=== PATIENT | male | born 1960 | race African-American/Black ===

== ENCOUNTER → 2016-08-24 | Outpatient (CLI) | payer OTHER ==
--- NOTE | 2016-08-24 18:48 | CONS ---
DATE OF CONSULTATION: 56 -year-old male patient who is coming in and is asking for a BiPAP machine as soon as possible, knowing that his previous machine broke approximately nine months ago, and currently he is using a loaner machine that was given to him through [facility]. He is being charged a significant amount of dollars on that loaner machine. More recently he was asked to return the loaner machine and for that reason, he came in immediately for further investigation. The patient claims that his original sleep study was done here in [facility]. Following that, he was given a BiPAP machine as the patient was unable to tolerate the CPAP treatment. Then he moved to [place] and throughout this year he was using his BiPAP regularly without any major difficulties utilizing a full face mask. As the machine broke, the patient has been having difficulties in sleep quality in general. He has been having increased snoring and hypersomnia with sleep fragmentation and chronic tiredness and sleepiness during the day. He goes to bed around midnight, and he wakes up throughout the night while off the treatment and he ultimately gets out of bed at around 10:00 p.m. He wakes up with a dry mouth. No nocturnal palpitations. No nocturnal chest pain or shortness of breath. No depression. No sleep walking. He has symptoms of chronic restless leg syndrome. His current Stowell score is at 21. He prefers to sleep on his side. His weight has been gradually going up over the years and over the past one year he has gained around 20 pounds. No history of any motor vehicle accident because of feeling sleepy or tired. PAST MEDICAL HISTORY: 1. Obstructive sleep apnea, maintained on BiPAP therapy on outpatient basis. 2. Carpal tunnel disease. 3. Degenerative arthritis. 4. Thoracic aortic aneurysm. 5. Hypertension. 6. Coronary disease. 7. Chronic obstructive pulmonary disease. 8. Chronic renal failure. 9. Hyperlipidemia. 10. Generalized anxiety disorder. 11. Obesity. 12. Diabetes mellitus. Past surgical history includes hemorrhoid surgery, arthroscopic knee surgery on the right. ALLERGIES: Drug allergies are not known. HE IS ALLERGIC TO POLLEN. HE HAS HAYFEVER AND HE IS ALLERGIC TO VARIOUS MOLD. HE IS VERY SENSITIVE ALSO TO PERFUME. Outpatient medication list includes: 1. Albuterol nebulized treatments 3 times a day as needed. 2. Xanax 1 mg as needed. 3. Aspirin 81 mg p.o. daily. 4. Coreg 25 mg twice a day. 5. Vitamin D 50,000 units once a week. 6. Cyclobenzaprine 10 mg on a p.r.n. basis. 7. Colace on a p.r.n. basis. 8. Enalapril 20 mg p.o. daily. 9. Flonase 50 mcg nasally. 10. Lasix 80 mg p.o. daily. 11. Klor-Con 20 mEq p.o. daily. 12. Lidocaine 5%. 13. Metformin 5 mg p.o. b.i.d. 14. Nitro-Dur 0.4 mg p.o. daily. 15. Datil 10/325, 1 tablet every 6 hours on a p.r.n. basis. 16. Pepcid 20 mg p.o. daily. 17. Zocor 40 mg p.o. daily. 18. Simvastatin 40 mg p.o. daily. 19. Ventolin a p.r.n. basis. SOCIAL HISTORY: Nonsmoker. No history of alcoholism. No history of IV drugs. FAMILY HISTORY: Negative for any sleep breathing disorder. REVIEW OF SYSTEMS: Twelve-point review of systems was done. Positive findings were all mentioned above in the history of present illness. His current vital signs: His blood pressure is 134/78, pulse 84, respirations 20, temperature 98.3, saturation 94% on room air. Weight is 306. Neck size 18-1/2 inches, BMI is 49.3 Stowell score is 21. GENERAL APPEARANCE: Obese, calm, comfortable. HEENT: Short neck, crowding posterior pharynx with Mallampati class IV. LUNGS: Diminished breath sounds; otherwise clear. Heart sounds are regular rate and rhythm. Normal S1/S2. No murmurs. ABDOMEN: Obese, soft, nontender. Organs cannot be palpated. EXTREMITIES: Trace edema. There is no cyanosis or clubbing at this point. IMPRESSION: 1. Symptomatic obstructive sleep apnea. The patient is in for re-evaluation with the understanding that his previous BiPAP machine had broken and he has a loaner machine that was given to him through [facility]. He was going to lose his loaner machine and he needs to be reevaluated and set up with another BiPAP machine. 2. Obesity with a body mass index of 49.3. 3. Hypersomnia. Stowell score of 21. 4. Coronary artery disease. 5. Chronic obstructive pulmonary disease. 6. Hypertension. 7. Thoracic aortic aneurysm. 8. Diabetes mellitus. 9. Chronic renal failure. 10. Generalized anxiety disorder. 11. Hyperlipidemia. PLAN: 1. Encourage weight loss. 2. Improve sleep hygiene measures. 3. Proceed with a split-night study, during which the presence and severity of sleep apnea will be confirmed and following that, the patient will be offered a CPAP/BiPAP titration and hopefully this will be enough to proceed with treatment. 4. Tight control of cardiovascular risk factors. 5. Will continue to follow and make further recommendations.
== END | disposition home or self-care (01) ==
CPT/HCPCS: 99204; 99211

== ENCOUNTER → 2016-11-02 | Outpatient (CLI) | payer OTHER ==
--- NOTE | 2016-11-02 19:13 | PN ---
56-year-old male patient diagnosed having severe SHARRON with an AHI of 50 and currently he is on a BiPAP pressure of 18/14 centimeters of water. The patient is coming in for compliancy check. He is doing great and he has seen significant amount of benefit from the BiPAP treatment. He is coming in for a compliancy check. His main complaint is leaks around the mask as the patient is using a comfort Gel blue full face mask. In fact, the compliance data shows increased leak around the mask, which is in the order of 120 L/min. However, he is very compliant. He is using his CPAP more than 4 hours 100% of the time. His average CPAP use is 7.4 hours and his AHI is down to 5.9. He is much more alert and awake during the day and he has no other new complaints for now. BP is 154/83, pulse 86, respirations 16, temperature 98.2. Weight is 311, saturation 95% on room air. GENERAL APPEARANCE: Obese, calm, comfortable. HEENT: Short neck. Crowding of posterior pharynx. There is no goiter, neck mass. LUNGS: Clear to auscultation. HEART: Sounds are regular rate and rhythm, normal S1, S2. No S3, no S4, no murmurs. ABDOMEN: Soft, nontender. No organomegaly. EXTREMITIES: No edema. No cyanosis, or clubbing. IMPRESSION: 1. Symptomatic obstructive sleep apnea, severe, with an AHI of 50, currently on a BiPAP 18/14 centimeters of water with good clinical response and compliance. 2. Leaks around the full face mask. 3. Morbid obesity. 4. Hypersomnia, improved with BiPAP therapy. 5. Gastroesophageal reflux disease. 6. Diabetes mellitus. 7. Chronic renal failure. 8. Thoracic aortic aneurysm. 9. Hypertension. 10. Chronic obstructive pulmonary disease. 11. Coronary artery disease. PLAN: 1. Continue BiPAP at the same level of pressure 18/14 centimeters of water. 2. Switch this patient to an AirFit F10 fullface mask to improve his leak and improve his compliance. 3. See me back in the office in 3 months' for re-evaluation.
== END | disposition home or self-care (01) ==
LOC: SLEEP 14:03
PROVIDERS: ATTEND Internal Medicine Critical Care Medicine
DX: G47.33 Obstructive sleep apnea (adult) (pediatric) (principal); E66.01 Morbid (severe) obesity due to excess calories; G47.10 Hypersomnia, unspecified; K21.9 Gastro-esophageal reflux disease without esophagitis; E11.9 Type 2 diabetes mellitus without complications; N18.9 Chronic kidney disease, unspecified; I71.2 Thoracic aortic aneurysm, without rupture; I10 Essential (primary) hypertension; J44.9 Chronic obstructive pulmonary disease, unspecified; I25.10 Atherosclerotic heart disease of native coronary artery without angina pectoris

== ENCOUNTER 2016-11-08 01:19 | Emergency (ER) | payer OTHER ==
[2016-11-08] MEDS ORDERED: SODIUM CHLORIDE 0.9% 500 ML IV SCH (01:45)
[2016-11-08] MEDS ORDERED: ACETAMINOPHEN TAB 500 MG TAB PO STA (01:45)
[2016-11-08 01:47] VITALS: RESP 18
--- NOTE | 2016-11-08 01:49 | ED ---
General Adult HPI - General Chief complaint: Fever Stated complaint: fever Time Seen by Provider: 11/08/16 01:33 Source: patient, family, RN notes reviewed Mode of arrival: wheelchair Limitations: no limitations - History of Present Illness Initial comments: Patient is a pleasant 56-year-old male presenting to the emergency department for fever. Onset was tonight. Patient did take Motrin around an hour ago. Patient was warm and sweaty. Patient does feel somewhat short of breath. No cough. No recent rhinorrhea. Patient has had diarrhea for the past day or so, 5 or 6 times daily. Patient does have some right knee pain and swelling which is fairly chronic for him. No calf pain. - Related Data Home Medications Medication Instructions Recorded Confirmed ALPRAZolam [Xanax] 1 mg PO TID PRN 06/26/16 11/08/16 Albuterol Inhaler [Ventolin Hfa 2 puff INHALATION RT-Q4H PRN 06/26/16 11/08/16 Inhaler] Aspirin 325 mg PO DAILY 06/26/16 11/08/16 Carvedilol 25 mg PO BID 06/26/16 11/08/16 Cyclobenzaprine [Flexeril] 10 mg PO BID PRN 06/26/16 11/08/16 Docusate [Colace] 100 mg PO DAILY PRN 06/26/16 11/08/16 Enalapril [Vasotec] 20 mg PO BID 06/26/16 11/08/16 Ergocalciferol [Vitamin D2 50,000 unit PO Q7D 06/26/16 11/08/16 (DRISDOL)] Finasteride [Proscar] 5 mg PO DAILY 06/26/16 11/08/16 Fluticasone Nasal [place] [Flonase 1 spray EA NOSTRIL BID 06/26/16 11/08/16 Nasal [place]] Furosemide [Lasix] 80 mg PO DAILY 06/26/16 11/08/16 HYDROcodone/APAP 10-325MG [Graham 1 tab PO QID PRN 06/26/16 11/08/16 10-325] Ibuprofen [Motrin] 800 mg PO TID PRN 06/26/16 11/08/16 Lidocaine 2% Gel [Xylocaine Jelly 1 applic TOPICAL DAILY PRN 11/19/16 04/03/17 2%] Potassium Chloride [K-Tab ER] 10 meq PO BID 06/26/16 11/08/16 Simvastatin [Zocor] 40 mg PO DAILY 06/26/16 11/08/16 Tamsulosin HCl [Flomax] 0.4 mg PO DAILY 06/26/16 11/08/16 metFORMIN HCL [Glucophage] 500 mg PO BID 06/26/16 11/08/16 Previous Rx's Medication Instructions Recorded Ciprofloxacin HCl [Cipro] 500 mg PO Q12HR #24 tablet 06/28/16 Fluticasone Nasal [place] [Flonase 2 spray EA NOSTRIL DAILY spr 06/29/16 Nasal [place]] Ipratropium-Albuterol Nebulize 3 ml INHALATION RT-Q2H PRN #0 06/29/16 [Duoneb 0.5 mg-3 mg/3 ml Soln] ampul.neb Ipratropium-Albuterol Nebulize 3 ml INHALATION RT-QID ampul.neb 06/29/16 [Duoneb 0.5 mg-3 mg/3 ml Soln] Allergies Allergy/AdvReac Type Severity Reaction Status Date / Time No Known Allergies Allergy Verified 11/08/16 01:27 Review of Systems ROS Statement: Those systems with pertinent positive or pertinent negative responses have been documented in the HPI. ROS Other: All systems not noted in ROS Statement are negative. Constitutional: Reports: fever, chills Eyes: Denies: eye pain ENT: Denies: ear pain Respiratory: Reports: dyspnea Cardiovascular: Denies: chest pain Endocrine: Reports: fatigue Gastrointestinal: Reports: diarrhea. Denies: abdominal pain Genitourinary: Denies: dysuria Musculoskeletal: Reports: arthralgia. Denies: back pain Skin: Denies: rash Neurological: Denies: weakness Past Medical History Past Medical History: Heart Failure, COPD, Diabetes Mellitus, Hyperlipidemia, Hypertension Additional Past Medical History / Comment(s): AAA, cardiomegaly, palpitations History of Any Multi-Drug Resistant Organisms: None Reported Past Surgical History: Orthopedic Surgery Additional Past Surgical History / Comment(s): scope knee rt. Past Anesthesia/Blood Transfusion Reactions: No Reported Reaction Past Psychological History: Anxiety, Depression Smoking Status: Former smoker Past Alcohol Use History: None Reported Past Drug Use History: None Reported - Past Family History Father Family Medical History: Cancer, Diabetes Mellitus General Exam Limitations: no limitations General appearance: alert, in no apparent distress Head exam: Present: atraumatic Eye exam: Present: normal appearance, PERRL ENT exam: Present: normal oropharynx Neck exam: Present: normal inspection. Absent: meningismus Respiratory exam: Present: normal lung sounds bilaterally. Absent: respiratory distress, wheezes, rales Cardiovascular Exam: Present: regular rate, normal rhythm GI/Abdominal exam: Present: soft. Absent: distended, tenderness Extremities exam: Present: other (Right knee with postoperative scars. No erythema. No warmth. Mild tenderness is present. Possible small effusion. Left knee also has possible small effusion.). Absent: pedal edema, calf tenderness Neurological exam: Present: alert Psychiatric exam: Present: normal affect, normal mood Skin exam: Absent: rash, erythema Course Vital Signs 11/08/16 11/08/16 11/08/16 01:23 02:04 02:33 Temperature 100.2 F H 99.0 F Pulse Rate 87 83 Respiratory 18 18 18 Rate Blood Pressure 117/71 129/73 O2 Sat by Pulse 96 99 Oximetry EKG Findings - EKG Comments: EKG Findings:: Normal sinus rhythm at 85. First-degree AV block GA of 204. QRS 100. QT 364. QTC 433. Left axis. Incomplete right bundle-branch block. LVH. No acute ST change. Medical Decision Making - Medical Decision Making Patient reexamined and resting comfortably in bed. Patient feels much better and is symptom-free at this time. Etiology of fever is unknown at this time. Patient and are made aware of this. Patient states his knee discomfort and symptoms are the same as they always are, no change from baseline. Patient is made aware that etiology of fever is likely viral or related to the diarrhea however other sources cannot be completely excluded at this time. Patient is made aware of although unlikely cannot completely rule out early infection of the knee. Patient is offered arthrocentesis however declines and does request discharge. - Lab Data Result diagrams: 11/08/16 01:30 11/08/16 01:30 Lab Results 11/08/16 11/08/16 11/08/16 Range/Units 01:30 01:30 01:30 WBC 5.8 (3.8-10.6) k/uL RBC 5.09 (4.30-5.90) m/uL Hgb 14.6 (13.0-17.5) gm/dL Hct 45.0 (39.0-53.0) % MCV 88.3 (80.0-100.0) fL MCH 28.6 (25.0-35.0) pg MCHC 32.4 (31.0-37.0) g/dL RDW 14.8 (11.5-15.5) % Plt Count 218 (150-450) k/uL Neutrophils % 69 % Lymphocytes % 14 % Monocytes % 10 % Eosinophils % 4 % Basophils % 0 % Neutrophils # 4.0 (1.3-7.7) k/uL Lymphocytes # 0.8 L (1.0-4.8) k/uL Monocytes # 0.6 (0-1.0) k/uL Eosinophils # 0.2 (0-0.7) k/uL Basophils # 0.0 (0-0.2) k/uL PT (9.0-12.0) sec INR (<1.1) APTT (22.0-30.0) sec Sodium 137 (137-145) mmol/L Potassium 4.2 (3.5-5.1) mmol/L Chloride 101 (98-107) mmol/L Carbon Dioxide 24 (22-30) mmol/L Anion Gap 12 mmol/L BUN 18 (9-20) mg/dL Creatinine 0.90 (0.66-1.25) mg/dL Est GFR (MDRD) Af Amer >60 (>60 ml/min/1.73 sqM) Est GFR (MDRD) Non-Af >60 (>60 ml/min/1.73 sqM) Glucose 112 H (74-99) mg/dL Plasma Lactic Acid Song (0.7-2.0) mmol/L Calcium 9.3 (8.4-10.2) mg/dL Total Bilirubin 0.5 (0.2-1.3) mg/dL AST 40 (17-59) U/L ALT 45 (21-72) U/L Alkaline Phosphatase 58 (38-126) U/L Total Protein 7.5 (6.3-8.2) g/dL Albumin 4.1 (3.5-5.0) g/dL Influenza Type A RNA Not Detected (Not Detectd) Influenza Type B (PCR) Not Detected (Not Detectd) 11/08/16 11/08/16 Range/Units 01:30 01:30 WBC (3.8-10.6) k/uL RBC (4.30-5.90) m/uL Hgb (13.0-17.5) gm/dL Hct (39.0-53.0) % MCV (80.0-100.0) fL MCH (25.0-35.0) pg MCHC (31.0-37.0) g/dL RDW (11.5-15.5) % Plt Count (150-450) k/uL Neutrophils % % Lymphocytes % % Monocytes % % Eosinophils % % Basophils % % Neutrophils # (1.3-7.7) k/uL Lymphocytes # (1.0-4.8) k/uL Monocytes # (0-1.0) k/uL Eosinophils # (0-0.7) k/uL Basophils # (0-0.2) k/uL PT 11.2 (9.0-12.0) sec INR 1.1 (<1.1) APTT 26.6 (22.0-30.0) sec Sodium (137-145) mmol/L Potassium (3.5-5.1) mmol/L Chloride (98-107) mmol/L Carbon Dioxide (22-30) mmol/L Anion Gap mmol/L BUN (9-20) mg/dL Creatinine (0.66-1.25) mg/dL Est GFR (MDRD) Af Amer (>60 ml/min/1.73 sqM) Est GFR (MDRD) Non-Af (>60 ml/min/1.73 sqM) Glucose (74-99) mg/dL Plasma Lactic Acid Song 1.5 (0.7-2.0) mmol/L Calcium (8.4-10.2) mg/dL Total Bilirubin (0.2-1.3) mg/dL AST (17-59) U/L ALT (21-72) U/L Alkaline Phosphatase (38-126) U/L Total Protein (6.3-8.2) g/dL Albumin (3.5-5.0) g/dL Influenza Type A RNA (Not Detectd) Influenza Type B (PCR) (Not Detectd) - Radiology Data Radiology results: image reviewed (X-ray of the right knee shows marked tricompartment degenerative changes. Effusion is present with loose bodies. Chest x-ray shows no acute abnormality.) Disposition Clinical Impression: Fever Disposition: HOME SELF-CARE Condition: Stable Instructions: Fever in Adults (ED) Additional Instructions: Please follow-up with your doctor tomorrow. Return for uncontrolled fever, shortness of breath, knee or joint swelling or redness or warmth or increased pain, worsening symptoms or any other concerns. [id number] Tylenol or Motrin as needed. Referrals: Nonstaff,Physician [Primary Care Provider] - 1-2 days
[2016-11-08 02:03] LABS: Basophils % (A) 0 %; CH 28.1; Eosinophils # (A) 0.2 k/uL (0-0.7); Eosinophils % (A) 4 %; HDW 2.38; HGB 14.6 gm/dL (13.0-17.5); Luc # (Auto) 0.21; Luc % (Auto) 4; Lymphocytes # (A) 0.8 k/uL (1.0-4.8); Lymphocytes % (A) 14 %; MCH 28.6 pg (25.0-35.0); MCHC 32.4 g/dL (31.0-37.0); MCV 88.3 fL (80.0-100.0); Mean Platelet Volume 7.7; Monocytes # (A) 0.6 k/uL (0-1.0); Monocytes % (A) 10 %; Neutrophils % (A) 69 %; RBC 5.09 m/uL (4.30-5.90); RDW 14.8 % (11.5-15.5); WBC 5.8 k/uL (3.8-10.6); WBC (Perox) 6.14
[2016-11-08 02:14] LABS: ALT 45 U/L (21-72); AST 40 U/L (17-59); Alkaline Phosphatase 58 U/L (38-126); Anion Gap 12 mmol/L; Blood Urea Nitrogen 18 mg/dL (9-20); Calcium 9.3 mg/dL (8.4-10.2); Carbon Dioxide 24 mmol/L (22-30); Chloride 101 mmol/L (98-107); Glucose 112 mg/dL (74-99); Non-African American GFR(MDRD) >60 (>60 ml/min/1.73 sqM); Potassium 4.2 mmol/L (3.5-5.1); Sodium 137 mmol/L (137-145); Total Bilirubin 0.5 mg/dL (0.2-1.3); Total Protein 7.5 g/dL (6.3-8.2)
[2016-11-08 02:18] LABS: INR 1.1 (<1.1); Partial Thromboplastin Time 26.6 sec (22.0-30.0); Prothrombin Time 11.2 sec (9.0-12.0)
--- NOTE | 2016-11-08 02:31 | XR ---
EXAM: XR Chest, 2 Views. CLINICAL HISTORY: Reason: Fever TECHNIQUE: Frontal and lateral views of the chest. COMPARISON: Chest x-ray dated 06/26/2016 FINDINGS: Lungs: Prominence of the interstitium likely secondary to low lung volumes. Pleural space: Unremarkable. No pneumothorax. Heart: Unremarkable. No cardiomegaly. Mediastinum: Unremarkable. Bones/joints: Degenerative changes of the spine. Vasculature: Tortuosity of the thoracic aorta, which is unchanged. Prominence of the pulmonary vasculature. IMPRESSION: No acute findings.
--- NOTE | 2016-11-08 02:40 | XR ---
EXAM: XR Right Knee, 3 views. CLINICAL HISTORY: Pain TECHNIQUE: Three views of the right knee. COMPARISON: No relevant prior studies available. FINDINGS: Bones/joints: Marked tricompartment degenerative changes. No evidence of fracture or malalignment. Moderate-sized joint effusion with loose bodies noted. Small quadraceps enthesophyte. Soft tissues: Mild soft tissue swelling about the anterior knee, which is nonspecific. IMPRESSION: 1. Marked tricompartment degenerative changes. No evidence of fracture or malalignment. 2. Moderate-sized joint effusion with loose bodies noted.
--- NOTE | 2016-11-08 03:35 | ED ---
Medical Decision Making - Medical Decision Making Patient now would like synovial fluid testing done and is agreeable to procedure. Procedure done without complications. Sent to lab for analysis. Patient again reevaluated and remains symptom free. Still no shortness of breath. Patient updated on arthrocentesis results. - Lab Data Result diagrams: 11/08/16 01:30 11/08/16 01:30 Lab Results 11/08/16 11/08/16 11/08/16 Range/Units 01:30 01:30 01:30 WBC 5.8 (3.8-10.6) k/uL RBC 5.09 (4.30-5.90) m/uL Hgb 14.6 (13.0-17.5) gm/dL Hct 45.0 (39.0-53.0) % MCV 88.3 (80.0-100.0) fL MCH 28.6 (25.0-35.0) pg MCHC 32.4 (31.0-37.0) g/dL RDW 14.8 (11.5-15.5) % Plt Count 218 (150-450) k/uL Neutrophils % 69 % Lymphocytes % 14 % Monocytes % 10 % Eosinophils % 4 % Basophils % 0 % Neutrophils # 4.0 (1.3-7.7) k/uL Lymphocytes # 0.8 L (1.0-4.8) k/uL Monocytes # 0.6 (0-1.0) k/uL Eosinophils # 0.2 (0-0.7) k/uL Basophils # 0.0 (0-0.2) k/uL PT (9.0-12.0) sec INR (<1.1) APTT (22.0-30.0) sec Sodium 137 (137-145) mmol/L Potassium 4.2 (3.5-5.1) mmol/L Chloride 101 (98-107) mmol/L Carbon Dioxide 24 (22-30) mmol/L Anion Gap 12 mmol/L BUN 18 (9-20) mg/dL Creatinine 0.90 (0.66-1.25) mg/dL Est GFR (MDRD) Af Amer >60 (>60 ml/min/1.73 sqM) Est GFR (MDRD) Non-Af >60 (>60 ml/min/1.73 sqM) Glucose 112 H (74-99) mg/dL Plasma Lactic Acid Song (0.7-2.0) mmol/L Calcium 9.3 (8.4-10.2) mg/dL Total Bilirubin 0.5 (0.2-1.3) mg/dL AST 40 (17-59) U/L ALT 45 (21-72) U/L Alkaline Phosphatase 58 (38-126) U/L Total Protein 7.5 (6.3-8.2) g/dL Albumin 4.1 (3.5-5.0) g/dL Urine Color Urine Appearance (Clear) Urine pH (5.0-8.0) Ur Specific Lockhart (1.001-1.035) Urine Protein (Negative) Urine Glucose (UA) (Negative) Urine Ketones (Negative) Urine Blood (Negative) Urine Nitrite (Negative) Urine Bilirubin (Negative) Urine Urobilinogen (<2.0) mg/dL Ur Leukocyte Esterase (Negative) Urine RBC (0-5) /hpf Urine WBC (0-5) /hpf Urine Mucus (None) /hpf Fluid Source Fluid Color Fluid Appearance Fluid RBC /uL Fluid Nucleated Cells /uL Fluid Polynuclear WBCs % Fluid Mononuclear WBCs % Influenza Type A RNA Not Detected (Not Detectd) Influenza Type B (PCR) Not Detected (Not Detectd) 11/08/16 11/08/16 11/08/16 Range/Units 01:30 01:30 03:35 WBC (3.8-10.6) k/uL RBC (4.30-5.90) m/uL Hgb (13.0-17.5) gm/dL Hct (39.0-53.0) % MCV (80.0-100.0) fL MCH (25.0-35.0) pg MCHC (31.0-37.0) g/dL RDW (11.5-15.5) % Plt Count (150-450) k/uL Neutrophils % % Lymphocytes % % Monocytes % % Eosinophils % % Basophils % % Neutrophils # (1.3-7.7) k/uL Lymphocytes # (1.0-4.8) k/uL Monocytes # (0-1.0) k/uL Eosinophils # (0-0.7) k/uL Basophils # (0-0.2) k/uL PT 11.2 (9.0-12.0) sec INR 1.1 (<1.1) APTT 26.6 (22.0-30.0) sec Sodium (137-145) mmol/L Potassium (3.5-5.1) mmol/L Chloride (98-107) mmol/L Carbon Dioxide (22-30) mmol/L Anion Gap mmol/L BUN (9-20) mg/dL Creatinine (0.66-1.25) mg/dL Est GFR (MDRD) Af Amer (>60 ml/min/1.73 sqM) Est GFR (MDRD) Non-Af (>60 ml/min/1.73 sqM) Glucose (74-99) mg/dL Plasma Lactic Acid Song 1.5 (0.7-2.0) mmol/L Calcium (8.4-10.2) mg/dL Total Bilirubin (0.2-1.3) mg/dL AST (17-59) U/L ALT (21-72) U/L Alkaline Phosphatase (38-126) U/L Total Protein (6.3-8.2) g/dL Albumin (3.5-5.0) g/dL Urine Color Urine Appearance (Clear) Urine pH (5.0-8.0) Ur Specific [place] (1.001-1.035) Urine Protein (Negative) Urine Glucose (UA) (Negative) Urine Ketones (Negative) Urine Blood (Negative) Urine Nitrite (Negative) Urine Bilirubin (Negative) Urine Urobilinogen (<2.0) mg/dL Ur Leukocyte Esterase (Negative) Urine RBC (0-5) /hpf Urine WBC (0-5) /hpf Urine Mucus (None) /hpf Fluid Source Synovial Fluid Color Red Fluid Appearance [place] [address] /uL Fluid Nucleated Cells 300 /uL Fluid Polynuclear WBCs 85 % Fluid Mononuclear WBCs 15 % Influenza Type A RNA (Not Detectd) Influenza Type B (PCR) (Not Detectd) 11/08/16 Range/Units 03:49 WBC (3.8-10.6) k/uL RBC (4.30-5.90) m/uL Hgb (13.0-17.5) gm/dL Hct (39.0-53.0) % MCV (80.0-100.0) fL MCH (25.0-35.0) pg MCHC (31.0-37.0) g/dL RDW (11.5-15.5) % Plt Count (150-450) k/uL Neutrophils % % Lymphocytes % % Monocytes % % Eosinophils % % Basophils % % Neutrophils # (1.3-7.7) k/uL Lymphocytes # (1.0-4.8) k/uL Monocytes # (0-1.0) k/uL Eosinophils # (0-0.7) k/uL Basophils # (0-0.2) k/uL PT (9.0-12.0) sec INR (<1.1) APTT (22.0-30.0) sec Sodium (137-145) mmol/L Potassium (3.5-5.1) mmol/L Chloride (98-107) mmol/L Carbon Dioxide (22-30) mmol/L Anion Gap mmol/L BUN (9-20) mg/dL Creatinine (0.66-1.25) mg/dL Est GFR (MDRD) Af Amer (>60 ml/min/1.73 sqM) Est GFR (MDRD) Non-Af (>60 ml/min/1.73 sqM) Glucose (74-99) mg/dL Plasma Lactic Acid Song (0.7-2.0) mmol/L Calcium (8.4-10.2) mg/dL Total Bilirubin (0.2-1.3) mg/dL AST (17-59) U/L ALT (21-72) U/L Alkaline Phosphatase (38-126) U/L Total Protein (6.3-8.2) g/dL Albumin (3.5-5.0) g/dL Urine Color Yellow Urine Appearance Clear (Clear) Urine pH 5.5 (5.0-8.0) Ur Specific [place] 1.032 (1.001-1.035) Urine Protein 1+ H (Negative) Urine Glucose (UA) Negative (Negative) Urine Ketones Negative (Negative) Urine Blood Negative (Negative) Urine Nitrite Negative (Negative) Urine Bilirubin Negative (Negative) Urine Urobilinogen 2.0 (<2.0) mg/dL Ur Leukocyte Esterase Negative (Negative) Urine RBC 1 (0-5) /hpf Urine WBC 2 (0-5) /hpf Urine Mucus Many H (None) /hpf Fluid Source Fluid Color Fluid Appearance Fluid RBC /uL Fluid Nucleated Cells /uL Fluid Polynuclear WBCs % Fluid Mononuclear WBCs % Influenza Type A RNA (Not Detectd) Influenza Type B (PCR) (Not Detectd) Disposition Clinical Impression: Fever Disposition: HOME SELF-CARE Condition: Stable Instructions: Fever in Adults (ED) Additional Instructions: Please follow-up with your doctor tomorrow. Return for uncontrolled fever, shortness of breath, knee or joint swelling or redness or warmth or increased pain, worsening symptoms or any other concerns. [id number] Tylenol or Motrin as needed. Referrals: Nonstaff,Physician [Primary Care Provider] - 1-2 days Procedures - Joint Aspiration/Injection Consent Obtained: verbal consent Time Out Performed: Yes Indications: R/O septic arthritis Side of Body: right Joint Aspirated: knee Skin Prep: Povidone-Iodine1% Local Anesthesia Used: Lidocaine 1% Needle Size Used: 18G Syringe Size Used: 20cc Fluid Obtained: bloody (Some blood associated) Patient Tolerated Procedure: well Complications: none
[2016-11-08 04:04] LABS: Appearance,Urine Clear (Clear); Bilirubin,Urine Negative (Negative); Glucose,Urine (UA) Negative (Negative); Ketones,Urine Negative (Negative); Leukocyte Esterase,Urine Negative (Negative); Mucus,Urine Many /hpf; Nitrite,Urine Negative (Negative); PH, Urine 5.5 (5.0-8.0); Particle Count 19172; Protein,Urine 1+ (Negative); RBC,Urine 1 /hpf (0-5); Specific Gravity,Urine 1.032 (1.001-1.035); UA Billing (MACRO vs. MICRO) MICRO; WBC,Urine 2 /hpf (0-5)
[2016-11-08] MEDS ORDERED: MORPHINE SULFATE 4 MG/ML SYRINGE IVP STA (04:13)
[2016-11-08 04:32] LABS: RBC, Body Fluid 53375 /uL
[2016-11-08 05:50] VITALS: BP 128/78; PULSE 78; TEMP 97.7
[2016-11-08 07:34] LABS: Synovial Crystal Source Right Knee
== END 2016-11-08 05:51 | disposition home or self-care (01) ==
LOC: EC 01:19
DX: M17.11 Unilateral primary osteoarthritis, right knee (principal); J44.9 Chronic obstructive pulmonary disease, unspecified; E11.9 Type 2 diabetes mellitus without complications; E78.5 Hyperlipidemia, unspecified; I10 Essential (primary) hypertension; I50.9 Heart failure, unspecified; Z87.891 Personal history of nicotine dependence; Z79.82 Long term (current) use of aspirin; Z79.899 Other long term (current) drug therapy; Z79.84 Long term (current) use of oral hypoglycemic drugs; Z86.79 Personal history of other diseases of the circulatory system
CPT/HCPCS: 36415; 93005; 89060; 80053; 89050; 83605; 85025; 85610; 85730; 81001; 87040; 87070; 87086; 87205; 87502; 71020; 73562; 99284; 20610; 96374; 96361 ×4; J2270; 82945; 84157

== ENCOUNTER 2016-12-17 17:46 | Emergency (ER) | payer OTHER ==
[2016-12-17 18:14] VITALS: TEMP 97.8
--- NOTE | 2016-12-17 18:48 | ED ---
Recheck HPI - General Chief Complaint: Recheck/Abnormal Lab/Rx Stated Complaint: HYPERTENSION Time Seen by Provider: 12/17/16 18:20 Source: patient, RN notes reviewed, old records reviewed Mode of arrival: ambulatory Limitations: no limitations - History of Present Illness Initial Comments: This is a 56 year old male with chief complaint of elevated blood pressure for one month, he takes his BP everyday and it has been measuring 150/116, but today it was worse and was 176/116. Patient states that he also has chronic right knee pain, denies any fever or chills. Patient states that he is occasionally short of breath. States that he takes lasix, enalapril and carvedilol for blood pressure and that he has been taking it regularly. States that he has been eating more fast food. Denies any chest pain, abdominal pain, anusea, vomiting, headache. - Related Data Home Medications Medication Instructions Recorded Confirmed ALPRAZolam [Xanax] 1 mg PO TID PRN 06/26/16 12/17/16 Albuterol Inhaler [Ventolin Hfa 2 puff INHALATION RT-Q4H PRN 06/26/16 12/17/16 Inhaler] Aspirin 325 mg PO DAILY 06/26/16 12/17/16 Carvedilol 25 mg PO BID 06/26/16 12/17/16 Cyclobenzaprine [Flexeril] 10 mg PO BID PRN 06/26/16 12/17/16 Docusate [Colace] 100 mg PO DAILY PRN 06/26/16 12/17/16 Enalapril [Vasotec] 20 mg PO BID 06/26/16 12/17/16 Ergocalciferol [Vitamin D2 50,000 unit PO MO 06/26/16 12/17/16 (DRISDOL)] Finasteride [Proscar] 5 mg PO DAILY 06/26/16 12/17/16 Fluticasone Nasal Hunt [Flonase 1 spray EA NOSTRIL BID 06/26/16 12/17/16 Nasal Hunt] Furosemide [Lasix] 80 mg PO DAILY 06/26/16 12/17/16 HYDROcodone/APAP 10-325MG [[place] 1 tab PO QID PRN 06/26/16 12/17/16 10-325] Ibuprofen [Motrin] 800 mg PO TID PRN 06/26/16 12/17/16 Lidocaine 2% Gel [Xylocaine Jelly 1 applic TOPICAL DAILY PRN 06/26/16 12/17/16 2%] Simvastatin [Zocor] 40 mg PO DAILY 06/26/16 12/17/16 Tamsulosin HCl [Flomax] 0.4 mg PO DAILY 06/26/16 12/17/16 metFORMIN HCL [Glucophage] 500 mg PO DAILY 06/26/16 12/17/16 Potassium Chloride [Klor-Con 20] 20 meq PO DAILY 12/17/16 12/17/16 Previous Rx's Medication Instructions Recorded Ipratropium-Albuterol Nebulize 3 ml INHALATION RT-QID ampul.neb 06/29/16 [Duoneb 0.5 mg-3 mg/3 ml Soln] Allergies Allergy/AdvReac Type Severity Reaction Status Date / Time No Known Allergies Allergy Verified 12/17/16 18:59 Review of Systems ROS Statement: Those systems with pertinent positive or pertinent negative responses have been documented in the HPI. ROS Other: All systems not noted in ROS Statement are negative. Past Medical History Past Medical History: Heart Failure, COPD, Diabetes Mellitus, Hyperlipidemia, Hypertension Additional Past Medical History / Comment(s): AAA, cardiomegaly, palpitations History of Any Multi-Drug Resistant Organisms: None Reported Past Surgical History: Orthopedic Surgery Additional Past Surgical History / Comment(s): scope knee rt. Past Anesthesia/Blood Transfusion Reactions: No Reported Reaction Past Psychological History: Anxiety, Depression Smoking Status: Former smoker Past Alcohol Use History: None Reported Past Drug Use History: None Reported - Past Family History Father Family Medical History: Cancer, Diabetes Mellitus General Exam - General Exam Comments Initial Comments: Well appearing 56 year old male, no distress. Limitations: no limitations General appearance: alert, in no apparent distress Head exam: Present: atraumatic, normocephalic, normal inspection Eye exam: Present: normal appearance, PERRL, EOMI. Absent: scleral icterus, conjunctival injection, periorbital swelling ENT exam: Present: normal exam, mucous membranes moist Neck exam: Present: normal inspection. Absent: tenderness, meningismus, lymphadenopathy Respiratory exam: Present: normal lung sounds bilaterally. Absent: respiratory distress, wheezes, rales, rhonchi, stridor Cardiovascular Exam: Present: regular rate, normal rhythm, normal heart sounds. Absent: systolic murmur, diastolic murmur, rubs, gallop, clicks GI/Abdominal exam: Present: soft, normal bowel sounds. Absent: distended, tenderness, guarding, rebound, rigid Extremities exam: Present: normal inspection, full ROM, normal capillary refill. Absent: tenderness, pedal edema, joint swelling, calf tenderness Back exam: Present: normal inspection Neurological exam: Present: alert, oriented X3, CN II-XII intact Psychiatric exam: Present: normal affect, normal mood Skin exam: Present: warm, dry, intact, normal color. Absent: rash Course Vital Signs 12/17/16 12/17/16 18:11 22:01 Temperature 97.8 F Pulse Rate 87 78 Respiratory 20 18 Rate Blood Pressure 177/89 134/65 O2 Sat by Pulse 97 98 Oximetry Medical Decision Making - Medical Decision Making This is a 56 year old male with chief complaint of elevated blood pressure for one month, he takes his BP everyday and it has been measuring 150/116, but today it was worse and was 176/116. Patient states that he also has chronic right knee pain, denies any fever or chills. Patient states that he is occasionally short of breath. States that he takes lasix, enalapril and carvedilol for blood pressure and that he has been taking it regularly. States that he has been eating more fast food. Denies any chest pain, abdominal pain, anusea, vomiting, headache. Labs were reviewed and patient BP was 140/86 on examination. Labs are negative, EKG shows no siginficant changes, and patient denies any symptoms. Discussed that patient blood pressure is in an acetable range, that patient should check his blood pressure before drinking coffee in the morning. PAtient agrees to treatment plan and will comply. Patient will see Dr. Sanford in regards to further treatment. REturn prameters discussed. - Lab Data Result diagrams: 12/17/16 19:29 12/17/16 19:29 Lab Results 12/17/16 12/17/16 12/17/16 Range/Units 19:29 19:29 19:29 WBC 6.9 (3.8-10.6) k/uL RBC 5.38 (4.30-5.90) m/uL Hgb 15.0 (13.0-17.5) gm/dL Hct 47.1 (39.0-53.0) % MCV 87.5 (80.0-100.0) fL MCH 27.9 (25.0-35.0) pg MCHC 31.8 (31.0-37.0) g/dL RDW 14.5 (11.5-15.5) % Plt Count 231 (150-450) k/uL Neutrophils % 56 % Lymphocytes % 30 % Monocytes % 6 % Eosinophils % 3 % Basophils % 1 % Neutrophils # 3.9 (1.3-7.7) k/uL Lymphocytes # 2.1 (1.0-4.8) k/uL Monocytes # 0.4 (0-1.0) k/uL Eosinophils # 0.2 (0-0.7) k/uL Basophils # 0.1 (0-0.2) k/uL Sodium 135 L (137-145) mmol/L Potassium 4.6 (3.5-5.1) mmol/L Chloride 97 L (98-107) mmol/L Carbon Dioxide 27 (22-30) mmol/L Anion Gap 11 mmol/L BUN 17 (9-20) mg/dL Creatinine 0.95 (0.66-1.25) mg/dL Est GFR (MDRD) Af Amer >60 (>60 ml/min/1.73 sqM) Est GFR (MDRD) Non-Af >60 (>60 ml/min/1.73 sqM) Glucose 141 H (74-99) mg/dL Calcium 9.8 (8.4-10.2) mg/dL Total Bilirubin 0.4 (0.2-1.3) mg/dL AST 50 (17-59) U/L ALT 40 (21-72) U/L Alkaline Phosphatase 68 (38-126) U/L Troponin I 0.020 (0.000-0.034) ng/mL Total Protein 7.6 (6.3-8.2) g/dL Albumin 4.3 (3.5-5.0) g/dL 12/17/16 21:25 EKG shows sinus rhythm with first-degree AV block. Evidence of otitis deviation. Ventricular rate 73 per minute. LA interval to 10. Care stretching and 6 seconds. QT QTC 378/4:30. No evidence of ST elevation or T- wave inversion. No evidence of atrial or ventricular arrhythmias. - Radiology Data Radiology results: report reviewed CXR negative for any acute process. Disposition Clinical Impression: Episode of hypertension Disposition: HOME SELF-CARE Condition: Good Instructions: Hypertension (ED) Additional Instructions: Patient advised to check blood pressure in the morning before drinking coffee. Patient advised to follow-up with her primary care physician in regards to medication changes. Return to emergency department if any alarming signs or symptoms occur. Referrals: Dorinda Sanford MD [Primary Care Provider] - 1-2 days Time of Disposition: 21:24
--- NOTE | 2016-12-17 20:01 | XR ---
EXAMINATION TYPE: XR chest 2V DATE OF EXAM: 12/17/2016 7:42 PM COMPARISON: 11/08/2016 HISTORY: Hypertension TECHNIQUE: Frontal and lateral views of the chest are obtained. FINDINGS: There is no heart failure nor confluent pneumonic infiltrate. There are no hilar masses. C ostophrenic angles are clear. Thoracic aorta is atheromatous. IMPRESSION: No active cardiopulmonary disease. No change.
[2016-12-17 20:38] LABS: Basophils # (A) 0.1 k/uL (0-0.2); Basophils % (A) 1 %; CH 28.7; Eosinophils # (A) 0.2 k/uL (0-0.7); Eosinophils % (A) 3 %; HCT 47.1 % (39.0-53.0); HDW 2.45; Luc # (Auto) 0.27; Luc % (Auto) 4; Lymphocytes # (A) 2.1 k/uL (1.0-4.8); Lymphocytes % (A) 30 %; MCH 27.9 pg (25.0-35.0); MCHC 31.8 g/dL (31.0-37.0); MCV 87.5 fL (80.0-100.0); Mean Platelet Volume 7.4; Monocytes # (A) 0.4 k/uL (0-1.0); Monocytes % (A) 6 %; Neutrophils # (A) 3.9 k/uL (1.3-7.7); Neutrophils % (A) 56 %; RBC 5.38 m/uL (4.30-5.90); RDW 14.5 % (11.5-15.5); WBC 6.9 k/uL (3.8-10.6); WBC (Perox) 6.17
[2016-12-17 20:48] LABS: ALT 40 U/L (21-72); AST 50 U/L (17-59); Alkaline Phosphatase 68 U/L (38-126); Anion Gap 11 mmol/L; Blood Urea Nitrogen 17 mg/dL (9-20); Calcium 9.8 mg/dL (8.4-10.2); Carbon Dioxide 27 mmol/L (22-30); Chloride 97 mmol/L (98-107); Glucose 141 mg/dL (74-99); Non-African American GFR(MDRD) >60 (>60 ml/min/1.73 sqM); Potassium 4.6 mmol/L (3.5-5.1); Sodium 135 mmol/L (137-145); Total Bilirubin 0.4 mg/dL (0.2-1.3); Total Protein 7.6 g/dL (6.3-8.2)
[2016-12-17 22:01] VITALS: BP 134/65; PULSE 78; RESP 18
== END 2016-12-17 21:30 | disposition home or self-care (01) ==
LOC: EC 17:46
DX: I10 Essential (primary) hypertension (principal); R06.02 Shortness of breath; M25.561 Pain in right knee; G89.29 Other chronic pain; E11.9 Type 2 diabetes mellitus without complications; E78.5 Hyperlipidemia, unspecified; I11.0 Hypertensive heart disease with heart failure; I50.9 Heart failure, unspecified; J44.9 Chronic obstructive pulmonary disease, unspecified; F32.9 Major depressive disorder, single episode, unspecified; F41.9 Anxiety disorder, unspecified; Z87.891 Personal history of nicotine dependence; Z79.84 Long term (current) use of oral hypoglycemic drugs; Z79.82 Long term (current) use of aspirin; Z79.899 Other long term (current) drug therapy; Z79.51 Long term (current) use of inhaled steroids
CPT/HCPCS: 36415; 71020; 80053; 84484; 85025; 93005; 99284

== ENCOUNTER → 2017-02-01 | Outpatient (CLI) | payer OTHER ==
--- NOTE | 2017-02-04 13:45 | PN ---
A 56-year-old -[place] male patient coming in for CPAP compliancy follow up and check. The patient was diagnosed as having severe SHARRON with AHI of 5. I gave him BiPAP at pressure of 18/14 cm of water. During his last evaluation he was found to have significant amount of air leaks around his mask and he was switched from a Simplus mask to an AirFit F10 full-face mask. His leak has improved; however, he is still having considerable amount of leak, which is estimated to be around 100 L/min. Despite this his treatment is successful. His AHI is down to 5 while on treatment.He is averaging around 6.5 hours of BiPAP use every night and his BiPAP use more than 4 hours is 28 out of 30. He is waking up alert and awake and refreshed. He is having arthritic pain in his right knee. He is ultimately going to need a pulmonary clearance knowing that he is contemplating surgery at a later stage. He will be seen by [facility]. He wanted also a pulmonary evaluation and for that reason I asked the patient to present to the Pulmonary Clinic. His primary care physician is in [place], [place] and he has not established himself with anybody here in town. BP is 119/80, pulse 82, respirations 16, temperature 98, saturation 95% on room air. Height is 5 foot 6, weight 314. Wingate score is 2 and BMI is 49.9. GENERAL APPEARANCE: Obese, calm, comfortable. HEENT: Short neck, Mallampati class IV. There is no goiter or neck masses. LUNGS: Diminished, otherwise clear. HEART: Sounds are regular rate and rhythm. No S1, S2. ABDOMEN: Soft, nontender. No organomegaly. EXTREMITIES: No edema or cyanosis or clubbing. IMPRESSION: 1. Symptomatic obstructive sleep apnea, AHI of 5 currently on BiPAP of 18/14 cm of water. 2. Improving CPAP compliance. 3. Ongoing leaks while being on AirFit F10 full face mask although the leak factor is improved. 4. Morbid obesity with body mass index of 49.9. 5. Thoracic aortic aneurysm. 6. Chronic renal failure. 7. Diabetes mellitus. 8. Gastroesophageal reflux disease. 9. Hypertension. 10. Chronic obstructive pulmonary disease. 11. Coronary artery disease. PLAN: 1. Continue BiPAP at the same level of pressure. 2. Despite the increased leak the patient is happy with the AirFit F10 and no change in his mask interface to be done. 3. Treatment is successful in terms of his AHI being less than 5 while on treatment and the patient will see me back in the Pulmonary Clinic for a preop pulmonary evaluation and clearance should he undergo a knee surgery. Will continue to follow. LESLIE
== END | disposition home or self-care (01) ==
LOC: SLEEP 13:41
PROVIDERS: ATTEND Internal Medicine Critical Care Medicine
DX: G47.33 Obstructive sleep apnea (adult) (pediatric) (principal); E66.01 Morbid (severe) obesity due to excess calories; Z68.42 Body mass index [BMI] 45.0-49.9, adult

== ENCOUNTER → 2017-02-15 | Outpatient (CLI) | payer OTHER ==
[2017-02-15 10:42] LABS: Appearance,Urine Clear (Clear); Bilirubin,Urine Negative (Negative); Glucose,Urine (UA) Negative (Negative); Ketones,Urine Negative (Negative); Leukocyte Esterase,Urine Negative (Negative); Nitrite,Urine Negative (Negative); PH, Urine 6.5 (5.0-8.0); Protein,Urine Trace (Negative); Specific Gravity,Urine 1.026 (1.001-1.035); UA Billing (MACRO vs. MICRO) CHEM
[2017-02-15 10:43] LABS: CH 28.6; CHCM 32.1; HCT 43.7 % (39.0-53.0); HDW 2.39; HGB 14.3 gm/dL (13.0-17.5); MCH 29.3 pg (25.0-35.0); MCHC 32.7 g/dL (31.0-37.0); MCV 89.5 fL (80.0-100.0); Mean Platelet Volume 7.9; RBC 4.88 m/uL (4.30-5.90); RDW 14.7 % (11.5-15.5); WBC 4.7 k/uL (3.8-10.6)
[2017-02-15 10:53] LABS: Prothrombin Time 10.4 sec (9.0-12.0)
[2017-02-15 11:02] LABS: ALT 55 U/L (21-72); AST 42 U/L (17-59); Alkaline Phosphatase 60 U/L (38-126); Anion Gap 9 mmol/L; Blood Urea Nitrogen 15 mg/dL (9-20); Calcium 9.4 mg/dL (8.4-10.2); Carbon Dioxide 31 mmol/L (22-30); Chloride 100 mmol/L (98-107); Glucose 97 mg/dL (74-99); Non-African American GFR(MDRD) >60 (>60 ml/min/1.73 sqM); Potassium 4.8 mmol/L (3.5-5.1); Sodium 140 mmol/L (137-145); Total Bilirubin 0.5 mg/dL (0.2-1.3); Total Protein 7.3 g/dL (6.3-8.2)
== END | disposition home or self-care (01) ==
LOC: LABPAT 10:29
PROVIDERS: ATTEND Orthopaedic Surgery
DX: Z01.810 Encounter for preprocedural cardiovascular examination (principal); Z01.812 Encounter for preprocedural laboratory examination
CPT/HCPCS: 80053; 81003; 85027; 85610; 85730; 87070; 93005

== ENCOUNTER → 2017-02-15 | Outpatient (CLI) | payer OTHER ==
--- NOTE | 2017-02-15 14:13 | CT ---
EXAMINATION TYPE: CT angio chest DATE OF EXAM: 02/15/2017 COMPARISON: 10/08/2013 HISTORY: 56-year-old male follow-up Ascending thoracic aneurysm TECHNIQUE: Contiguous axial scanning of the chest performed without and with IV Contrast, patient inj ected with 100 ml mL of Visipaque 320. The scan was repeated after initial failure of 100 mL Omnipaqu e 300 IV contrast due to uncontrolled patient breathing. Coronal/sagittal MIP performed. 3-D reconstr uctions generated on a dedicated independent workstation. CT DLP: 3437.90 mGycm Automated exposure control for dose reduction was used. FINDINGS: The heart is normal size without pericardial effusion. There is no evidence for acute intramural hematoma or aortic dissection. Ascending aorta measures 4.3 cm versus 4.5 cm on 10/08/2013. Mild atherosclerotic arch calcifications with variant direct takeoff of the left vertebral artery dir ectly from the aortic arch. Upper descending thoracic aorta measures 2.9 cm. Lower descending thoracic aorta measures 2.4 cm. Some calcified right hilar lymph nodes compatible with prior granulomatous disease. No thoracic lymph adenopathy by CT size criteria. Some minimal strandy atelectasis/scarring in the lower lungs. Calcified granuloma at the right apex a nd is stable noncalcified 6 mm pulmonary nodule at the right midlung. Stability from 2013 is compatib le with a benign etiology. Small to moderate-sized hernia. Visualized upper abdomen shows a tiny splenule. Bones: Endplate spondylosis mid to lower thoracic spine. Some bridging changes compatible with DISH. IMPRESSION: 1. STABLE ASCENDING AORTIC ANEURYSM AT 4.3 CM. 2. PRIOR GRANULOMATOUS DISEASE. A 6 MM NONCALCIFIED RIGHT MIDLUNG PULMONARY NODULE IS ALSO STABLE AND BENIGN. 3. SMALL TO MODERATE SIZED HIATAL HERNIA AND DISH.
== END | disposition home or self-care (01) ==
LOC: RADCTMAIN 09:40
PROVIDERS: ATTEND Thoracic Surgery (Cardiothoracic Vascular Surgery)
DX: I71.2 Thoracic aortic aneurysm, without rupture (principal); D71 Functional disorders of polymorphonuclear neutrophils; R91.1 Solitary pulmonary nodule
CPT/HCPCS: 71275; 36415; Q9967

== ENCOUNTER 2017-03-15 14:15 | Inpatient (IN) | payer OTHER ==
[2017-03-08 13:27] VITALS: BMI 48.0
[2017-05-10] MEDS ORDERED: ACETAMINOPHEN TAB 500 MG TAB PO ONE (05:00)
[2017-05-10] MEDS ORDERED: TRANEXAMIC ACID 1,000 MG in SODIUM CHLORIDE 0.9% 100 ML IVPB ONE ×4 (05:00)
[2017-05-10] MEDS ORDERED: MELOXICAM 7.5 MG TAB PO ONE (05:00)
[2017-05-10] MEDS ORDERED: ceFAZolin 3 GM in SODIUM CHLORIDE 0.9% 100 ML IVPB ONE (05:00)
[2017-05-10] MEDS ORDERED: ONDANSETRON 4 MG/2 ML VIAL IVP ONE (05:25)
[2017-05-10] MEDS ORDERED: HYDROmorphone 0.5 MG/0.5 ML SYRINGE IVP PRN ×2 (05:25→11:38)
[2017-05-10] MEDS ORDERED: DEXAMETHASONE SOD PHOSPHATE 10 MG/ML 1 ML VIAL IV ONE (05:25)
[2017-05-10] MEDS ORDERED: MIDAZOLAM 2 MG/2 ML VIAL IV PRN (05:25)
[2017-05-10] MEDS ORDERED: LIDOCAINE 1% 20 ML VIAL (10MG/ML) FOR IV START INTRADERMA ONE (10:45)
[2017-05-10] MEDS: LACTATED RINGERS 1,000 ML IV SCH (10:45)
[2017-05-10 10:53] LABS: Glucose,Whole Blood 106 mg/dL (75-99)
[2017-05-10 11:10] LABS: Potassium 4.8 mmol/L (3.5-5.1)
[2017-05-10] MEDS ORDERED: MAGNESIUM HYDROXIDE 2,400 MG/10 ML CUP PO PRN (11:38)
[2017-05-10] MEDS ORDERED: BISACODYL 10 MG SUPP RECTAL PRN (11:38)
[2017-05-10] MEDS ORDERED: HYDROcodone/APAP 7.5-325MG 1 EACH TAB PO PRN (11:38)
[2017-05-10] MEDS ORDERED: DIAZEPAM 5 MG TAB PO PRN ×2 (11:38)
[2017-05-10] MEDS ORDERED: NALOXONE 0.4 MG/ML 1 ML VIAL IV PRN (11:38)
[2017-05-10] MEDS ORDERED: NA PHOS,M-B/NA PHOS,DI-BA 133 ML ENEMA RECTAL PRN (11:38)
[2017-05-10] MEDS ORDERED: ONDANSETRON 4 MG/2 ML VIAL IVP PRN (11:38)
[2017-05-10] MEDS ORDERED: SODIUM CHLORIDE 0.9% 1,000 ML IV SCH (11:45)
[2017-05-10] MEDS ORDERED: TRANEXAMIC ACID 1,000 MG/10 ML VIAL ONE (11:52)
[2017-05-10] MEDS ORDERED: fentaNYL (PF) 50 MCG/ML 2 ML AMP ONE (11:52)
[2017-05-10] MEDS ORDERED: PHENYLEPHRINE-0.9% NACL SYG 1 MG/10 ML SYRINGE ONE (11:52)
[2017-05-10] MEDS ORDERED: SODIUM CHLORIDE 0.9% 100 ML BAG ONE (11:52)
[2017-05-10] MEDS ORDERED: MIDAZOLAM 2 MG/2 ML VIAL ONE (11:52)
[2017-05-10] MEDS ORDERED: KETAMINE 10 MG/ML 20 ML VIAL ONE (11:52)
[2017-05-10] MEDS: ROPIVACAINE 246.25 MG, EPINEPHrine 0.5 MG, KETOROLAC 30 MG, cloNIDine HCL/PF 80 MCG, WA... MISCELLANE ONE ×10 (12:29→13:16)
[2017-05-10] MEDS ORDERED: ceFAZolin 3,000 MG in SODIUM CHLORIDE 0.9% IRRIGATIO 3,000 ML IRRIGATION ONE (12:30)
--- NOTE | 2017-05-10 13:27 | P.ONQ ---
Anesthesiology Proc Note - PNB - Peripheral Nerve Block Performed Right Adductor Canal Single Time Out Performed: Yes Procedure Start Time: 10:55 Indication: Acute Post-Operative Pain, Requested by physician Sedation Type: Sedate with meaningful contact maintained Preparation: Sterile Dressing Position: Supine Needle Size: 100mm (4") Needle Gauge: 21 Technique: Ultrasound Injectate: 0.5% Ropivacaine (see comment for volume) (ropi .5% 20cc used) Blood Aspirated: No Pain Paresthesia on Injection Noted: No Resistance on Injection: Normal Events: Uneventful and Well Tolerated
--- NOTE | 2017-05-10 14:00 | P.OP ---
Date of Procedure: 05/10/17 Preoperative Diagnosis: Severe osteoarthritis right knee Postoperative Diagnosis: Severe osteoarthritis right knee Procedure(s) Performed: Right total knee arthroplasty Implants: Welch and Nephew Oxinium femoral component size 6, right Welch & Nephew Katelyn II right nonporous tibial baseplate size 4 Welch & Nephew size 9 mm Legion XLPE dished articular insert, size 3-4 Welch & Nephew Katelyn II resurfacing patellar component, 32 mm All components were cemented using Kitty bone cement.. The articulation is ceramic on polyethylene. Anesthesia: spinal Surgeon: Gigi Heller Yarn Texture Machine Operator #1: Ambika Mishra Estimated Blood Loss (ml): 50 Pathology: other (Bone and cartilage) Condition: stable Disposition: PACU Indications for Procedure: After failure of conservative treatment we discussed the surgical and nonsurgical treatment options at length. Patient wishes to proceed with a total knee arthroplasty. Complications specific to this procedure were discussed at length, including but not limited to infection, bleeding, stiffness , and nerve injury. Patient is aware of all these complications and informed consent was obtained Operative Findings: The operative findings are consistent with severe osteoarthritis of the right knee Description of Procedure: Patient was seen in the preoperative area consent was reviewed and operative site was marked with a skin marker. Patient was then brought to the operating room and given preoperative antibiotics intravenously. A spinal anesthetic was administered by the anesthesia department. A tourniquet was placed on the upper thigh and the lower extremity was prepped and draped in usual sterile fashion. A gram of transexamic acid was given. A universal timeout was then performed which confirmed the patient's name, surgical site, ALLERGIES, and consent. The lower extremity was then exsanguinated and tourniquet was inflated to 350 mmHg. A standard and anterior midline approach to the knee was performed. The skin and subcutaneous tissue was dissected down to the patellar tendon. A medial parapatellar arthrotomy was then performed. The knee was then extended, the patellar was everted, and the knee was again flexed. Anterior horns of both menisci were excised, and a release was performed to the posterior medial aspect of the knee. On gross visual inspection, there was complete loss of articular cartilage in the medial and patellofemoral joint spaces. There was also significant cartilage damage in the lateral compartment. There were multiple periarticular osteophytes which were then removed with a Ronguer. The femoral canal was then opened with the appropriate drill, and the intramedullary femoral cutting guide was then placed and set for 4 of valgus. The distal femoral cutting block was then pinned in place, and the distal femur was then cut. The cutting block was then removed and the cut was checked for flatness. Next, the sizing guide was then placed and set for 3 external rotation based off of the epicondylar axis and Whitesides line. After the femur was sized, the appropriate 4-in-1 cutting block was then pinned in place. The anterior condyles were cut without notching. The posterior and chamfer cuts were performed while protecting the collateral ligaments. The cutting block was then removed, and the femoral canal was plugged with autologous bone. Attention was then directed to the tibia. The remaining ACL was removed with a Ronguer, and the tibia was then gently subluxed forward with a large bent knee retractor. Any remaining menisci was excised. The posterior lateral corner was cauterized in order to cauterize the lateral geniculate artery. The extra medullary tibial cutting guide was then placed, set for the appropriate rotation , slope, and depth of resection. The proximal tibia cutting guide was then pinned in place. Proximal tibia was then cut and sized. Next trials were then placed with the appropriate-sized insert. The knee was able to fully extend and flex to 130 and was stable throughout all range of motion. The knee was then extended, patella everted. Patella was then measured, and then using an osteotomy guide, the patella was cut at the appropriate level. The patella was then measured and drilled and the patella trial was then placed. The knee was then taken through range of motion with the patella trial and the patella tracked normally. The knee was then extended patella trial was then removed and the patella was everted. Knee was then flexed and lug holes were drilled through the femoral trial and the femoral trial was then removed. The tibial was then exposed, and the tibial broach guide was then pinned in place after it was set for the appropriate rotation to allow for the most coverage without overhang. The tibia was then reamed and broached. The cut surfaces of bone were then irrigated with pulsatile lavage. The posterior structures were injected with the ropivacaine solution. The knee was also irrigated with Irrisept solution. The components were then opened, the cement was mixed, and the components were then cemented in place. The cement was allowed to harden with the knee in full extension. While the cement was hardening, the remaining soft tissues were then injected with a ropivacaine solution, which consisted of 246.25 mg of ropivacaine, 0.5 mg of epinephrine, 30 mg of Toradol, 80 g of clonidine, and 48.45 mL of sterile water, for a total of 100 mL of fluid injected. After the cemented hardened. The tourniquet was released, and hemostasis was obtained. A second gram of transexamic acid was given. The knee was again irrigated. The knee was again taken through range of motion and found to be stable throughout all range of motion of 0-130 , and the patella tracked normally. The fascia was then closed with #2 strata fix suture. The subcutaneous tissue was closed with 3-0 Vicryl and 3-0 strata fix. Dermabond was used for the skin and placed with the knee in flexion. The patient was placed in a sterile aquacell dressing. Patient was then transferred to recovery room in stable condition. The bar assistant CAROLYN Boggs was required due the complexity surgery and the need for a skilled executive sales assistant. She assisted in positioning, draping, retraction, and closure of the wound.
--- NOTE | 2017-05-10 14:27 | XR ---
Right knee limited HISTORY: Postop right knee 2 views of the right knee correlated to prior exam dated 11/08/2016 Patient is status post right knee arthroplasty. There is anatomic alignment. Lucency in the soft tiss ues is likely postoperative. Possible small joint effusion. IMPRESSION: Orthopedic follow-up.
[2017-05-10 14:29] LABS: Glucose,Whole Blood 123 mg/dL (75-99)
[2017-05-10] MEDS ORDERED: NITROGLYCERIN SL TABS 0.4 MG TAB SUBLINGUAL PRN (15:06)
[2017-05-10] MEDS ORDERED: DOCUSATE 100 MG CAP PO PRN (15:06)
[2017-05-10] MEDS ORDERED: ALPRAZolam 0.5 MG TAB PO PRN (15:06)
[2017-05-10] MEDS ORDERED: MELATONIN 5 MG TABLET PO PRN (15:06)
--- NOTE | 2017-05-10 16:19 | P.CONS ---
History of Present Illness - Reason for Consult management of hypertension, congestive heart failure. - History of Present Illness patient is admitted for right knee arthroplasty patient's x-ray underwent surgery as I'm immediate postoperative period patient was drowsy although patient denied any shortness of breath, chest pain, nausea, vomiting, abdominal pain. And the patient has multiple other medical problems his appropriate medications were reconciled. Patient post surgery did not pass gas yet. Review of Systems REVIEW OF SYSTEMS: CONSTITUTIONAL: No fever, no malaise, no fatigue. HEENT: No recent visual problems or hearing problems. Denied any sore throat. CARDIOVASCULAR: No chest pain, orthopnea, PND, no palpitations, no syncope. PULMONARY: No shortness of breath, no cough, no hemoptysis. GASTROINTESTINAL: No diarrhea, no nausea, no vomiting, no abdominal pain. Normoactive bowel sounds. NEUROLOGICAL: No headaches, no weakness, no numbness. HEMATOLOGICAL: Denies any bleeding or petechiae. GENITOURINARY: Denies any burning micturition, frequency, or urgency. MUSCULOSKELETAL/RHEUMATOLOGICAL: Denies any joint pain, swelling, or any muscle pain. ENDOCRINE: Denies any polyuria or polydipsia. The rest of the 14-point review of systems is negative. Past Medical History Past Medical History: Heart Failure, COPD, Diabetes Mellitus, GERD/Reflux, Hyperlipidemia, Hypertension, Osteoarthritis (OA), Prostate Disorder, Sleep Apnea/CPAP/BIPAP Additional Past Medical History / Comment(s): ASCENDING THORACIC ANEURYSM, Palpitations, "LEAKY VALVE." USES BI PAP MACHINE, CONSTIPATION. EDEMA ANKLES. History of Any Multi-Drug Resistant Organisms: None Reported Past Surgical History: Orthopedic Surgery Additional Past Surgical History / Comment(s): ARTHROSCOPIC RIGHT KNEE - EXC GLASS, HEMORRHOIDECTOMY. COLONOSCOPY. Past Anesthesia/Blood Transfusion Reactions: Previous Problems w/ Anesthesia Additional Past Anesthesia/Blood Transfusion Reaction / Comm: AWAKE DURING SURGERY, IN PAIN. Smoking Status: Former smoker - Past Family History Father Family Medical History: Cancer, Diabetes Mellitus Mother Family Medical History: Cancer Medications and Allergies Home Medications Medication Instructions Recorded Confirmed Type ALPRAZolam [Xanax] 1 mg PO TID PRN 06/26/16 05/09/17 History Albuterol Inhaler [Ventolin Hfa 2 puff INHALATION RT-Q4H PRN 06/26/16 05/09/17 History Inhaler] Carvedilol 25 mg PO BID 06/26/16 05/09/17 History Cyclobenzaprine [Flexeril] 10 mg PO BID PRN 06/26/16 05/09/17 History Docusate [Colace] 100 mg PO DAILY PRN 06/26/16 05/09/17 History Enalapril [Vasotec] 20 mg PO BID 06/26/16 05/09/17 History Ergocalciferol [Vitamin D2 50,000 unit PO MO 06/26/16 05/09/17 History (DRISDOL)] Fluticasone Nasal [place] [Flonase 1 spray EA NOSTRIL BID 06/26/16 05/09/17 History Nasal [place]] Furosemide [Lasix] 80 mg PO DAILY 06/26/16 05/09/17 History HYDROcodone/APAP 10-325MG [[place] 1 tab PO QID PRN 06/26/16 05/09/17 History 10-325] Ibuprofen [Motrin] 800 mg PO TID PRN 06/26/16 05/09/17 History Lidocaine 2% Gel [Xylocaine Jelly 1 applic TOPICAL DAILY PRN 06/26/16 05/09/17 History 2%] Simvastatin [Zocor] 40 mg PO HS 06/26/16 05/09/17 History Tamsulosin HCl [Flomax] 0.4 mg PO DAILY 06/26/16 05/09/17 History metFORMIN HCL [Glucophage] 500 mg PO DAILY 06/26/16 05/09/17 History Ipratropium-Albuterol Nebulize 3 ml INHALATION RT-QID ampul.neb 06/29/16 Rx [Duoneb 0.5 mg-3 mg/3 ml Soln] Potassium Chloride [Klor-Con 20] 20 meq PO DAILY 12/17/16 05/09/17 History Nitroglycerin Sl Tabs [Nitrostat] 0.4 mg SUBLINGUAL Q5M PRN 03/08/17 05/09/17 History Melatonin 5 mg PO HS 05/06/17 05/09/17 History Albuterol Nebulized [Ventolin 2.5 mg INHALATION RT-Q4H PRN 05/09/17 05/10/17 History Nebulized] Cholecalciferol [Vitamin D3] 5,000 unit PO DAILY 05/09/17 05/09/17 History Nitroglycerin [Nitro-Dur 0.4MG/Hr 1 patch TRANSDERM DAILY 05/09/17 05/09/17 History Patch] Aspirin [Adult Low Dose Aspirin EC] 81 mg PO DAILY 05/10/17 05/10/17 History Allergies Allergy/AdvReac Type Severity Reaction Status Date / Time No Known Allergies Allergy Verified 05/10/17 15:42 Physical Exam Vitals: Vital Signs Temp Pulse Pulse Resp BP BP Pulse Ox 05/10/17 15:21 98 F 80 14 126/73 100 05/10/17 14:49 83 16 110/58 99 05/10/17 14:34 81 16 115/58 94 L 05/10/17 14:19 76 16 115/56 96 05/10/17 14:04 97.6 F 75 21 110/57 95 05/10/17 11:10 74 16 133/75 97 05/10/17 10:45 98.7 F 77 16 151/76 98 Intake and Output 05/10/17 05/10/17 05/10/17 06:59 14:59 22:59 Intake Total 901 Output Total 50 Balance 851 Intake: IV 901 Output: Estimated Blood Loss 50 Other: Weight 143.335 kg Patient Weight 05/11/17 06:59 Weight 143.335 kg PHYSICAL EXAMINATION: GENERAL: The patient is alert and oriented x3, not in any acute distress. Well developed, well nourished. HEENT: Pupils are round and equally reacting to light. EOMI. No scleral icterus. No conjunctival pallor. Normocephalic, atraumatic. No pharyngeal erythema. No thyromegaly. CARDIOVASCULAR: S1 and S2 present. No murmurs, rubs, or gallops. PULMONARY: Chest is clear to auscultation, no wheezing or crackles. ABDOMEN: Soft, nontender, nondistended, normoactive bowel sounds. No palpable organomegaly. MUSCULOSKELETAL: deferred to orthopedic surgery EXTREMITIES: No cyanosis, clubbing, or pedal edema. NEUROLOGICAL: Gross neurological examination did not reveal any focal deficits. SKIN: No rashes. Results CBC & Chem 7: 05/10/17 10:40 Labs: Abnormal Lab Results - Last 24 Hours (Table) 05/10/17 05/10/17 Range/Units 10:36 14:19 POC Glucose (mg/dL) 106 H 123 H (75-99) mg/dL Assessment and Plan Plan: #1status post right knee arthroplasty: Pain management and DVT prophylaxis per primary service. #2 congestive heart failure I do not know the ejection fraction but patient is UL of acute this point of time patient may have diastolic dysfunction continue with home dose of Lasix as his kidney function is okay. #3 hypertension: Hold off lisinopril to prevent perioperative hypotension: Regular discontinued. 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 #10 sleep apnea: Patient will continue his CPAP machine
[2017-05-10] MEDS: IPRATROPIUM-ALBUTEROL 3 ML NEB INHALATION SCH ×2 (17:03→21:43)
[2017-05-10] MEDS: ceFAZolin 3 GM in SODIUM CHLORIDE 0.9% 100 ML IVPB SCH (19:48)
[2017-05-10] MEDS: ASPIRIN 325 MG TAB PO SCH (19:49)
[2017-05-10] MEDS: ATORVASTATIN 20 MG TAB PO SCH (19:49)
[2017-05-10] MEDS: SENNOSIDES-DOCUSATE SODIUM 1 EACH TAB PO SCH (19:49)
[2017-05-10] MEDS: CARVEDILOL 12.5 MG TAB PO SCH (19:49)
[2017-05-10] MEDS: HYDROcodone/APAP 7.5-325MG 1 EACH TAB PO PRN (19:49)
[2017-05-11] MEDS: hydrOXYzine PAMOATE 25 MG CAP PO PRN ×4 (00:48→21:45)
[2017-05-11] MEDS: ceFAZolin 3 GM in SODIUM CHLORIDE 0.9% 100 ML IVPB SCH (03:33)
[2017-05-11] MEDS: HYDROcodone/APAP 7.5-325MG 1 EACH TAB PO PRN ×4 (05:07→21:45)
[2017-05-11] MEDS: LACTATED RINGERS 1,000 ML IV SCH (05:42)
[2017-05-11 07:03] LABS: Basophils % (A) 0 %; CH 29.3; CHCM 31.5; Eosinophils % (A) 0 %; HCT 41.8 % (39.0-53.0); HDW 2.35; HGB 12.9 gm/dL (13.0-17.5); Luc # (Auto) 0.19; Luc % (Auto) 2; Lymphocytes # (A) 1.5 k/uL (1.0-4.8); Lymphocytes % (A) 14 %; MCH 28.9 pg (25.0-35.0); MCHC 30.9 g/dL (31.0-37.0); MCV 93.6 fL (80.0-100.0); Mean Platelet Volume 8.7; Monocytes # (A) 0.9 k/uL (0-1.0); Monocytes % (A) 8 %; Neutrophils # (A) 8.5 k/uL (1.3-7.7); Neutrophils % (A) 77 %; RBC 4.47 m/uL (4.30-5.90); RDW 14.8 % (11.5-15.5); WBC 11.1 k/uL (3.8-10.6)
[2017-05-11] MEDS: IPRATROPIUM-ALBUTEROL 3 ML NEB INHALATION SCH ×4 (07:20→20:10)
[2017-05-11] MEDS ORDERED: CYCLOBENZAPRINE 10 MG TAB PO PRN (08:40)
--- NOTE | 2017-05-11 08:43 | P.PN ---
Subjective Progress Note Date: 05/11/17 This 57-year-old male who is status post right total knee arthroplasty. This is postoperative day #1. Patient is seen and evaluated at bedside with Dr. Gigi Heller. Patient states he has not been out of bed yet with physical therapy. Patient states his pain is tolerable with pain medication. Patient denies any numbness, weakness, tingling. Objective - Vital Signs Vital signs: Vital Signs Temp 97.9 F 05/11/17 01:04 Pulse 90 05/11/17 07:32 Resp 17 05/11/17 01:04 BP 149/67 05/11/17 01:04 Pulse Ox 95 05/11/17 01:04 Intake & Output 05/10/17 05/11/17 05/11/17 18:59 06:59 18:59 Intake Total 901 1797.5 Output Total 450 Balance 451 1797.5 Weight 143.335 kg Intake: IV 901 Intake, IV Titration 947.5 Amount Sodium Chloride 0.9% 1, 747.5 000 ml @ 65 mls/hr IV . [id number] [facility] Rx#:[id number] ceFAZolin 3 gm In Sodium 200 Chloride 0.9% 100 ml @ 100 mls/hr IVPB Q8H [facility] Rx#:[id number] Oral 850 Output: Urine 400 Estimated Blood Loss 50 Other: Voiding Method Toilet Toilet Urinal # Voids 2 2 1 - Exam Vital signs are stable. Patient is in no acute distress and is alert and oriented 3. Calf is soft and nontender. Incision with dressing clean, dry, and intact. Neurovascular status intact. Patient has full foot and ankle motion. - Labs CBC & Chem 7: 05/11/17 06:13 05/10/17 10:40 Labs: Abnormal Lab Results - Last 24 Hours (Table) 05/10/17 05/10/17 05/11/17 Range/Units 10:36 14:19 06:13 WBC 11.1 H (3.8-10.6) k/uL Hgb 12.9 L (13.0-17.5) gm/dL MCHC 30.9 L (31.0-37.0) g/dL Neutrophils # 8.5 H (1.3-7.7) k/uL POC Glucose (mg/dL) 106 H 123 H (75-99) mg/dL Assessment and Plan Plan: #1 Continue with routine postoperative care. #2 Anticoagulation with aspirin. #3 Physical therapy and CPM today. #4 Appreciate input from medicine. #5 Anticipate discharge home with home care likely tomorrow.
[2017-05-11] MEDS ORDERED: ASPIRIN 325 MG TAB PO SCH (09:00)
[2017-05-11] MEDS: MELOXICAM 7.5 MG TAB PO SCH (09:18)
[2017-05-11] MEDS: ASPIRIN 325 MG TAB PO SCH ×2 (09:18→21:38)
[2017-05-11] MEDS: TAMSULOSIN 0.4 MG CAP.ER.24H PO SCH (09:18)
[2017-05-11] MEDS: FUROSEMIDE 80 MG TAB PO SCH (09:18)
[2017-05-11] MEDS: CARVEDILOL 12.5 MG TAB PO SCH ×2 (09:18→21:41)
[2017-05-11] MEDS: LISINOPRIL 20 MG TAB PO SCH ×2 (14:19→21:38)
[2017-05-11 14:54] VITALS: RESP 16
--- NOTE | 2017-05-11 15:55 | P.PN ---
Subjective No overnight events patient is clinically doing well Constitutional: Denied any fatigue denied any fever. Cardio vascular: denied any chest pain, palpitations Gastrointestinal denied any nausea vomiting Pulmonary: Denied any shortness of breath cough Neurologic denied any new focal deficits Objective - Vital Signs Vital signs: Vital Signs Temp 98.1 F 05/11/17 14:53 Pulse 94 05/11/17 14:53 Resp 16 05/11/17 14:53 BP 162/85 05/11/17 14:53 Pulse Ox 90 L 05/11/17 14:53 Intake & Output 05/10/17 05/11/17 05/11/17 18:59 06:59 18:59 Intake Total 901 1797.5 180 Output Total 450 Balance 451 1797.5 180 Weight 143.335 kg Intake: IV 901 Intake, IV Titration 947.5 Amount Sodium Chloride 0.9% 1, 747.5 000 ml @ 65 mls/hr IV . [id number] [facility] Rx#:[id number] ceFAZolin 3 gm In Sodium 200 Chloride 0.9% 100 ml @ 100 mls/hr IVPB Q8H [facility] Rx#:[id number] Oral 850 180 Output: Urine 400 Estimated Blood Loss 50 Other: Voiding Method Toilet Toilet Toilet Urinal Urinal # Voids 2 2 3 - Exam GENERAL: The patient is alert and oriented x3, not in any acute distress. Well developed, well nourished. HEENT: Pupils are round and equally reacting to light. EOMI. No scleral icterus. No conjunctival pallor. Normocephalic, atraumatic. No pharyngeal erythema. No thyromegaly. CARDIOVASCULAR: S1 and S2 present. No murmurs, rubs, or gallops. PULMONARY: Chest is clear to auscultation, no wheezing or crackles. ABDOMEN: Soft, nontender, nondistended, normoactive bowel sounds. No palpable organomegaly. MUSCULOSKELETAL: deferred to orthopedic surgery EXTREMITIES: No cyanosis, clubbing, or pedal edema. NEUROLOGICAL: Gross neurological examination did not reveal any focal deficits. SKIN: No rashes. - Labs CBC & Chem 7: 05/11/17 06:13 05/10/17 10:40 Labs: Abnormal Lab Results - Last 24 Hours (Table) 05/11/17 Range/Units 06:13 WBC 11.1 H (3.8-10.6) k/uL Hgb 12.9 L (13.0-17.5) gm/dL MCHC 30.9 L (31.0-37.0) g/dL Neutrophils # 8.5 H (1.3-7.7) k/uL Assessment and Plan Plan: #1status post right knee arthroplasty: Pain management and DVT prophylaxis per primary service. #2 congestive heart failure I do not know the ejection fraction but patient is unknown and not in acute exacerbation at this point of time may have diastolic dysfunction continue with home dose of Lasix as his kidney function is okay. 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 #10 sleep apnea: Patient will continue his CPAP machine
[2017-05-11] MEDS: HYDROmorphone 0.5 MG/0.5 ML SYRINGE IVP PRN (19:58)
[2017-05-11] MEDS: ATORVASTATIN 20 MG TAB PO SCH (21:38)
[2017-05-11] MEDS: SENNOSIDES-DOCUSATE SODIUM 1 EACH TAB PO SCH (21:38)
[2017-05-12] MEDS: hydrOXYzine PAMOATE 25 MG CAP PO PRN (04:05)
[2017-05-12] MEDS: HYDROcodone/APAP 7.5-325MG 1 EACH TAB PO PRN (04:05)
[2017-05-12] MEDS: LACTATED RINGERS 1,000 ML IV SCH (05:22)
[2017-05-12] MEDS: HYDROmorphone 0.5 MG/0.5 ML SYRINGE IVP PRN (06:29)
[2017-05-12 07:26] VITALS: BP 140/78; TEMP 98.9
[2017-05-12] MEDS: IPRATROPIUM-ALBUTEROL 3 ML NEB INHALATION SCH ×2 (07:43→11:41)
[2017-05-12] MEDS: LISINOPRIL 20 MG TAB PO SCH (08:12)
[2017-05-12] MEDS: FUROSEMIDE 80 MG TAB PO SCH (08:12)
[2017-05-12] MEDS: MELOXICAM 7.5 MG TAB PO SCH (08:12)
[2017-05-12] MEDS: ASPIRIN 325 MG TAB PO SCH (08:12)
[2017-05-12] MEDS: CARVEDILOL 12.5 MG TAB PO SCH (08:12)
[2017-05-12] MEDS: TAMSULOSIN 0.4 MG CAP.ER.24H PO SCH (08:13)
[2017-05-12] MEDS ORDERED: HYDROcodone/APAP 10-325MG 1 EACH TAB PO PRN ×2 (08:45)
--- NOTE | 2017-05-12 08:57 | P.DS ---
Providers Date of admission: 05/10/17 09:56 Expected date of discharge: 05/12/17 Attending physician: Gigi Heller Consults: 05/10/17 11:38 Consult Physician Routine Consulting Provider: Heriberto Escudero Consult Reason/Comments: medical management Do you want consulting provider notified?: Yes Primary care physician: Physician Nonstaff - Discharge Diagnosis(es) (1) Primary osteoarthritis of right knee Current Visit: Yes Status: Acute (2) S/P total knee arthroplasty Current Visit: Yes Status: Acute Hospital Course: This is a 57-year-old male with known history of degenerative arthritis of the right knee. The patient presents for evaluation. After discussion and consideration patient elects to proceed with total knee arthroplasty. The patient is seen preoperatively by Dr. Heller and cleared for surgery. Patient is admitted to [facility] on 05/10/2017 for total knee arthroplasty. The procedures performed without complication or sequelae. The patient is doing well postoperatively. Labs and vital signs are stable on day of discharge. On day of discharge patient's knee incision is healing well. There is minimal erythema. There is no drainage noted at this time. There is minimal soft tissue swelling to the knee. Patient has full foot and ankle motion without difficulty or pain. Neurovascular status to the right lower extremity is intact. Patient is discharged home in good condition. Please see med rec for accurate list of home medications. Plan - Discharge Summary New Discharge Prescriptions: New Aspirin 325 mg PO BID #60 tab HYDROcodone/APAP 10-325MG [[place] 10-325] 1 - 2 tab PO Q4-6H PRN #90 tab PRN Reason: Pain Sennosides-Docusate Sodium [Senokot-S] 1 tab PO BID #60 tablet Cyclobenzaprine [Flexeril] 10 mg PO BID #14 tablet No Action metFORMIN HCL [Glucophage] 500 mg PO DAILY Furosemide [Lasix] 80 mg PO DAILY Fluticasone Nasal [place] [Flonase Nasal [place]] 1 spray EA NOSTRIL BID Enalapril [Vasotec] 20 mg PO BID Carvedilol 25 mg PO BID Albuterol Inhaler [Ventolin Hfa Inhaler] 2 puff INHALATION RT-Q4H PRN PRN Reason: Shortness Of Breath ALPRAZolam [Xanax] 1 mg PO TID PRN PRN Reason: Anxiety Ibuprofen [Motrin] 800 mg PO TID PRN PRN Reason: Pain HYDROcodone/APAP 10-325MG [[place] 10-325] 1 tab PO QID PRN PRN Reason: Pain Simvastatin [Zocor] 40 mg PO HS Ergocalciferol [Vitamin D2 (DRISDOL)] 50,000 unit PO MO Cyclobenzaprine [Flexeril] 10 mg PO BID PRN PRN Reason: Muscle Spasm Lidocaine 2% Gel [Xylocaine Jelly 2%] 1 applic TOPICAL DAILY PRN PRN Reason: Pain Docusate [Colace] 100 mg PO DAILY PRN PRN Reason: Constipation Tamsulosin HCl [Flomax] 0.4 mg PO DAILY Ipratropium-Albuterol Nebulize [Duoneb 0.5 mg-3 mg/3 ml Soln] 3 ml INHALATION RT-QID ampul.neb Potassium Chloride [Klor-Con 20] 20 meq PO DAILY Nitroglycerin Sl Tabs [Nitrostat] 0.4 mg SUBLINGUAL Q5M PRN PRN Reason: Chest Pain Melatonin 5 mg PO HS Albuterol Nebulized [Ventolin Nebulized] 2.5 mg INHALATION RT-Q4H PRN PRN Reason: Shortness Of Breath Nitroglycerin [Nitro-Dur 0.4MG/Hr Patch] 1 patch TRANSDERM DAILY Cholecalciferol [Vitamin D3] 5,000 unit PO DAILY Aspirin [Adult Low Dose Aspirin EC] 81 mg PO DAILY Discharge Medication List ALPRAZolam [Xanax] 1 mg PO TID PRN 06/26/16 [History] Albuterol Inhaler [Ventolin Hfa Inhaler] 2 puff INHALATION RT-Q4H PRN 06/26/16 [ History] Carvedilol 25 mg PO BID 06/26/16 [History] Cyclobenzaprine [Flexeril] 10 mg PO BID PRN 06/26/16 [History] Docusate [Colace] 100 mg PO DAILY PRN 06/26/16 [History] Enalapril [Vasotec] 20 mg PO BID 06/26/16 [History] Ergocalciferol [Vitamin D2 (DRISDOL)] 50,000 unit PO MO 06/26/16 [History] Fluticasone Nasal [place] [Flonase Nasal [place]] 1 spray EA NOSTRIL BID 06/26/16 [ History] Furosemide [Lasix] 80 mg PO DAILY 06/26/16 [History] HYDROcodone/APAP 10-325MG [[place] 10-325] 1 tab PO QID PRN 06/26/16 [History] Ibuprofen [Motrin] 800 mg PO TID PRN 06/26/16 [History] Lidocaine 2% Gel [Xylocaine Jelly 2%] 1 applic TOPICAL DAILY PRN 06/26/16 [ History] Simvastatin [Zocor] 40 mg PO HS 06/26/16 [History] Tamsulosin HCl [Flomax] 0.4 mg PO DAILY 06/26/16 [History] metFORMIN HCL [Glucophage] 500 mg PO DAILY 06/26/16 [History] Ipratropium-Albuterol Nebulize [Duoneb 0.5 mg-3 mg/3 ml Soln] 3 ml INHALATION RT -QID ampul.neb 06/29/16 [Rx] Potassium Chloride [Klor-Con 20] 20 meq PO DAILY 12/17/16 [History] Nitroglycerin Sl Tabs [Nitrostat] 0.4 mg SUBLINGUAL Q5M PRN 03/08/17 [History] Melatonin 5 mg PO HS 05/06/17 [History] Albuterol Nebulized [Ventolin Nebulized] 2.5 mg INHALATION RT-Q4H PRN 05/09/17 [ History] Cholecalciferol [Vitamin D3] 5,000 unit PO DAILY 05/09/17 [History] Nitroglycerin [Nitro-Dur 0.4MG/Hr Patch] 1 patch TRANSDERM DAILY 05/09/17 [ History] Aspirin [Adult Low Dose Aspirin EC] 81 mg PO DAILY 05/10/17 [History] Aspirin 325 mg PO BID #60 tab 05/12/17 [Rx] Cyclobenzaprine [Flexeril] 10 mg PO BID #14 tablet 05/12/17 [Rx] HYDROcodone/APAP 10-325MG [[place] 10-325] 1 - 2 tab PO Q4-6H PRN #90 tab [Rx] Sennosides-Docusate Sodium [Senokot-S] 1 tab PO BID #60 tablet 05/12/17 [Rx] Follow up Appointment(s)/Referral(s): [facility], [NON-STAFF] - Gigi Heller DO [Doctor of Osteopathic Medicine] - 2 Weeks Ambulatory/Diagnostic Orders: Continuous Passive Motion (CPM) Machine [DME.AMB1] Time Frame: 2 Weeks, Location : Determined By Patient Activity/Diet/Wound Care/Special Instructions: Weightbearing as tolerated with a walker CPM 5-6h daily Leave dressing intact. May be removed by home care nurse in 7 days. May shower with dressing on. [facility] with questions or concerns [phone] Discharge Disposition: HOME WITH HOME HEALTH SERVICES
[2017-05-12] MEDS ORDERED: metFORMIN 500 MG TAB PO SCH (09:00)
[2017-05-12 11:45] VITALS: PULSE 90
--- NOTE | 2017-05-12 17:11 | P.PN ---
Subjective No overnight events patient is clinically doing well Constitutional: Denied any fatigue denied any fever. Cardio vascular: denied any chest pain, palpitations Gastrointestinal denied any nausea vomiting Pulmonary: Denied any shortness of breath cough Neurologic denied any new focal deficits Objective - Vital Signs Vital signs: Vital Signs Temp 98.9 F 05/12/17 07:00 Pulse 90 05/12/17 12:01 Resp 16 05/12/17 08:20 BP 140/78 05/12/17 07:00 Pulse Ox 96 05/12/17 07:45 Intake & Output 05/11/17 05/12/17 05/12/17 18:59 06:59 18:59 Intake Total 360 500 237 Output Total 1220 Balance 360 -720 237 Weight 143.335 kg Intake: Oral 360 500 237 Output: Urine 1220 Other: Voiding Method Urinal Toilet Toilet Urinal Urinal # Voids 3 1 1 - Exam GENERAL: The patient is alert and oriented x3, not in any acute distress. Well developed, well nourished. HEENT: Pupils are round and equally reacting to light. EOMI. No scleral icterus. No conjunctival pallor. Normocephalic, atraumatic. No pharyngeal erythema. No thyromegaly. CARDIOVASCULAR: S1 and S2 present. No murmurs, rubs, or gallops. PULMONARY: Chest is clear to auscultation, no wheezing or crackles. ABDOMEN: Soft, nontender, nondistended, normoactive bowel sounds. No palpable organomegaly. MUSCULOSKELETAL: deferred to orthopedic surgery EXTREMITIES: No cyanosis, clubbing, or pedal edema. NEUROLOGICAL: Gross neurological examination did not reveal any focal deficits. SKIN: No rashes. - Labs CBC & Chem 7: 05/11/17 06:13 05/10/17 10:40 Assessment and Plan Plan: #1status post right knee arthroplasty: Pain management and DVT prophylaxis per primary service. #2 congestive heart failure I do not know the ejection fraction but patient is unknown and not in acute exacerbation at this point of time may have diastolic dysfunction continue with home dose of Lasix as his kidney function is okay. #3 hypertension: blood pressure is stable today #4 coronary artery disease #5 hyperlipidemia #6 anxiety disorder #7benign prostatic hypertrophy #8 gastroesophageal reflux disease #9 type 2 diabetes mellitus: Patient will be continued on sliding scale insulin metformin can be held at this time. #10 sleep apnea: Patient will continue his CPAP machine patient is clinically doing well can be discharged from medical perspective
== END 2017-05-12 14:00 | disposition home health service (06) | DRG 470 ==
LOC: 2ORMAIN 05-10 09:56 → 3SUR 05-10 14:07
PROVIDERS: ADMIT Orthopaedic Surgery; ATTEND Orthopaedic Surgery
PROC: 0SRC0J9 Replacement of Right Knee Joint with Synthetic Substitute, Cemented, Open Approach (ICD-10-PCS; principal; 2017-05-10 11:30)
DX: M17.11 Unilateral primary osteoarthritis, right knee (principal); I11.0 Hypertensive heart disease with heart failure; I50.32 Chronic diastolic (congestive) heart failure; E11.9 Type 2 diabetes mellitus without complications; E78.5 Hyperlipidemia, unspecified; G47.30 Sleep apnea, unspecified; J44.9 Chronic obstructive pulmonary disease, unspecified; K21.9 Gastro-esophageal reflux disease without esophagitis; Z79.82 Long term (current) use of aspirin; Z79.899 Other long term (current) drug therapy; Z83.3 Family history of diabetes mellitus; Z87.891 Personal history of nicotine dependence; Z79.1 Long term (current) use of non-steroidal anti-inflammatories (NSAID); Z79.84 Long term (current) use of oral hypoglycemic drugs; I25.10 Atherosclerotic heart disease of native coronary artery without angina pectoris; F41.9 Anxiety disorder, unspecified
CPT/HCPCS: 80051; 85025; 88300; 94640; 94760

== ENCOUNTER → 2017-05-07 | Outpatient (CLI) | payer OTHER ==
[2017-05-07 11:36] LABS: CH 28.3; CHCM 30.5; HCT 46.7 % (39.0-53.0); HGB 14.7 gm/dL (13.0-17.5); Hypochromasia Slight; MCH 29.5 pg (25.0-35.0); MCHC 31.6 g/dL (31.0-37.0); MCV 93.4 fL (80.0-100.0); Mean Platelet Volume 7.4; RDW 14.3 % (11.5-15.5); WBC 5.4 k/uL (3.8-10.6)
[2017-05-07 11:38] LABS: Appearance,Urine Clear (Clear); Bilirubin,Urine Negative (Negative); Glucose,Urine (UA) Negative (Negative); Ketones,Urine Negative (Negative); Leukocyte Esterase,Urine Negative (Negative); Nitrite,Urine Negative (Negative); PH, Urine 5.5 (5.0-8.0); Protein,Urine Negative (Negative); Specific Gravity,Urine 1.022 (1.001-1.035); UA Billing (MACRO vs. MICRO) CHEM; Urobilinogen,Urine <2.0 mg/dL (<2.0)
[2017-05-07 11:58] LABS: ALT 40 U/L (21-72); AST 30 U/L (17-59); Alkaline Phosphatase 62 U/L (38-126); Anion Gap 9 mmol/L; Blood Urea Nitrogen 21 mg/dL (9-20); Calcium 9.4 mg/dL (8.4-10.2); Carbon Dioxide 29 mmol/L (22-30); Chloride 99 mmol/L (98-107); Glucose 103 mg/dL (74-99); Non-African American GFR(MDRD) >60 (>60 ml/min/1.73 sqM); Sodium 137 mmol/L (137-145); Total Bilirubin 0.3 mg/dL (0.2-1.3); Total Protein 7.4 g/dL (6.3-8.2)
[2017-05-07 12:08] LABS: Partial Thromboplastin Time 24.6 sec (22.0-30.0); Prothrombin Time 10.5 sec (9.0-12.0)
== END | disposition home or self-care (01) ==
LOC: LABPAT 10:30
PROVIDERS: ATTEND Orthopaedic Surgery
DX: M25.561 Pain in right knee (principal); M17.11 Unilateral primary osteoarthritis, right knee; E11.9 Type 2 diabetes mellitus without complications
CPT/HCPCS: 80053; 81003; 85027; 85610; 85730; 87070

== ENCOUNTER → 2018-02-23 | Outpatient (CLI) | payer OTHER ==
--- NOTE | 2018-02-23 12:33 | CT ---
EXAMINATION TYPE: CT angio chest DATE OF EXAM: 02/23/2018 COMPARISON: 02/15/2017 and 10/08/2006 HISTORY: 57-year-old male follow-up aortic aneurysm TECHNIQUE: Contiguous axial scanning of the chest performed without and with IV Contrast, patient inj ected with 100 mL of Isovue 370. Coronal/sagittal MIP reconstructions performed. CT DLP: 1855.5 mGycm Automated exposure control for dose reduction was used. FINDINGS: Heart normal size without pericardial effusion. The aortic root is mildly aneurysmal at 4.3 cm as measured on coronal series. Previously measured 4.1 cm. Ascending aorta is mildly aneurysmal at 4.1 cm. Previously measured at 4.2 cm. Proximal arch measures 3.7 cm. Variant direct takeoff of the left vertebral artery directly from the aortic arch. Upper descending thoracic aorta measures 2.7 cm. Lower descending thoracic aorta measures 2.3 cm. No evidence for aortic dissection or acute intramural hematoma. Mildly enlarged caliber to the main right and left pulmonary arteries at 2.7 and 2.6 cm, respectively , suggesting pulmonary artery hypertension. Scattered nonenlarged mediastinal lymph nodes. Calcified right hilar lymph nodes. Calcified granuloma at the right apex. Mild dependent atelectasis. 6 mm right mid lung pulmonary nodu le is unchanged from 2007. Also stable is a 6 mm left basilar pulmonary nodule, axial image 40. No co nsolidation or pleural effusion. A small hiatal hernia. Tiny hilar splenule. Bones: Spondylosis mid to lower thoracic spine. IMPRESSION: 1. ESSENTIALLY STABLE ASCENDING AORTIC ANEURYSM WITH THE AORTIC ROOT MEASURING 4.3 CM AND THE MID ASC ENDING AORTA MEASURING 4.1 CM. 2. PULMONARY ARTERIAL HYPERTENSION. 3. STABLE 6 MM PULMONARY NODULE COMPARED TO 2007 COMPATIBLE WITH A BENIGN ETIOLOGY. 4. SMALL HIATAL HERNIA.
== END | disposition home or self-care (01) ==
LOC: RADCTMAIN 09:44
PROVIDERS: ATTEND Thoracic Surgery (Cardiothoracic Vascular Surgery)
DX: I71.2 Thoracic aortic aneurysm, without rupture (principal); I27.20 Pulmonary hypertension, unspecified; R91.1 Solitary pulmonary nodule; K44.9 Diaphragmatic hernia without obstruction or gangrene
CPT/HCPCS: 82565; 84520; 71275; 36415; Q9967

== ENCOUNTER → 2018-08-11 | Outpatient (CLI) | payer OTHER ==
[2018-08-11 12:36] LABS: HGB 15.2 gm/dL (13.0-17.5); MCH 28.9 pg (25.0-35.0); MCHC 31.7 g/dL (31.0-37.0); MCV 91.3 fL (80.0-100.0); Mean Platelet Volume 8.1; Platelet Count 217 k/uL (150-450); RBC 5.26 m/uL (4.30-5.90); RDW 14.6 % (11.5-15.5)
[2018-08-11 18:40] LABS: Albumin 4.4 g/dL (3.80-4.90); Albumin/Globulin Ratio 1.69 (1.20-2.10); Anion Gap 6.8 mmol/L (4.00-12.00); Calcium 9.5 mg/dL (8.7-10.3); Carbon Dioxide 31.2 mmol/L (21.6-31.8); Globulin 2.6 g/dL (1.6-3.3); Potassium 5.2 mmol/L (3.5-5.5); Total Bilirubin 0.2 mg/dL (0.3-1.2)
[2018-08-11 20:18] LABS: Hemoglobin A1C 6.6 % (4.0-6.0)
== END ==
LOC: LABWHC1 10:56
PROVIDERS: ATTEND Internal Medicine
DX: E11.9 Type 2 diabetes mellitus without complications (principal)
CPT/HCPCS: 36415; 80053; 80061; 82043; 82570; 83036; 84153; 84443; 85027

== ENCOUNTER 2018-09-21 11:04 | Inpatient (IN) | payer OTHER ==
[2018-09-21] MEDS ORDERED: NITROGLYCERIN OINT 1 INCH/GM PACKET TOPICAL STA (11:47)
--- NOTE | 2018-09-21 12:32 | ED ---
General Adult HPI - General Chief complaint: Chest Pain Stated complaint: spasms, sob, rt chest pain, left discomfort Time Seen by Provider: 09/21/18 11:30 Source: patient, RN notes reviewed Mode of arrival: ambulatory Limitations: no limitations - History of Present Illness Initial comments: This is a 58-year-old male who presents emergency Department complaining of chest pain. Patient states he's had intermittent chest pain but his been worsening lately. Patient states the pain has not radiated anywhere but he is short of breath with the pain. Patient states exertion seems to make the pain worse per patient denies any diaphoretic episodes. Patient denies any nausea. Patient denies any abdominal pain patient denies any lightheadedness dizziness or near syncopal episode. Patient states she's had the pain on and off a couple of weeks but it seems to be getting progressively worse. Patient states he does have high cholesterol and high blood pressure. Patient also has had some stents. Patient states he has a aortic aneurysm measuring 4.4 cm and he states that people are watching a once here. Patient denies any extremity pain or numbness. - Related Data Home Medications Medication Instructions Recorded Confirmed ALPRAZolam [Xanax] 1 mg PO TID PRN 06/26/16 09/21/18 Albuterol Inhaler [Ventolin Hfa 2 puff INHALATION RT-Q4H PRN 06/26/16 09/21/18 Inhaler] Carvedilol 25 mg PO BID 06/26/16 09/21/18 Docusate [Colace] 100 mg PO DAILY PRN 06/26/16 09/21/18 Enalapril [Vasotec] 20 mg PO BID 06/26/16 09/21/18 Fluticasone Nasal [place] [Flonase 1 spray EA NOSTRIL BID 06/26/16 09/21/18 Nasal [place]] Furosemide [Lasix] 80 mg PO DAILY 06/26/16 09/21/18 Ibuprofen [Motrin] 800 mg PO TID PRN 06/26/16 09/21/18 Simvastatin [Zocor] 40 mg PO HS 06/26/16 09/21/18 Tamsulosin HCl [Flomax] 0.4 mg PO DAILY 06/26/16 09/21/18 metFORMIN HCL [Glucophage] 500 mg PO DAILY 06/26/16 09/21/18 Nitroglycerin Sl Tabs [Nitrostat] 0.4 mg SUBLINGUAL Q5M PRN 03/08/17 09/21/18 Albuterol Nebulized [Ventolin 2.5 mg INHALATION RT-Q6H PRN 05/09/17 09/21/18 Nebulized] Cholecalciferol [Vitamin D3] 5,000 unit PO DAILY 05/09/17 09/21/18 Nitroglycerin [Nitro-Dur 0.4MG/Hr 1 patch TRANSDERM DAILY 05/09/17 09/21/18 Patch] Aspirin [Adult Low Dose Aspirin EC] 81 mg PO DAILY 05/10/17 09/21/18 Famotidine [Pepcid] 20 mg PO DAILY 09/21/18 09/21/18 HYDROcodone/APAP 10-325MG [[place] 1 - 2 tab PO Q6H PRN 09/21/18 09/21/18 10-325] Lidocaine 5% Oint [Xylocaine 5% 1 applic TOPICAL DAILY PRN 09/21/18 09/21/18 Oint] Sulfacetamide Sodium 1 drop BOTH EYES Q6H 09/21/18 09/21/18 [Sulfacetamide Sod 10% Ophth Soln] Previous Rx's Medication Instructions Recorded Cyclobenzaprine [Flexeril] 10 mg PO BID #14 tablet 05/12/17 Allergies Allergy/AdvReac Type Severity Reaction Status Date / Time No Known Allergies Allergy Verified 09/21/18 12:05 Review of Systems ROS Statement: Those systems with pertinent positive or pertinent negative responses have been documented in the HPI. ROS Other: All systems not noted in ROS Statement are negative. Past Medical History Past Medical History: Heart Failure, COPD, Diabetes Mellitus, GERD/Reflux, Hyperlipidemia, Hypertension, Osteoarthritis (OA), Prostate Disorder, Sleep Apnea/CPAP/BIPAP Additional Past Medical History / Comment(s): ASCENDING THORACIC ANEURYSM, Palpitations, "LEAKY VALVE." USES BI PAP MACHINE, CONSTIPATION. EDEMA ANKLES. History of Any Multi-Drug Resistant Organisms: None Reported Past Surgical History: Orthopedic Surgery Additional Past Surgical History / Comment(s): ARTHROSCOPIC RIGHT KNEE - EXC GLASS, HEMORRHOIDECTOMY. COLONOSCOPY. Past Anesthesia/Blood Transfusion Reactions: Previous Problems w/ Anesthesia Additional Past Anesthesia/Blood Transfusion Reaction / Comment(s): AWAKE DURING SURGERY, IN PAIN. Past Psychological History: Anxiety, Depression Smoking Status: Former smoker - Past Family History Father Family Medical History: Cancer, Diabetes Mellitus Mother Family Medical History: Cancer General Exam - General Exam Comments Initial Comments: GENERAL: Patient is well-developed and well-nourished. Patient is nontoxic and well- hydrated and is in mild distress. ENT: Neck is soft and supple. No significant lymphadenopathy is noted. Oropharynx is clear. Moist mucous membranes. Neck has full range of motion without eliciting any pain. EYES: The sclera were anicteric and conjunctiva were pink and moist. Extraocular movements were intact and pupils were equal round and reactive to light. Eyelids were unremarkable. PULMONARY: Unlabored respirations. Good breath sounds bilaterally. No audible rales rhonchi or wheezing was noted. CARDIOVASCULAR: There is a regular rate and rhythm without any murmurs gallops or rubs. She has good radial pulses bilateral. Patient's gait femoral pulses bilateral. ABDOMEN: Soft and nontender with normal bowel sounds. No palpable organomegaly was noted. There is no palpable pulsatile mass. SKIN: Skin is clear with no lesions or rashes and otherwise unremarkable. NEUROLOGIC: Patient is alert and oriented x3. Cranial nerves II through XII are grossly intact. Motor and sensory are also intact. Normal speech, volume and content. Symmetrical smile. MUSCULOSKELETAL: Normal extremities with adequate strength and full range of motion. No lower extremity swelling or edema. No calf tenderness. LYMPHATICS: No significant lymphadenopathy is noted PSYCHIATRIC: Normal psychiatric evaluation. Limitations: no limitations Course Vital Signs 09/21/18 09/21/18 09/21/18 11:32 12:16 12:25 Temperature 98.7 F Pulse Rate 86 81 Pulse Rate [ 85 Bilateral Brachial] Respiratory 18 14 Rate Blood Pressure 144/88 134/80 O2 Sat by Pulse 95 97 Oximetry 09/21/18 14:03 Temperature Pulse Rate 78 Pulse Rate [ Bilateral Brachial] Respiratory 14 Rate Blood Pressure 133/73 O2 Sat by Pulse 98 Oximetry Medical Decision Making - Medical Decision Making EKG shows normal sinus rhythm at 80 bpm IA interval is 208 QRS is 96 Q-T intervals 350 QTC is 412. Patient's EKG shows no ST segment elevation or depression or T wave abnormalities are noted. Chest x-ray shows no acute abnormality. I got a CAT scan of the patient's aorta secondary to the fact that the patient stated he had a thoracic aneurysm at 4.4 cm. Computed tomography scan showed no dissection or leaking however the thoracic aneurysm measured 4.5 cm. Patient continued to have intermittent chest pain while in the emergency department. I started the patient on heparin. I spoke with some physicians agreed to admit the patient admitted the patient I continued heparin and aspirin and Nitropaste on the floor. - Lab Data Result diagrams: 09/21/18 12:07 09/21/18 12:07 Lab Results 09/21/18 09/21/18 09/21/18 Range/Units 12:07 12:07 12:07 WBC 6.6 (3.8-10.6) k/uL RBC 5.14 (4.30-5.90) m/uL Hgb 14.7 (13.0-17.5) gm/dL Hct 46.1 (39.0-53.0) % MCV 89.7 (80.0-100.0) fL MCH 28.6 (25.0-35.0) pg MCHC 31.9 (31.0-37.0) g/dL RDW 14.7 (11.5-15.5) % Plt Count 238 (150-450) k/uL Neutrophils % 57 % Lymphocytes % 27 % Monocytes % 8 % Eosinophils % 4 % Basophils % 1 % Neutrophils # 3.8 (1.3-7.7) k/uL Lymphocytes # 1.8 (1.0-4.8) k/uL Monocytes # 0.5 (0-1.0) k/uL Eosinophils # 0.3 (0-0.7) k/uL Basophils # 0.0 (0-0.2) k/uL PT (9.0-12.0) sec INR (<1.2) APTT (22.0-30.0) sec Sodium 137 (137-145) mmol/L Potassium 5.1 (3.5-5.1) mmol/L Chloride 102 (98-107) mmol/L Carbon Dioxide 27 (22-30) mmol/L Anion Gap 8 mmol/L BUN 21 H (9-20) mg/dL Creatinine 0.92 (0.66-1.25) mg/dL Est GFR (CKD-EPI)AfAm >90 (>60 ml/min/1.73 sqM) Est GFR (CKD-EPI)NonAf >90 (>60 ml/min/1.73 sqM) Glucose 124 H (74-99) mg/dL Calcium 9.3 (8.4-10.2) mg/dL Magnesium 2.1 (1.6-2.3) mg/dL Total Bilirubin 0.4 (0.2-1.3) mg/dL AST 34 (17-59) U/L ALT 48 (21-72) U/L Alkaline Phosphatase 52 (38-126) U/L Total Creatine Kinase 537 H (55-170) U/L CK-MB (CK-2) 4.5 H (0.0-2.4) ng/mL CK-MB (CK-2) Rel Index 0.8 Troponin I 0.017 (0.000-0.034) ng/mL Total Protein 7.5 (6.3-8.2) g/dL Albumin 4.1 (3.5-5.0) g/dL 09/21/18 Range/Units 12:07 WBC (3.8-10.6) k/uL RBC (4.30-5.90) m/uL Hgb (13.0-17.5) gm/dL Hct (39.0-53.0) % MCV (80.0-100.0) fL MCH (25.0-35.0) pg MCHC (31.0-37.0) g/dL RDW (11.5-15.5) % Plt Count (150-450) k/uL Neutrophils % % Lymphocytes % % Monocytes % % Eosinophils % % Basophils % % Neutrophils # (1.3-7.7) k/uL Lymphocytes # (1.0-4.8) k/uL Monocytes # (0-1.0) k/uL Eosinophils # (0-0.7) k/uL Basophils # (0-0.2) k/uL PT 10.4 (9.0-12.0) sec INR 1.0 (<1.2) APTT 24.7 (22.0-30.0) sec Sodium (137-145) mmol/L Potassium (3.5-5.1) mmol/L Chloride (98-107) mmol/L Carbon Dioxide (22-30) mmol/L Anion Gap mmol/L BUN (9-20) mg/dL Creatinine (0.66-1.25) mg/dL Est GFR (CKD-EPI)AfAm (>60 ml/min/1.73 sqM) Est GFR (CKD-EPI)NonAf (>60 ml/min/1.73 sqM) Glucose (74-99) mg/dL Calcium (8.4-10.2) mg/dL Magnesium (1.6-2.3) mg/dL Total Bilirubin (0.2-1.3) mg/dL AST (17-59) U/L ALT (21-72) U/L Alkaline Phosphatase (38-126) U/L Total Creatine Kinase (55-170) U/L CK-MB (CK-2) (0.0-2.4) ng/mL CK-MB (CK-2) Rel Index Troponin I (0.000-0.034) ng/mL Total Protein (6.3-8.2) g/dL Albumin (3.5-5.0) g/dL Critical Care Time Critical Care Time: Yes Total Critical Care Time: 35 Disposition Clinical Impression: Unstable angina pectoris Disposition: ADMITTED IP TO THIS HOSP Referrals: Alex Harrison MD [Primary Care Provider] - 1-2 days Time of Disposition: 15:51
[2018-09-21 12:36] LABS: Basophils % (A) 1 %; Eosinophils # (A) 0.3 k/uL (0-0.7); Eosinophils % (A) 4 %; HCT 46.1 % (39.0-53.0); HGB 14.7 gm/dL (13.0-17.5); Lymphocytes # (A) 1.8 k/uL (1.0-4.8); Lymphocytes % (A) 27 %; MCH 28.6 pg (25.0-35.0); MCHC 31.9 g/dL (31.0-37.0); MCV 89.7 fL (80.0-100.0); Monocytes # (A) 0.5 k/uL (0-1.0); Monocytes % (A) 8 %; Neutrophils # (A) 3.8 k/uL (1.3-7.7); Neutrophils % (A) 57 %; Platelet Count 238 k/uL (150-450); RBC 5.14 m/uL (4.30-5.90); RDW 14.7 % (11.5-15.5); WBC 6.6 k/uL (3.8-10.6)
[2018-09-21 12:47] LABS: ALT 48 U/L (21-72); AST 34 U/L (17-59); Albumin 4.1 g/dL (3.5-5.0); Alkaline Phosphatase 52 U/L (38-126); Anion Gap 8 mmol/L; Blood Urea Nitrogen 21 mg/dL (9-20); Calcium 9.3 mg/dL (8.4-10.2); Carbon Dioxide 27 mmol/L (22-30); Chloride 102 mmol/L (98-107); Glucose 124 mg/dL (74-99); Magnesium 2.1 mg/dL (1.6-2.3); Partial Thromboplastin Time 24.7 sec (22.0-30.0); Potassium 5.1 mmol/L (3.5-5.1); Prothrombin Time 10.4 sec (9.0-12.0); Sodium 137 mmol/L (137-145); Total Bilirubin 0.4 mg/dL (0.2-1.3); Total Protein 7.5 g/dL (6.3-8.2)
[2018-09-21 13:11] LABS: Creatine Kinase MB 4.5 ng/mL (0.0-2.4); Troponin I 0.017 ng/mL (0.000-0.034)
--- NOTE | 2018-09-21 13:43 | XR ---
EXAMINATION TYPE: XR chest 2V DATE OF EXAM: 09/21/2018 COMPARISON: Prior chest x-ray 12/17/2016 HISTORY: Chest pain TECHNIQUE: Frontal and lateral views of the chest are obtained. FINDINGS: There is no focal air space opacity, pleural effusion, or pneumothorax seen. The cardiac silhouette size is within normal limits. The osseous structures are intact. There are cardiac leads . Patient is again rotated. Increased AP diameter of the chest and flattening the hemidiaphragms coul d be indicative of underlying COPD. IMPRESSION: No acute cardiopulmonary process.
--- NOTE | 2018-09-21 15:22 | CT ---
EXAMINATION TYPE: CT angio thor/abd pel aorta DATE OF EXAM: 09/21/2018 COMPARISON: CT abdomen pelvis dated 06/28/2016 HISTORY: Chest pain with shortness of breath CT DLP: 3139.6 mGycm. Automated Exposure Control for Dose Reduction was Utilized. CONTRAST: CT scan of the thorax, abdomen and pelvis is performed without and with IV Contrast, patient injected with 100 mL of Isovue 370. FINDINGS: LUNGS: Benign right upper lobe apical granuloma is present. Right lower lobe 5 mm solid pulmonary nod ules unchanged from the prior of 06/28/2016 seen on image 31. Minimal bibasilar atelectasis is presen t. Subpleural deposition of fat is seen bilaterally. No pleural effusion. No pneumothorax. The trache obronchial tree is patent. MEDIASTINUM: Ascending thoracic aorta is mildly aneurysmal measuring 4.5 cm. Aortic root is within no rmal limits measuring 3.9 cm. Precontrast images demonstrate no evidence of intramural hematoma. Ther e are no greater than 1 cm hilar or mediastinal lymph nodes. No pericardial effusion is seen. On t he enhanced images although there is suboptimal bolus timing there is no gross evidence of dissection of the thoracic aorta or abdominal aorta although evaluation of the common iliac arteries and their branches are suboptimal. There is no evidence of pulmonary embolus or enlargement the main pulmonary artery. Few coronary artery calcifications are seen. LIVER/GB: No cholelithiasis. PANCREAS: No significant abnormality is seen. SPLEEN: No significant abnormality is seen. ADRENALS: No significant abnormality is seen. KIDNEYS: No nephrolithiasis. BOWEL: No dilated large or small bowel. Very small hiatal hernia is redemonstrated. GENITAL ORGANS: Prostate gland is heterogenous and enlarged measuring 5.7 cm in transverse dimension. LYMPH NODES: No greater than 1cm abdominal or pelvic lymph nodes are appreciated. OSSEOUS STRUCTURES: Moderate multilevel degenerative changes of the spine and femoral acetabular join ts are noted. IMPRESSION: 1. Although bolus timing was suboptimal there is no evidence of dissection within the thoracic aorta or abdominal aorta. Evaluation of the common iliac arteries and their branches are suboptimal. 2. No evidence of pulmonary embolus. 3. Ascending thoracic aorta is mildly aneurysmal measuring 4.5 cm.
[2018-09-21] MEDS ORDERED: HEPARIN SODIUM,PORCINE 5,000 UNIT/ML 1 ML VIAL IV ONE (15:49)
[2018-09-21] MEDS ORDERED: NITROGLYCERIN SL TABS 0.4 MG TAB SUBLINGUAL PRN (15:51)
[2018-09-21] MEDS ORDERED: HEPARIN SOD,PORK IN 0.45% NACL 25,000 UNIT in 0.45% NACL 1 250ML.BAG IV SCH (16:00)
[2018-09-21] MEDS ORDERED: ALPRAZolam 1 MG TAB PO PRN (17:10)
[2018-09-21] MEDS ORDERED: DOCUSATE 100 MG CAP PO PRN (17:10)
--- NOTE | 2018-09-21 18:03 | P.HPIM ---
History of Present Illness H&P Date: 09/21/18 Chief Complaint: Chest pain 58-year-old male with PMH of CHF, COPD, diabetes mellitus, GERD, hypertension, sleep apnea, descending thoracic aneurysm presents the ED for chest pain. Patient describes intermittent chest pain over the last 2-3 weeks. This morning he woke up, stood up off the side of the bed and experienced a sudden onset of left-sided chest pain that radiated to the left arm. Pain is 6 out of 10 in severity. Pain lasted for a few minutes. Patient describes the pain as pressure-like in nature. There are no alleviating or aggravating factors. This prompted the patient to come to the ED. Patient reports that the pain is never been intensely previously. He endorses 3 pillow orthopnea. Patient reports seeing Dr. Shea in the past but has been noncompliant with follow-up. Patient also has multiple other complaints. He complains of muscle spasms and soreness all over his body over the past month. Patient reports seeing his PCP and was warned that it could be a side effect of simvastatin. He has since stopped taking that medication. Patient complains of bilateral foot pain. He associates the pain with flat feet and diabetic neuropathy. He also complains of bilateral lower extremity swelling at times that resolves with lower extremity elevation. Patient denies headache, nausea, vomiting, fever, cough, palpitations, changes in urination or bowel habits. No changes in appetite or weight. In the ED, vital signs were within normal limits except for an oxygen saturation of 93% on room air. CBC and Coreg as panel was unremarkable. CMP showed a BUNs of 21 and glucose of 124. CPK was elevated at 537. Initial troponin was 0.017, EKG showing normal sinus rhythm with incomplete RBBB. Thoracic aortic CT showed a stable aneurysm at 4.5 cm and no PE. Patient is admitted for chest pain, rule out acute coronary syndrome, cardiology is on consult. Review of Systems All systems: negative Past Medical History Past Medical History: Heart Failure, COPD, Diabetes Mellitus, GERD/Reflux, Hyperlipidemia, Hypertension, Osteoarthritis (OA), Prostate Disorder, Sleep Apnea/CPAP/BIPAP Additional Past Medical History / Comment(s): ASCENDING THORACIC ANEURYSM, Palpitations, "LEAKY VALVE." USES BI PAP MACHINE, CONSTIPATION. EDEMA ANKLES. History of Any Multi-Drug Resistant Organisms: None Reported Past Surgical History: Orthopedic Surgery Additional Past Surgical History / Comment(s): ARTHROSCOPIC RIGHT KNEE - EXC GLASS, HEMORRHOIDECTOMY. COLONOSCOPY. Past Anesthesia/Blood Transfusion Reactions: Previous Problems w/ Anesthesia Additional Past Anesthesia/Blood Transfusion Reaction / Comment(s): AWAKE DURING SURGERY, IN PAIN. Past Psychological History: Anxiety, Depression Smoking Status: Former smoker - Past Family History Father Family Medical History: Cancer, Diabetes Mellitus Mother Family Medical History: Cancer Medications and Allergies Home Medications Medication Instructions Recorded Confirmed Type ALPRAZolam [Xanax] 1 mg PO TID PRN 06/26/16 09/21/18 History Albuterol Inhaler [Ventolin Hfa 2 puff INHALATION RT-Q4H PRN 06/26/16 09/21/18 History Inhaler] Carvedilol 25 mg PO BID 06/26/16 09/21/18 History Docusate [Colace] 100 mg PO DAILY PRN 06/26/16 09/21/18 History Enalapril [Vasotec] 20 mg PO BID 06/26/16 09/21/18 History Fluticasone Nasal [place] [Flonase 1 spray EA NOSTRIL BID 06/26/16 09/21/18 History Nasal [place]] Furosemide [Lasix] 80 mg PO DAILY 06/26/16 09/21/18 History Ibuprofen [Motrin] 800 mg PO TID PRN 06/26/16 09/21/18 History Simvastatin [Zocor] 40 mg PO HS 06/26/16 09/21/18 History Tamsulosin HCl [Flomax] 0.4 mg PO DAILY 06/26/16 09/21/18 History metFORMIN HCL [Glucophage] 500 mg PO DAILY 06/26/16 09/21/18 History Nitroglycerin Sl Tabs [Nitrostat] 0.4 mg SUBLINGUAL Q5M PRN 03/08/17 09/21/18 History Albuterol Nebulized [Ventolin 2.5 mg INHALATION RT-Q6H PRN 05/09/17 09/21/18 History Nebulized] Cholecalciferol [Vitamin D3] 5,000 unit PO DAILY 05/09/17 09/21/18 History Nitroglycerin [Nitro-Dur 0.4MG/Hr 1 patch TRANSDERM DAILY 05/09/17 09/21/18 History Patch] Aspirin [Adult Low Dose Aspirin EC] 81 mg PO DAILY 05/10/17 09/21/18 History Cyclobenzaprine [Flexeril] 10 mg PO BID #14 tablet 05/12/17 09/21/18 Rx Famotidine [Pepcid] 20 mg PO DAILY 09/21/18 09/21/18 History HYDROcodone/APAP 10-325MG [[place] 1 - 2 tab PO Q6H PRN 09/21/18 09/21/18 History 10-325] Lidocaine 5% Oint [Xylocaine 5% 1 applic TOPICAL DAILY PRN 09/21/18 09/21/18 History Oint] Sulfacetamide Sodium 1 drop BOTH EYES Q6H 09/21/18 09/21/18 History [Sulfacetamide Sod 10% Ophth Soln] Allergies Allergy/AdvReac Type Severity Reaction Status Date / Time No Known Allergies Allergy Verified 09/21/18 12:05 Physical Exam Vitals: Vital Signs Temp Pulse Pulse Resp BP Pulse Ox 09/21/18 17:03 98.1 F 86 18 121/82 96 09/21/18 16:13 98.2 F 81 18 136/87 98 09/21/18 14:03 78 14 133/73 98 09/21/18 12:25 81 14 134/80 97 09/21/18 12:16 85 09/21/18 11:32 98.7 F 86 18 144/88 95 Intake and Output 09/21/18 09/21/18 09/21/18 06:59 14:59 22:59 Other: Weight 165.561 kg General: [non toxic], [no distress], [appears at stated age] Derm: [warm], [dry] Head: [atraumatic], [normocephalic], [symmetric] Eyes: [EOMI], [no lid lag], [anicteric sclera] Mouth: [no lip lesion], [mucus membranes moist] Cardiovascular: [S1S2 reg], [no murmur], [positive DP pulse bilateral] Lungs: [Decreased breath sounds bilateral], [no rhonchi, no rales] , [no accessory muscle use] Abdominal: [soft], [ nontender to palpation], [no guarding], [no appreciable organomegaly], [obese] Ext: [no gross muscle atrophy], [1+ bilateral nonpitting edema], [no contractures] Neuro: [ CN II-XI grossly intact], [no focal neuro deficits] Psych: [Alert], [oriented], [appropriate affect] Results CBC & Chem 7: 09/21/18 12:07 09/21/18 12:07 Labs: Abnormal Lab Results - Last 24 Hours (Table) 09/21/18 09/21/18 Range/Units 12:07 12:07 BUN 21 H (9-20) mg/dL Glucose 124 H (74-99) mg/dL Total Creatine Kinase 537 H (55-170) U/L CK-MB (CK-2) 4.5 H (0.0-2.4) ng/mL Thrombosis Risk Factor Assmnt - Choose All That Apply Any of the Below Risk Factors Present?: Yes Each Factor Represents 1 point: Age 41-60 years, Obesity (BMI >25) Thrombosis Risk Factor Assessment Total Risk Factor Score: 2 Thrombosis Risk Factor Assessment Level: Low Risk Assessment and Plan Assessment: Assessment and Plan 1. Chest pain 2. Ascending thoracic aneurysm 3. Rhabdomyolysis 4. COPD 5. Diabetes mellitus 6. Hypertension 7. SHARRON 8. DVT and GI prophylaxis 1. Chest x-ray is negative for acute process. Thoracic aorta CT shows aneurysm measuring 4.5 cm, stable. Troponin is 0.017, EKG showing normal sinus rhythm and incomplete RBBB. Patient started on a heparin drip from the ED. Trend 2 troponins and EKG to rule out ACS. Will follow echocardiogram results. Will follow cardiology consultation. Telemetry monitoring. 2. Seen on thoracic aorta CT. Measures at 4.5 cm, stable. Will follow vascular surgery consultation 3. CPK in the 500s. Likely simvastatin induced. Will hold medication. Encourage by mouth hydration. Will follow CPK in the morning. 4. Stable. Albuterol neb every 6 hours as needed for shortness of breath or wheezing. 5. [id number] glucose 124. Will start insulin sliding scale. Hyperglycemia precautions. Regular Accu-Cheks. 6. BP 148/86. Continue carvedilol 25 mg by mouth twice a day. Monitor vitals , adjust medications as necessary. 7. BiPAP at night. 8. Heparin drip. Patient admitted for chest pain, rule out acute coronary syndrome. Cardiology is on consult.
[2018-09-21] MEDS: NITROGLYCERIN OINT 1 INCH/GM PACKET TOPICAL SCH (18:20)
[2018-09-21] MEDS: CARVEDILOL 12.5 MG TAB PO SCH (18:20)
[2018-09-21] MEDS: ALBUTEROL NEBULIZED 2.5 MG/3 ML INHALATION PRN (19:02)
[2018-09-21 19:33] LABS: Creatine Kinase MB 4.5 ng/mL (0.0-2.4); Troponin I 0.016 ng/mL (0.000-0.034)
[2018-09-21 20:45] LABS: Glucose,Whole Blood 111 mg/dL (75-99)
[2018-09-21] MEDS: LISINOPRIL 20 MG TAB PO SCH (20:57)
[2018-09-21] MEDS ORDERED: ATORVASTATIN 20 MG TAB PO SCH (21:00)
[2018-09-22 00:13] LABS: Creatine Kinase MB 5.1 ng/mL (0.0-2.4); Troponin I 0.026 ng/mL (0.000-0.034)
[2018-09-22] MEDS: NITROGLYCERIN OINT 1 INCH/GM PACKET TOPICAL SCH ×5 (00:57→23:10)
[2018-09-22] MEDS: HEPARIN SODIUM,PORCINE 5,000 UNIT/ML 1 ML VIAL IV PRN ×2 (00:58→07:11)
[2018-09-22 06:34] LABS: Cholesterol 209 mg/dL (<200); HDL Cholesterol 40 mg/dL (40-60); LDL Cholesterol,Calculated 135 mg/dL (0-99); Triglycerides 170 mg/dL (<150)
[2018-09-22 06:50] LABS: Creatine Kinase 1132 U/L (55-170)
[2018-09-22] MEDS: ALBUTEROL NEBULIZED 2.5 MG/3 ML INHALATION PRN (07:36)
[2018-09-22 07:58] LABS: Glucose,Whole Blood 105 mg/dL (75-99)
[2018-09-22] MEDS ORDERED: ASPIRIN 325 MG TAB PO SCH (09:00)
[2018-09-22] MEDS ORDERED: CAFFEINE CITRATE 60 MG/3 ML VIAL IV PRN (09:40)
[2018-09-22] MEDS ORDERED: REGADENOSON 0.4 MG/5 ML SYRINGE IV ONE (09:40)
[2018-09-22] MEDS ORDERED: ATORVASTATIN 80 MG TAB PO STA (09:51)
[2018-09-22] MEDS ORDERED: ASPIRIN 325 MG TAB PO STA (09:51)
[2018-09-22] MEDS ORDERED: NITROGLYCERIN SL TABS 0.4 MG TAB SUBLINGUAL PRN (09:51)
[2018-09-22] MEDS ORDERED: ALPRAZolam 0.5 MG TAB PO PRN (09:51)
[2018-09-22] MEDS ORDERED: ALPRAZolam 0.25 MG TAB PO PRN (09:51)
[2018-09-22] MEDS ORDERED: SODIUM CHLORIDE 0.9% 1,000 ML in EMPTY BAG 1 BAG IV ONE (09:51)
[2018-09-22] MEDS: ASPIRIN 81 MG PO SCH (10:28)
--- NOTE | 2018-09-22 10:42 | CONS ---
CONSULTATION Mr. Welch is a 58-year-old gentleman who is seen for the evaluation of chest pain. Patient's medical records were reviewed. Patient gives a history that he has been having some muscle pain, some muscle spasm on and off for last 1 month, but yesterday morning patient had a pain in the left anterior part of the chest and in the back. The pain was dull aching, a persistent discomfort. He did not had any dizziness, lightheadedness or syncope. Patient came to the emergency room. Patient has a history of high cholesterol and high blood pressure and also has a history of aortic aneurysm. In the emergency room, CT scan of the chest was performed. There was no evidence of any aortic dissection. Patient gives a history that he has a prior catheterization, but he is not sure whether he had any stent done. Patient does not remember when was the last time he had any stress test done. HOME MEDICATIONS: Include Ventolin inhaler, Coreg 25 mg b.i.d., Vasotec 20 mg b.i.d., Motrin, Zocor 40 mg daily, metformin 500 mg daily. ALLERGIES: None known. PAST MEDICAL HISTORY: Includes a history of diabetes, hyperlipidemia, hypertension, prior history of cardiac catheterization and a known history of ascending thoracic aneurysm, arthroscopic of the right knee. PHYSICAL EXAMINATION: At present reveals a 58-year-old, obesely-built gentleman who does not appear to be in any acute distress. Patient's blood pressure is 134/80 mmHg. HEENT examination is negative. Neck is supple. There is no increase in jugular venous pressure. Both the carotid pulses are felt. There is no bruit. Chest is symmetrical. Heart, the PMI is not felt. First and second heart sounds are heard. Lungs are clinically clear to auscultation and percussion. Abdomen is soft. Extremities, peripheral pulses are 1+. EKG shows normal sinus rhythm without any acute ischemic changes. Patient's initial troponin was 0.017. Subsequent troponin was 0.026 and the third troponin is 0.017. Patient also has elevated CPK. FINAL IMPRESSION: 1. Chest pain. Clinically, pain is suggestive of atypical angina. However, in view of the borderline elevated troponin, non ST-segment elevation myocardial infarction cannot be entirely excluded. Patient has multiple risk factors. 2. Patient has elevated CPK, exact etiology undetermined, whether it is due to the Zocor is a possibility. We will discontinue the statin and follow his CPK as an outpatient. In view of the history suggestive of non ST-segment elevation myocardial infarction, patient is advised further evaluation with a cardiac catheterization for definitive diagnosis. Procedure and the risks were fully discussed with the patient. He also discussed with his . He wants to proceed and if necessary, we will consider the stent placement. MMODL / IJN: [id number] /
[2018-09-22] MEDS: FUROSEMIDE 80 MG TAB PO SCH (10:55)
[2018-09-22] MEDS: CARVEDILOL 12.5 MG TAB PO SCH ×2 (10:56→15:25)
[2018-09-22] MEDS: TAMSULOSIN 0.4 MG CAP.ER.24H PO SCH (10:56)
[2018-09-22] MEDS: LISINOPRIL 20 MG TAB PO SCH ×2 (10:56→20:15)
[2018-09-22] MEDS: FAMOTIDINE 20 MG TAB PO SCH (10:56)
--- NOTE | 2018-09-22 11:24 | CONS ---
CONSULTATION This is a 58-year-old gentleman who has been admitted with history of chest pain. This patient has symptoms of intermittent pain to the chest for the last 2 weeks. The patient has been admitted for cardiac workup and a CT scan of the chest showed patient has a 4.5 cm ascending thoracic aneurysm. No history of PE. The patient is under care of Cardiology in [place] and they have been watching his aortic aneurysm. MEDICAL HISTORY: History of CHF, COPD, diabetes, hypertension, sleep apnea. PHYSICAL EXAMINATION: On examination, neck is supple. No bruit appreciated. CHEST: Clear on auscultation. First and second sounds normal. ABDOMEN: Soft, nontender. VASCULAR EXAMINATION: Brachial, radial, femoral pulses are present. IMPRESSION: Stable thoracic ascending aneurysm 4.5 cm. At this point, patient does not need any vascular surgical intervention and patient has been following [facility] for thoracic aneurysm. MMODL / IJN: [id number] /
[2018-09-22 11:45] LABS: Glucose,Whole Blood 103 mg/dL (75-99)
--- NOTE | 2018-09-22 12:25 | ECHOF ---
Referral Reason:Chest pain MEASUREMENTS -------- HEIGHT: 172.7 cm WEIGHT: 164.7 kg BP: RVIDd: 3.2 cm (< 3.3) IVSd: 1.0 cm (0.6 - 1.1) LVIDd: 3.7 cm (3.9 - 5.3) LVPWd: 1.2 cm (0.6 - 1.1) IVSs: 1.7 cm LVIDs: 1.5 cm LVPWs: 1.5 cm Ao Diam: 3.6 cm (2.0 - 3.7) AV Cusp: 2.1 cm (1.5 - 2.6) LA Diam: 2.5 cm (2.7 - 3.8) MV EXCURSION: 18.742 mm (> 18.000) MV EF SLOPE: 131 mm/s (70 - 150) EPSS: 0.5 cm MV E Hamlet: 0.68 m/s MV DecT: 216 ms MV A Hamlet: 0.67 m/s MV E/A Ratio: 1.01 RAP: 5.00 mmHg RVSP: 9.42 mmHg FINDINGS -------- Sinus rhythm. This was a technically difficult study with suboptimal views. The left ventricular size is normal. Left ventricular wall thickness is normal. Overall left vent ricular systolic function is normal with, an EF between 55 - 60 %. The right ventricle is normal in size. The left atrial size is normal. The right atrium is normal in size. Lumason used The aortic valve is trileaflet, and appears structurally normal. No aortic stenosis or regurgitation. There is trace mitral regurgitation. Trace tricuspid regurgitation present. The right ventricular systolic pressure, as measured by Dopp ler, is 9.42mmHg. Pulmonic valve appears structurally normal. The aortic root size is normal. IVC Not well visulized. The pericardium is normal. CONCLUSIONS -------- 1. Sinus rhythm. 2. This was a technically difficult study with suboptimal views. 3. The left ventricular size is normal. 4. Left ventricular wall thickness is normal. 5. Overall left ventricular systolic function is normal with, an EF between 55 - 60 %. 6. The right ventricle is normal in size. 7. The left atrial size is normal. 8. The right atrium is normal in size. 9. Lumason used 10. The aortic valve is trileaflet, and appears structurally normal. No aortic stenosis or regurgitat ion. 11. There is trace mitral regurgitation. 12. Trace tricuspid regurgitation present. 13. The right ventricular systolic pressure, as measured by Doppler, is 9.42mmHg. 14. Pulmonic valve appears structurally normal. 15. The aortic root size is normal. 16. IVC Not well visulized. 17. The pericardium is normal. MICROFILM CLERK: Sherri Uribe RDCS
--- NOTE | 2018-09-22 13:41 | P.PN ---
Subjective Progress Note Date: 09/22/18 Principal diagnosis: Chest pressure, spasms Patient was seen and examined. No acute events overnight. Patient reports mild improvement in his chest pressure, but continues to be persistent. Also complains of spasms all over his body. Patient reports considerable stress with home related things and his vehicle. Objective - Vital Signs Vital signs: Vital Signs Temp 97.9 F 09/22/18 12:00 Pulse 71 09/22/18 12:00 Resp 18 09/22/18 12:00 BP 139/78 09/22/18 12:00 Pulse Ox 94 L 09/22/18 12:00 Intake & Output 09/21/18 09/22/18 09/22/18 18:59 06:59 18:59 Intake Total 318 82.916 98.588 Balance 318 82.916 98.588 Weight 165.561 kg 165 kg Intake: Intake, IV Titration 82.916 98.588 Amount Heparin Sod,Pork in 0.45% 82.916 98.588 NaCl 25,000 unit In 0.45 % NaCl 1 250ml.bag @ 6 UNITS/KG/HR 9.93 mls/hr IV .Q24H [facility] Rx#: [id number] Oral 318 Other: # Voids 2 1 - Exam General: [non toxic], [no distress], [appears at stated age] Derm: [warm], [dry] Head: [atraumatic], [normocephalic], [symmetric] Eyes: [EOMI], [no lid lag], [anicteric sclera] Mouth: [no lip lesion], [mucus membranes moist] Cardiovascular: [S1S2 reg], [no murmur], [positive DP pulse bilateral] Lungs: [Decreased breath sounds bilateral], [no rhonchi, no rales] , [no accessory muscle use] Abdominal: [soft], [ nontender to palpation], [no guarding], [no appreciable organomegaly], [obese] Ext: [no gross muscle atrophy], [1+ bilateral nonpitting edema], [no contractures] Neuro: [ CN II-XI grossly intact], [no focal neuro deficits] Psych: [Alert], [oriented], [appropriate affect] - Labs CBC & Chem 7: 09/21/18 12:07 09/21/18 12:07 Labs: Abnormal Lab Results - Last 24 Hours (Table) 09/21/18 09/21/18 09/21/18 Range/Units 18:29 20:33 23:32 APTT (22.0-30.0) sec POC Glucose (mg/dL) 111 H (75-99) mg/dL Creatine Kinase (55-170) U/L Total Creatine Kinase 535 H 743 H (55-170) U/L CK-MB (CK-2) 4.5 H 5.1 H (0.0-2.4) ng/mL Triglycerides (<150) mg/dL Cholesterol (<200) mg/dL LDL Cholesterol, Calc (0-99) mg/dL 09/22/18 09/22/18 09/22/18 Range/Units 06:05 06:05 07:56 APTT 40.7 H (22.0-30.0) sec POC Glucose (mg/dL) 105 H (75-99) mg/dL Creatine Kinase 1132 H* (55-170) U/L Total Creatine Kinase (55-170) U/L CK-MB (CK-2) (0.0-2.4) ng/mL Triglycerides 170 H (<150) mg/dL Cholesterol 209 H (<200) mg/dL LDL Cholesterol, Calc 135 H (0-99) mg/dL 09/22/18 Range/Units 11:43 APTT (22.0-30.0) sec POC Glucose (mg/dL) 103 H (75-99) mg/dL Creatine Kinase (55-170) U/L Total Creatine Kinase (55-170) U/L CK-MB (CK-2) (0.0-2.4) ng/mL Triglycerides (<150) mg/dL Cholesterol (<200) mg/dL LDL Cholesterol, Calc (0-99) mg/dL Assessment and Plan Assessment: Assessment and Plan 1. Chest pain 2. Ascending thoracic aneurysm 3. Rhabdomyolysis 4. COPD 5. Diabetes mellitus 6. Hypertension 7. SHARRON 8. DVT and GI prophylaxis 1. Chest x-ray is negative for acute process. Thoracic aorta CT shows aneurysm measuring 4.5 cm, stable. Troponin is 0.017, 0.016, 0.026, 0.017 EKG showing normal sinus rhythm and incomplete RBBB. Patient started on a heparin drip from the ED. echocardiogram shows EF 55-60%. Cardiology consulted, recommends cardiac catheterization. Telemetry monitoring. 2. Seen on thoracic aorta CT. Measures at 4.5 cm, stable. Will follow vascular surgery consultation 3. CPK 743-1132. Likely simvastatin induced. Will hold medication. Encourage by mouth hydration. Start normal saline at 165 mL/h. Will follow CPK in the morning. 4. Stable. Albuterol neb every 6 hours as needed for shortness of breath or wheezing. 5. Mftai-md-vsya glucose 103. Will start insulin sliding scale. Hyperglycemia precautions. Regular Accu-Cheks. 6. BP 139/78. Continue carvedilol 25 mg by mouth twice a day. Monitor vitals , adjust medications as necessary. 7. BiPAP at night. 8. Heparin drip. Patient admitted for chest pain, cardiology on consult. Patient for coronary catheterization today. Will follow cardiology recommendations.
[2018-09-22] MEDS ORDERED: IV FLUID CONTINUATION 1,000 ML IV ONE (13:53)
[2018-09-22] MEDS ORDERED: MIDAZOLAM 2 MG/2 ML VIAL IVP ONE (14:01)
[2018-09-22] MEDS ORDERED: LIDOCAINE 1% INJ 10MG/ML (20 ML MDV) SQ ONE ×2 (14:01)
[2018-09-22] MEDS ORDERED: fentaNYL (PF) 50 MCG/ML 2 ML AMP IVP ONE (14:01)
[2018-09-22] MEDS ORDERED: IOPAMIDOL-370 100ML BTL INJ ONE (14:24)
--- NOTE | 2018-09-22 15:06 | CC ---
CARDIAC CATHETERIZATION REPORT This patient was admitted with chest pain. Patient had a borderline elevated troponin suggestive of non ST-segment elevation myocardial infarction. In view of that, and in view of the patient's multiple risk factors, patient was advised cardiac catheterization for definitive diagnosis. PROCEDURE: The right groin was prepped and draped in the usual manner and the skin was infiltrated with 2% Xylocaine. The right femoral artery was entered using Seldinger technique and a #6-Swedish sheath was placed in using a micropuncture needle. Selective coronary angiography was then performed in multiple projections. Left ventricular pressures were obtained. Sheath was removed and good hemostasis was achieved with the use of Angio-Seal. HEMODYNAMICS: The left ventricular end-diastolic pressure is 30-32 mmHg prior to angiography. No gradient is noted across the aortic valve. Moderate sedation was used. Total sedation time was 22 minutes. SELECTIVE CORONARY ANGIOGRAPHY: LEFT MAIN CORONARY ARTERY: Normal and patent. LEFT ANTERIOR DESCENDING CORONARY ARTERY: LAD is a good caliber blood vessel and gives rise to a diagonal branch. LAD and its branches are normal. CIRCUMFLEX CORONARY ARTERY: Circumflex coronary artery is a normal caliber blood vessel and gives rise to good size PLV and OM branch. There is a mild irregularity noted in the PLV branch. RIGHT CORONARY ARTERY: Right coronary artery is normal caliber blood vessel and gives rise to small size PDA branch. There is a mild irregularity in the right coronary artery noted. FINAL IMPRESSION: This study shows mild irregularity in the LAD, circumflex and right coronary artery. No obstructive coronary artery disease was detected. Left ventricular end-diastolic pressure is significantly elevated secondary to hypertension. MMODL / IJN: [id number] /
[2018-09-22] MEDS: HYDROcodone/APAP 5-325MG 1 EACH TAB PO PRN ×2 (16:09→21:48)
[2018-09-22 16:38] LABS: Glucose,Whole Blood 114 mg/dL (75-99)
[2018-09-22] MEDS ORDERED: MORPHINE SULFATE 4 MG/ML SYRINGE IVP STA (16:57)
[2018-09-22 20:00] LABS: Glucose,Whole Blood 130 mg/dL (75-99)
[2018-09-22 22:55] LABS: Hemoglobin A1C 7.1 % (4.0-6.0)
[2018-09-23] MEDS: NITROGLYCERIN OINT 1 INCH/GM PACKET TOPICAL SCH ×2 (01:03→09:16)
[2018-09-23 06:58] LABS: Glucose,Whole Blood 114 mg/dL (75-99)
[2018-09-23] MEDS: ALBUTEROL NEBULIZED 2.5 MG/3 ML INHALATION PRN (07:32)
[2018-09-23 07:43] LABS: HCT 44.1 % (39.0-53.0); HGB 13.9 gm/dL (13.0-17.5); MCH 28.8 pg (25.0-35.0); MCHC 31.5 g/dL (31.0-37.0); MCV 91.4 fL (80.0-100.0); Platelet Count 214 k/uL (150-450); RBC 4.83 m/uL (4.30-5.90); RDW 14.7 % (11.5-15.5); WBC 5.1 k/uL (3.8-10.6)
[2018-09-23 08:04] LABS: ALT 47 U/L (21-72); AST 41 U/L (17-59); Albumin 3.8 g/dL (3.5-5.0); Alkaline Phosphatase 56 U/L (38-126); Anion Gap 5 mmol/L; Blood Urea Nitrogen 17 mg/dL (9-20); Calcium 9.2 mg/dL (8.4-10.2); Carbon Dioxide 28 mmol/L (22-30); Chloride 103 mmol/L (98-107); Glucose 116 mg/dL (74-99); Potassium 5.2 mmol/L (3.5-5.1); Sodium 136 mmol/L (137-145); Total Bilirubin 0.5 mg/dL (0.2-1.3)
[2018-09-23 08:17] VITALS: PULSE 83
[2018-09-23] MEDS: TAMSULOSIN 0.4 MG CAP.ER.24H PO SCH (09:14)
[2018-09-23] MEDS: ASPIRIN 81 MG PO SCH (09:14)
[2018-09-23] MEDS: FAMOTIDINE 20 MG TAB PO SCH (09:14)
[2018-09-23] MEDS: CARVEDILOL 12.5 MG TAB PO SCH (09:14)
[2018-09-23] MEDS: LISINOPRIL 20 MG TAB PO SCH (09:14)
[2018-09-23] MEDS: FUROSEMIDE 80 MG TAB PO SCH (09:14)
[2018-09-23] MEDS ORDERED: SODIUM CHLORIDE 0.9% 1,000 ML IV ONE (09:35)
[2018-09-23] MEDS ORDERED: CYCLOBENZAPRINE 10 MG TAB PO SCH (10:00)
--- NOTE | 2018-09-23 10:05 | P.DS ---
Providers Date of admission: 09/22/18 14:05 Expected date of discharge: 09/23/18 Attending physician: Toshia Blair MD Consults: 09/21/18 15:51 Consult Physician Urgent Consulting Provider: [facility] Consult Reason/Comments: Unstable angina Do you want consulting provider notified?: Yes 09/21/18 17:57 Consult Physician Stat Consulting Provider: Gatito Arreola Consult Reason/Comments: Thoracic Aorta aneurysm, stable 4.5 cm Do you want consulting provider notified?: Yes Primary care physician: Alex Harrison MD Hospital Course: 58-year-old male with PMH of CHF, COPD, diabetes mellitus, GERD, hypertension, sleep apnea, descending thoracic aneurysm presents the ED for chest pain. Patient describes intermittent chest pain over the last 2-3 weeks. This morning he woke up, stood up off the side of the bed and experienced a sudden onset of left-sided chest pain that radiated to the left arm. Pain is 6 out of 10 in severity. Pain lasted for a few minutes. Patient describes the pain as pressure-like in nature. There are no alleviating or aggravating factors. This prompted the patient to come to the ED. Patient reports that the pain is never been intensely previously. He endorses 3 pillow orthopnea. Patient reports seeing Dr. Shea in the past but has been noncompliant with follow-up. Patient also has multiple other complaints. He complains of muscle spasms and soreness all over his body over the past month. Patient reports seeing his PCP and was warned that it could be a side effect of simvastatin. He has since stopped taking that medication. Patient complains of bilateral foot pain. He associates the pain with flat feet and diabetic neuropathy. He also complains of bilateral lower extremity swelling at times that resolves with lower extremity elevation. Patient denies headache, nausea, vomiting, fever, cough, palpitations, changes in urination or bowel habits. No changes in appetite or weight. In the ED, vital signs were within normal limits except for an oxygen saturation of 93% on room air. CBC and Coreg as panel was unremarkable. CMP showed a BUNs of 21 and glucose of 124. CPK was elevated at 537. Initial troponin was 0.017, EKG showing normal sinus rhythm with incomplete RBBB. Thoracic aortic CT showed a stable aneurysm at 4.5 cm and no PE. Patient is admitted for chest pain, rule out acute coronary syndrome, cardiology is on consult. With regard to his chest pain, chest x-ray was negative for acute process. Thoracic aortic CT showed aneurysm measuring 4.5 cm which was stable. Troponin was 0.017, 0.016, 0.06 with EKG showing normal sinus rhythm and incompleteright bundle branch block. Patient was started on a heparin drip from the emergency room and cardiology was consulted. Echocardiogram showed ejection fraction of 55-60%. Cardiology recommended cardiac catheterization.cardiac cath showed mild irregularities in the LAD, circumflex and right coronary artery. No obstructive coronary artery disease was detected.patient was cleared for discharge from cardiology perspective. Vascular surgery was consulted regarding his ascending thoracic aneurysm. Dr. Arreola recommended outpatient follow-up. Patient was noted to have an elevated CPK on admission of 743. This trended up to 1132. this is thought to be secondary to simvastatin use. Simvastatin was discontinued and patient was started on normal saline at 165 mL per hour. Patient had a normal creatinine throughout his admission. Otherwise, his home medications were resumed for COPD, diabetes mellitus, hypertension and SHARRON. Patient seen and examined prior to discharge. No acute events overnight. Patient reports right-sided abdominal pain, spastic, chronic in nature. He denies any chest pressure symptoms. He denies any chest pain, palpitations. No nausea vomiting. No fever or chills. General: [non toxic], [no distress], [appears at stated age] Derm: [warm], [dry] Head: [atraumatic], [normocephalic], [symmetric] Eyes: [EOMI], [no lid lag], [anicteric sclera] Mouth: [no lip lesion], [mucus membranes moist] Cardiovascular: [S1S2 reg], [no murmur], [positive DP pulse bilateral] Lungs: [Decreased breath sounds bilateral], [no rhonchi, no rales] , [no accessory muscle use] Abdominal: [soft], [ nontender to palpation], [no guarding], [no appreciable organomegaly], [obese] Ext: [no gross muscle atrophy], [1+ bilateral nonpitting edema], [no contractures] Neuro: [ CN II-XI grossly intact], [no focal neuro deficits] Psych: [Alert], [oriented], [appropriate affect] Assessment and Plan 1. Chest pain 2. Ascending thoracic aneurysm 3. Rhabdomyolysis 4. Hyperkalemia 5. COPD 6. Diabetes mellitus 7. Hypertension 8. SHARRON 9. DVT and GI prophylaxis 1. Chest x-ray is negative for acute process. Thoracic aorta CT shows aneurysm measuring 4.5 cm, stable. Troponin is 0.017, 0.016, 0.026, 0.017 EKG showing normal sinus rhythm and incomplete RBBB. Heparin drip discontinued. Echocardiogram shows EF 55-60%. Cardiac catheterization showsmild irregularities. Cardiology consulted, recommends medical management. Telemetry monitoring. 2. Seen on thoracic aorta CT. Measures at 4.5 cm, stable. Dr. Arreola recommends outpatient follow-up. 3. CPK [id number]. Likely simvastatin induced. Will hold medication. Encourage by mouth hydration. bolus 1 L continue normal saline at 100 mL/h. Will follow CPK in the afternoon. Add Flexeril for muscle spasms. 4. Potassium of 5.2 with no EKG changes. Likely secondary to rhabdo. We'll follow BMP in the afternoon. 5. Stable. Albuterol neb every 6 hours as needed for shortness of breath or wheezing. 6. Vtuud-bp-lgod glucose 103. Will start insulin sliding scale. Hyperglycemia precautions. Regular Accu-Cheks. 7. BP 139/78. Continue carvedilol 25 mg by mouth twice a day. Monitor vitals , adjust medications as necessary. 8. BiPAP at night. 9. Heparin subcutaneously. Patient is cleared from cardiology perspective. Continues to have rhabdomyolysis. Given additional IVF. Will follow CPK and renal function along with potassium in the afternoon. Likely discharge if improved. Pertinent Studies: thoracic aorta CT Chest x-ray Echocardiogram Procedures: cardiac cath Patient Condition at Discharge: Stable Plan - Discharge Summary New Discharge Prescriptions: New Ezetimibe [Zetia] 10 mg PO DAILY #30 tab Spironolactone-Hctz 25-25Mg [Aldactazide 25-25 MG] 1 each PO DAILY #30 tab Continue metFORMIN HCL [Glucophage] 500 mg PO DAILY Furosemide [Lasix] 80 mg PO DAILY Fluticasone Nasal Gramercy [Flonase Nasal Gramercy] 1 spray EA NOSTRIL BID Enalapril [Vasotec] 20 mg PO BID Carvedilol 25 mg PO BID Albuterol Inhaler [Ventolin Hfa Inhaler] 2 puff INHALATION RT-Q4H PRN PRN Reason: Shortness Of Breath ALPRAZolam [Xanax] 1 mg PO TID PRN PRN Reason: Anxiety Docusate [Colace] 100 mg PO DAILY PRN PRN Reason: Constipation Tamsulosin HCl [Flomax] 0.4 mg PO DAILY Nitroglycerin Sl Tabs [Nitrostat] 0.4 mg SUBLINGUAL Q5M PRN PRN Reason: Chest Pain Albuterol Nebulized [Ventolin Nebulized] 2.5 mg INHALATION RT-Q6H PRN PRN Reason: Shortness Of Breath Nitroglycerin [Nitro-Dur 0.4MG/Hr Patch] 1 patch TRANSDERM DAILY Cholecalciferol [Vitamin D3] 5,000 unit PO DAILY Aspirin [Adult Low Dose Aspirin EC] 81 mg PO DAILY Cyclobenzaprine [Flexeril] 10 mg PO BID #14 tablet Sulfacetamide Sodium [Sulfacetamide Sod 10% Ophth Soln] 1 drop BOTH EYES Q6H HYDROcodone/APAP 10-325MG [[place] 10-325] 1 - 2 tab PO Q6H PRN PRN Reason: Pain Famotidine [Pepcid] 20 mg PO DAILY Lidocaine 5% Oint [Xylocaine 5% Oint] 1 applic TOPICAL DAILY PRN PRN Reason: Pain Discontinued Ibuprofen [Motrin] 800 mg PO TID PRN PRN Reason: Pain Simvastatin [Zocor] 40 mg PO HS Discharge Medication List ALPRAZolam [Xanax] 1 mg PO TID PRN 06/26/16 [History] Albuterol Inhaler [Ventolin Hfa Inhaler] 2 puff INHALATION RT-Q4H PRN 06/26/16 [ History] Carvedilol 25 mg PO BID 06/26/16 [History] Docusate [Colace] 100 mg PO DAILY PRN 06/26/16 [History] Enalapril [Vasotec] 20 mg PO BID 06/26/16 [History] Fluticasone Nasal Gramercy [Flonase Nasal Gramercy] 1 spray EA NOSTRIL BID 06/26/16 [ History] Furosemide [Lasix] 80 mg PO DAILY 06/26/16 [History] Tamsulosin HCl [Flomax] 0.4 mg PO DAILY 06/26/16 [History] metFORMIN HCL [Glucophage] 500 mg PO DAILY 06/26/16 [History] Nitroglycerin Sl Tabs [Nitrostat] 0.4 mg SUBLINGUAL Q5M PRN 03/08/17 [History] Albuterol Nebulized [Ventolin Nebulized] 2.5 mg INHALATION RT-Q6H PRN 05/09/17 [ History] Cholecalciferol [Vitamin D3] 5,000 unit PO DAILY 05/09/17 [History] Nitroglycerin [Nitro-Dur 0.4MG/Hr Patch] 1 patch TRANSDERM DAILY 05/09/17 [ History] Aspirin [Adult Low Dose Aspirin EC] 81 mg PO DAILY 05/10/17 [History] Cyclobenzaprine [Flexeril] 10 mg PO BID #14 tablet 05/12/17 [Rx] Famotidine [Pepcid] 20 mg PO DAILY 09/21/18 [History] HYDROcodone/APAP 10-325MG [[place] 10-325] 1 - 2 tab PO Q6H PRN 09/21/18 [History] Lidocaine 5% Oint [Xylocaine 5% Oint] 1 applic TOPICAL DAILY PRN 09/21/18 [ History] Sulfacetamide Sodium [Sulfacetamide Sod 10% Ophth Soln] 1 drop BOTH EYES Q6H [History] Ezetimibe [Zetia] 10 mg PO DAILY #30 tab 09/23/18 [Rx] Spironolactone-Hctz 25-25Mg [Aldactazide 25-25 MG] 1 each PO DAILY #30 tab 09/23 [Rx] Follow up Appointment(s)/Referral(s): Alex Harrison MD [Primary Care Provider] - 1-2 days Humberto Whitaker MD [STAFF PHYSICIAN] - 1 Week Ambulatory/Diagnostic Orders: Basic Metabolic Panel [LAB.AMB] Time Frame: 3 Days, Location: None Selected Ambulatory Miscellaneous Order [MISC.AMB] Time Frame: 3 Days, Location: None Selected Activity/Diet/Wound Care/Special Instructions: diet: Heart healthy, low carb Please follow-up with your primary care provider within 1-2 days of discharge. Please follow-up with cardiology within 1 week of discharge. Please take all medications as advised. Needs BMP and Creatinine kinase within 3 days of discharge. He will need to follow-up results with PCP. Discharge Disposition: HOME SELF-CARE
--- NOTE | 2018-09-23 11:22 | PN ---
PROGRESS NOTE This patient was admitted with chest pain. Patient had a borderline elevated troponin suggestive of non-Q-wave myocardial infarction. The patient also has been having muscle spasm and his CPK was elevated whether that is due to simvastatin is a possibility. Cardiac catheterization revealed mild coronary artery disease without any obstructive disease and has been advised medical treatment. The patient's left ventricular end-diastolic pressure was elevated. We will add Aldactazide. Continue the rest of the medications. Discontinue the Zocor and we will follow his CPK outpatient. CAL / CHELAN: [id number] /
[2018-09-23 11:42] LABS: Glucose,Whole Blood 103 mg/dL (75-99)
[2018-09-23 12:16] VITALS: BP 101/62; RESP 18; TEMP 98.4
[2018-09-23] MEDS ORDERED: HEPARIN SODIUM,PORCINE 5,000 UNIT/ML 1 ML VIAL SQ SCH (21:00)
[2018-09-24] MEDS ORDERED: SPIRONOLACTONE-HCTZ 25-25MG 1 EACH TAB PO SCH (09:00)
== END 2018-09-23 16:14 | disposition home or self-care (01) | DRG 287 ==
LOC: EC 11:04 → 1SOBS 15:52 → OBSVTOIN 09-22 14:05
PROVIDERS: ADMIT Family Medicine; ATTEND Family Medicine
PROC: B2111ZZ Fluoroscopy of Multiple Coronary Arteries using Low Osmolar Contrast (ICD-10-PCS; 2018-09-22)
PROC: 5A09357 Assistance with Respiratory Ventilation, Less than 24 Consecutive Hours, Continuous Positive Airway Pressure (ICD-10-PCS; 2018-09-22)
PROC: 4A023N7 Measurement of Cardiac Sampling and Pressure, Left Heart, Percutaneous Approach (ICD-10-PCS; principal; 2018-09-22 11:50)
DX: R07.9 Chest pain, unspecified (principal); I25.110 Atherosclerotic heart disease of native coronary artery with unstable angina pectoris; M62.82 Rhabdomyolysis; E11.40 Type 2 diabetes mellitus with diabetic neuropathy, unspecified; I11.0 Hypertensive heart disease with heart failure; I71.2 Thoracic aortic aneurysm, without rupture; I50.9 Heart failure, unspecified; E87.5 Hyperkalemia; E78.00 Pure hypercholesterolemia, unspecified; E78.5 Hyperlipidemia, unspecified; M79.672 Pain in left foot; M79.671 Pain in right foot; F32.9 Major depressive disorder, single episode, unspecified; F41.9 Anxiety disorder, unspecified; G47.33 Obstructive sleep apnea (adult) (pediatric); I45.10 Unspecified right bundle-branch block; J44.9 Chronic obstructive pulmonary disease, unspecified; K21.9 Gastro-esophageal reflux disease without esophagitis; M19.90 Unspecified osteoarthritis, unspecified site; N42.9 Disorder of prostate, unspecified; M62.838 Other muscle spasm; R74.8 Abnormal levels of other serum enzymes; R10.9 Unspecified abdominal pain; T46.6X5A Adverse effect of antihyperlipidemic and antiarteriosclerotic drugs, initial encounter; Z79.82 Long term (current) use of aspirin; Z79.84 Long term (current) use of oral hypoglycemic drugs; Z79.899 Other long term (current) drug therapy; Z91.19 Patient's noncompliance with other medical treatment and regimen; Z87.891 Personal history of nicotine dependence; Z83.3 Family history of diabetes mellitus; Z80.9 Family history of malignant neoplasm, unspecified
CPT/HCPCS: 36415; 71046; 71275; 74174; 80053; 80061; 82550; 82553; 83036; 83735; 84484; 85025; 85027; 85610; 85730; 93005; 93306; 93458; 94640; 94760; 96365; 96376; 99291

== ENCOUNTER → 2018-09-28 | Outpatient (CLI) | payer OTHER ==
[2018-09-28 19:20] LABS: LDL Cholesterol,Calculated 154.8 mg/dL (0.0-131.0); VLDL Calculation 21.2 mg/dL (5.00-40.00)
== END ==
LOC: LABWHC1 12:54
PROVIDERS: ATTEND Internal Medicine Cardiovascular Disease
DX: E78.2 Mixed hyperlipidemia (principal)
CPT/HCPCS: 36415; 80061; 84450; 84460

== ENCOUNTER → 2018-12-28 | Outpatient (CLI) | payer OTHER | END | disposition home or self-care (01) | LOC: RADMRIMAIN 12:12 | PROVIDERS: ATTEND Psychiatry & Neurology Neurology | DX: Z53.9 Procedure and treatment not carried out, unspecified reason (principal) ==

== ENCOUNTER 2019-01-06 14:53 | Emergency (ER) | payer OTHER ==
[2019-01-06 14:59] VITALS: RESP 18; TEMP 98
--- NOTE | 2019-01-06 15:42 | ED ---
Extremity Problem HPI - General Chief complaint: Extremity Problem,Nontraumatic Stated complaint: hand pain Time Seen by Provider: 01/06/19 15:00 Source: patient Mode of arrival: ambulatory Limitations: no limitations - History of Present Illness Initial comments: Patient is a 58-year-old male complaining of right arm pain x this morning. States he went to reach for something in the upper cabinet and had pain in his right lower arm. As the day has progressed, his pain progressed up his arm and into his neck. He describes the pain as sharp to the touch and up and down the whole right upper extremity. He admits to "spine issues" and is set to have an MRI in the next 2 weeks. He is right-hand dominant. Denies any other trauma. Denies numbness and tingling into the right upper extremity. Patient denies taking anything for pain today, but does have [place] at home. - Related Data Home Medications Medication Instructions Recorded Confirmed ALPRAZolam [Xanax] 1 mg PO TID PRN 06/26/16 01/06/19 Carvedilol 25 mg PO BID 06/26/16 01/06/19 Fluticasone Nasal [place] [Flonase 1 spray EA NOSTRIL BID 06/26/16 01/06/19 Nasal [place]] Nitroglycerin Sl Tabs [Nitrostat] 0.4 mg SUBLINGUAL Q5M PRN 03/08/17 01/06/19 Cholecalciferol [Vitamin D3 (25 5,000 unit PO DAILY 05/09/17 01/06/19 Mcg = 1000 Iu)] Nitroglycerin [Nitro-Dur 0.4MG/Hr 1 patch TRANSDERM DAILY 05/09/17 01/06/19 Patch] HYDROcodone/APAP 10-325MG [[place] 1 - 2 tab PO Q6H PRN 09/21/18 01/06/19 10-325] Lidocaine 5% Oint [Xylocaine 5% 1 applic TOPICAL DAILY PRN 09/21/18 01/06/19 Oint] Sulfacetamide Sodium 1 drop BOTH EYES Q6H 09/21/18 01/06/19 [Sulfacetamide Sod 10% Ophth Soln] Spironolactone-Hctz 25-25Mg 1 tab PO DAILY 01/06/19 01/06/19 [Aldactazide 25-25 MG] Previous Rx's Medication Instructions Recorded Albuterol Inhaler [Ventolin Hfa 2 puff INHALATION RT-Q4H PRN #1 09/23/18 Inhaler] inhaler Albuterol Nebulized [Ventolin 2.5 mg INHALATION RT-Q6H PRN #90 09/23/18 Nebulized] ampul Aspirin [Adult Low Dose Aspirin EC] 81 mg PO DAILY #30 tablet.dr 09/23/18 Cyclobenzaprine [Flexeril] 10 mg PO BID #60 tablet 09/23/18 Docusate [Colace] 100 mg PO DAILY PRN #30 cap 09/23/18 Enalapril [Vasotec] 20 mg PO BID #60 tab 09/23/18 Ezetimibe [Zetia] 10 mg PO DAILY #30 tab 09/23/18 Famotidine [Pepcid] 20 mg PO DAILY #60 tab 09/23/18 Furosemide [Lasix] 80 mg PO DAILY #30 tab 09/23/18 Tamsulosin [Flomax] 0.4 mg PO DAILY #30 cap.er.24h 09/23/18 metFORMIN HCL [Glucophage] 500 mg PO DAILY #30 tab 09/23/18 predniSONE 10 mg PO BID 5 Days #10 tab 01/06/19 Allergies Allergy/AdvReac Type Severity Reaction Status Date / Time No Known Allergies Allergy Verified 01/06/19 15:10 Review of Systems ROS Statement: Those systems with pertinent positive or pertinent negative responses have been documented in the HPI. ROS Other: All systems not noted in ROS Statement are negative. Past Medical History Past Medical History: Heart Failure, COPD, Diabetes Mellitus, GERD/Reflux, Hyperlipidemia, Hypertension, Osteoarthritis (OA), Prostate Disorder, Sleep Apnea/CPAP/BIPAP Additional Past Medical History / Comment(s): ASCENDING THORACIC ANEURYSM, Palpitations, "LEAKY VALVE." USES BI PAP MACHINE, CONSTIPATION. EDEMA ANKLES. Neuropathy History of Any Multi-Drug Resistant Organisms: None Reported Past Surgical History: Orthopedic Surgery Additional Past Surgical History / Comment(s): ARTHROSCOPIC RIGHT KNEE - EXC GLASS, HEMORRHOIDECTOMY. COLONOSCOPY. Past Anesthesia/Blood Transfusion Reactions: Previous Problems w/ Anesthesia Additional Past Anesthesia/Blood Transfusion Reaction / Comment(s): AWAKE DURING SURGERY, IN PAIN. Past Psychological History: Anxiety, Depression Smoking Status: Former smoker Past Alcohol Use History: None Reported Past Drug Use History: None Reported - Past Family History Father Family Medical History: Cancer, Diabetes Mellitus Mother Family Medical History: Cancer General Exam - General Exam Comments Initial Comments: GENERAL: Well-appearing, well-nourished and in no acute distress. HEAD: Atraumatic, normocephalic. EYES: Pupils equal round and reactive to light, extraocular movements intact, sclera anicteric, conjunctiva are normal. ENT: TMs normal, nares patent, oropharynx clear without exudates. Moist mucous membranes. NECK: Normal range of motion, supple without lymphadenopathy or JVD. LUNGS: Breath sounds clear to auscultation bilaterally and equal. No wheezes rales or rhonchi. HEART: Regular rate and rhythm without murmurs, rubs or gallops. ABDOMEN: Soft, nontender, normoactive bowel sounds. No guarding, no rebound. No masses appreciated. : Deferred EXTREMITIES: Decreased range of motion of the right shoulder, elbow, and wrist. TTP over the entire right arm and into the right cervical area. Right upper trap is his muscle spasm. No erythema, ecchymosis, lesions of any kind of the right upper extremity. NEUROLOGICAL: Cranial nerves II through XII grossly intact. Normal speech, normal gait. PSYCH: Normal mood, normal affect. SKIN: Warm, Dry, normal turgor, no rashes or lesions noted. Limitations: no limitations Course Vital Signs 01/06/19 14:56 Temperature 98.0 F Pulse Rate 100 Respiratory 18 Rate Blood Pressure 147/83 O2 Sat by Pulse 98 Oximetry Medical Decision Making - Medical Decision Making Patient is a 58-year-old male complaining of right arm pain x this morning. He went to reach for something overhead with his right arm and immediately started having entire right upper extremity pain. Admits to history of back and spinal issues. Cervical x-ray shows no acute dislocations or fractures. Patient will be discharged home on short course of steroids and will follow up with her throat if no improvement. Disposition Clinical Impression: Radicular pain in right arm Disposition: HOME SELF-CARE Condition: Stable Instructions (If sedation given, give patient instructions): Cervical Radiculopathy (ED), Arm Pain (ED) Additional Instructions: Please return to the Emergency Department if symptoms worsen or any other concerns. Follow up with orthopedics if symptoms continue. Prescriptions: predniSONE 10 mg PO BID 5 Days #10 tab Is patient prescribed a controlled substance at d/c from ED?: No Referrals: Alex Harrison MD [Primary Care Provider] - 1-2 days
--- NOTE | 2019-01-06 15:52 | XR ---
EXAMINATION TYPE: XR cervical spine comp DATE OF EXAM: 01/06/2019 TECHNIQUE: Frontal, lateral, oblique, swimmers, and open mouth view of the cervical spine are obtaine d. HISTORY: Pain history of morbid obesity. COMPARISON: None FINDINGS: The cervical spine is visualized in its entirety from C1 thru the inferior C6 level, there is reversal of normal cervical curvature without evidence of acute fracture or dislocation. There is suboptimal evaluation of C7 vertebra and lower cervical disc spaces despite attempted swimmer's view due to patient's body habitus and overlying osseous structures. The pre-vertebral soft tissue appea rs within normal limits. The C1-C2 articulation is within normal limits on the open mouth view. Marlena tebral body heights are maintained. There is mild anterior spurring C4-C5 level. There is mild disc s pace narrowing with moderate anterior spurring C5-C6 level. The oblique images are within normal limi ts. Mild vascular calcification carotid bulb level is present in the overlying soft tissue. IMPRESSION: As above.
[2019-01-06] MEDS ORDERED: HYDROcodone/APAP 10-325MG 1 EACH TAB PO ONE (16:05)
[2019-01-06 16:33] VITALS: BP 121/77; PULSE 95
== END 2019-01-06 16:40 | disposition home or self-care (01) ==
LOC: EC 14:53
DX: M62.838 Other muscle spasm (principal); M54.2 Cervicalgia; J44.9 Chronic obstructive pulmonary disease, unspecified; I11.0 Hypertensive heart disease with heart failure; I50.9 Heart failure, unspecified; G47.30 Sleep apnea, unspecified; Z87.891 Personal history of nicotine dependence; Z79.51 Long term (current) use of inhaled steroids; Z79.899 Other long term (current) drug therapy; Z99.89 Dependence on other enabling machines and devices
CPT/HCPCS: 72050; 99283

== ENCOUNTER 2019-01-15 09:49 | Observation (INO) | payer OTHER ==
[2019-01-15] MEDS ORDERED: IPRATROPIUM-ALBUTEROL 3 ML NEB INHALATION STA (10:16)
--- NOTE | 2019-01-15 10:18 | ED ---
General Adult HPI - General Chief complaint: Shortness of Breath Stated complaint: cough Time Seen by Provider: 01/15/19 10:00 Source: patient, RN notes reviewed Mode of arrival: wheelchair Limitations: no limitations - History of Present Illness Initial comments: Patient is a pleasant 58-year-old male presenting to the emergency Department with cough and difficulty breathing. Symptoms have been present over the past week or 2. Patient states he was in the emergency department one time and received medications however symptoms have not significantly improved. Patient states he has not taking his water pill for the past week or 2 and does admit to having some swelling. No chest pain. Cough has been mostly dry nonproductive. No fevers. Patient does have history of similar symptoms previously associated with asthma/COPD. - Related Data Home Medications Medication Instructions Recorded Confirmed ALPRAZolam [Xanax] 1 mg PO TID PRN 06/26/16 01/15/19 Carvedilol 25 mg PO BID 06/26/16 01/15/19 Fluticasone Nasal [place] [Flonase 1 spray EA NOSTRIL BID 06/26/16 01/15/19 Nasal [place]] Nitroglycerin Sl Tabs [Nitrostat] 0.4 mg SUBLINGUAL Q5M PRN 03/08/17 01/15/19 Cholecalciferol [Vitamin D3 (25 5,000 unit PO DAILY 05/09/17 01/15/19 Mcg = 1000 Iu)] Nitroglycerin [Nitro-Dur 0.4MG/Hr 1 patch TRANSDERM DAILY 05/09/17 01/15/19 Patch] HYDROcodone/APAP 10-325MG [[place] 1 - 2 tab PO Q6H PRN 09/21/18 01/15/19 10-325] Lidocaine 5% Oint [Xylocaine 5% 1 applic TOPICAL DAILY PRN 09/21/18 01/15/19 Oint] Sulfacetamide Sodium 1 drop BOTH EYES Q6H 09/21/18 01/15/19 [Sulfacetamide Sod 10% Oph Soln] Spironolactone-Hctz 25-25Mg 1 tab PO DAILY 01/06/19 01/15/19 [Aldactazide 25-25 MG] Albuterol Nebulized [Ventolin 2.5 mg INHALATION RT-QID PRN 01/15/19 01/15/19 Nebulized] Previous Rx's Medication Instructions Recorded Albuterol Inhaler [Ventolin Hfa 2 puff INHALATION RT-Q4H PRN #1 09/23/18 Inhaler] inhaler Aspirin [Adult Low Dose Aspirin EC] 81 mg PO DAILY #30 tablet.dr 09/23/18 Cyclobenzaprine [Flexeril] 10 mg PO BID #60 tablet 09/23/18 Docusate [Colace] 100 mg PO DAILY PRN #30 cap 09/23/18 Enalapril [Vasotec] 20 mg PO BID #60 tab 09/23/18 Ezetimibe [Zetia] 10 mg PO DAILY #30 tab 09/23/18 Famotidine [Pepcid] 20 mg PO DAILY #60 tab 09/23/18 Furosemide [Lasix] 80 mg PO DAILY #30 tab 09/23/18 Tamsulosin [Flomax] 0.4 mg PO DAILY #30 cap.er.24h 09/23/18 metFORMIN HCL [Glucophage] 500 mg PO DAILY #30 tab 09/23/18 predniSONE 10 mg PO BID 5 Days #10 tab 01/06/19 Allergies Allergy/AdvReac Type Severity Reaction Status Date / Time No Known Allergies Allergy Verified 01/15/19 10:10 Review of Systems ROS Statement: Those systems with pertinent positive or pertinent negative responses have been documented in the HPI. ROS Other: All systems not noted in ROS Statement are negative. Constitutional: Denies: fever Eyes: Denies: eye pain ENT: Denies: ear pain Respiratory: Reports: cough, dyspnea Cardiovascular: Reports: edema. Denies: chest pain Endocrine: Reports: fatigue Gastrointestinal: Denies: abdominal pain Genitourinary: Denies: dysuria Musculoskeletal: Denies: back pain Skin: Denies: rash Neurological: Denies: weakness Past Medical History Past Medical History: Heart Failure, COPD, Diabetes Mellitus, GERD/Reflux, Hyperlipidemia, Hypertension, Osteoarthritis (OA), Prostate Disorder, Sleep Apnea/CPAP/BIPAP Additional Past Medical History / Comment(s): ASCENDING THORACIC ANEURYSM, Palpitations, "LEAKY VALVE." USES BI PAP MACHINE, CONSTIPATION. EDEMA ANKLES. Neuropathy History of Any Multi-Drug Resistant Organisms: None Reported Past Surgical History: Orthopedic Surgery Additional Past Surgical History / Comment(s): ARTHROSCOPIC RIGHT KNEE - EXC GLASS, HEMORRHOIDECTOMY. COLONOSCOPY. Past Anesthesia/Blood Transfusion Reactions: Previous Problems w/ Anesthesia Additional Past Anesthesia/Blood Transfusion Reaction / Comment(s): AWAKE DURING SURGERY, IN PAIN. Past Psychological History: Anxiety, Depression Smoking Status: Former smoker Past Alcohol Use History: None Reported Past Drug Use History: None Reported - Past Family History Father Family Medical History: Cancer, Diabetes Mellitus Mother Family Medical History: Cancer General Exam Limitations: no limitations General appearance: alert, in no apparent distress Head exam: Present: atraumatic Eye exam: Present: normal appearance, PERRL ENT exam: Present: normal oropharynx Neck exam: Present: normal inspection Respiratory exam: Present: wheezes, rhonchi, decreased breath sounds Cardiovascular Exam: Present: regular rate, normal rhythm GI/Abdominal exam: Present: soft. Absent: tenderness Extremities exam: Present: pedal edema. Absent: calf tenderness Back exam: Present: normal inspection Neurological exam: Present: alert Psychiatric exam: Present: normal affect, normal mood Skin exam: Present: normal color Course Vital Signs 01/15/19 01/15/19 01/15/19 09:52 10:32 10:43 Temperature 99.1 F Pulse Rate 93 96 90 Respiratory 20 Rate Blood Pressure 155/93 O2 Sat by Pulse 95 Oximetry EKG Findings - EKG Comments: EKG Findings:: Normal sinus rhythm 88. CA 178. QRS 98. QT 356. QTc 4:30. Left axis. LVH criteria. No acute ST change. Medical Decision Making - Medical Decision Making Patient reevaluated with mild improvement. Patient updated on results and plan. Case was discussed in detail with Marcin Hatfield who will admit For hospital call. - Lab Data Result diagrams: 01/15/19 10:30 01/15/19 10:30 Lab Results 01/15/19 01/15/19 01/15/19 Range/Units 10:30 10:30 10:30 WBC 5.3 (3.8-10.6) k/uL RBC 4.77 (4.30-5.90) m/uL Hgb 13.4 (13.0-17.5) gm/dL Hct 42.3 (39.0-53.0) % MCV 88.6 (80.0-100.0) fL MCH 28.1 (25.0-35.0) pg MCHC 31.7 (31.0-37.0) g/dL RDW 14.9 (11.5-15.5) % Plt Count 228 (150-450) k/uL PT 10.2 (9.0-12.0) sec INR 0.9 (<1.2) APTT 25.1 (22.0-30.0) sec Sodium 137 (137-145) mmol/L Potassium 4.3 (3.5-5.1) mmol/L Chloride 102 (98-107) mmol/L Carbon Dioxide 28 (22-30) mmol/L Anion Gap 7 mmol/L BUN 13 (9-20) mg/dL Creatinine 0.92 (0.66-1.25) mg/dL Est GFR (CKD-EPI)AfAm >90 (>60 ml/min/1.73 sqM) Est GFR (CKD-EPI)NonAf >90 (>60 ml/min/1.73 sqM) Glucose 112 H (74-99) mg/dL Calcium 9.0 (8.4-10.2) mg/dL Total Bilirubin 0.3 (0.2-1.3) mg/dL AST 50 (17-59) U/L ALT 43 (21-72) U/L Alkaline Phosphatase 61 (38-126) U/L Total Protein 6.9 (6.3-8.2) g/dL Albumin 3.9 (3.5-5.0) g/dL - Radiology Data Radiology results: image reviewed (Chest x-ray does show some left lower lobe infiltrate) Disposition Clinical Impression: COPD exacerbation, Pneumonia Disposition: ADMITTED IP TO THIS HOSP Is patient prescribed a controlled substance at d/c from ED?: No Referrals: Alex Harrison MD [Primary Care Provider] - 1-2 days Decision Time: 11:12
[2019-01-15 10:48] LABS: HCT 42.3 % (39.0-53.0); HGB 13.4 gm/dL (13.0-17.5); MCH 28.1 pg (25.0-35.0); MCHC 31.7 g/dL (31.0-37.0); MCV 88.6 fL (80.0-100.0); Mean Platelet Volume 7.4; Platelet Count 228 k/uL (150-450); RBC 4.77 m/uL (4.30-5.90); RDW 14.9 % (11.5-15.5); WBC 5.3 k/uL (3.8-10.6)
[2019-01-15 10:55] LABS: ALT 43 U/L (21-72); AST 50 U/L (17-59); African American GFR (CKD) >90 (>60 ml/min/1.73 sqM); Albumin 3.9 g/dL (3.5-5.0); Alkaline Phosphatase 61 U/L (38-126); Anion Gap 7 mmol/L; Blood Urea Nitrogen 13 mg/dL (9-20); Carbon Dioxide 28 mmol/L (22-30); Chloride 102 mmol/L (98-107); Glucose 112 mg/dL (74-99); Potassium 4.3 mmol/L (3.5-5.1); Sodium 137 mmol/L (137-145); Total Bilirubin 0.3 mg/dL (0.2-1.3); Total Protein 6.9 g/dL (6.3-8.2)
--- NOTE | 2019-01-15 10:56 | XR ---
EXAMINATION TYPE: XR chest 2V DATE OF EXAM: 01/15/2019 COMPARISON: 09/21/2018 HISTORY: 4-year-old male difficulty breathing TECHNIQUE: PA and lateral views FINDINGS: Heart upper limits of normal in size. Diffuse interstitial densities are unchanged. Some patchy left basilar opacity is increased. No pleural effusion. IMPRESSION: Chronic changes but with new mild patchy left basilar atelectasis versus early developing infiltrate. Clinically correlate.
[2019-01-15 10:58] LABS: INR 0.9 (<1.2); Partial Thromboplastin Time 25.1 sec (22.0-30.0); Prothrombin Time 10.2 sec (9.0-12.0)
[2019-01-15] MEDS ORDERED: AZITHROMYCIN 500 MG in SODIUM CHLORIDE 0.9% 250 ML IVPB STA (11:13)
[2019-01-15] MEDS ORDERED: IPRATROPIUM-ALBUTEROL 3 ML NEB INHALATION PRN (11:13)
[2019-01-15] MEDS ORDERED: PNEUMONIA PROTOCOL UTILIZED 1 EACH MISC PO PRN (11:13)
[2019-01-15 11:18] LABS: Eosinophils # (M) 0.16 k/uL (0-0.7); Lymphocytes # (M) 1.11 k/uL (1.0-4.8); Metamyelocytes # (M) 0.05 k/uL (0); Metamyelocytes % 1 %; Monocytes # (M) 0.85 k/uL (0-1.0); Neutrophils # (M) 3.23 k/uL (1.3-7.7); Neutrophils % (M) 61 %; Nucleated Red Blood Cells 0 /100 WBC (0-0); Total Cells Counted 200
[2019-01-15 11:19] LABS: Anisocytosis (M) Present; Poikilocytosis (M) Present
[2019-01-15] MEDS: SODIUM CHLORIDE 0.9% 1,000 ML IV SCH (11:51)
[2019-01-15] MEDS ORDERED: methylPREDNISolone SOD SUCCI 125 MG/2 ML VIAL IV SCH (12:00)
--- NOTE | 2019-01-15 13:07 | XR ---
EXAMINATION TYPE: XR hand complete LT DATE OF EXAM: 01/15/2019 COMPARISON: NONE HISTORY: Pain TECHNIQUE: Three views are submitted. FINDINGS: The osseous structures are intact. Arthropathy of the first carpal metacarpal joint and DIP joints of all digits. And there is no acute fracture or dislocation. IMPRESSION: 1. No definite acute fracture or dislocation if symptoms persist, follow-up study in 7 to 10 days wo uld be suggested. 2. Severe arthropathy first carpal metacarpal joint compatible osteoarthritis. 3. radiodense structure in the soft tissues adjacent to the first MTP may be superficial to the patie nt rather than representing calcification or foreign body correlate clinically
[2019-01-15] MEDS ORDERED: DOCUSATE 100 MG CAP PO PRN (13:15)
[2019-01-15] MEDS ORDERED: SULFACETAMIDE SOD 10% OPHTH DROPS 15 ML BTL BOTH EYES SCH (13:15)
[2019-01-15] MEDS ORDERED: CYCLOBENZAPRINE 10 MG TAB PO PRN (13:15)
[2019-01-15] MEDS ORDERED: ALBUTEROL NEBULIZED 2.5 MG/3 ML INHALATION PRN (13:15)
[2019-01-15] MEDS ORDERED: ALPRAZolam 1 MG TAB PO PRN (13:15)
[2019-01-15 13:18] LABS: Glucose,Whole Blood 141 mg/dL (75-99)
[2019-01-15] MEDS: HYDROcodone/APAP 10-325MG 1 EACH TAB PO PRN (13:29)
[2019-01-15] MEDS: IPRATROPIUM-ALBUTEROL 3 ML NEB INHALATION SCH ×2 (16:03→19:42)
--- NOTE | 2019-01-15 16:03 | P.HPIM ---
History of Present Illness 58-year-old male came in with comments of cough and difficulty of breathing, patient had a chest x-ray showed bibasilar infiltrates and red was admitted for mostly pneumonia. My impression clinically is low possibly of pneumonia does have a tracheobronchitis and with restrictive lung disease patient is having shortness of breath patient does have sleep apnea but is without any and as an outpatient. Patient does have history of congestive heart failure appears to be diastolic dysfunction had a normal ejection fraction the past not in heart failure exacerbation. Patient was started on high-dose systemic steroids which may not benefit him because of which I'm cutting down the steroids and the patient will continue on inhalational treatments. Patient will be continued on BiPAP possibility of discharge tomorrow patient also has minimally elevated troponin which we'll repeat it again patient denied any chest pain at this time. EKG did not show any acute ST-T wave changes. Review of Systems REVIEW OF SYSTEMS: CONSTITUTIONAL: No fever, no malaise, no fatigue. HEENT: No recent visual problems or hearing problems. Denied any sore throat. CARDIOVASCULAR: No chest pain, orthopnea, PND, no palpitations, no syncope. PULMONARY: As mentioned in HPI GASTROINTESTINAL: No diarrhea, no nausea, no vomiting, no abdominal pain. NEUROLOGICAL: No headaches, no weakness, no numbness. HEMATOLOGICAL: Denies any bleeding or petechiae. GENITOURINARY: Denies any burning micturition, frequency, or urgency. MUSCULOSKELETAL/RHEUMATOLOGICAL: Denies any joint pain, swelling, or any muscle pain. ENDOCRINE: Denies any polyuria or polydipsia. The rest of the 14-point review of systems is negative. Past Medical History Past Medical History: Heart Failure, COPD, Diabetes Mellitus, GERD/Reflux, Hyperlipidemia, Hypertension, Osteoarthritis (OA), Prostate Disorder, Sleep Apnea/CPAP/BIPAP Additional Past Medical History / Comment(s): ASCENDING THORACIC ANEURYSM, Palpitations, "LEAKY VALVE." USES BI PAP MACHINE, CONSTIPATION. EDEMA ANKLES. Neuropathy History of Any Multi-Drug Resistant Organisms: None Reported Past Surgical History: Orthopedic Surgery Additional Past Surgical History / Comment(s): ARTHROSCOPIC RIGHT KNEE - EXC GLASS, HEMORRHOIDECTOMY. COLONOSCOPY. Past Anesthesia/Blood Transfusion Reactions: Previous Problems w/ Anesthesia Additional Past Anesthesia/Blood Transfusion Reaction / Comment(s): AWAKE DURING SURGERY, IN PAIN. Past Psychological History: Anxiety, Depression Smoking Status: Former smoker Past Alcohol Use History: None Reported Additional Past Alcohol Use History / Comment(s): STARTED SMOKING AT AGE 6, QUIT CIG AT 14, SMOKED 1 PACK PER WEEK Past Drug Use History: None Reported Additional Drug Use History / Comment(s): NO MARIJUANA QUIT 1988 - Past Family History Father Family Medical History: Cancer, Diabetes Mellitus Mother Family Medical History: Cancer Medications and Allergies Home Medications Medication Instructions Recorded Confirmed Type ALPRAZolam [Xanax] 1 mg PO TID PRN 06/26/16 01/15/19 History Carvedilol 25 mg PO BID 06/26/16 01/15/19 History Fluticasone Nasal [place] [Flonase 1 spray EA NOSTRIL BID 06/26/16 01/15/19 History Nasal [place]] Nitroglycerin Sl Tabs [Nitrostat] 0.4 mg SUBLINGUAL Q5M PRN 03/08/17 01/15/19 History Cholecalciferol [Vitamin D3 (25 5,000 unit PO DAILY 05/09/17 01/15/19 History Mcg = 1000 Iu)] Nitroglycerin [Nitro-Dur 0.4MG/Hr 1 patch TRANSDERM DAILY 05/09/17 01/15/19 History Patch] HYDROcodone/APAP 10-325MG [[place] 1 - 2 tab PO Q6H PRN 09/21/18 01/15/19 History 10-325] Lidocaine 5% Oint [Xylocaine 5% 1 applic TOPICAL DAILY PRN 09/21/18 01/15/19 History Oint] Albuterol Inhaler [Ventolin Hfa 2 puff INHALATION RT-Q4H PRN #1 09/23/18 01/15/19 Rx Inhaler] inhaler Aspirin [Adult Low Dose Aspirin EC] 81 mg PO DAILY #30 tablet. 09/23/18 01/15/19 Rx Cyclobenzaprine [Flexeril] 10 mg PO BID #60 tablet 09/23/18 01/15/19 Rx Docusate [Colace] 100 mg PO DAILY PRN #30 cap 09/23/18 01/15/19 Rx Enalapril [Vasotec] 20 mg PO BID #60 tab 09/23/18 01/15/19 Rx Ezetimibe [Zetia] 10 mg PO DAILY #30 tab 09/23/18 01/15/19 Rx Famotidine [Pepcid] 20 mg PO DAILY #60 tab 09/23/18 01/15/19 Rx Furosemide [Lasix] 80 mg PO DAILY #30 tab 09/23/18 01/15/19 Rx Tamsulosin [Flomax] 0.4 mg PO DAILY #30 cap.er.24h 09/23/18 01/15/19 Rx metFORMIN HCL [Glucophage] 500 mg PO DAILY #30 tab 09/23/18 01/15/19 Rx Spironolactone-Hctz 25-25Mg 1 tab PO DAILY 01/06/19 01/15/19 History [Aldactazide 25-25 MG] Albuterol Nebulized [Ventolin 2.5 mg INHALATION RT-QID PRN 01/15/19 01/15/19 History Nebulized] Allergies Allergy/AdvReac Type Severity Reaction Status Date / Time No Known Allergies Allergy Verified 01/15/19 10:10 Physical Exam Vitals: Vital Signs Temp Pulse Pulse Resp BP BP Pulse Ox 01/15/19 13:59 94 L 01/15/19 12:42 98.6 F 101 H 18 151/84 93 L 01/15/19 11:47 95 20 157/96 94 L 01/15/19 10:43 90 01/15/19 10:32 96 01/15/19 09:52 99.1 F 93 20 155/93 95 Intake and Output 01/15/19 01/15/19 01/15/19 06:59 14:59 22:59 Other: Voiding Method Toilet # Voids 1 Weight 167.829 kg PHYSICAL EXAMINATION: GENERAL: The patient is alert and oriented x3, not in any acute distress. Orbital obese HEENT: Pupils are round and equally reacting to light. EOMI. No scleral icterus. No conjunctival pallor. Normocephalic, atraumatic. No pharyngeal erythema. No thyromegaly. CARDIOVASCULAR: S1 and S2 present. No murmurs, rubs, or gallops. PULMONARY: Decreased breath sounds bilaterally no syncope and there may be minimal expiratory wheezing ABDOMEN: Soft, nontender, nondistended, normoactive bowel sounds. No palpable organomegaly. MUSCULOSKELETAL: No joint swelling or deformity. EXTREMITIES: No cyanosis, clubbing, or pedal edema. NEUROLOGICAL: Gross neurological examination did not reveal any focal deficits. SKIN: No rashes. Results CBC & Chem 7: 01/15/19 10:30 01/15/19 10:30 Labs: Abnormal Lab Results - Last 24 Hours (Table) 01/15/19 01/15/19 01/15/19 Range/Units 10:30 10:30 10:30 Metamyelocytes # (Man) 0.05 H (0) k/uL Glucose 112 H (74-99) mg/dL POC Glucose (mg/dL) (75-99) mg/dL Troponin I 0.054 H* (0.000-0.034) ng/mL 01/15/19 Range/Units 12:56 Metamyelocytes # (Man) (0) k/uL Glucose (74-99) mg/dL POC Glucose (mg/dL) 141 H (75-99) mg/dL Troponin I (0.000-0.034) ng/mL Thrombosis Risk Factor Assmnt - Choose All That Apply Each Factor Represents 1 point: Age 41-60 years Thrombosis Risk Factor Assessment Total Risk Factor Score: 1 Thrombosis Risk Factor Assessment Level: Low Risk Assessment and Plan Plan: Shortness of breath mostly secondary to tracheobronchitis for which she patient will be continued on antibodies for bronchitis, there is infiltrate in the left lower lobes cannot completely rule out pneumonia continue with Rocephin and azithromycin shortness of breath is predominantly because of cystic lung disease to acute bronchitis and possibility of pneumonia. Low possibility of of COPD salivation: We'll cut down the steroids -CHF Chronic diastolic dysfunction without any acute exacerbation continue with home dose of Lasix -Started to sleep apnea counseling was provided regarding diet and losing weight, continue with CPAP machine -Hypertension -Hyperlipidemia -Type 2 diabetes mellitus -Gastroesophageal reflux disease -BPH 5. Depression For above-mentioned chronic PROBLEMS patient will be resumed and continued on appropriate home medications patient will need pharmacologic GI and DVT prophylaxis
[2019-01-15 16:56] LABS: Glucose,Whole Blood 113 mg/dL (75-99)
[2019-01-15] MEDS: INSULIN ASPART (NovoLOG) 100 UNIT/ML VIAL SQ SCH ×2 (17:04→20:33)
[2019-01-15] MEDS: CARVEDILOL 12.5 MG TAB PO SCH (17:20)
[2019-01-15] MEDS: LISINOPRIL 20 MG TAB PO SCH (20:28)
[2019-01-15 20:29] LABS: Glucose,Whole Blood 138 mg/dL (75-99)
[2019-01-15] MEDS: FLUTICASONE 50MCG/SPRAY NASAL 16GM EA NOSTRIL SCH (20:34)
--- NOTE | 2019-01-15 20:56 | P.CNPUL ---
History of Present Illness Consult date: 01/15/19 Reason for consult: dyspnea History of present illness: 58-year-old -[place]cu[place] male patient with known history of COPD and severe obstructive sleep apnea with an AHI of 15 is a maintained on BiPAP at a pressure between 14 cm of water on outpatient basis. The patient is morbidly obese with a BMI of 56.3. The patient also has history of diabetes mellitus, chronic renal failure, thoracic aortic aneurysm which is measuring 4.5 cm has been stable,, hypertension and coronary artery disease and a cardiac catheterization that was done on 09/22/2018 showed mild irregularity in the LAD, circumflex and RCA without any obstructive coronary artery disease in the left ventricular end- diastolic pressure was significantly elevated secondary to hypertensive heart disease.. The patient came into the hospital because of increased cough and dif ficulty breathing and the chest x-ray showed bibasilar pulmonary infiltrate and he was a diagnosis of pneumonia. the patient has been started on a combination of antibiotics and currently the combination of rocephin and zithromax. he is on iv solu-medrol. he is also on bronchodilators [id number] utilizing duoneb. his troponins have been minimally elevated with levels of 0.05 and 0.04 respectively 2. rest of the electrodes are all within normal limits. bnp level was nonelevated. the white cell count is at 5.3. Review of Systems Constitutional: Reports daytime sleepiness, Reports fatigue, Reports weakness, Reports weight gain Eyes: denies as per HPI, denies blurred vision, denies bulging eye Ears: deny: decreased hearing, ear discharge, earache, tinnitus Ears, nose, mouth and throat: Denies headache, Denies sore throat Cardiovascular: Reports decreased exercise tolerance, Reports dyspnea on exertion, Reports shortness of breath Respiratory: Reports cough with sputum, Reports dyspnea, Reports sleep apnea, Reports snoring, Reports wheezing Gastrointestinal: Denies abdominal pain, Denies diarrhea, Denies nausea, Denies vomiting Genitourinary: Reports as per HPI Musculoskeletal: Reports as per HPI Musculoskeletal: absent: ankle pain, ankle stiffness, ankle swelling Integumentary: Reports as per HPI Neurological: Reports weakness Psychiatric: Reports change in sleep habits, Reports sleep disturbances Endocrine: Reports as per HPI, Reports fatigue Hematologic/Lymphatic: Reports as per HPI Allergic/Immunologic: Reports as per HPI Past Medical History Past Medical History: Heart Failure, COPD, Diabetes Mellitus, GERD/Reflux, Hyperlipidemia, Hypertension, Osteoarthritis (OA), Prostate Disorder, Sleep Apnea/CPAP/BIPAP Additional Past Medical History / Comment(s): COPD, coronary artery disease with nonocclusive CAD based on a cardiac catheterization that was done on 09/22/2018, stable thoracic ascending aneurysm measuring 4.5 cm, obstructive sleep apnea maintained on a BiPAP at a pressure of 18/14 cm of water, peripheral neuropathy, hypertension, hyperlipidemia, diabetes mellitus, morbid obesity, osteoarthritis, BPH, chronic constipation, chronic lower extremity edema, hypertensive heart disease with elevated left ventricular end-diastolic pressure and a preserved LV function without significant pulmonary hypertension History of Any Multi-Drug Resistant Organisms: None Reported Past Surgical History: Orthopedic Surgery Additional Past Surgical History / Comment(s): ARTHROSCOPIC RIGHT KNEE - EXC GLASS, HEMORRHOIDECTOMY. COLONOSCOPY. Past Anesthesia/Blood Transfusion Reactions: Previous Problems w/ Anesthesia Additional Past Anesthesia/Blood Transfusion Reaction / Comment(s): AWAKE DURING SURGERY, IN PAIN. Past Psychological History: Anxiety, Depression Smoking Status: Former smoker Past Alcohol Use History: None Reported Additional Past Alcohol Use History / Comment(s): STARTED SMOKING AT AGE 6, QUIT CIG AT 14, SMOKED 1 PACK PER WEEK Past Drug Use History: None Reported Additional Drug Use History / Comment(s): NO MARIJUANA QUIT 1988 - Past Family History Father Family Medical History: Cancer, Diabetes Mellitus Mother Family Medical History: Cancer Medications and Allergies Home Medications Medication Instructions Recorded Confirmed Type ALPRAZolam [Xanax] 1 mg PO TID PRN 06/26/16 01/15/19 History Carvedilol 25 mg PO BID 06/26/16 01/15/19 History Fluticasone Nasal [place] [Flonase 1 spray EA NOSTRIL BID 06/26/16 01/15/19 History Nasal [place]] Nitroglycerin Sl Tabs [Nitrostat] 0.4 mg SUBLINGUAL Q5M PRN 03/08/17 01/15/19 History Cholecalciferol [Vitamin D3 (25 5,000 unit PO DAILY 05/09/17 01/15/19 History Mcg = 1000 Iu)] Nitroglycerin [Nitro-Dur 0.4MG/Hr 1 patch TRANSDERM DAILY 05/09/17 01/15/19 History Patch] HYDROcodone/APAP 10-325MG [[place] 1 - 2 tab PO Q6H PRN 09/21/18 01/15/19 History 10-325] Lidocaine 5% Oint [Xylocaine 5% 1 applic TOPICAL DAILY PRN 09/21/18 01/15/19 History Oint] Albuterol Inhaler [Ventolin Hfa 2 puff INHALATION RT-Q4H PRN #1 09/23/18 01/15/19 Rx Inhaler] inhaler Aspirin [Adult Low Dose Aspirin EC] 81 mg PO DAILY #30 tablet.dr 09/23/18 01/15/19 Rx Cyclobenzaprine [Flexeril] 10 mg PO BID #60 tablet 09/23/18 01/15/19 Rx Docusate [Colace] 100 mg PO DAILY PRN #30 cap 09/23/18 01/15/19 Rx Enalapril [Vasotec] 20 mg PO BID #60 tab 09/23/18 01/15/19 Rx Ezetimibe [Zetia] 10 mg PO DAILY #30 tab 09/23/18 01/15/19 Rx Famotidine [Pepcid] 20 mg PO DAILY #60 tab 09/23/18 01/15/19 Rx Furosemide [Lasix] 80 mg PO DAILY #30 tab 09/23/18 01/15/19 Rx Tamsulosin [Flomax] 0.4 mg PO DAILY #30 cap.er.24h 09/23/18 01/15/19 Rx metFORMIN HCL [Glucophage] 500 mg PO DAILY #30 tab 09/23/18 01/15/19 Rx Spironolactone-Hctz 25-25Mg 1 tab PO DAILY 01/06/19 01/15/19 History [Aldactazide 25-25 MG] Albuterol Nebulized [Ventolin 2.5 mg INHALATION RT-QID PRN 01/15/19 01/15/19 History Nebulized] Allergies Allergy/AdvReac Type Severity Reaction Status Date / Time No Known Allergies Allergy Verified 01/15/19 10:10 Physical Exam Vitals: Vital Signs Temp Pulse Pulse Resp BP BP Pulse Ox 01/15/19 19:44 78 96 01/15/19 16:14 84 01/15/19 16:03 86 01/15/19 13:59 94 L 01/15/19 12:42 98.6 F 101 H 18 151/84 93 L 01/15/19 11:47 95 20 157/96 94 L 01/15/19 10:43 90 01/15/19 10:32 96 01/15/19 09:52 99.1 F 93 20 155/93 95 Intake and Output 01/15/19 01/15/19 01/15/19 06:59 14:59 22:59 Other: Voiding Method Toilet # Voids 1 Weight 167.829 kg GENERAL: The patient is alert and oriented x3, not in any acute distress. Morbid obesity Head exam was generally normal. There was no scleral icterus or corneal arcus. Mucous membranes were moist. Neck was supple and without jugular venous distension, thyromegaly, or carotid bruits. Carotids were easily palpable bilaterally. There was no adenopathy. Patient is a Mallampati class IV with significant crowding of the posterior oropharynx. CARDIOVASCULAR: S1 and S2 present. No murmurs, rubs, or gallops. PULMONARY: Decreased breath sounds bilaterally no syncope and there may be minimal expiratory wheezing ABDOMEN: Soft, nontender, nondistended, normoactive bowel sounds. No palpable o rganomegaly. MUSCULOSKELETAL: No joint swelling or deformity. EXTREMITIES: No cyanosis, clubbing, or pedal edema. NEUROLOGICAL: Gross neurological examination did not reveal any focal deficits. SKIN: Examination of the skin revealed no evidence of significant rashes, suspicious appearing nevi or other concerning lesions. Results - Laboratory Findings CBC and BMP: 01/15/19 10:30 01/15/19 10:30 PT/INR, D-dimer PT 10.2 sec (9.0-12.0) 01/15/19 10:30 INR 0.9 (<1.2) 01/15/19 10:30 Abnormal lab findings: Abnormal Labs 01/15/19 01/15/19 01/15/19 10:30 10:30 10:30 Metamyelocytes # (Man) 0.05 H Glucose 112 H POC Glucose (mg/dL) Troponin I 0.054 H* 01/15/19 01/15/19 01/15/19 12:56 16:17 16:40 Metamyelocytes # (Man) Glucose POC Glucose (mg/dL) 141 H 113 H Troponin I 0.042 H* - Diagnostic Findings Chest x-ray: image reviewed Assessment and Plan Plan: 1 COPD exacerbation/bronchitis with questionable lower lobe pneumonia based on his chest x-ray findings. The patient is morbidly obese and the chest x-ray fin dings are somewhat limited in assessing lung bases. The patient was covered with accommodation Rocephin and Zithromax. He is also on bronchodilators [id number]. 2 shortness of breath, multifactorial, predominantly secondary to above 3 coronary artery disease with nonocclusive CAD based on a cardiac catheterization that was done in September 2018. The patient has a troponin leak which is a nonspecific finding knowing that the patient's cardiac catheterization showed nonocclusive/nonobstructive CAD few months back. 4 hypertensive heart disease with significant elevation of the left ventricular diastolic pressure and a preserved LV function 5 obstructive sleep apnea CVA with an AHI of 50 maintained on BiPAP at a pressure of 18/14 cm of water 6 hypertension 7 hyperlipidemia 8 diabetes mellitus type 2 9 peripheral neuropathy, with chronic foot pain 10 BPH 11 chronic depression 12 morbid obesity with a BMI of 56.3 13 stable ascending thoracic aortic aneurysm measuring 4.5 cm in size followed up by vascular surgery on outpatient basis Plan Continue current treatment. Agree on the current treatment. Prednisone burst taper. Rocephin and Zithromax. Local dilated [id number]. Allow the patient uses BiPAP from home. We'll continue to follow.
[2019-01-16 05:44] VITALS: BP 151/68; TEMP 98.3
[2019-01-16] MEDS: IPRATROPIUM-ALBUTEROL 3 ML NEB INHALATION SCH ×2 (07:31→11:08)
[2019-01-16 07:33] LABS: Glucose,Whole Blood 119 mg/dL (75-99)
[2019-01-16] MEDS: CARVEDILOL 12.5 MG TAB PO SCH (08:08)
[2019-01-16] MEDS: LISINOPRIL 20 MG TAB PO SCH (08:08)
[2019-01-16] MEDS: INSULIN ASPART (NovoLOG) 100 UNIT/ML VIAL SQ SCH ×2 (08:09→12:34)
[2019-01-16] MEDS: HYDROcodone/APAP 10-325MG 1 EACH TAB PO PRN (08:16)
[2019-01-16] MEDS: FLUTICASONE 50MCG/SPRAY NASAL 16GM EA NOSTRIL SCH (08:17)
[2019-01-16] MEDS ORDERED: EZETIMIBE 10 MG TAB PO SCH (09:00)
[2019-01-16] MEDS ORDERED: CHOLECALCIFEROL 1,000 UNIT TAB PO SCH (09:00)
[2019-01-16] MEDS ORDERED: ASPIRIN 81 MG PO SCH (09:00)
[2019-01-16] MEDS ORDERED: predniSONE 20 MG TAB PO SCH (09:00)
[2019-01-16] MEDS ORDERED: TAMSULOSIN 0.4 MG CAP.ER.24H PO SCH (09:00)
[2019-01-16] MEDS ORDERED: FAMOTIDINE 20 MG TAB PO SCH (09:00)
[2019-01-16] MEDS ORDERED: AZITHROMYCIN 500 MG TAB PO SCH (09:00)
[2019-01-16] MEDS ORDERED: FUROSEMIDE 80 MG TAB PO SCH (09:00)
[2019-01-16] MEDS ORDERED: SPIRONOLACTONE-HCTZ 25-25MG 1 EACH TAB PO SCH (09:00)
[2019-01-16] MEDS ORDERED: metFORMIN 500 MG TAB PO SCH (09:00)
--- NOTE | 2019-01-16 09:12 | XR ---
EXAMINATION TYPE: XR chest 2V DATE OF EXAM: 01/16/2019 COMPARISON: Prior chest x-ray 01/15/[address] chest 09/21/2018 HISTORY: Pneumonia TECHNIQUE: Frontal and lateral views of the chest are obtained. FINDINGS: Patient is rotated. There are prominent lung volumes with flattening of hemidiaphragms, con dry roaster COPD. No evident pneumothorax or pleural effusion. Cardiomediastinal silhouette, pulmonary vasc ularity and lynette are not significantly changed. Interstitium is increased. Central vascularity is pro minent. Patchy basilar density persists at the left costophrenic angle. There is pleural thickening. Ascending aorta is aneurysmal. Interstitium is prominent. Calcified granuloma noted at the right uppe r lobe. Patient's additional lung nodules are not seen definitively. IMPRESSION: There may be basilar atelectasis, correlate to exclude pneumonia. Interstitial lung disea se, ascending aortic aneurysm.
[2019-01-16 10:48] VITALS: RESP 18
[2019-01-16 11:25] LABS: HCT 45.6 % (39.0-53.0); HGB 14.1 gm/dL (13.0-17.5); MCH 27.9 pg (25.0-35.0); MCV 90.1 fL (80.0-100.0); Mean Platelet Volume 7.9; Platelet Count 212 k/uL (150-450); RBC 5.06 m/uL (4.30-5.90); WBC 6.4 k/uL (3.8-10.6)
[2019-01-16 11:35] VITALS: PULSE 82
[2019-01-16 11:48] LABS: Calcium 9.3 mg/dL (8.4-10.2); Potassium 5.2 mmol/L (3.5-5.1)
--- NOTE | 2019-01-16 12:10 | P.PN ---
Subjective Progress Note Date: 01/16/19 Principal diagnosis: Acute exacerbation of COPD, with tracheobronchitis, and questionable lower lobe pneumonia 58-year-old -[place]rist[place] male patient with known history of COPD and severe obstructive sleep apnea with an AHI of 15 is a maintained on BiPAP at a pressure between 14 cm of water on outpatient basis. The patient is morbidly obese with a BMI of 56.3. The patient also has history of diabetes mellitus, chronic renal failure, thoracic aortic aneurysm which is measuring 4.5 cm has been stable,, hypertension and coronary artery disease and a cardiac catheterization that was done on 09/22/2018 showed mild irregularity in the LAD, circumflex and RCA without any obstructive coronary artery disease in the left ventricular end- diastolic pressure was significantly elevated secondary to hypertensive heart disease.. The patient came into the hospital because of increased cough and difficulty breathing and the chest x-ray showed bibasilar pulmonary infiltrate and he was a diagnosis of pneumonia. the patient has been started on a combination of antibiotics and currently the combination of rocephin and zithromax. he is on iv solu-medrol. he is also on bronchodilators [id number] utilizing duoneb. his troponins have been minimally elevated with levels of 0.05 and 0.04 respectively 2. rest of the electrodes are all within normal limits. bnp level was nonelevated. the white cell count is at 5.3. On 01/16/2019 patient seen in follow-up on medical surgical floor. He is resting comfortably in bed, on his CPAP unit from home. He states his breathing is improving. When the patient is off BiPAP he is on 2 L of oxygen per nasal cannula and his pulse ox is 95%, no fever or chills, vital signs are stable, no complaints of chest wall tenderness, no hemoptysis. He is on antibiotic coverage in the form of Zithromax and Rocephin, IV steroids, initially placed bronchodilators. Lung sounds reveal some end expiratory wheezing, but overall less bronchospastic compared to yesterday's exam. Still having some occasional coughing, not bringing up much sputum. Objective - Vital Signs Vital signs: Vital Signs Temp 98.3 F 01/16/19 05:00 Pulse 82 01/16/19 11:21 Resp 18 01/16/19 08:00 BP 151/68 01/16/19 05:00 Pulse Ox 94 L 01/16/19 11:21 Intake & Output 01/15/19 01/16/19 01/16/19 18:59 06:59 18:59 Intake Total 400 Balance 400 Weight 167.829 kg Intake: Oral 400 Other: Voiding Method Toilet Toilet # Voids 1 2 - Exam GENERAL EXAM: Alert, pleasant, obese 58-year-old -[place] male, on CPAP, comfortable in no apparent distress. HEAD: Normocephalic/atraumatic. EYES: Normal reaction of pupils, equal size. Conjunctiva pink, sclera white. NOSE: Clear with pink turbinates. THROAT: No erythema or exudates. NECK: No masses, no JVD, no thyroid enlargement, no adenopathy. CHEST: No chest wall deformity. Symmetrical expansion. LUNGS: Equal air entry with end expiratory wheezes CVS: Regular rate and rhythm, normal S1 and S2, no gallops, no murmurs, no rubs ABDOMEN: Soft, nontender. No hepatosplenomegaly, normal bowel sounds, no guarding or rigidity. EXTREMITIES: No clubbing, no edema, no cyanosis, 2+ pulses and upper and lower extremities. MUSCULOSKELETAL: Muscle strength and tone normal. SPINE: No scoliosis or deformity SKIN: No rashes CENTRAL NERVOUS SYSTEM: Alert and oriented -3. No focal deficits, tone is normal in all 4 extremities. PSYCHIATRIC: Alert and oriented -3. Appropriate affect. Intact judgment and insight. - Labs CBC & Chem 7: 01/16/19 10:45 01/16/19 10:45 Labs: Abnormal Lab Results - Last 24 Hours (Table) 01/15/19 01/15/19 01/15/19 Range/Units 12:56 16:17 16:40 RDW (11.5-15.5) % Potassium (3.5-5.1) mmol/L Glucose (74-99) mg/dL POC Glucose (mg/dL) 141 H 113 H (75-99) mg/dL Troponin I 0.042 H* (0.000-0.034) ng/mL 01/15/19 01/16/19 01/16/19 Range/Units 20:25 07:08 10:45 RDW 16.0 H (11.5-15.5) % Potassium (3.5-5.1) mmol/L Glucose (74-99) mg/dL POC Glucose (mg/dL) 138 H 119 H (75-99) mg/dL Troponin I (0.000-0.034) ng/mL 01/16/19 Range/Units 10:45 RDW (11.5-15.5) % Potassium 5.2 H (3.5-5.1) mmol/L Glucose 131 H (74-99) mg/dL POC Glucose (mg/dL) (75-99) mg/dL Troponin I (0.000-0.034) ng/mL Assessment and Plan Plan: 1 COPD exacerbation/bronchitis with questionable lower lobe pneumonia based on his chest x-ray findings. The patient is morbidly obese and the chest x-ray findings are somewhat limited in assessing lung bases. The patient was covered with accommodation Rocephin and Zithromax. He is also on bronchodilators [id number]. 2 shortness of breath, multifactorial, predominantly secondary to above 3 coronary artery disease with nonocclusive CAD based on a cardiac cat heterization that was done in September 2018. The patient has a troponin leak which is a nonspecific finding knowing that the patient's cardiac catheterization showed nonocclusive/nonobstructive CAD few months back. 4 hypertensive heart disease with significant elevation of the left ventricular diastolic pressure and a preserved LV function 5 obstructive sleep apnea CVA with an AHI of 50 maintained on BiPAP at a pressure of 18/14 cm of water 6 hypertension 7 hyperlipidemia 8 diabetes mellitus type 2 9 peripheral neuropathy, with chronic foot pain 10 BPH 11 chronic depression 12 morbid obesity with a BMI of 56.3 13 stable ascending thoracic aortic aneurysm measuring 4.5 cm in size followed up by vascular surgery on outpatient basis Plan: Patient is breathing easier, less bronchospastic, less dyspneic. We'll continue with current medical treatment, antibiotic coverage, nebulized bronchodilators. Sputum for culture. No fever or chills, vital signs are stable, continue utili zing BiPAP from home on as-needed basis during the day and at bedtime. I performed a history & physical examination of the patient and discussed their management with my nurse practitioner, Pippa Ellison. I reviewed the nurse practitioner's note and agree with the documented findings and plan of care. Lung sounds are positive for diminished breath sounds with end expiratory wheezes. The findings and the impression was discussed with the patient. I attest to the documentation by the nurse practitioner. Time with Patient: Less than 30
[2019-01-16] MEDS: SODIUM CHLORIDE 0.9% 1,000 ML IV SCH (12:34)
--- NOTE | 2019-01-16 14:52 | P.DS ---
Providers Date of admission: 01/15/19 11:13 Attending physician: Brayan Nam Consults: 01/15/19 13:21 Consult Physician Routine Consulting Provider: Yolis Crawford Consult Reason/Comments: COPD Do you want consulting provider notified?: Yes Primary care physician: Alex Harrison MD Hospital Course: Patient was treated for possible left lower lobe pneumonia. Patient is collected in well and lambda the patient is saturating well patient will be discharged on oral antibiotics. PHYSICAL EXAMINATION: GENERAL: The patient is alert and oriented x3, not in any acute distress. Orbital obese HEENT: Pupils are round and equally reacting to light. EOMI. No scleral icterus. No conjunctival pallor. Normocephalic, atraumatic. No pharyngeal erythema. No thyromegaly. CARDIOVASCULAR: S1 and S2 present. No murmurs, rubs, or gallops. PULMONARY: Decreased breath sounds bilaterally no syncope and there may be minimal expiratory wheezing ABDOMEN: Soft, nontender, nondistended, normoactive bowel sounds. No palpable organomegaly. MUSCULOSKELETAL: No joint swelling or deformity. EXTREMITIES: No cyanosis, clubbing, or pedal edema. NEUROLOGICAL: Gross neurological examination did not reveal any focal deficits. SKIN: No rashes. Assessment and Plan Plan: Shortness of breath mostly secondary to tracheobronchitis and possible left lower lobe pneumonia Low possibility of of COPD exacerbation -CHF Chronic diastolic dysfunction without any acute exacerbation continue with home dose of Lasix -Started to sleep apnea counseling was provided regarding diet and losing weight, continue with CPAP machine -Hypertension -Hyperlipidemia -Type 2 diabetes mellitus -Gastroesophageal reflux disease -BPH 5. Depression Plan - Discharge Summary New Discharge Prescriptions: New Cefuroxime Axetil [Ceftin] 500 mg PO BID #10 tab predniSONE 10 mg PO DAILY #30 tab Continue Fluticasone Nasal [place] [Flonase Nasal [place]] 1 spray EA NOSTRIL BID Carvedilol 25 mg PO BID ALPRAZolam [Xanax] 1 mg PO TID PRN PRN Reason: Anxiety Nitroglycerin Sl Tabs [Nitrostat] 0.4 mg SUBLINGUAL Q5M PRN PRN Reason: Chest Pain Nitroglycerin [Nitro-Dur 0.4MG/Hr Patch] 1 patch TRANSDERM DAILY Cholecalciferol [Vitamin D3 (25 Mcg = 1000 Iu)] 5,000 unit PO DAILY HYDROcodone/APAP 10-325MG [[place] 10-325] 1 - 2 tab PO Q6H PRN PRN Reason: Pain Lidocaine 5% Oint [Xylocaine 5% Oint] 1 applic TOPICAL DAILY PRN PRN Reason: Pain Ezetimibe [Zetia] 10 mg PO DAILY #30 tab Tamsulosin [Flomax] 0.4 mg PO DAILY #30 cap.er.24h Albuterol Inhaler [Ventolin Hfa Inhaler] 2 puff INHALATION RT-Q4H PRN #1 inhaler PRN Reason: Shortness Of Breath Aspirin [Adult Low Dose Aspirin EC] 81 mg PO DAILY #30 tablet.dr Cyclobenzaprine [Flexeril] 10 mg PO BID #60 tablet Docusate [Colace] 100 mg PO DAILY PRN #30 cap PRN Reason: Constipation Enalapril [Vasotec] 20 mg PO BID #60 tab Famotidine [Pepcid] 20 mg PO DAILY #60 tab Furosemide [Lasix] 80 mg PO DAILY #30 tab metFORMIN HCL [Glucophage] 500 mg PO DAILY #30 tab Spironolactone-Hctz 25-25Mg [Aldactazide 25-25 MG] 1 tab PO DAILY Albuterol Nebulized [Ventolin Nebulized] 2.5 mg INHALATION RT-QID PRN PRN Reason: Shortness Of Breath Discharge Medication List ALPRAZolam [Xanax] 1 mg PO TID PRN 06/26/16 [History] Carvedilol 25 mg PO BID 06/26/16 [History] Fluticasone Nasal [place] [Flonase Nasal [place]] 1 spray EA NOSTRIL BID 06/26/16 [History] Nitroglycerin Sl Tabs [Nitrostat] 0.4 mg SUBLINGUAL Q5M PRN 03/08/17 [History] Cholecalciferol [Vitamin D3 (25 Mcg = 1000 Iu)] 5,000 unit PO DAILY 05/09/17 [History] Nitroglycerin [Nitro-Dur 0.4MG/Hr Patch] 1 patch TRANSDERM DAILY 05/09/17 [History] HYDROcodone/APAP 10-325MG [[place] 10-325] 1 - 2 tab PO Q6H PRN 09/21/18 [History] Lidocaine 5% Oint [Xylocaine 5% Oint] 1 applic TOPICAL DAILY PRN 09/21/18 [History] Albuterol Inhaler [Ventolin Hfa Inhaler] 2 puff INHALATION RT-Q4H PRN #1 inhaler 09/23/18 [Rx] Aspirin [Adult Low Dose Aspirin EC] 81 mg PO DAILY #30 tablet.dr 09/23/18 [Rx] Cyclobenzaprine [Flexeril] 10 mg PO BID #60 tablet 09/23/18 [Rx] Docusate [Colace] 100 mg PO DAILY PRN #30 cap 09/23/18 [Rx] Enalapril [Vasotec] 20 mg PO BID #60 tab 09/23/18 [Rx] Ezetimibe [Zetia] 10 mg PO DAILY #30 tab 09/23/18 [Rx] Famotidine [Pepcid] 20 mg PO DAILY #60 tab 09/23/18 [Rx] Furosemide [Lasix] 80 mg PO DAILY #30 tab 09/23/18 [Rx] Tamsulosin [Flomax] 0.4 mg PO DAILY #30 cap.er.24h 09/23/18 [Rx] metFORMIN HCL [Glucophage] 500 mg PO DAILY #30 tab 09/23/18 [Rx] Spironolactone-Hctz 25-25Mg [Aldactazide 25-25 MG] 1 tab PO DAILY 01/06/19 [History] Albuterol Nebulized [Ventolin Nebulized] 2.5 mg INHALATION RT-QID PRN 01/15/19 [History] Cefuroxime Axetil [Ceftin] 500 mg PO BID #10 tab 01/16/19 [Rx] predniSONE 10 mg PO DAILY #30 tab 01/16/19 [Rx] Follow up Appointment(s)/Referral(s): Alex Harrison MD [Primary Care Provider] - 3 Days (please call office to set up appt.) Yolis Crawford MD [STAFF PHYSICIAN] - 1 Week Patient Instructions/Handouts: COPD (Chronic Obstructive Pulmonary Disease) (DC), Pneumonia (DC) Discharge Disposition: HOME SELF-CARE
== END 2019-01-16 14:16 | disposition home or self-care (01) ==
LOC: EC 09:49 → 4MS4W 11:13
PROVIDERS: ADMIT Internal Medicine; ATTEND Internal Medicine
DX: R06.02 Shortness of breath (principal); J20.9 Acute bronchitis, unspecified; I13.0 Hypertensive heart and chronic kidney disease with heart failure and stage 1 through stage 4 chronic kidney disease, or unspecified chronic kidney disease; I50.32 Chronic diastolic (congestive) heart failure; N18.9 Chronic kidney disease, unspecified; E11.42 Type 2 diabetes mellitus with diabetic polyneuropathy; R77.8 Other specified abnormalities of plasma proteins; E11.22 Type 2 diabetes mellitus with diabetic chronic kidney disease; J44.9 Chronic obstructive pulmonary disease, unspecified; G47.33 Obstructive sleep apnea (adult) (pediatric); Z99.89 Dependence on other enabling machines and devices; E78.5 Hyperlipidemia, unspecified; K21.9 Gastro-esophageal reflux disease without esophagitis; J98.4 Other disorders of lung; N40.0 Benign prostatic hyperplasia without lower urinary tract symptoms; K59.09 Other constipation; F32.9 Major depressive disorder, single episode, unspecified; E66.01 Morbid (severe) obesity due to excess calories; Z68.43 Body mass index [BMI] 50.0-59.9, adult; I71.2 Thoracic aortic aneurysm, without rupture; I25.10 Atherosclerotic heart disease of native coronary artery without angina pectoris; M19.90 Unspecified osteoarthritis, unspecified site; F41.9 Anxiety disorder, unspecified; Z87.891 Personal history of nicotine dependence; Z79.899 Other long term (current) drug therapy; Z79.891 Long term (current) use of opiate analgesic; Z79.82 Long term (current) use of aspirin; Z79.84 Long term (current) use of oral hypoglycemic drugs; Z80.9 Family history of malignant neoplasm, unspecified
CPT/HCPCS: 36415; 71046; 80048; 80053; 83880; 84484; 85025; 85027; 85610; 85730; 87040; 93005; 94640; 94760; 96365; 96366; 99285

== ENCOUNTER → 2019-01-17 | Outpatient (CLI) | payer OTHER ==
[2019-01-17 16:27] LABS: Appearance,Urine Clear (Clear); Bilirubin,Urine Negative (Negative); Blood,Urine Negative (Negative); Color,Urine Yellow; Glucose,Urine (UA) Negative (Negative); Ketones,Urine Negative (Negative); Leukocyte Esterase,Urine Negative (Negative); Nitrite,Urine Negative (Negative); Protein,Urine Negative (Negative); Specific Gravity,Urine 1.026 (1.001-1.035); Urobilinogen,Urine <2.0 mg/dL (<2.0)
[2019-01-17 16:31] LABS: HCT 43.3 % (39.0-53.0); HGB 13.7 gm/dL (13.0-17.5); MCH 28.2 pg (25.0-35.0); MCHC 31.6 g/dL (31.0-37.0); MCV 89.3 fL (80.0-100.0); Mean Platelet Volume 7.8; Platelet Count 239 k/uL (150-450); RBC 4.84 m/uL (4.30-5.90); RDW 14.9 % (11.5-15.5); WBC 9.4 k/uL (3.8-10.6)
[2019-01-17 17:21] LABS: Erythrocyte Sedimentation Rate 13 mm/hr (0-15)
[2019-01-17 23:42] LABS: Vitamin D 25 Hydroxy 51.3 ng/mL (30.0-100.0)
[2019-01-17 23:45] LABS: Folate, Serum 12.2 ng/mL
[2019-01-17 23:47] LABS: African American GFR (CKD) 84.1 (60.0-200.0); Albumin 4.2 g/dL (3.80-4.90); Albumin/Globulin Ratio 1.75 (1.60-3.17); Anion Gap 7.8 mmol/L (4.00-12.00); BUN/Creat Ratio 21.82 Ratio (12.00-20.00); Calcium 9.5 mg/dL (8.7-10.3); Carbon Dioxide 30.2 mmol/L (21.6-31.8); Globulin 2.4 g/dL (1.6-3.3); LDL Cholesterol,Calculated 148.2 mg/dL (0.0-131.0); Potassium 4.2 mmol/L (3.5-5.5); Total Bilirubin 0.2 mg/dL (0.2-1.2); Total Protein 6.6 g/dL (6.2-8.2); VLDL Calculation 20.8 mg/dL (5.00-40.00)
== END | disposition home or self-care (01) ==
LOC: LABWHC1 15:33
PROVIDERS: ATTEND Internal Medicine
DX: J44.9 Chronic obstructive pulmonary disease, unspecified (principal)
CPT/HCPCS: 36415; 80053; 80061; 81003; 82306; 82607; 82746; 83036; 84153; 84443; 85027; 85652

== ENCOUNTER → 2019-04-25 | Outpatient (CLI) | payer OTHER | END | disposition home or self-care (01) | LOC: LABWHC1 14:16 | PROVIDERS: ATTEND Internal Medicine | DX: I10 Essential (primary) hypertension (principal) | CPT/HCPCS: 82043; 82570 ==

== ENCOUNTER → 2020-01-07 | Outpatient (CLI) | payer OTHER ==
--- NOTE | 2020-01-07 14:55 | XR ---
EXAMINATION TYPE: XR chest 2V DATE OF EXAM: 01/07/2020 COMPARISON: 01/16/2019 TECHNIQUE: PA and lateral views submitted. HISTORY: Hypertension FINDINGS: There is prominence of the right hilum similar to the prior exam correlate for aneurysm of the ascend ing aorta. This is been noted by previous CT scan coarsened interstitium is stable. No pneumothorax. Apical pleural thickening with an area of 7 mm nodularity similar to the prior exam. No new consolida tion. Subsegmental changes at the bases are stable. Hypertrophic and degenerative change the spine. A rthropathy of the shoulders. IMPRESSION: 1. Stable right hilar prominence correlate for ascending aortic aneurysm. 2. Apical pleural thickening and apical lung nodule are stable. Unchanged from the exam of 12/17/2016.
--- NOTE | 2020-01-07 15:15 | CT ---
EXAMINATION TYPE: CT chest wo con DATE OF EXAM: 01/07/2020 COMPARISON: 02/23/2018, 09/21/2018 HISTORY: Follow up for known thoracic aortic aneurysm CT DLP: 1101.6 mGycm. Automated Exposure Control for Dose Reduction was Utilized. TECHNIQUE: CT scan of the thorax is performed without IV contrast. FINDINGS: LUNGS: The lungs are grossly clear, there is no concerning parenchymal mass or nodule identified. T here is no pleural effusion or pneumothorax seen. The tracheobronchial tree is patent. A pleural-bas ed thickening noted bilaterally. There is a 5 mm nodule in the right middle lobe image 30. Calcified nodule measuring 5 mm right lung apex. This nodule is stable. MEDIASTINUM: Lack of IV contrast is noted to limit evaluation for mediastinal and especially hilar ad enopathy. There are no definitive greater than 1 cm hilar or mediastinal lymph nodes. No cardiomega ly or pericardial effusion is seen. OTHER: Multilevel hypertrophic and degenerative disc disease noted. Aorta: Exam limited by lack of contrast. There is aneurysmal dilation of the ascending aorta measuring a maximal dimension of 4.5 cm. The aort ic root previously measured 3.9 cm but now measures 4.2 cm. Mild atherosclerotic changes are seen. De scending portion of the thoracic aorta has a normal caliber. IMPRESSION: 1. Maximal dimension of the ascending aorta remains a 4.5 cm. The aortic root previously measured 3.9 cm and now measures 4.2 cm compatible with mild aneurysmal dilation. 2. Stable right-sided pulmonary nodules one of which is calcified compatible with granuloma. Noncalci fied nodule measures 5 mm and is unchanged from the prior exam.
== END | disposition home or self-care (01) ==
LOC: RADCTMAIN 14:15
PROVIDERS: ATTEND Thoracic Surgery (Cardiothoracic Vascular Surgery)
DX: R91.8 Other nonspecific abnormal finding of lung field (principal); J92.9 Pleural plaque without asbestos; R91.1 Solitary pulmonary nodule; J98.4 Other disorders of lung; I10 Essential (primary) hypertension
CPT/HCPCS: 71046; 71250

== ENCOUNTER → 2021-02-12 | Outpatient (CLI) | payer OTHER ==
--- NOTE | 2021-02-13 07:54 | CT ---
EXAMINATION TYPE: CT chest wo con DATE OF EXAM: 02/12/2021 COMPARISON: 01/07/2020 HISTORY: Thoracic aortic aneurysm, without rupture CT DLP: 867 mGycm Unenhanced CTA of the thoracic aorta was performed from the lung apex through the upper abdomen. 3D reconstruction imaging obtained at a separate workstation. CT Chest: THORACIC AORTA: Ascending thoracic aortic aneurysm measures approximately 4.5 cm in AP dimension vers us 4.5 cm previously. Mild atheromatous changes seen. There is no evidence for dissection or periaor tic collection. LUNGS: The lungs are clear and free of infiltrate or atelectasis. Stable scattered pulmonary nodules. No pleural effusion or CT evidence of interstitial lung disease. MEDIASTINUM: No evidence for mediastinal hematoma. The heart is not enlarged. No evidence for med iastinal mass or adenopathy. HILAR STRUCTURES: No evidence for mass. No hilar adenopathy is appreciated. OTHER: No significant abnormality. IMPRESSION- 1. Stable ascending thoracic aortic aneurysm.
== END | disposition home or self-care (01) ==
LOC: RADCTMAIN 14:20
PROVIDERS: ATTEND Thoracic Surgery (Cardiothoracic Vascular Surgery)
DX: I71.2 Thoracic aortic aneurysm, without rupture (principal)
CPT/HCPCS: 71250

== ENCOUNTER → 2021-02-12 | Outpatient (CLI) | payer OTHER ==
--- NOTE | 2021-02-12 17:35 | XR ---
EXAMINATION TYPE: XR chest 2V DATE OF EXAM: 02/12/2021 COMPARISON: Chest x-ray 01/07/[address] 02/12/2021 HISTORY: I10, J44.9 TECHNIQUE: Frontal and lateral views of the chest are obtained. FINDINGS: There is no focal air space opacity, pleural effusion, or pneumothorax seen. The cardiac silhouette size is within normal limits. Prominent lung volumes may be indicative of underlying COPD. Apical lung nodule on the right is stable. There is an aortic aneurysm. The osseous structures are i ntact. IMPRESSION: No acute cardiopulmonary process. Aortic aneurysm. Old granulomatous disease.
== END | disposition home or self-care (01) ==
LOC: RADXRMAIN 14:28
PROVIDERS: ATTEND Internal Medicine
DX: I71.9 Aortic aneurysm of unspecified site, without rupture (principal); I10 Essential (primary) hypertension; J44.9 Chronic obstructive pulmonary disease, unspecified; D71 Functional disorders of polymorphonuclear neutrophils
CPT/HCPCS: 71046

== ENCOUNTER 2021-07-27 13:23 | Emergency (ER) | payer OTHER ==
[2021-07-27] MEDS ORDERED: ACETAMINOPHEN TAB 325 MG TAB PO STA (15:40)
[2021-07-27] MEDS ORDERED: SODIUM CHLORIDE 0.9% 1,000 ML IV STA (15:40)
[2021-07-27] MEDS ORDERED: IBUPROFEN 600 MG TAB PO STA (15:40)
[2021-07-27 16:07] LABS: Appearance,Urine Clear (Clear); Bilirubin,Urine Negative (Negative); Blood,Urine Negative (Negative); Color,Urine Yellow; Glucose,Urine (UA) Negative (Negative); Ketones,Urine Negative (Negative); Leukocyte Esterase,Urine Negative (Negative); Nitrite,Urine Negative (Negative); PH, Urine 6.5 (5.0-8.0); Protein,Urine Negative (Negative); Specific Gravity,Urine 1.024 (1.001-1.035)
[2021-07-27 16:09] LABS: Basophils % (A) 0 %; Eosinophils # (A) 0.1 k/uL (0-0.7); Eosinophils % (A) 2 %; HCT 50.4 % (39.0-53.0); HGB 15.8 gm/dL (13.0-17.5); Lymphocytes # (A) 0.6 k/uL (1.0-4.8); Lymphocytes % (A) 9 %; MCHC 31.4 g/dL (31.0-37.0); MCV 95.4 fL (80.0-100.0); Mean Platelet Volume 8.3; Monocytes # (A) 0.5 k/uL (0-1.0); Monocytes % (A) 8 %; Neutrophils # (A) 4.8 k/uL (1.3-7.7); Neutrophils % (A) 77 %; Platelet Count 175 k/uL (150-450); RBC 5.28 m/uL (4.30-5.90); RDW 14.9 % (11.5-15.5); WBC 6.2 k/uL (3.8-10.6)
[2021-07-27] MEDS ORDERED: DEXAMETHASONE SOD PHOSPHATE 10 MG/ML 1 ML VIAL IVP STA (16:31)
--- NOTE | 2021-07-27 16:31 | ED ---
Recheck HPI - General Source: patient, RN notes reviewed Mode of arrival: ambulatory Limitations: no limitations <Teddy Connell - Last Filed: 07/27/21 17:00> <Angus Edgar - Last Filed: 07/27/21 18:52> - General Chief Complaint: Recheck/Abnormal Lab/Rx Stated Complaint: chest pain Time Seen by Provider: 07/27/21 15:40 - History of Present Illness Initial Comments: Patient is a 61-year-old male that presents to the emergency department complaining of increased shortness of breath cough and upper does. Patientis been having symptoms for the past several weeks to months. Patient is unsure of what is going on for came to the emergency room for evaluation. Patient notes he does have a small fever. Patient denied any other issues or complaints.Patient does have a significant past history of pneumonia and le ukocytosis COPD exacerbation renal failure. Patient denied any chest pain headache nausea vomiting diarrhea constipation fatigue chills. (Teddy Connell) - Related Data Home Medications Medication Instructions Recorded Confirmed ALPRAZolam [Xanax] 1 mg PO TID PRN 06/26/16 01/15/19 Carvedilol 25 mg PO BID 06/26/16 01/15/19 Fluticasone Nasal [place] [Flonase 1 spray EA NOSTRIL BID 06/26/16 01/15/19 Nasal [place]] Nitroglycerin Sl Tabs [Nitrostat] 0.4 mg SUBLINGUAL Q5M PRN 03/08/17 01/15/19 Cholecalciferol [Vitamin D3 (25 5,000 unit PO DAILY 05/09/17 01/15/19 Mcg = 1000 Iu)] Nitroglycerin [Nitro-Dur 0.4MG/Hr 1 patch TRANSDERM DAILY 05/09/17 01/15/19 Patch] HYDROcodone/APAP 10-325MG [[place] 1 - 2 tab PO Q6H PRN 09/21/18 01/15/19 10-325] Lidocaine 5% Oint [Xylocaine 5% 1 applic TOPICAL DAILY PRN 09/21/18 01/15/19 Oint] Spironolactone-Hctz 25-25Mg 1 tab PO DAILY 01/06/19 01/15/19 [Aldactazide 25-25 MG] Albuterol Nebulized [Ventolin 2.5 mg INHALATION RT-QID PRN 01/15/19 01/15/19 Nebulized] Previous Rx's Medication Instructions Recorded Albuterol Inhaler (Mhu) [Ventolin 2 puff INHALATION RT-Q4H PRN #1 09/23/18 Hfa Inhaler (Mhu)] inhaler Aspirin [Adult Low Dose Aspirin EC] 81 mg PO DAILY #30 tablet.dr 09/23/18 Cyclobenzaprine [Flexeril] 10 mg PO BID #60 tablet 09/23/18 Docusate [Colace] 100 mg PO DAILY PRN #30 cap 09/23/18 Enalapril [Vasotec] 20 mg PO BID #60 tab 09/23/18 Ezetimibe [Zetia] 10 mg PO DAILY #30 tab 09/23/18 Famotidine [Pepcid] 20 mg PO DAILY #60 tab 09/23/18 Furosemide [Lasix] 80 mg PO DAILY #30 tab 09/23/18 Tamsulosin [Flomax] 0.4 mg PO DAILY #30 cap.er.24h 09/23/18 metFORMIN HCL [Glucophage] 500 mg PO DAILY #30 tab 09/23/18 Cefuroxime Axetil [Ceftin] 500 mg PO BID #10 tab 01/16/19 predniSONE 10 mg PO DAILY #30 tab 01/16/19 predniSONE [Deltasone] 20 mg PO BID #10 tab 07/27/21 Allergies Allergy/AdvReac Type Severity Reaction Status Date / Time No Known Allergies Allergy Verified 07/27/21 18:45 Review of Systems ROS Other: All systems not noted in ROS Statement are negative. <Teddy Connell - Last Filed: 07/27/21 17:00> ROS Other: All systems not noted in ROS Statement are negative. <Angus Edgar - Last Filed: 07/27/21 18:52> ROS Statement: Those systems with pertinent positive or pertinent negative responses have been documented in the HPI. Past Medical History Past Medical History: Heart Failure, COPD, Diabetes Mellitus, GERD/Reflux, Hyperlipidemia, Hypertension, Osteoarthritis (OA), Prostate Disorder, Sleep Apnea/CPAP/BIPAP Additional Past Medical History / Comment(s): ASCENDING THORACIC ANEURYSM, Palpitations, "LEAKY VALVE." USES BI PAP MACHINE, CONSTIPATION. EDEMA ANKLES. History of Any Multi-Drug Resistant Organisms: None Reported Past Surgical History: Orthopedic Surgery Additional Past Surgical History / Comment(s): ARTHROSCOPIC RIGHT KNEE - EXC GLASS, HEMORRHOIDECTOMY. COLONOSCOPY. Past Anesthesia/Blood Transfusion Reactions: Previous Problems w/ Anesthesia Additional Past Anesthesia/Blood Transfusion Reaction / Comment(s): AWAKE DURING SURGERY, IN PAIN. Past Psychological History: Anxiety, Depression Smoking Status: Never smoker Past Alcohol Use History: None Reported Past Drug Use History: None Reported - Past Family History Father Family Medical History: Cancer, Diabetes Mellitus Mother Family Medical History: Cancer <Teddy Connell - Last Filed: 07/27/21 17:00> General Exam Limitations: no limitations General appearance: alert, in no apparent distress, obese (Morbidly) Head exam: Present: atraumatic, normocephalic, normal inspection Eye exam: Present: normal appearance, PERRL, EOMI. Absent: scleral icterus, conjunctival injection, periorbital swelling ENT exam: Present: normal exam, mucous membranes moist Neck exam: Present: normal inspection. Absent: tenderness, meningismus, lymphadenopathy Respiratory exam: Present: normal lung sounds bilaterally. Absent: respiratory distress, wheezes, rales, rhonchi, stridor Cardiovascular Exam: Present: regular rate, normal rhythm, normal heart sounds. Absent: systolic murmur, diastolic murmur, rubs, gallop, clicks Extremities exam: Present: normal inspection, full ROM, normal capillary refill. Absent: tenderness, pedal edema, joint swelling, calf tenderness Neurological exam: Present: alert, oriented X3 Psychiatric exam: Present: normal affect, normal mood Skin exam: Present: warm, dry, intact, normal color. Absent: rash <Teddy Connell - Last Filed: 07/27/21 17:00> Course Vital Signs 07/27/21 07/27/21 07/27/21 14:10 16:38 17:36 Temperature 101.2 F H 99.1 F Pulse Rate 102 H 93 93 Respiratory 18 19 18 Rate Blood Pressure 128/71 124/78 124/78 O2 Sat by Pulse 94 L 92 L 94 L Oximetry Medical Decision Making - Lab Data Result diagrams: 07/27/21 15:57 07/27/21 15:57 - EKG Data EKG shows normal: sinus rhythm Rate: normal <Teddy Connell - Last Filed: 07/27/21 17:00> - Lab Data Result diagrams: 07/27/21 15:57 07/27/21 15:57 - Radiology Data Radiology results: image reviewed (Chest x-ray shows no acute process.) <Angus Edgar - Last Filed: 07/27/21 18:52> - Medical Decision Making 60-year-old male presenting with shortness of breath cough and fever. 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 Abdomen unremarkable, low lymphocytes. Case signed out Dr. Edgar. (Teddy Connell) Patient reevaluated and resting comfortably in bed. Lungs are clear. O2 sat 94-95% on room air. Patient states he is breathing well and comfortable with discharge home. Patient's main symptom is fatigue. Patient updated on results and need for follow-up. Patient symptoms are greater than 1 week and therefore not a candidate for antiviral treatment. Patient does request steroids for his COPD. Patient advised to return if dyspnea worsens. (Angus Edgra) - Lab Data Lab Results 07/27/21 07/27/21 07/27/21 Range/Units 14:15 15:57 15:57 WBC 6.2 (3.8-10.6) k/uL RBC 5.28 (4.30-5.90) m/uL Hgb 15.8 (13.0-17.5) gm/dL Hct 50.4 (39.0-53.0) % MCV 95.4 (80.0-100.0) fL MCH 30.0 (25.0-35.0) pg MCHC 31.4 (31.0-37.0) g/dL RDW 14.9 (11.5-15.5) % Plt Count 175 (150-450) k/uL MPV 8.3 Neutrophils % 77 % Lymphocytes % 9 % Monocytes % 8 % Eosinophils % 2 % Basophils % 0 % Neutrophils # 4.8 (1.3-7.7) k/uL Lymphocytes # 0.6 L (1.0-4.8) k/uL Monocytes # 0.5 (0-1.0) k/uL Eosinophils # 0.1 (0-0.7) k/uL Basophils # 0.0 (0-0.2) k/uL Sodium 133 L (137-145) mmol/L Potassium 4.6 (3.5-5.1) mmol/L Chloride 95 L (98-107) mmol/L Carbon Dioxide 31 H (22-30) mmol/L Anion Gap 7 mmol/L BUN 17 (9-20) mg/dL Creatinine 0.96 (0.66-1.25) mg/dL Est GFR (CKD-EPI)AfAm >90 (>60 ml/min/1.73 sqM) Est GFR (CKD-EPI)NonAf 84 (>60 ml/min/1.73 sqM) Glucose 103 H (74-99) mg/dL Calcium 9.4 (8.4-10.2) mg/dL Total Bilirubin 0.5 (0.2-1.3) mg/dL AST 47 (17-59) U/L ALT 43 (4-49) U/L Alkaline Phosphatase 64 (38-126) U/L Total Protein 7.5 (6.3-8.2) g/dL Albumin 4.2 (3.5-5.0) g/dL Urine Color Urine Appearance (Clear) Urine pH (5.0-8.0) Ur Specific [place] (1.001-1.035) Urine Protein (Negative) Urine Glucose (UA) (Negative) Urine Ketones (Negative) Urine Blood (Negative) Urine Nitrite (Negative) Urine Bilirubin (Negative) Urine Urobilinogen (<2.0) mg/dL Ur Leukocyte Esterase (Negative) Coronavirus (PCR) Not Detected (Not Detectd) Influenza Type A RNA (Not Detectd) Influenza Type B (PCR) (Not Detectd) 07/27/21 07/27/21 Range/Units 15:59 16:11 WBC (3.8-10.6) k/uL RBC (4.30-5.90) m/uL Hgb (13.0-17.5) gm/dL Hct (39.0-53.0) % MCV (80.0-100.0) fL MCH (25.0-35.0) pg MCHC (31.0-37.0) g/dL RDW (11.5-15.5) % Plt Count (150-450) k/uL MPV Neutrophils % % Lymphocytes % % Monocytes % % Eosinophils % % Basophils % % Neutrophils # (1.3-7.7) k/uL Lymphocytes # (1.0-4.8) k/uL Monocytes # (0-1.0) k/uL Eosinophils # (0-0.7) k/uL Basophils # (0-0.2) k/uL Sodium (137-145) mmol/L Potassium (3.5-5.1) mmol/L Chloride (98-107) mmol/L Carbon Dioxide (22-30) mmol/L Anion Gap mmol/L BUN (9-20) mg/dL Creatinine (0.66-1.25) mg/dL Est GFR (CKD-EPI)AfAm (>60 ml/min/1.73 sqM) Est GFR (CKD-EPI)NonAf (>60 ml/min/1.73 sqM) Glucose (74-99) mg/dL Calcium (8.4-10.2) mg/dL Total Bilirubin (0.2-1.3) mg/dL AST (17-59) U/L ALT (4-49) U/L Alkaline Phosphatase (38-126) U/L Total Protein (6.3-8.2) g/dL Albumin (3.5-5.0) g/dL Urine Color Yellow Urine Appearance Clear (Clear) Urine pH 6.5 (5.0-8.0) Ur Specific [place] 1.024 (1.001-1.035) Urine Protein Negative (Negative) Urine Glucose (UA) Negative (Negative) Urine Ketones Negative (Negative) Urine Blood Negative (Negative) Urine Nitrite Negative (Negative) Urine Bilirubin Negative (Negative) Urine Urobilinogen 2.0 (<2.0) mg/dL Ur Leukocyte Esterase Negative (Negative) Coronavirus (PCR) (Not Detectd) Influenza Type A RNA Detected H (Not Detectd) Influenza Type B (PCR) Not Detected (Not Detectd) - EKG Data EKG Comments: Ventricular rate 99 bpm, WI interval 194 ms, QRS duration 92 ms, QTC 444 ms, PRT axes 62/-40/83. Normal sinus rhythm with left axis deviation. Incomplete right bundle branch block, moderate voltage criteria for LVH may be normal variant, abnormal ECG. (Teddy Connell) Disposition <Teddy Connell - Last Filed: 07/27/21 17:00> Is patient prescribed a controlled substance at d/c from ED?: No <Angus Edgar - Last Filed: 07/27/21 18:52> Clinical Impression: COPD exacerbation, Influenza A Disposition: HOME SELF-CARE Condition: Stable Instructions (If sedation given, give patient instructions): COPD (Chronic Obstructive Pulmonary Disease) (ED), Influenza (ED) Additional Instructions: Steroid prescription sent to pharmacy. Please follow-up to primary care physician in the next day or 2 for recheck. Return for difficulty in breathing, not tolerating fluids, worsening or changing symptoms or other concerns. [id number] Tylenol as needed. Prescriptions: predniSONE [Deltasone] 20 mg PO BID #10 tab Referrals: Alex Harrison MD [Primary Care Provider] - 1-2 days
[2021-07-27 16:34] LABS: ALT 43 U/L (4-49); AST 47 U/L (17-59); African American GFR (CKD) >90 (>60 ml/min/1.73 sqM); Albumin 4.2 g/dL (3.5-5.0); Alkaline Phosphatase 64 U/L (38-126); Anion Gap 7 mmol/L; Blood Urea Nitrogen 17 mg/dL (9-20); Calcium 9.4 mg/dL (8.4-10.2); Carbon Dioxide 31 mmol/L (22-30); Chloride 95 mmol/L (98-107); Glucose 103 mg/dL (74-99); Non-African American GFR(CKD) 84 (>60 ml/min/1.73 sqM); Potassium 4.6 mmol/L (3.5-5.1); Sodium 133 mmol/L (137-145); Total Bilirubin 0.5 mg/dL (0.2-1.3); Total Protein 7.5 g/dL (6.3-8.2)
[2021-07-27 16:39] VITALS: BP 124/78; PULSE 93
[2021-07-27 17:37] VITALS: RESP 18; TEMP 99.1
--- NOTE | 2021-07-27 18:18 | XR ---
EXAMINATION TYPE: XR chest 2V DATE OF EXAM: 07/27/2021 COMPARISON: 02/12/2021 HISTORY: Aneurysm TECHNIQUE: 2 views FINDINGS: There is no heart failure nor confluent pneumonic infiltrate. Costophrenic angles are clear . There are no hilar masses. There are chest leads. There is some spurring in the thoracic spine. IMPRESSION: No active cardiopulmonary disease. Normal heart. No change.
== END 2021-07-27 19:19 | disposition home or self-care (01) ==
LOC: EC 13:23
DX: J44.1 Chronic obstructive pulmonary disease with (acute) exacerbation (principal); J10.1 Influenza due to other identified influenza virus with other respiratory manifestations; I11.0 Hypertensive heart disease with heart failure; I50.9 Heart failure, unspecified; E11.9 Type 2 diabetes mellitus without complications; Z79.899 Other long term (current) drug therapy; Z79.51 Long term (current) use of inhaled steroids
CPT/HCPCS: 36415; 80053; 85025; 81003; 87502; 87635; 71046; 99285; 96374; 96361; J1100; 93005

== ENCOUNTER 2022-10-23 13:45 | Emergency (ER) | payer OTHER ==
[2022-10-23] MEDS ORDERED: ACETAMINOPHEN TAB 500 MG TAB PO STA (14:10)
[2022-10-23] MEDS ORDERED: IBUPROFEN 600 MG TAB PO STA (14:10)
[2022-10-23] MEDS ORDERED: SODIUM CHLORIDE 0.9% 500 ML 500 ML IV SCH (14:15)
--- NOTE | 2022-10-23 14:22 | ED ---
General Adult HPI - General Source: patient, RN notes reviewed, old records reviewed Mode of arrival: ambulatory Limitations: no limitations <Chris Willett - Last Filed: 10/23/22 14:12> <Khang Coats - Last Filed: 10/23/22 16:43> - General Chief complaint: Shortness of Breath Stated complaint: Cough Time Seen by Provider: 10/23/22 13:50 - History of Present Illness Initial comments: This is a 62-year-old male who presents emergency Department complaining of having a persistent cough for a while. Patient states she's also short of breath. Patient states she's been having chills and feeling warm intermit tently. Patient denies any chest pain he says his chest feels a little bit tight but no pain. Patient denies any palpitations. Patient denies abdominal pain. Patient denies nausea vomiting diarrhea. Patient denies headache patient denies numbness weakness. Patient denies lightheadedness or dizziness. Patient denies any pain to the Any Edema (Chris Willett) - Related Data Home Medications Medication Instructions Recorded Confirmed ALPRAZolam [Xanax] 1 mg PO TID PRN 06/26/16 10/23/22 Carvedilol 25 mg PO BID-W/MEALS 06/26/16 10/23/22 Fluticasone Nasal [place] [Flonase 1 spray EA NOSTRIL DAILY 06/26/16 10/23/22 Nasal [place]] Nitroglycerin Sl Tabs [Nitrostat] 0.4 mg SUBLINGUAL Q5M PRN 03/08/17 10/23/22 HYDROcodone/APAP 10-325MG [Mclean 1 tab PO Q6H PRN 09/21/18 10/23/22 10-325] Albuterol Nebulized [Ventolin 2.5 mg INHALATION RT-TID PRN 01/15/19 10/23/22 Nebulized] Albuterol Sulfate [Proair Hfa] 2 puff INHALATION RT-Q4H PRN 07/27/21 10/23/22 Ergocalciferol (Vitamin D2) 1,250 mcg PO MO 07/27/21 10/23/22 [Drisdol (50,000 Iu)] Potassium Chloride [Klor-Con M10] 10 meq PO BID-W/MEALS 07/27/21 10/23/22 Famotidine [Pepcid] 20 mg PO HS 10/23/22 10/23/22 Ibuprofen [Motrin] 800 mg PO TID 10/23/22 10/23/22 Lidocaine 5% Oint [Xylocaine 5% 1 applic TOPICAL DAILY PRN 10/23/22 10/23/22 Oint] Losartan Potassium [Cozaar] 100 mg PO DAILY 10/23/22 10/23/22 Nitroglycerin 0.4MG/Hr Patch 1 patch TRANSDERM DAILY 10/23/22 10/23/22 [Nitro-Dur 0.4MG/Hr Patch] Olopatadine HCl [Pataday] 1 drop BOTH EYES BID 10/23/22 10/23/22 Simvastatin [Zocor] 40 mg PO HS 10/23/22 10/23/22 Tamsulosin HCl [Flomax] 0.4 mg PO DAILY 10/23/22 10/23/22 metFORMIN HCL [Glucophage] 500 mg PO DAILY 10/23/22 10/23/22 Previous Rx's Medication Instructions Recorded Aspirin [Adult Low Dose Aspirin EC] 81 mg PO DAILY #30 tablet. 09/23/18 Cyclobenzaprine [Flexeril] 10 mg PO BID #60 tablet 09/23/18 Docusate [Colace] 100 mg PO DAILY PRN #30 cap 09/23/18 Furosemide [Lasix] 80 mg PO DAILY #30 tab 09/23/18 Benzonatate [Tessalon Perles] 100 mg PO TID PRN #24 capsule 10/23/22 Allergies Allergy/AdvReac Type Severity Reaction Status Date / Time No Known Allergies Allergy Verified 10/23/22 14:47 Review of Systems ROS Other: All systems not noted in ROS Statement are negative. <Chris Willett - Last Filed: 10/23/22 14:12> ROS Other: All systems not noted in ROS Statement are negative. <Khang Coats - Last Filed: 10/23/22 16:43> ROS Statement: Those systems with pertinent positive or pertinent negative responses have been documented in the HPI. Past Medical History Past Medical History: Heart Failure, COPD, Diabetes Mellitus, GERD/Reflux, Hyperlipidemia, Hypertension, Osteoarthritis (OA), Prostate Disorder, Sleep Apnea/CPAP/BIPAP Additional Past Medical History / Comment(s): ASCENDING THORACIC ANEURYSM, Palpitations, "LEAKY VALVE." USES BI PAP MACHINE, CONSTIPATION. EDEMA ANKLES. Influenza A History of Any Multi-Drug Resistant Organisms: None Reported Past Surgical History: Orthopedic Surgery Additional Past Surgical History / Comment(s): ARTHROSCOPIC RIGHT KNEE - EXC GLASS, HEMORRHOIDECTOMY. COLONOSCOPY. Past Anesthesia/Blood Transfusion Reactions: Previous Problems w/ Anesthesia Additional Past Anesthesia/Blood Transfusion Reaction / Comment(s): AWAKE DURING SURGERY, IN PAIN. Past Psychological History: Anxiety, Depression Smoking Status: Never smoker Past Alcohol Use History: None Reported Past Drug Use History: None Reported - Past Family History Father Family Medical History: Cancer, Diabetes Mellitus Mother Family Medical History: Cancer <Chris Willett - Last Filed: 10/23/22 14:12> General Exam Limitations: no limitations <Chris Willett - Last Filed: 10/23/22 14:12> - General Exam Comments Initial Comments: GENERAL: Patient is well-developed and well-nourished. Patient is nontoxic and well- hydrated and is in no acute distress. Patient's temperature orally for me was 101.8 ENT: Neck is soft and supple. No significant lymphadenopathy is noted. Oropharynx is clear. Moist mucous membranes. Neck has full range of motion without eliciting any pain. EYES: The sclera were anicteric and conjunctiva were pink and moist. Extraocular movements were intact and pupils were equal round and reactive to light. Eyelids were unremarkable. PULMONARY: Unlabored respirations. Good breath sounds bilaterally. No audible rales rhonchi or wheezing was noted. CARDIOVASCULAR: There is a regular rate and rhythm without any murmurs gallops or rubs. ABDOMEN: Soft and nontender with normal bowel sounds. SKIN: Skin is clear with no lesions or rashes and otherwise unremarkable. NEUROLOGIC: Patient is alert and oriented x3. Cranial nerves II through XII are grossly intact. Motor and sensory are also intact. Normal speech, volume and content. Symmetrical smile. MUSCULOSKELETAL: Normal extremities with adequate strength and full range of motion. LYMPHATICS: No significant lymphadenopathy is noted PSYCHIATRIC: Normal psychiatric evaluation. (Chris Willett) Course Vital Signs 10/23/22 10/23/22 13:46 16:14 Temperature 98.9 F Pulse Rate 101 H Respiratory 24 20 Rate Blood Pressure 142/84 O2 Sat by Pulse 96 Oximetry Medical Decision Making <Chris Willett - Last Filed: 10/23/22 14:12> - Lab Data Result diagrams: 10/23/22 14:19 10/23/22 14:19 <Khang Coats - Last Filed: 10/23/22 16:43> - Medical Decision Making EKG was interpreted by myself shows sinus tachycardia at 101 bpm TX interval is 200 2070 dresses 102 QT interval 361 QTC is 419. Patient's EKG shows no ST segment elevation or depression but does show first-degree AV block Was pt. sent in by a medical professional or institution (, PA, PACKAGE CLERK, urgent care, hospital, or snf...) When possible be specific @ -No Did you speak to anyone other than the patient for history (EMS, parent, family, police, friend...)? What history was obtained from this source @ -No Did you review nursing and triage notes (agree or disagree)? Why? @ -I reviewed and agree with nursing and triage notes Were old charts reviewed (outside hosp., previous admission, EMS record, old EKG, old radiological studies, urgent care reports/EKG's, snf records)? Report findings @ -I reviewed old radiological studies as well as old charts from previous visits and prior laboratory studies Differential Diagnosis (chest pain, altered mental status, abdominal pain women, abdominal pain men, vaginal bleeding, weakness, fever, dyspnea, syncope, headache, dizziness, GI bleed, back pain, seizure, CVA, palpatations, mental health, musculoskeletal)? @ -Differential Fever: Pneumonia, viral URI, endocarditis, myocarditis, pericarditis, otitis, sinusitis, peritonsillar Abscess, retropharyngeal Abscess, epiglottitis, peritonitis, appendicitis, Caro cystitis, diverticulitis, hepatitis, colitis, UTI, PID, TOA, pyelonephritis, prostatitis, epididymitis, meningitis, encephalitis, pulmonary embolism, CVA, thyroid storm, pancreatitis, adrenal crisis, cavernous sinus thrombosis, this is not meant to be an all-inclusive list. EKG interpreted by me (3pts min.). @ -As above X-rays interpreted by me (1pt min.). @ -None done CT interpreted by me (1pt min.). @ -None done U/S interpreted by me (1pt. min.). @ -None done What testing was considered but not performed or refused? (CT, X-rays, U/S, labs)? Why? @ -None What meds were considered but not given or refused? Why? @ -None Did you discuss the management of the patient with other professionals (professionals i.e. , PA, PACKAGE CLERK, lab, RT, psych nurse, social sciences professor, channel business manager, teacher, operations officer, case investigator)? Give summary @ -No Was smoking cessation discussed for >3mins.? @ -No Was critical care preformed (if so, how long)? @ -No Were there social determinants of health that impacted care today? How? (Homelessness, low income, unemployed, alcoholism, drug addiction, transportation, low edu. Level, literacy, decrease access to med. care, shelter, rehab)? @ -No Was there de-escalation of care discussed even if they declined (Discuss DNR or withdrawal of care, Hospice)? DNR status @ -No What co-morbidities impacted this encounter? (DM, HTN, Smoking, COPD, CAD, Cancer, CVA, ARF, Chemo, Hep., AIDS, mental health diagnosis, sleep apnea, morbid obesity)? @ -None Was patient admitted / discharged? Hospital course, mention meds given and route, prescriptions, significant lab abnormalities, going to OR and other pertinent info. @ -Patient was seen by myself in the emergency department and I ordered a sepsis order set. The patient Tylenol Motrin bring down the fever. I also ordered tests for COVID influenza and RSV. Patient will be signed out to the care of Dr. Moseley at 3 PM (Chris Willett) I receive this patient has a sign out pending the studies. Patient Covid test is positive. I discussed results with the patient who is feeling okay and would like to go home. He is not complaining of dyspnea. He did request something for the cough and will attempt to treat with benzonatate. We discussed appropriate further care and follow-up as well as return parameters. Was patient admitted / discharged? Hospital course, mention meds given and route, prescriptions, significant lab abnormalities, going to OR and other pertinent info. @ -[Discharged Undiagnosed new problem with uncertain prognosis? @ -[No] Drug Therapy requiring intensive monitoring for toxicity (Heparin, Nitro, Insulin, Cardizem)? @ -[No] Were any procedures done? @ -[No] Diagnosis/symptom? @ -[COVID-19 infection Acute, or Chronic, or Acute on Chronic? @ -[Acute Uncomplicated (without systemic symptoms) or Complicated (systemic symptoms)? @ -[Uncomplicated Side effects of treatment? @ -[No] Exacerbation, Progression, or Severe Exacerbation? @ -[No] Poses a threat to life or bodily function? How? (Chest pain, USA, MS, pneumonia, PE, COPD, DKA, ARF, appy, cholecystitis, CVA, Diverticulitis, Homicidal, Suicidal, threat to staff... and all critical care pts) @ -[No] (Khang Coats) - Lab Data Lab Results 10/23/22 10/23/22 10/23/22 Range/Units 14:19 14:19 14:19 WBC 6.0 (3.8-10.6) k/uL RBC 5.12 (4.30-5.90) m/uL Hgb 14.6 (13.0-17.5) gm/dL Hct 47.2 (39.0-53.0) % MCV 92.2 (80.0-100.0) fL MCH 28.5 (25.0-35.0) pg MCHC 30.9 L (31.0-37.0) g/dL RDW 14.8 (11.5-15.5) % Plt Count 242 (150-450) k/uL MPV 8.5 Neutrophils % 62 % Lymphocytes % 15 % Monocytes % 16 % Eosinophils % 2 % Basophils % 1 % Neutrophils # 3.7 (1.3-7.7) k/uL Lymphocytes # 0.9 L (1.0-4.8) k/uL Monocytes # 1.0 (0-1.0) k/uL Eosinophils # 0.1 (0-0.7) k/uL Basophils # 0.0 (0-0.2) k/uL Hypochromasia Slight PT 10.8 (9.0-12.0) sec INR 1.0 (<1.2) APTT 25.5 (22.0-30.0) sec Sodium 139 (137-145) mmol/L Potassium 4.9 (3.5-5.1) mmol/L Chloride 97 L (98-107) mmol/L Carbon Dioxide 36 H (22-30) mmol/L Anion Gap 6 mmol/L BUN 14 (9-20) mg/dL Creatinine 1.06 (0.66-1.25) mg/dL Est GFR (CKD-EPI)AfAm 86 (>60 ml/min/1.73 sqM) Est GFR (CKD-EPI)NonAf 74 (>60 ml/min/1.73 sqM) Glucose 110 H (74-99) mg/dL Plasma Lactic Acid Song (0.7-2.0) mmol/L Calcium 9.1 (8.4-10.2) mg/dL Total Bilirubin 0.5 (0.2-1.3) mg/dL AST 28 (17-59) U/L ALT 23 (4-49) U/L Alkaline Phosphatase 77 (38-126) U/L Total Protein 8.0 (6.3-8.2) g/dL Albumin 4.3 (3.5-5.0) g/dL Influenza Type A (PCR) (Not Detectd) Influenza Type B (PCR) (Not Detectd) RSV (PCR) (Not Detectd) SARS-CoV-2 (PCR) (Not Detectd) 10/23/22 10/23/22 Range/Units 14:19 14:40 WBC (3.8-10.6) k/uL RBC (4.30-5.90) m/uL Hgb (13.0-17.5) gm/dL Hct (39.0-53.0) % MCV (80.0-100.0) fL MCH (25.0-35.0) pg MCHC (31.0-37.0) g/dL RDW (11.5-15.5) % Plt Count (150-450) k/uL MPV Neutrophils % % Lymphocytes % % Monocytes % % Eosinophils % % Basophils % % Neutrophils # (1.3-7.7) k/uL Lymphocytes # (1.0-4.8) k/uL Monocytes # (0-1.0) k/uL Eosinophils # (0-0.7) k/uL Basophils # (0-0.2) k/uL Hypochromasia PT (9.0-12.0) sec INR (<1.2) APTT (22.0-30.0) sec Sodium (137-145) mmol/L Potassium (3.5-5.1) mmol/L Chloride (98-107) mmol/L Carbon Dioxide (22-30) mmol/L Anion Gap mmol/L BUN (9-20) mg/dL Creatinine (0.66-1.25) mg/dL Est GFR (CKD-EPI)AfAm (>60 ml/min/1.73 sqM) Est GFR (CKD-EPI)NonAf (>60 ml/min/1.73 sqM) Glucose (74-99) mg/dL Plasma Lactic Acid Song 1.1 (0.7-2.0) mmol/L Calcium (8.4-10.2) mg/dL Total Bilirubin (0.2-1.3) mg/dL AST (17-59) U/L ALT (4-49) U/L Alkaline Phosphatase (38-126) U/L Total Protein (6.3-8.2) g/dL Albumin (3.5-5.0) g/dL Influenza Type A (PCR) Not Detected (Not Detectd) Influenza Type B (PCR) Not Detected (Not Detectd) RSV (PCR) Not Detected (Not Detectd) SARS-CoV-2 (PCR) Detected A (Not Detectd) Disposition <Chris Willett - Last Filed: 10/23/22 14:12> Is patient prescribed a controlled substance at d/c from ED?: No <Khang Coats - Last Filed: 10/23/22 16:43> Clinical Impression: COVID-19 Disposition: HOME SELF-CARE Condition: Good Instructions (If sedation given, give patient instructions): COVID-19 (Coronavirus Disease 2019) (ED) Prescriptions: Benzonatate [Tessalon Perles] 100 mg PO TID PRN #24 capsule PRN Reason: Cough Referrals: Alex Harrison MD [Primary Care Provider] - 1-2 days
--- NOTE | 2022-10-23 14:49 | XR ---
EXAMINATION TYPE: XR chest 2V DATE OF EXAM: 10/23/2022 COMPARISON: NONE HISTORY: Difficulty breathing TECHNIQUE: 2 views FINDINGS: Heart is normal. Lungs are clear of infiltrate. No heart failure. There are no hilar masses . Bony thorax is intact. There are chest leads. IMPRESSION: No active cardiopulmonary disease. No adverse change.
[2022-10-23 15:00] LABS: Albumin 4.3 g/dL (3.5-5.0); Calcium 9.1 mg/dL (8.4-10.2); Potassium 4.9 mmol/L (3.5-5.1); Total Bilirubin 0.5 mg/dL (0.2-1.3)
[2022-10-23 15:04] LABS: Partial Thromboplastin Time 25.5 sec (22.0-30.0); Prothrombin Time 10.8 sec (9.0-12.0)
[2022-10-23 15:07] LABS: Basophils % (A) 1 %; Eosinophils # (A) 0.1 k/uL (0-0.7); Eosinophils % (A) 2 %; HCT 47.2 % (39.0-53.0); HGB 14.6 gm/dL (13.0-17.5); Hypochromasia Slight; Lymphocytes # (A) 0.9 k/uL (1.0-4.8); Lymphocytes % (A) 15 %; MCH 28.5 pg (25.0-35.0); MCHC 30.9 g/dL (31.0-37.0); MCV 92.2 fL (80.0-100.0); Mean Platelet Volume 8.5; Monocytes % (A) 16 %; Neutrophils # (A) 3.7 k/uL (1.3-7.7); Neutrophils % (A) 62 %; Platelet Count 242 k/uL (150-450); RBC 5.12 m/uL (4.30-5.90); RDW 14.8 % (11.5-15.5)
[2022-10-23 17:12] VITALS: BP 153/89; PULSE 90; RESP 16; TEMP 99
== END 2022-10-23 17:35 | disposition home or self-care (01) ==
LOC: EC 13:45
DX: U07.1 COVID-19 (principal); I11.0 Hypertensive heart disease with heart failure; I50.9 Heart failure, unspecified; J44.9 Chronic obstructive pulmonary disease, unspecified; G47.30 Sleep apnea, unspecified; F41.9 Anxiety disorder, unspecified; F32.A Depression, unspecified; E11.9 Type 2 diabetes mellitus without complications; E78.5 Hyperlipidemia, unspecified; K21.9 Gastro-esophageal reflux disease without esophagitis; M19.90 Unspecified osteoarthritis, unspecified site; Z79.1 Long term (current) use of non-steroidal anti-inflammatories (NSAID); Z79.82 Long term (current) use of aspirin; Z79.84 Long term (current) use of oral hypoglycemic drugs; Z79.899 Other long term (current) drug therapy
CPT/HCPCS: 36415; 71046; 80053; 83605; 85025; 85610; 85730; 87040; 87636; 93005; 99285

== ENCOUNTER 2022-12-04 11:31 | Emergency (ER) | payer OTHER ==
[2022-12-04 11:47] VITALS: TEMP 98.8
[2022-12-04] MEDS ORDERED: AMOXIC-POT CLAV 875-125MG 1 EACH TAB PO STA (11:58)
[2022-12-04] MEDS ORDERED: predniSONE 50 MG TAB PO STA (11:58)
[2022-12-04] MEDS ORDERED: IPRATROPIUM-ALBUTEROL 3 ML NEB INHALATION STA (11:59)
[2022-12-04] MEDS ORDERED: ALBUTEROL NEBULIZED 2.5 MG/3 ML INHALATION STA (11:59)
--- NOTE | 2022-12-04 12:29 | XR ---
EXAMINATION TYPE: XR chest 2V DATE OF EXAM: 12/04/2022 12:16 PM COMPARISON: Chest radiographs from 10/23/2022 TECHNIQUE: XR chest 2V Frontal and lateral views of the chest. CLINICAL INDICATION:Male, 62 years old with history of cough; FINDINGS: Lungs/Pleura: Similar multifocal airspace opacities. No evidence of pneumothorax or pleural effusion. Pulmonary vascularity: Unremarkable. Heart/mediastinum: Cardiomediastinal silhouette is enlarged and stable. Musculoskeletal: No acute osseous pathology. IMPRESSION: Low lung volumes with a generalized hazy appearance which could represent atelectasis versus pulmonar y edema correlate with serum BNP.
--- NOTE | 2022-12-04 13:13 | ED ---
General Adult HPI - General Chief complaint: ENT Stated complaint: FANY Time Seen by Provider: 12/04/22 11:50 Source: patient, RN notes reviewed, old records reviewed Mode of arrival: ambulatory Limitations: no limitations - History of Present Illness Initial comments: 62-year-old male presented for evaluation of right-sided lower dental pain. Patient was seen at urgent care and was sent to the emergency department for evaluation because he additionally has been complaining of some dyspnea. Patient has history of both CHF and COPD. He reports a cough which is nonproductive. No chest pain. He reports pain in his right lower jaw and states he has dental work that is scheduled to be performed. - Related Data Home Medications Medication Instructions Recorded Confirmed ALPRAZolam [Xanax] 1 mg PO TID PRN 06/26/16 10/23/22 Carvedilol 25 mg PO BID-W/MEALS 06/26/16 10/23/22 Fluticasone Nasal [place] [Flonase 1 spray EA NOSTRIL DAILY 06/26/16 10/23/22 Nasal [place]] Nitroglycerin Sl Tabs [Nitrostat] 0.4 mg SUBLINGUAL Q5M PRN 03/08/17 10/23/22 HYDROcodone/APAP 10-325MG [[place] 1 tab PO Q6H PRN 09/21/18 10/23/22 10-325] Albuterol Nebulized [Ventolin 2.5 mg INHALATION RT-TID PRN 01/15/19 10/23/22 Nebulized] Albuterol Sulfate [Proair Hfa] 2 puff INHALATION RT-Q4H PRN 07/27/21 10/23/22 Ergocalciferol (Vitamin D2) 1,250 mcg PO MO 07/27/21 10/23/22 [Drisdol (50,000 Iu)] Potassium Chloride [Klor-Con M10] 10 meq PO BID-W/MEALS 07/27/21 10/23/22 Famotidine [Pepcid] 20 mg PO HS 10/23/22 10/23/22 Ibuprofen [Motrin] 800 mg PO TID 10/23/22 10/23/22 Lidocaine 5% Oint [Xylocaine 5% 1 applic TOPICAL DAILY PRN 10/23/22 10/23/22 Oint] Losartan Potassium [Cozaar] 100 mg PO DAILY 10/23/22 10/23/22 Nitroglycerin 0.4MG/Hr Patch 1 patch TRANSDERM DAILY 10/23/22 10/23/22 [Nitro-Dur 0.4MG/Hr Patch] Olopatadine HCl [Pataday] 1 drop BOTH EYES BID 10/23/22 10/23/22 Simvastatin [Zocor] 40 mg PO HS 10/23/22 10/23/22 Tamsulosin HCl [Flomax] 0.4 mg PO DAILY 10/23/22 10/23/22 metFORMIN HCL [Glucophage] 500 mg PO DAILY 10/23/22 10/23/22 Previous Rx's Medication Instructions Recorded Aspirin [Adult Low Dose Aspirin EC] 81 mg PO DAILY #30 tablet. 09/23/18 Cyclobenzaprine [Flexeril] 10 mg PO BID #60 tablet 09/23/18 Docusate [Colace] 100 mg PO DAILY PRN #30 cap 09/23/18 Furosemide [Lasix] 80 mg PO DAILY #30 tab 09/23/18 Benzonatate [Tessalon Perles] 100 mg PO TID PRN #24 capsule 10/23/22 Albuterol Inhaler [Ventolin Hfa 1 - 2 puff INHALATION Q4HR PRN #1 12/04/22 Inhaler] each Amoxic-Pot Clav 875-125Mg 1 tab PO Q12HR 10 Days #20 tab 12/04/22 [Augmentin 875-125] predniSONE 50 mg PO DAILY #5 tab 12/04/22 Allergies Allergy/AdvReac Type Severity Reaction Status Date / Time No Known Allergies Allergy Verified 12/04/22 11:46 Review of Systems ROS Statement: Those systems with pertinent positive or pertinent negative responses have been documented in the HPI. ROS Other: All systems not noted in ROS Statement are negative. Past Medical History Past Medical History: Heart Failure, COPD, Diabetes Mellitus, GERD/Reflux, Hyperlipidemia, Hypertension, Osteoarthritis (OA), Prostate Disorder, Sleep Apnea/CPAP/BIPAP Additional Past Medical History / Comment(s): ASCENDING THORACIC ANEURYSM, Palpitations, "LEAKY VALVE." USES BI PAP MACHINE, CONSTIPATION. EDEMA ANKLES. Influenza A History of Any Multi-Drug Resistant Organisms: None Reported Past Surgical History: Orthopedic Surgery Additional Past Surgical History / Comment(s): ARTHROSCOPIC RIGHT KNEE - EXC GLASS, HEMORRHOIDECTOMY. COLONOSCOPY. Past Anesthesia/Blood Transfusion Reactions: Previous Problems w/ Anesthesia Additional Past Anesthesia/Blood Transfusion Reaction / Comment(s): AWAKE DURING SURGERY, IN PAIN. Past Psychological History: Anxiety, Depression Smoking Status: Never smoker Past Alcohol Use History: None Reported Past Drug Use History: None Reported - Past Family History Father Family Medical History: Cancer, Diabetes Mellitus Mother Family Medical History: Cancer General Exam Limitations: no limitations General appearance: alert, in no apparent distress Head exam: Present: atraumatic, normocephalic Eye exam: Present: normal appearance, PERRL ENT exam: Present: normal oropharynx, mucous membranes moist, other (Poor dentition, no drainable abscess, no submandibular induration or swelling. Normal oropharynx without peritonsillar abscess) Respiratory exam: Present: wheezes, decreased breath sounds. Absent: respiratory distress, rales Cardiovascular Exam: Present: regular rate, normal rhythm GI/Abdominal exam: Present: soft. Absent: distended, tenderness Extremities exam: Present: normal capillary refill. Absent: pedal edema, calf tenderness Neurological exam: Present: alert, oriented X3, CN II-XII intact. Absent: motor sensory deficit Psychiatric exam: Present: normal affect, normal mood Skin exam: Present: warm, dry, intact. Absent: cyanosis, diaphoretic Course Vital Signs 12/04/22 12/04/22 11:44 11:46 Temperature 98.8 F Pulse Rate 97 81 Respiratory 22 20 Rate Blood Pressure 167/72 O2 Sat by Pulse 92 L 95 Oximetry Medical Decision Making - Medical Decision Making Was pt. sent in by a medical professional or institution (, PA, CREDENTIALING COORDINATOR, urgent care, hospital, or usp...) When possible be specific @ -No Did you speak to anyone other than the patient for history (EMS, parent, family, police, friend...)? What history was obtained from this source @ -No Did you review nursing and triage notes (agree or disagree)? Why? @ -I reviewed and agree with nursing and triage notes Were old charts reviewed (outside hosp., previous admission, EMS record, old EKG, old radiological studies, urgent care reports/EKG's, usp records)? Report findings @ -No old charts were reviewed Differential Diagnosis (chest pain, altered mental status, abdominal pain women, abdominal pain men, vaginal bleeding, weakness, fever, dyspnea, syncope, headache, dizziness, GI bleed, back pain, seizure, CVA, palpatations, mental health, musculoskeletal)? @ -Dental abscess, pneumonia, COPD EKG interpreted by me (3pts min.). @ -As above X-rays interpreted by me (1pt min.). @ Poor penetration, no focal pneumonia, no pneumothorax CT interpreted by me (1pt min.). @ -None done U/S interpreted by me (1pt. min.). @ -None done What testing was considered but not performed or refused? (CT, X-rays, U/S, labs)? Why? @ -None What meds were considered but not given or refused? Why? @ -None Did you discuss the management of the patient with other professionals (professionals i.e. , PA, CREDENTIALING COORDINATOR, lab, RT, psych nurse, health and social care teacher, exchange floor manager, teacher, public health service officer, major case detective)? Give summary @ -No Was smoking cessation discussed for >3mins.? @ -No Was critical care preformed (if so, how long)? @ -No Were there social determinants of health that impacted care today? How? (Homelessness, low income, unemployed, alcoholism, drug addiction, transportation, low edu. Level, literacy, decrease access to med. care, longterm, rehab)? @ -No Was there de-escalation of care discussed even if they declined (Discuss DNR or withdrawal of care, Hospice)? DNR status @ -No What co-morbidities impacted this encounter? (DM, HTN, Smoking, COPD, CAD, Cancer, CVA, ARF, Chemo, Hep., AIDS, mental health diagnosis, sleep apnea, morbid obesity)? @ -None Was patient admitted / discharged? Hospital course, mention meds given and route, prescriptions, significant lab abnormalities, going to OR and other pertinent info. @ -62-year-old male with dental pain and moderate dyspnea. History of COPD. Patient's vital signs are stable. Given antibiotics, steroids in the emergency department. Patient's will be prescribed course of antibiotics both for dental infection and possible COPD. He is also prescribed steroids. He should follow with his primary care physician and return with worsening or changing symptoms. Undiagnosed new problem with uncertain prognosis? @ -No Drug Therapy requiring intensive monitoring for toxicity (Heparin, Nitro, Insulin, Cardizem)? @ -No Were any procedures done? @ -No Diagnosis/symptom? @ Dental pain, COPD Acute, or Chronic, or Acute on Chronic? @ Acute Uncomplicated (without systemic symptoms) or Complicated (systemic symptoms)? @ -default Side effects of treatment? @ -No Exacerbation, Progression, or Severe Exacerbation? @ -No Poses a threat to life or bodily function? How? (Chest pain, [place], [place], pneumonia, PE, COPD, DKA, ARF, appy, cholecystitis, CVA, Diverticulitis, Homicidal, Suicidal, threat to staff... and all critical care pts) @ -No - Lab Data Lab Results 12/04/22 Range/Units 11:57 Influenza Type A (PCR) Not Detected (Not Detectd) Influenza Type B (PCR) Not Detected (Not Detectd) RSV (PCR) Not Detected (Not Detectd) SARS-CoV-2 (PCR) Not Detected (Not Detectd) Disposition Clinical Impression: COPD (chronic obstructive pulmonary disease), Pain, dental Disposition: HOME SELF-CARE Condition: Fair Instructions (If sedation given, give patient instructions): Toothache (ED), COPD (Chronic Obstructive Pulmonary Disease) (ED) Prescriptions: Amoxic-Pot Clav 875-125Mg [Augmentin 875-125] 1 tab PO Q12HR 10 Days #20 tab predniSONE 50 mg PO DAILY #5 tab Albuterol Inhaler [Ventolin Hfa Inhaler] 1 - 2 puff INHALATION Q4HR PRN #1 each PRN Reason: Shortness Of Breath Is patient prescribed a controlled substance at d/c from ED?: No Referrals: Alex Harrison MD [Primary Care Provider] - 1-2 days Time of Disposition: 14:11
[2022-12-04 15:36] VITALS: BP 157/95; PULSE 96; RESP 18
== END 2022-12-04 15:36 | disposition home or self-care (01) ==
LOC: EC 11:31
DX: J44.9 Chronic obstructive pulmonary disease, unspecified (principal); K08.89 Other specified disorders of teeth and supporting structures; I11.0 Hypertensive heart disease with heart failure; I50.9 Heart failure, unspecified; E11.9 Type 2 diabetes mellitus without complications; E78.5 Hyperlipidemia, unspecified; M19.90 Unspecified osteoarthritis, unspecified site; G47.30 Sleep apnea, unspecified; F41.9 Anxiety disorder, unspecified; F32.A Depression, unspecified; Z79.1 Long term (current) use of non-steroidal anti-inflammatories (NSAID); Z79.84 Long term (current) use of oral hypoglycemic drugs; Z79.899 Other long term (current) drug therapy; Z79.01 Long term (current) use of anticoagulants; Z20.822 Contact with and (suspected) exposure to COVID-19; Z79.51 Long term (current) use of inhaled steroids
CPT/HCPCS: 99285 ×2; 94640; 87636; 71046; J7512

== ENCOUNTER 2023-02-02 13:56 | Inpatient (IN) | payer OTHER ==
--- NOTE | 2023-02-02 15:12 | ED ---
SOB HPI - General Chief Complaint: Shortness of Breath Stated Complaint: FANY Time Seen by Provider: 02/02/23 15:12 Source: patient Mode of arrival: wheelchair - History of Present Illness Initial Comments: Sven is a pleasant 62-year-old male with a known history of heart failure, CPAP dependent [place] and COPD. Patient presents the ER today with complaint of progressively worsening shortness of breath. Patient states that for the past 3 weeks is been feeling like he can't catch his breath and now he gets winded after only a couple of steps. Patient states that he does not take his Lasix as prescribed because it is too much of an inconvenience to have to urinate frequently when he has to leave the house. Patient estimates that he is taking his Lasix maybe 5 times in the past month. He also states that when he has activities outside house he doesn't do his breathing treatments. Patient states that despite doing breathing treatments morning his breathing wasn't getting any better. Patient states he has feeling of tightness in his chest like he can't pull it enough air but no chest pain no exertional chest pain. Patient states that despite being compliant with the CPAP at night he still has orthopnea and wakes from sleep short of breath. - Related Data Home Medications Medication Instructions Recorded Confirmed ALPRAZolam [Xanax] 1 mg PO TID PRN 06/26/16 02/02/23 Carvedilol 25 mg PO BID-W/MEALS 06/26/16 02/02/23 Fluticasone Nasal [place] [Flonase 1 spray EA NOSTRIL DAILY 06/26/16 02/02/23 Nasal [place]] Nitroglycerin Sl Tabs [Nitrostat] 0.4 mg SUBLINGUAL Q5M PRN 03/08/17 02/02/23 HYDROcodone/APAP 10-325MG [[place] 1 tab PO Q6H PRN 09/21/18 02/02/23 10-325] Albuterol Nebulized [Ventolin 2.5 mg INHALATION RT-QID PRN 01/15/19 02/02/23 Nebulized] Ergocalciferol (Vitamin D2) 1,250 mcg PO MO 07/27/21 02/02/23 [Drisdol (50,000 Iu)] Potassium Chloride [Klor-Con M10] 10 meq PO BID-W/MEALS 07/27/21 02/02/23 Famotidine [Pepcid] 20 mg PO HS 10/23/22 02/02/23 Ibuprofen [Motrin] 800 mg PO TID PRN 10/23/22 02/02/23 Lidocaine 5% Oint [Xylocaine 5% 1 applic TOPICAL DAILY PRN 10/23/22 02/02/23 Oint] Losartan Potassium [Cozaar] 100 mg PO DAILY 10/23/22 02/02/23 Nitroglycerin 0.4MG/Hr Patch 1 patch TRANSDERM DAILY 10/23/22 02/02/23 [Nitro-Dur 0.4MG/Hr Patch] Olopatadine HCl [Pataday] 1 drop BOTH EYES BID 10/23/22 02/02/23 Simvastatin [Zocor] 40 mg PO HS 10/23/22 02/02/23 Tamsulosin HCl [Flomax] 0.4 mg PO DAILY 10/23/22 02/02/23 metFORMIN HCL [Glucophage] 500 mg PO DAILY 10/23/22 02/02/23 Albuterol Inhaler [Ventolin Hfa 2 puff INHALATION RT-Q4H PRN 02/02/23 02/02/23 Inhaler] Previous Rx's Medication Instructions Recorded Aspirin [Adult Low Dose Aspirin EC] 81 mg PO DAILY #30 tablet. 09/23/18 Cyclobenzaprine [Flexeril] 10 mg PO BID #60 tablet 09/23/18 Docusate [Colace] 100 mg PO DAILY PRN #30 cap 09/23/18 Furosemide [Lasix] 80 mg PO DAILY #30 tab 09/23/18 Allergies Allergy/AdvReac Type Severity Reaction Status Date / Time No Known Allergies Allergy Verified 02/02/23 15:57 Review of Systems ROS Statement: Those systems with pertinent positive or pertinent negative responses have been documented in the HPI. ROS Other: All systems not noted in ROS Statement are negative. Past Medical History Past Medical History: Heart Failure, COPD, Diabetes Mellitus, GERD/Reflux, Hyperlipidemia, Hypertension, Osteoarthritis (OA), Prostate Disorder, Sleep Apnea/CPAP/BIPAP Additional Past Medical History / Comment(s): ASCENDING THORACIC ANEURYSM, P alpitations, "LEAKY VALVE." USES BI PAP MACHINE, CONSTIPATION. EDEMA ANKLES. Influenza A History of Any Multi-Drug Resistant Organisms: None Reported Past Surgical History: Orthopedic Surgery Additional Past Surgical History / Comment(s): ARTHROSCOPIC RIGHT KNEE - EXC GLASS, HEMORRHOIDECTOMY. COLONOSCOPY. Past Anesthesia/Blood Transfusion Reactions: Previous Problems w/ Anesthesia Additional Past Anesthesia/Blood Transfusion Reaction / Comment(s): AWAKE DURING SURGERY, IN PAIN. Past Psychological History: Anxiety, Depression Smoking Status: Never smoker Past Alcohol Use History: None Reported Past Drug Use History: None Reported - Past Family History Father Family Medical History: Cancer, Diabetes Mellitus Mother Family Medical History: Cancer General Exam Limitations: no limitations General appearance: alert, in no apparent distress Head exam: Present: atraumatic, normocephalic Eye exam: Present: PERRL ENT exam: Present: normal exam Neck exam: Present: normal inspection Respiratory exam: Present: decreased breath sounds. Absent: respiratory distress, wheezes Cardiovascular Exam: Present: tachycardia GI/Abdominal exam: Present: soft Extremities exam: Present: pedal edema Neurological exam: Present: alert, oriented X3 Psychiatric exam: Present: normal affect Skin exam: Present: warm, dry, other (chronic skin changes of lower extremities ) Course Vital Signs 02/02/23 02/02/23 02/02/23 14:00 14:56 17:34 Temperature 98.8 F Pulse Rate 105 H 94 Respiratory 22 18 18 Rate Blood Pressure 135/78 153/110 O2 Sat by Pulse 94 L 98 Oximetry Medical Decision Making - Medical Decision Making Was pt. sent in by a medical professional or institution (Dr. PA, PIG MACHINE SUPERVISOR, urgent care, hospital, or correction...) When possible be specific @ No Did you speak to anyone other than the patient for history (EMS, parent, family, police, friend...)? What history was obtained from this source @ No Did you review nursing and triage notes (agree or disagree)? Why? @ -I reviewed and agree with nursing and triage notes Were old charts reviewed (outside hosp., previous admission, EMS record, old EKG, old radiological studies, urgent care reports/EKG's, correction records)? Report findings @ -Previous admission notes were reviewed, previous EKG reviewed Differential Diagnosis (chest pain, altered mental status, abdominal pain women, abdominal pain men, vaginal bleeding, weakness, fever, dyspnea, syncope, headache, dizziness, GI bleed, back pain, seizure, CVA, palpatations, mental health, musculoskeletal)? @ -Differential Dyspnea: Coronary syndrome, arrhythmia, tamponade, asthma, COPD, pulmonary embolism, pneumonia, pneumothorax, pulmonary effusion, anaphylaxis, diabetic ketoacidosis, flailed chest, pulmonary contusion, diaphragmatic rupture, anemia, neuromuscular, this is not meant to be an all-inclusive list. EKG interpreted by me (3pts min.). @ -As above X-rays interpreted by me (1pt min.). @ -Chest x-ray with pleural effusion concerning for CHF CT interpreted by me (1pt min.). @ -None done U/S interpreted by me (1pt. min.). @ -None done What testing was considered but not performed or refused? (CT, X-rays, U/S, labs)? Why? @ -Echo can be considered to assess heart failure during admission What meds were considered but not given or refused? Why? @ -Due to elevated troponin decision to start heparin will be deferred to cardiology Did you discuss the management of the patient with other professionals (professionals i.e. , PA, PIG MACHINE SUPERVISOR, lab, RT, psych nurse, case management social worker, svp marketing & communications at [employer], teacher, deputy probation officer, supportive employment case manager)? Give summary @ -Patient care was discussed with admitting team Was smoking cessation discussed for >3mins.? @ -No Was critical care preformed (if so, how long)? @ -No Were there social determinants of health that impacted care today? How? (Homelessness, low income, unemployed, alcoholism, drug addiction, transportation, low edu. Level, literacy, decrease access to med. care, nursing home, rehab)? @ -No Was there de-escalation of care discussed even if they declined (Discuss DNR or withdrawal of care, Hospice)? DNR status @ -No What co-morbidities impacted this encounter? (DM, HTN, Smoking, COPD, CAD, Cancer, CVA, ARF, Chemo, Hep., AIDS, mental health diagnosis, sleep apnea, morbid obesity)? @ -Diabetes, hypertension, COPD, CAD, sleep apnea, morbid obesity Was patient admitted / discharged? Hospital course, mention meds given and route, prescriptions, significant lab abnormalities, going to OR and other pertinent info. @ -Admitted Undiagnosed new problem with uncertain prognosis? @ -No Drug Therapy requiring intensive monitoring for toxicity (Heparin, Nitro, Insulin, Cardizem)? @ -No Were any procedures done? @ -No Diagnosis/symptom? @ -CHF exacerbation Acute, or Chronic, or Acute on Chronic? @ -Acute on chronic Uncomplicated (without systemic symptoms) or Complicated (systemic symptoms)? @ -Complicated Side effects of treatment? @ -No Exacerbation, Progression, or Severe Exacerbation? @ -Exacerbation Poses a threat to life or bodily function? How? (Chest pain, [place], [place], pneumonia, PE, COPD, DKA, ARF, appy, cholecystitis, CVA, Diverticulitis, Homicidal, [place] icidal, threat to staff... and all critical care pts) @ -Yes Diagnosis/symptom? @ -COPD Acute, or Chronic, or Acute on Chronic? @ -Chronic Uncomplicated (without systemic symptoms) or Complicated (systemic symptoms)? @ -Complicated Side effects of treatment? @ -none Exacerbation, Progression, or Severe Exacerbation] @ -Exacerbation Poses a threat to life or bodily function? @ -Yes Diagnosis/symptom? @ -Morbid obesity Acute, or Chronic, or Acute on Chronic? @ -Chronic Uncomplicated (without systemic symptoms) or Complicated (systemic symptoms)? @ -Complicated Side effects of treatment? @ -none Exacerbation, Progression, or Severe Exacerbation] @ -no Poses a threat to life or bodily function? @ -no - Lab Data Result diagrams: 02/02/23 15:37 02/02/23 15:37 Lab Results 02/02/23 02/02/23 02/02/23 Range/Units 15:37 15:37 15:37 WBC 6.3 (3.8-10.6) k/uL RBC 5.37 (4.30-5.90) m/uL Hgb 14.6 (13.0-17.5) gm/dL Hct 48.2 (39.0-53.0) % MCV 89.8 (80.0-100.0) fL MCH 27.2 (25.0-35.0) pg MCHC 30.3 L (31.0-37.0) g/dL RDW 15.7 H (11.5-15.5) % Plt Count 236 (150-450) k/uL MPV 8.6 Neutrophils % 64 % Lymphocytes % 22 % Monocytes % 8 % Eosinophils % 3 % Basophils % 1 % Neutrophils # 4.1 (1.3-7.7) k/uL Lymphocytes # 1.4 (1.0-4.8) k/uL Monocytes # 0.5 (0-1.0) k/uL Eosinophils # 0.2 (0-0.7) k/uL Basophils # 0.0 (0-0.2) k/uL Hypochromasia Moderate PT 11.0 (9.0-12.0) sec INR 1.1 (<1.2) APTT 23.7 (22.0-30.0) sec Sodium 138 (137-145) mmol/L Potassium 5.5 H (3.5-5.1) mmol/L Chloride 101 (98-107) mmol/L Carbon Dioxide 30 (22-30) mmol/L Anion Gap 7 mmol/L BUN 20 (9-20) mg/dL Creatinine 1.18 (0.66-1.25) mg/dL Est GFR (CKD-EPI)AfAm 75 (>60 ml/min/1.73 sqM) Est GFR (CKD-EPI)NonAf 65 (>60 ml/min/1.73 sqM) Glucose 105 H (74-99) mg/dL Calcium 9.4 (8.4-10.2) mg/dL Total Bilirubin 1.0 (0.2-1.3) mg/dL AST 50 (17-59) U/L ALT 27 (4-49) U/L Alkaline Phosphatase 68 (38-126) U/L Troponin I (0.000-0.034) ng/mL NT-Pro-B Natriuret Pep pg/mL Total Protein 8.0 (6.3-8.2) g/dL Albumin 4.1 (3.5-5.0) g/dL 02/02/23 02/02/23 Range/Units 15:37 15:37 WBC (3.8-10.6) k/uL RBC (4.30-5.90) m/uL Hgb (13.0-17.5) gm/dL Hct (39.0-53.0) % MCV (80.0-100.0) fL MCH (25.0-35.0) pg MCHC (31.0-37.0) g/dL RDW (11.5-15.5) % Plt Count (150-450) k/uL MPV Neutrophils % % Lymphocytes % % Monocytes % % Eosinophils % % Basophils % % Neutrophils # (1.3-7.7) k/uL Lymphocytes # (1.0-4.8) k/uL Monocytes # (0-1.0) k/uL Eosinophils # (0-0.7) k/uL Basophils # (0-0.2) k/uL Hypochromasia PT (9.0-12.0) sec INR (<1.2) APTT (22.0-30.0) sec Sodium (137-145) mmol/L Potassium (3.5-5.1) mmol/L Chloride (98-107) mmol/L Carbon Dioxide (22-30) mmol/L Anion Gap mmol/L BUN (9-20) mg/dL Creatinine (0.66-1.25) mg/dL Est GFR (CKD-EPI)AfAm (>60 ml/min/1.73 sqM) Est GFR (CKD-EPI)NonAf (>60 ml/min/1.73 sqM) Glucose (74-99) mg/dL Calcium (8.4-10.2) mg/dL Total Bilirubin (0.2-1.3) mg/dL AST (17-59) U/L ALT (4-49) U/L Alkaline Phosphatase (38-126) U/L Troponin I 0.118 H* (0.000-0.034) ng/mL NT-Pro-B Natriuret Pep 4540 pg/mL Total Protein (6.3-8.2) g/dL Albumin (3.5-5.0) g/dL - EKG Data -: EKG Interpreted by Me EKG Comments: EKG was obtained due to tachycardia and shortness of breath EKG was obtained at 1407, rate is 95 rhythm is a narrow complex regular rhythm with P waves before each QRS this is a sinus rhythm with a first-degree AV block and incomplete r ight bundle branch block, DE 217, QS 117, QTC 419, no acute ST elevations or depressions no evidence of acute acute infarction. When compared to EKG from earlier this year there is no significant change in morphology. Disposition Clinical Impression: Congestive heart failure, COPD exacerbation, Acute pulmonary edema Disposition: ADMITTED IP TO THIS [facility] Condition: Serious Referrals: None,Stated [REFERRING] - 1-2 days
--- NOTE | 2023-02-02 15:51 | XR ---
EXAMINATION TYPE: XR chest 2V DATE OF EXAM: 02/02/2023 3:48 PM COMPARISON: Chest radiographs from 12/04/2022 TECHNIQUE: XR chest 2V Frontal and lateral views of the chest. CLINICAL INDICATION:Male, 62 years old with history of difficulty breathing; FINDINGS: Lungs/Pleura: There is no evidence of pleural effusion, focal consolidation, or pneumothorax. Pulmonary vascularity: Pulmonary vascular congestion. Heart/mediastinum: Cardiomediastinal silhouette is enlarged and stable. Musculoskeletal: No acute osseous pathology. IMPRESSION: Cardiomegaly and mild pulmonary vascular congestion. Correlate with BNP for congestive heart failure.
[2023-02-02 15:57] LABS: Basophils % (A) 1 %; Eosinophils # (A) 0.2 k/uL (0-0.7); Eosinophils % (A) 3 %; HCT 48.2 % (39.0-53.0); HGB 14.6 gm/dL (13.0-17.5); Hypochromasia Moderate; Lymphocytes # (A) 1.4 k/uL (1.0-4.8); Lymphocytes % (A) 22 %; MCH 27.2 pg (25.0-35.0); MCHC 30.3 g/dL (31.0-37.0); MCV 89.8 fL (80.0-100.0); Mean Platelet Volume 8.6; Monocytes # (A) 0.5 k/uL (0-1.0); Monocytes % (A) 8 %; Neutrophils # (A) 4.1 k/uL (1.3-7.7); Neutrophils % (A) 64 %; Platelet Count 236 k/uL (150-450); RBC 5.37 m/uL (4.30-5.90); RDW 15.7 % (11.5-15.5); WBC 6.3 k/uL (3.8-10.6)
[2023-02-02 16:08] LABS: ALT 27 U/L (4-49); AST 50 U/L (17-59); African American GFR (CKD) 75 (>60 ml/min/1.73 sqM); Albumin 4.1 g/dL (3.5-5.0); Alkaline Phosphatase 68 U/L (38-126); Anion Gap 7 mmol/L; Blood Urea Nitrogen 20 mg/dL (9-20); Calcium 9.4 mg/dL (8.4-10.2); Carbon Dioxide 30 mmol/L (22-30); Chloride 101 mmol/L (98-107); Glucose 105 mg/dL (74-99); Non-African American GFR(CKD) 65 (>60 ml/min/1.73 sqM); Sodium 138 mmol/L (137-145)
[2023-02-02 16:10] LABS: INR 1.1 (<1.2); Partial Thromboplastin Time 23.7 sec (22.0-30.0)
[2023-02-02 16:40] LABS: Potassium 5.5 mmol/L (3.5-5.1)
[2023-02-02] MEDS ORDERED: FUROSEMIDE 10 MG/ML 2 ML VIAL IV ONE (17:15)
[2023-02-02] MEDS ORDERED: ASPIRIN 81 MG PO STA (17:16)
[2023-02-02] MEDS ORDERED: ALBUTEROL NEBULIZED 2.5 MG/3 ML INHALATION PRN (21:09)
[2023-02-02] MEDS ORDERED: ALBUTEROL HFA INHALER INHALATION PRN (21:09)
[2023-02-02] MEDS ORDERED: NITROGLYCERIN SL TABS 0.4 MG TAB SUBLINGUAL PRN (21:09)
[2023-02-02] MEDS ORDERED: DOCUSATE 100 MG CAP PO PRN (21:09)
[2023-02-02] MEDS ORDERED: DEXTROSE 50% SYRINGE 50 ML IVP PRN ×2 (21:11)
[2023-02-02] MEDS ORDERED: FAMOTIDINE 20 MG TAB PO SCH (21:15)
[2023-02-02] MEDS: CYCLOBENZAPRINE 10 MG TAB PO PRN (22:10)
[2023-02-02] MEDS: ALPRAZolam 1 MG TAB PO PRN (22:10)
[2023-02-02] MEDS: ATORVASTATIN 20 MG TAB PO SCH (22:10)
[2023-02-02] MEDS: HYDROcodone/APAP 10-325MG 1 EACH TAB PO PRN (22:11)
[2023-02-02] MEDS: KETOTIFEN 0.025% OPHTH DROPS 5 ML BTL BOTH EYES SCH (22:24)
--- NOTE | 2023-02-03 07:48 | P.HPIM ---
History of Present Illness This is a pleasant 62 years old male with past medical history of Heart Failure, COPD, Diabetes Mellitus, GERD/Reflux, Hyperlipidemia, Hypertension, Osteoarthritis (OA), benign prostatic hypertrophy, Sleep Apnea/CPA P/BIPAP Patient presents because of progressive dyspnea over 3 weeks associated with chest pain over the last 2 weeks which is in the middle of his chest about 4/10 in severity. Like tightness with no radiation, associated with little cough and phlegm. Also has been complaining of from mild right-sided lower abdominal pain on and off for more than 1 month, currently is mild, nonradiating with nonspecific inequality. No vomiting and he tolerates diet as he says. He denies urinary complaints, has little headache and dizziness but no missy weakness or numbness He denies smoking alcohol or illicit drugs He uses CPAP machine at home during nighttime vital signs stable. Patient is afebrile He has unremarkable CBC INR BMP and liver enzymes. Potassium 5.5. ProBNP is elevated for 540. EKG showing sinus rhythm at 95 bpm with no significant ST-T changes and QTC 419 Chest x-ray reviewed by myself showing bilateral infiltrates suspicious for acute CHF Echocardiogram from 07/2021 showing ejection fraction 50-55% Review of Systems Review of systems CONSTITUTIONAL: No fever, no malaise, no fatigue. HEENT: No recent visual problems or hearing problems. Denied any sore throat. CARDIOVASCULAR: No orthopnea, PND, no palpitations, no syncope. PULMONARY: No chest wall tenderness, no hemoptysis. GASTROINTESTINAL: No diarrhea, no nausea, no vomiting, no abdominal pain. Normoactive bowel sounds. NEUROLOGICAL: No headaches, no weakness, no numbness. HEMATOLOGICAL: Denies any bleeding or petechiae. GENITOURINARY: Denies any burning micturition, frequency, or urgency. MUSCULOSKELETAL/RHEUMATOLOGICAL: Denies any joint pain, swelling, or any muscle pain. ENDOCRINE: Denies any polyuria or polydipsia. Past Medical History Past Medical History: Heart Failure, COPD, Diabetes Mellitus, GERD/Reflux, Hyperlipidemia, Hypertension, Osteoarthritis (OA), Prostate Disorder, Sleep Apnea/CPAP/BIPAP Additional Past Medical History / Comment(s): ASCENDING THORACIC ANEURYSM, Pal pitations, "LEAKY VALVE." USES BI PAP MACHINE, CONSTIPATION. EDEMA ANKLES. Influenza A History of Any Multi-Drug Resistant Organisms: None Reported Past Surgical History: Orthopedic Surgery Additional Past Surgical History / Comment(s): ARTHROSCOPIC RIGHT KNEE - EXC GLASS, HEMORRHOIDECTOMY. COLONOSCOPY. Past Anesthesia/Blood Transfusion Reactions: Previous Problems w/ Anesthesia Additional Past Anesthesia/Blood Transfusion Reaction / Comment(s): AWAKE DURING SURGERY, IN PAIN. Past Psychological History: Anxiety, Depression Smoking Status: Never smoker Past Alcohol Use History: None Reported Past Drug Use History: None Reported - Past Family History Father Family Medical History: Cancer, Diabetes Mellitus Mother Family Medical History: Cancer Medications and Allergies Home Medications Medication Instructions Recorded Confirmed Type ALPRAZolam [Xanax] 1 mg PO TID PRN 06/26/16 02/02/23 History Carvedilol 25 mg PO BID-W/MEALS 06/26/16 02/02/23 History Fluticasone Nasal [place] [Flonase 1 spray EA NOSTRIL DAILY 06/26/16 02/02/23 History Nasal [place]] Nitroglycerin Sl Tabs [Nitrostat] 0.4 mg SUBLINGUAL Q5M PRN 03/08/17 02/02/23 History HYDROcodone/APAP 10-325MG [[place] 1 tab PO Q6H PRN 09/21/18 02/02/23 History 10-325] Aspirin [Adult Low Dose Aspirin EC] 81 mg PO DAILY #30 tablet. 09/23/18 02/02/23 Rx Cyclobenzaprine [Flexeril] 10 mg PO BID #60 tablet 09/23/18 02/02/23 Rx Docusate [Colace] 100 mg PO DAILY PRN #30 cap 09/23/18 02/02/23 Rx Furosemide [Lasix] 80 mg PO DAILY #30 tab 09/23/18 02/02/23 Rx Albuterol Nebulized [Ventolin 2.5 mg INHALATION RT-QID PRN 01/15/19 02/02/23 History Nebulized] Ergocalciferol (Vitamin D2) 1,250 mcg PO MO 07/27/21 02/02/23 History [Drisdol (50,000 Iu)] Potassium Chloride [Klor-Con M10] 10 meq PO BID-W/MEALS 07/27/21 02/02/23 History Famotidine [Pepcid] 20 mg PO HS 10/23/22 02/02/23 History Ibuprofen [Motrin] 800 mg PO TID PRN 10/23/22 02/02/23 History Lidocaine 5% Oint [Xylocaine 5% 1 applic TOPICAL DAILY PRN 10/23/22 02/02/23 H istory Oint] Losartan Potassium [Cozaar] 100 mg PO DAILY 10/23/22 02/02/23 History Nitroglycerin 0.4MG/Hr Patch 1 patch TRANSDERM DAILY 10/23/22 02/02/23 History [Nitro-Dur 0.4MG/Hr Patch] Olopatadine HCl [Pataday] 1 drop BOTH EYES BID 10/23/22 02/02/23 History Simvastatin [Zocor] 40 mg PO HS 10/23/22 02/02/23 History Tamsulosin HCl [Flomax] 0.4 mg PO DAILY 10/23/22 02/02/23 History metFORMIN HCL [Glucophage] 500 mg PO DAILY 10/23/22 02/02/23 History Albuterol Inhaler [Ventolin Hfa 2 puff INHALATION RT-Q4H PRN 02/02/23 02/02/23 History Inhaler] Allergies Allergy/AdvReac Type Severity Reaction Status Date / Time No Known Allergies Allergy Verified 02/02/23 15:57 Physical Exam Vitals: Vital Signs Temp Pulse Resp BP Pulse Ox 02/03/23 05:46 84 22 143/103 98 02/03/23 04:11 81 20 98 02/03/23 02:00 86 18 120/78 100 02/02/23 19:55 95 18 116/73 96 02/02/23 18:16 150/99 02/02/23 17:34 94 18 153/110 98 02/02/23 14:56 18 02/02/23 14:00 98.8 F 105 H 22 135/78 94 L Intake and Output 02/02/23 02/02/23 02/03/23 14:59 22:59 06:59 Output Total 900 Balance -900 Output: Urine 900 Other: Weight 140.614 kg -GENERAL: The patient is alert and oriented x3, not in any acute distress. Well morbidly obese HEENT: Pupils are round and equally reacting to light. EOMI. No scleral icterus. No conjunctival pallor. Normocephalic, atraumatic. No pharyngeal erythema. No thyromegaly. CARDIOVASCULAR: S1 and S2 present. No murmurs, rubs, or gallops. PULMONARY: Chest is clear to auscultation, no wheezing , no crackles. ABDOMEN: Soft, very mild tenderness in the right lower quadrant, non-ndistended, normoactive bowel sounds. No palpable organomegaly. MUSCULOSKELETAL: No joint swelling or deformity. -EXTREMITIES: No cyanosis, clubbing,. Bilateral pitting leg edema. NEUROLOGICAL: Gross neurological examination did not reveal any focal deficits. SKIN: No rashes. no petechiae. Results CBC & Chem 7: 02/02/23 15:37 02/02/23 15:37 Labs: Abnormal Lab Results - Last 24 Hours (Table) 02/02/23 02/02/23 02/02/23 Range/Units 15:37 15:37 15:37 MCHC 30.3 L (31.0-37.0) g/dL RDW 15.7 H (11.5-15.5) % Potassium 5.5 H (3.5-5.1) mmol/L Glucose 105 H (74-99) mg/dL Troponin I 0.118 H* (0.000-0.034) ng/mL 02/02/23 Range/Units 22:08 MCHC (31.0-37.0) g/dL RDW (11.5-15.5) % Potassium (3.5-5.1) mmol/L Glucose (74-99) mg/dL Troponin I 0.137 H* (0.000-0.034) ng/mL Assessment and Plan Assessment: Acute and chronic diastolic CHF exacerbation , ejection fraction 50-55% chest pain, rule out cardiac causes Chronic abdominal pain 1 month with mild diarrhea Mildly elevated troponin, this is a chronic problem and could be related to his heart failure Diabetes mellitus Hypertension Hyperlipidemia History of osteoarthritis History of GERD The prostatic hypertrophy History of sleep apnea, on CPAP machine at night Morbid obesity with BMI of 47.1 Plan: Continue with IV Lasix and monitor inputs and outputs and creatinine fluid restriction Continue with aspirin Cardiology consult monitor abdominal pain Labs and medication were reviewed.. Continue same treatment. Continue with symptomatic treatment. Resume home medication. Monitor labs and vitals. DVT and GI prophylaxis. Further recommendations as per clinical course of the patient DVT prophylaxis: Subcutaneous heparin GI Prophylaxis: Pepcid PT/OT: Pending Prognosis is guarded
[2023-02-03] MEDS ORDERED: FUROSEMIDE 10 MG/ML 4 ML VIAL IV SCH (08:00)
[2023-02-03 08:03] LABS: Glucose,Whole Blood 112 mg/dL (70-110)
[2023-02-03] MEDS: INSULIN ASPART (NovoLOG) 100 UNIT/ML VIAL SQ SCH ×4 (08:20→21:05)
[2023-02-03] MEDS: HEPARIN SODIUM,PORCINE/PF 5,000 UNIT/0.5 ML SYRINGE SQ SCH ×3 (08:46→23:14)
[2023-02-03] MEDS: carvediloL 12.5 MG TAB PO SCH ×2 (08:46→17:16)
[2023-02-03] MEDS: ASPIRIN 81 MG PO SCH (08:46)
[2023-02-03] MEDS: FAMOTIDINE 20 MG/2 ML VIAL IV SCH ×2 (08:46→20:07)
[2023-02-03] MEDS: FLUTICASONE 50MCG/SPRAY NASAL 16GM EA NOSTRIL SCH (08:47)
[2023-02-03] MEDS: TAMSULOSIN 0.4 MG CAP.ER.24H PO SCH (08:47)
[2023-02-03] MEDS: KETOTIFEN 0.025% OPHTH DROPS 5 ML BTL BOTH EYES SCH ×2 (08:54→20:08)
[2023-02-03] MEDS: FUROSEMIDE 10 MG/ML 10 ML VIAL IV SCH ×3 (08:55→23:14)
[2023-02-03 09:00] LABS: African American GFR (CKD) 76 (>60 ml/min/1.73 sqM); Anion Gap 3 mmol/L; Blood Urea Nitrogen 18 mg/dL (9-20); Calcium 9.1 mg/dL (8.4-10.2); Carbon Dioxide 36 mmol/L (22-30); Chloride 99 mmol/L (98-107); Glucose 115 mg/dL (74-99); Non-African American GFR(CKD) 65 (>60 ml/min/1.73 sqM); Potassium 4.7 mmol/L (3.5-5.1); Sodium 138 mmol/L (137-145)
[2023-02-03] MEDS ORDERED: HEPARIN SODIUM,PORCINE/PF 5,000 UNIT/0.5 ML SYRINGE SQ SCH (09:00)
[2023-02-03] MEDS ORDERED: FUROSEMIDE 80 MG TAB PO SCH (09:00)
[2023-02-03 11:37] LABS: Glucose,Whole Blood 135 mg/dL (70-110)
--- NOTE | 2023-02-03 11:38 | P.CRDCN ---
History of Present Illness History of present illness: HISTORY OF PRESENT ILLNESS: This is a 62-year-old male with a past medical history significant for hypertension, hyperlipidemia, obstructive sleep apnea, coronary artery disease, diabetes, congestive heart failure, and morbid obesity. Patient follows in the office with Dr. Macias. We have been asked to see the patient in consultation for congestive heart failure. Patient examined at the bedside. Patient presented to the hospital with a chief complaint of shortness of breath. He states his shortness of breath has been progressively getting worse over the past week. The patient states he has not been taking his Lasix for proximally one month. He states he has maybe taken 4-6 doses over the past 4 weeks. He states he has had a lot going on in his personal life and has not been compliant with his medications. He denies any chest pain or pressure. He continues to report shortness of breath this morning and is requesting to go back on his BiPAP. * EKG reveals sinus mechanism with incomplete right bundle branch block. No signs of acute ischemia. * Chest xray cardiomegaly and mild pulmonary vascular congestion. * Laboratory data: WBC 6.3. Hemoglobin 14.6. Platelet count 236. Sodium 138. Potassium 4.7. BUN18. Creatinine 1.17. ProBNP 4540. Troponin 0.118. 0.137. 0.106. * Current home cardiac medications include simvastatin 40 mg at night, losartan 100 mg daily, carvedilol 25 mg twice a day, aspirin 81 mg daily, and Lasix 80 mg daily * Most recent echocardiogram obtained in July 2021 revealing ejection fraction 50-55%, trace MR, trace TR * Cardiac catheterization history: September 2018 revealing mild irregularity in the LAD, circumflex, and right coronary artery. No obstructive coronary artery disease was detected. Left ventricular end-diastolic pressure significantly elevated secondary to hypertension. REVIEW OF SYSTEMS: At the time of my exam: CONSTITUTIONAL: Denies fever or chills. HEENT: Denies blurred vision, vision changes, or eye pain. Denies hemoptysis CARDIOVASCULAR: Denies chest pain. Denies orthopnea. Denies PND. Denies palpitations RESPIRATORY: Denies shortness of breath. GASTROINTESTINAL: Denies abdominal pain. Denies nausea or vomiting. HEMATOLOGIC: Denies bleeding disorders. GENITOURINARY: Denies any blood in urine. SKIN: Denies pruitis. Denies rash. PHYSICAL EXAM: VITAL SIGNS: Reviewed. GENERAL: Well-developed in no acute distress. HEENT: Head is normocephalic. Pupils are equal, round. Sclerae anicteric. Mucous membranes of the mouth are moist. Neck supple. No JVD or thyromegaly LUNGS: Respirations even and unlabored. Lungs diminished to auscultation bilaterally with crackles at the bases. HEART: Regular rate and rhythm. S1 and S2 heard. ABDOMEN: Soft. Nondistended. Nontender. EXTREMITIES: Normal range of motion. No clubbing or cyanosis. Peripheral pulses intact. 2+ bilateral lower extremity edema NEUROLOGIC: Awake and alert. Oriented x 3. ASSESSMENT: Shortness of breath Acute exacerbation of congestive heart failure with preserved ejection fraction, 50-55% Nonobstructive coronary artery disease Obstructive sleep apnea Hypertension Hyperlipidemia Diabetes Morbid obesity Medication noncompliance PLAN: Obtain 2-D echo to assess cardiac structure and function Resume home cardiac medications Increase Lasix to 60 mg IV every 8 hours Accurate intake and output, daily weights, and monitoring of kidney function Further recommendations pending patient's course Nurse practitioner note has been reviewed by physician. Signing provider agrees with the documented findings, assessment, and plan of care. Past Medical History Past Medical History: Heart Failure, COPD, Diabetes Mellitus, GERD/Reflux, Hyperlipidemia, Hypertension, Osteoarthritis (OA), Prostate Disorder, Sleep Apnea/CPAP/BIPAP Additional Past Medical History / Comment(s): ASCENDING THORACIC ANEURYSM, Palpitations, "LEAKY VALVE." USES BI PAP MACHINE, CONSTIPATION. EDEMA ANKLES. Influenza A History of Any Multi-Drug Resistant Organisms: None Reported Past Surgical History: Orthopedic Surgery Additional Past Surgical History / Comment(s): ARTHROSCOPIC RIGHT KNEE - EXC GLASS, HEMORRHOIDECTOMY. COLONOSCOPY. Past Anesthesia/Blood Transfusion Reactions: Previous Problems w/ Anesthesia Additional Past Anesthesia/Blood Transfusion Reaction / Comment(s): AWAKE DURING SURGERY, IN PAIN. Past Psychological History: Anxiety, Depression Smoking Status: Never smoker Past Alcohol Use History: None Reported Additional Past Alcohol Use History / Comment(s): STARTED SMOKING AT AGE 6, QUIT CIG AT 14, SMOKED 1 PACK PER WEEK Past Drug Use History: None Reported Additional Drug Use History / Comment(s): NO MARIJUANA QUIT 1988 - Past Family History Father Family Medical History: Cancer, Diabetes Mellitus Mother Family Medical History: Cancer Medications and Allergies Home Medications Medication Instructions Recorded Confirmed Type ALPRAZolam [Xanax] 1 mg PO TID PRN 06/26/16 02/02/23 History Carvedilol 25 mg PO BID-W/MEALS 06/26/16 02/02/23 History Fluticasone Nasal [place] [Flonase 1 spray EA NOSTRIL DAILY 06/26/16 02/02/23 History Nasal [place]] Nitroglycerin Sl Tabs [Nitrostat] 0.4 mg SUBLINGUAL Q5M PRN 03/08/17 02/02/23 History HYDROcodone/APAP 10-325MG [[place] 1 tab PO Q6H PRN 09/21/18 02/02/23 History 10-325] Aspirin [Adult Low Dose Aspirin EC] 81 mg PO DAILY #30 tablet. 09/23/18 02/02/23 Rx Cyclobenzaprine [Flexeril] 10 mg PO BID #60 tablet 09/23/18 02/02/23 Rx Docusate [Colace] 100 mg PO DAILY PRN #30 cap 09/23/18 02/02/23 Rx Furosemide [Lasix] 80 mg PO DAILY #30 tab 09/23/18 02/02/23 Rx Albuterol Nebulized [Ventolin 2.5 mg INHALATION RT-QID PRN 01/15/19 02/02/23 History Nebulized] Ergocalciferol (Vitamin D2) 1,250 mcg PO MO 07/27/21 02/02/23 History [Drisdol (50,000 Iu)] Potassium Chloride [Klor-Con M10] 10 meq PO BID-W/MEALS 07/27/21 02/02/23 H istory Famotidine [Pepcid] 20 mg PO HS 10/23/22 02/02/23 History Ibuprofen [Motrin] 800 mg PO TID PRN 10/23/22 02/02/23 History Lidocaine 5% Oint [Xylocaine 5% 1 applic TOPICAL DAILY PRN 10/23/22 02/02/23 History Oint] Losartan Potassium [Cozaar] 100 mg PO DAILY 10/23/22 02/02/23 History Nitroglycerin 0.4MG/Hr Patch 1 patch TRANSDERM DAILY 10/23/22 02/02/23 History [Nitro-Dur 0.4MG/Hr Patch] Olopatadine HCl [Pataday] 1 drop BOTH EYES BID 10/23/22 02/02/23 History Simvastatin [Zocor] 40 mg PO HS 10/23/22 02/02/23 History Tamsulosin HCl [Flomax] 0.4 mg PO DAILY 10/23/22 02/02/23 History metFORMIN HCL [Glucophage] 500 mg PO DAILY 10/23/22 02/02/23 History Albuterol Inhaler [Ventolin Hfa 2 puff INHALATION RT-Q4H PRN 02/02/23 02/02/23 History Inhaler] Allergies Allergy/AdvReac Type Severity Reaction Status Date / Time No Known Allergies Allergy Verified 02/02/23 15:57 Physical Exam Vitals: Vital Signs Temp Pulse Pulse Resp BP BP Pulse Ox 02/03/23 08:00 98.4 F 80 16 145/89 97 02/03/23 07:21 98.8 F 84 22 143/103 98 02/03/23 05:46 84 22 143/103 98 02/03/23 04:11 81 20 98 02/03/23 02:00 86 18 120/78 100 02/02/23 19:55 95 18 116/73 96 02/02/23 18:16 150/99 02/02/23 17:34 94 18 153/110 98 02/02/23 14:56 18 02/02/23 14:00 98.8 F 105 H 22 135/78 94 L Intake and Output 02/02/23 02/03/23 02/03/23 22:59 06:59 14:59 Intake Total 400 Output Total 900 950 Balance -900 -550 Intake: Oral 400 Output: Urine 900 950 Other: Voiding Method Urinal Weight 140.614 kg Results 02/02/23 15:37 02/03/23 08:01 Cardiac Enzymes 02/02/23 02/02/23 02/02/23 Range/Units 15:37 15:37 22:08 AST 50 (17-59) U/L Troponin I 0.118 H* 0.137 H* (0.000-0.034) ng/mL 02/03/23 Range/Units 06:42 AST (17-59) U/L Troponin I 0.106 H* (0.000-0.034) ng/mL Coagulation 02/02/23 Range/Units 15:37 PT 11.0 (9.0-12.0) sec APTT 23.7 (22.0-30.0) sec CBC 02/02/23 Range/Units 15:37 WBC 6.3 (3.8-10.6) k/uL RBC 5.37 (4.30-5.90) m/uL Hgb 14.6 (13.0-17.5) gm/dL Hct 48.2 (39.0-53.0) % Plt Count 236 (150-450) k/uL Comprehensive Metabolic Panel 02/02/23 02/03/23 Range/Units 15:37 08:01 Sodium 138 138 (137-145) mmol/L Potassium 5.5 H 4.7 (3.5-5.1) mmol/L Chloride 101 99 (98-107) mmol/L Carbon Dioxide 30 36 H (22-30) mmol/L BUN 20 18 (9-20) mg/dL Creatinine 1.18 1.17 (0.66-1.25) mg/dL Glucose 105 H 115 H (74-99) mg/dL Calcium 9.4 9.1 (8.4-10.2) mg/dL AST 50 (17-59) U/L ALT 27 (4-49) U/L Alkaline Phosphatase 68 (38-126) U/L Total Protein 8.0 (6.3-8.2) g/dL Albumin 4.1 (3.5-5.0) g/dL Current Medications Generic Name Dose Route Start Last Admin Trade Name Freq PRN Reason Stop Dose Admin Hydrocodone Bitart/Acetaminophen 1 each 02/02/23 21:09 02/02/23 22:11 Hydrocodone/Apap 10-325mg 1 Each Tab PO 1 each Q6H PRN Administration Pain Albuterol Sulfate 2 puff 02/02/23 21:09 Albuterol Hfa Inhaler INHALATION RT-Q4H PRN Shortness Of Breath Albuterol Sulfate 2.5 mg 02/02/23 21:09 Albuterol Nebulized 2.5 Mg/3 Ml INHALATION RT-QID PRN Shortness Of Breath Alprazolam 1 mg 02/02/23 21:09 02/02/23 22:10 Alprazolam 1 Mg Tab PO 1 mg TID PRN Administration Anxiety Aspirin 81 mg 02/03/23 09:00 02/03/23 08:46 Aspirin 81 Mg PO 81 mg DAILY CHLOE Administration Atorvastatin Calcium 20 mg 02/02/23 21:15 02/02/23 22:10 Atorvastatin 20 Mg Tab PO 20 mg HS CHLOE Administration Carvedilol 25 mg 02/03/23 07:30 02/03/23 08:46 Carvedilol 12.5 Mg Tab PO 25 mg BID-W/MEALS CHLOE Administration Cyclobenzaprine HCl 5 mg 02/02/23 21:09 02/02/23 22:10 Cyclobenzaprine 10 Mg Tab PO 5 mg BID PRN Administration Muscle Spasm Dextrose/Water 25 ml 02/02/23 21:11 Dextrose 50% Syringe 50 Ml IVP PER PROTOCOL PRN Hypoglycemia Protocol Dextrose/Water 50 ml 02/02/23 21:11 Dextrose 50% Syringe 50 Ml IVP PER PROTOCOL PRN Hypoglycemia Protocol Docusate Sodium 100 mg 02/02/23 21:09 Docusate 100 Mg Cap PO DAILY PRN Constipation Famotidine 20 mg 02/03/23 09:00 02/03/23 08:46 Famotidine 20 Mg/2 Ml Vial IV 20 mg Q12HR CHLOE Administration Fluticasone Propionate 1 spray 02/03/23 09:00 02/03/23 08:47 Fluticasone 50mcg/[place] Nasal 16gm EA NOSTRIL 1 spray DAILY CHLOE Administration Furosemide 60 mg 02/03/23 09:00 02/03/23 08:55 Furosemide 10 Mg/Ml 10 Ml Vial IV 60 mg Q8HR CHLOE Administration Heparin Sodium (Porcine) 5,000 unit 02/03/23 08:00 02/03/23 08:46 Heparin Sodium,Porcine/Pf 5,000 Unit/0.5 Ml Syringe SQ 5,000 unit Q8HR CHLOE Administration Insulin Aspart 0 unit 02/03/23 07:30 02/03/23 08:20 Insulin Aspart (Novolog) 100 Unit/Ml Vial SQ Not Given ACHS [facility] Protocol Ketotifen Fumarate 1 drops 02/02/23 21:15 02/03/23 08:54 Ketotifen 0.025% Ophth Drops 5 Ml Btl BOTH EYES 1 drops BID CHLOE Administration Nitroglycerin 0.4 mg 02/02/23 21:09 Nitroglycerin Sl Tabs 0.4 Mg Tab SUBLINGUAL Q5M PRN Chest Pain Tamsulosin HCl 0.4 mg 02/03/23 09:00 02/03/23 08:47 Tamsulosin 0.4 Mg Cap.Er.24h PO 0.4 mg DAILY CHLOE Administration Intake and Output 02/02/23 02/03/23 02/03/23 22:59 06:59 14:59 Intake Total 400 Output Total 900 950 Balance -900 -550 Intake: Oral 400 Output: Urine 900 950 Other: Voiding Method Urinal Weight 140.614 kg Patient Weight 02/04/23 06:59 Weight 140.614 kg 02/02/23 15:37 02/03/23 08:01
[2023-02-03] MEDS: LOSARTAN 50 MG TAB PO SCH (11:39)
[2023-02-03 13:25] VITALS: BMI 47.1
[2023-02-03 16:27] LABS: Glucose,Whole Blood 127 mg/dL (70-110)
[2023-02-03] MEDS: ATORVASTATIN 20 MG TAB PO SCH (20:07)
[2023-02-03] MEDS: HYDROcodone/APAP 10-325MG 1 EACH TAB PO PRN (20:07)
[2023-02-03 21:00] LABS: Glucose,Whole Blood 132 mg/dL (70-110)
[2023-02-04] MEDS: carvediloL 12.5 MG TAB PO SCH ×2 (06:09→17:25)
[2023-02-04 06:25] LABS: Glucose,Whole Blood 84 mg/dL (70-110)
[2023-02-04] MEDS: INSULIN ASPART (NovoLOG) 100 UNIT/ML VIAL SQ SCH ×4 (06:32→20:57)
[2023-02-04 07:00] LABS: African American GFR (CKD) 70 (>60 ml/min/1.73 sqM); Anion Gap 3 mmol/L; Blood Urea Nitrogen 24 mg/dL (9-20); Calcium 8.9 mg/dL (8.4-10.2); Carbon Dioxide 37 mmol/L (22-30); Chloride 97 mmol/L (98-107); Glucose 100 mg/dL (74-99); Non-African American GFR(CKD) 61 (>60 ml/min/1.73 sqM); Sodium 137 mmol/L (137-145)
[2023-02-04 07:04] LABS: Magnesium 1.7 mg/dL (1.6-2.3); Potassium 5.2 mmol/L (3.5-5.1)
[2023-02-04] MEDS: HEPARIN SODIUM,PORCINE/PF 5,000 UNIT/0.5 ML SYRINGE SQ SCH ×2 (07:45→17:25)
[2023-02-04] MEDS: FUROSEMIDE 10 MG/ML 10 ML VIAL IV SCH ×2 (07:45→17:25)
[2023-02-04] MEDS: ASPIRIN 81 MG PO SCH (07:46)
[2023-02-04] MEDS: FLUTICASONE 50MCG/SPRAY NASAL 16GM EA NOSTRIL SCH (07:46)
[2023-02-04] MEDS: KETOTIFEN 0.025% OPHTH DROPS 5 ML BTL BOTH EYES SCH ×2 (07:46→21:07)
[2023-02-04] MEDS: FAMOTIDINE 20 MG/2 ML VIAL IV SCH ×2 (07:46→21:07)
[2023-02-04] MEDS: LOSARTAN 50 MG TAB PO SCH (07:46)
[2023-02-04] MEDS: TAMSULOSIN 0.4 MG CAP.ER.24H PO SCH (07:46)
--- NOTE | 2023-02-04 10:36 | P.PN ---
Subjective This is a pleasant 62 years old male with past medical history of Heart Failure, COPD, Diabetes Mellitus, GERD/Reflux, Hyperlipidemia, Hypertension, Osteoarthritis (OA), benign prostatic hypertrophy, Sleep Apnea/CPAP/BIPAP Patient presents because of progressive dyspnea over 3 weeks associated with chest pain over the last 2 weeks which is in the middle of his chest about 4/10 in severity. Like tightness with no radiation, associated with little cough and phlegm. Also has been complaining of from mild right-sided lower abdominal pain on and off for more than 1 month, currently is mild, nonradiating with nonspecific inequality. No vomiting and he tolerates diet as he says. He denies urinary complaints, has little headache and dizziness but no missy weakness or numbness He denies smoking alcohol or illicit drugs He uses CPAP machine at home during nighttime vital signs stable. Patient is afebrile He has unremarkable CBC INR BMP and liver enzymes. Potassium 5.5. ProBNP is elevated for 540. EKG showing sinus rhythm at 95 bpm with no significant ST-T changes and QTC 419 Chest x-ray reviewed by myself showing bilateral infiltrates suspicious for acute CHF Echocardiogram from 07/2021 showing ejection fraction 50-55% 02/04/2023 Patient this morning was on CPAP machine during the night for his sleep apnea. He denies chest pain, no abdominal pain no other symptoms. History of some exertional dyspnea. He is currently kept on IV Lasix 60 mg 3 times a day Echocardiogram pending Abdominal pain improvement and he tolerates 100% of his breakfast this morning Objective - Vital Signs Vital signs: Vital Signs Temp 97.6 F 02/04/23 07:57 Pulse 77 02/04/23 07:57 Resp 18 02/04/23 07:57 BP 105/70 02/04/23 07:57 Pulse Ox 94 L 02/04/23 09:35 FiO2 Intake & Output 02/03/23 02/04/23 02/04/23 18:59 06:59 18:59 Intake Total 758 378 Output Total 1150 500 225 Balance -392 -500 153 Weight 140.614 kg 142.2 kg Intake: IV 18 Invasive Line 1 18 Oral 758 360 Output: Urine 1150 500 225 Other: Voiding Method Urinal Toilet Toilet # Voids 2 1 - Exam -GENERAL: The patient is alert and oriented x3, not in any acute distress. morbidly obese HEENT: Pupils are round and equally reacting to light. EOMI. No scleral icterus. No conjunctival pallor. Normocephalic, atraumatic. No pharyngeal erythema. No thyromegaly. CARDIOVASCULAR: S1 and S2 present. No murmurs, rubs, or gallops. PULMONARY: Chest is clear to auscultation, no wheezing , no crackles. ABDOMEN: Soft, very mild tenderness in the right lower quadrant, non-ndistended, normoactive bowel sounds. No palpable organomegaly. MUSCULOSKELETAL: No joint swelling or deformity. -EXTREMITIES: No cyanosis, clubbing,. Bilateral pitting leg edema. NEUROLOGICAL: Gross neurological examination did not reveal any focal deficits. SKIN: No rashes. no petechiae. - Labs CBC & Chem 7: 02/02/23 15:37 02/04/23 06:36 Labs: Abnormal Lab Results - Last 24 Hours (Table) 02/03/23 02/03/23 02/03/23 Range/Units 06:42 11:34 16:25 Potassium (3.5-5.1) mmol/L Chloride (98-107) mmol/L Carbon Dioxide (22-30) mmol/L BUN (9-20) mg/dL Glucose (74-99) mg/dL POC Glucose (mg/dL) 135 H 127 H (70-110) mg/dL Hemoglobin A1c 7.1 H (<=6.0) % 02/03/23 02/04/23 Range/Units 20:58 06:36 Potassium 5.2 H (3.5-5.1) mmol/L Chloride 97 L (98-107) mmol/L Carbon Dioxide 37 H (22-30) mmol/L BUN 24 H (9-20) mg/dL Glucose 100 H (74-99) mg/dL POC Glucose (mg/dL) 132 H (70-110) mg/dL Hemoglobin A1c (<=6.0) % Assessment and Plan Assessment: Acute and chronic diastolic CHF exacerbation , ejection fraction 50-55% chest pain, rule out cardiac causes Chronic abdominal pain 1 month with mild diarrhea Mildly elevated troponin, this is a chronic problem and could be related to his heart failure Diabetes mellitus Hypertension Hyperlipidemia History of osteoarthritis History of GERD The prostatic hypertrophy History of sleep apnea, on CPAP machine at night Morbid obesity with BMI of 47.1 Plan: Continue with IV Lasix and monitor inputs and outputs and creatinine fluid restriction Continue with aspirin Cardiology consult monitor abdominal pain Labs and medication were reviewed.. Continue same treatment. Continue with symptomatic treatment. Resume home medication. Monitor labs and vitals. DVT and GI prophylaxis. Further recommendations as per clinical course of the patient DVT prophylaxis: Subcutaneous heparin GI Prophylaxis: Pepcid PT/OT: Pending Prognosis is guarded
--- NOTE | 2023-02-04 10:44 | P.PN ---
Subjective HISTORY OF PRESENT ILLNESS: This is a 62-year-old male with a past medical history significant for hypertension, hyperlipidemia, obstructive sleep apnea, coronary artery disease, diabetes, congestive heart failure, and morbid obesity. Patient follows in the office with Dr. Macias. We have been asked to see the patient in consultation for congestive heart failure. Patient examined at the bedside. Patient presented to the hospital with a chief complaint of shortness of breath. He states his shortness of breath has been progressively getting worse over the past week. The patient states he has not been taking his Lasix for proximally one month. He states he has maybe taken 4-6 doses over the past 4 weeks. He states he has had a lot going on in his personal life and has not been compliant with his medications. He denies any chest pain or pressure. He continues to report shortness of breath this morning and is requesting to go back on his BiPAP. * EKG reveals sinus mechanism with incomplete right bundle branch block. No signs of acute ischemia. * Chest xray cardiomegaly and mild pulmonary vascular congestion. * Laboratory data: WBC 6.3. Hemoglobin 14.6. Platelet count 236. Sodium 138. Potassium 4.7. BUN18. Creatinine 1.17. ProBNP 4540. Troponin 0.118. 0.137. 0.106. * Current home cardiac medications include simvastatin 40 mg at night, losartan 100 mg daily, carvedilol 25 mg twice a day, aspirin 81 mg daily, and Lasix 80 mg daily * Most recent echocardiogram obtained in July 2021 revealing ejection fraction 50-55%, trace MR, trace TR * Cardiac catheterization history: September 2018 revealing mild irregularity in the LAD, circumflex, and right coronary artery. No obstructive coronary art chase disease was detected. Left ventricular end-diastolic pressure significantly elevated secondary to hypertension. 02/04/2023 Patient examined this point. Patient is sitting up in the chair. He denies chest pain or pressure. He continues to report shortness of breath. He is receiving Lasix 60 mg every 8 hours. Patient states he has been urinating frequently. Fluid balance over the last 24 hours is -892 mL. Kidney function remains stable today. Creatinine 1.25. PHYSICAL EXAM: VITAL SIGNS: Reviewed. GENERAL: Well-developed in no acute distress. HEENT: Head is normocephalic. Pupils are equal, round. Sclerae anicteric. Mucous membranes of the mouth are moist. Neck supple. No JVD or thyromegaly LUNGS: Respirations even and unlabored. Lungs diminished to auscultation bilaterally. HEART: Regular rate and rhythm. S1 and S2 heard. ABDOMEN: Soft. Nondistended. Nontender. EXTREMITIES: Normal range of motion. No clubbing or cyanosis. Peripheral pulses intact. 2+ bilateral lower extremity edema NEUROLOGIC: Awake and alert. Oriented x 3. ASSESSMENT: Shortness of breath Acute exacerbation of congestive heart failure with preserved ejection fraction, 50-55% Nonobstructive coronary artery disease Obstructive sleep apnea Hypertension Hyperlipidemia Diabetes Morbid obesity Medication noncompliance PLAN: Echocardiogram has been ordered. Await results. Continue IV Lasix Accurate intake and output, daily weights, and monitoring of kidney function Continue additional cardiac medications Further recommendations pending patient's course Nurse practitioner note has been reviewed by physician. Signing provider agrees with the documented findings, assessment, and plan of care. Objective - Vital Signs Vital signs: Vital Signs Temp 97.6 F 02/04/23 07:57 Pulse 77 02/04/23 07:57 Resp 18 02/04/23 07:57 BP 105/70 02/04/23 07:57 Pulse Ox 94 L 02/04/23 09:35 FiO2 Intake & Output 02/03/23 02/04/23 02/04/23 18:59 06:59 18:59 Intake Total 758 378 Output Total 1150 500 225 Balance -392 -500 153 Weight 140.614 kg 142.2 kg Intake: IV 18 Invasive Line 1 18 Oral 758 360 Output: Urine 1150 500 225 Other: Voiding Method Urinal Toilet Toilet # Voids 2 1 - Labs CBC & Chem 7: 02/02/23 15:37 02/04/23 06:36 Labs: Abnormal Lab Results - Last 24 Hours (Table) 02/03/23 02/03/23 02/03/23 Range/Units 06:42 11:34 16:25 Potassium (3.5-5.1) mmol/L Chloride (98-107) mmol/L Carbon Dioxide (22-30) mmol/L BUN (9-20) mg/dL Glucose (74-99) mg/dL POC Glucose (mg/dL) 135 H 127 H (70-110) mg/dL Hemoglobin A1c 7.1 H (<=6.0) % 02/03/23 02/04/23 Range/Units 20:58 06:36 Potassium 5.2 H (3.5-5.1) mmol/L Chloride 97 L (98-107) mmol/L Carbon Dioxide 37 H (22-30) mmol/L BUN 24 H (9-20) mg/dL Glucose 100 H (74-99) mg/dL POC Glucose (mg/dL) 132 H (70-110) mg/dL Hemoglobin A1c (<=6.0) %
[2023-02-04] MEDS: HYDROcodone/APAP 10-325MG 1 EACH TAB PO PRN ×2 (11:14→21:07)
[2023-02-04 11:59] LABS: Glucose,Whole Blood 110 mg/dL (70-110)
--- NOTE | 2023-02-04 12:38 | CA ---
Transthoracic Echo Report Name: Hudson Welch Age: 62 Gender: M : 1960 Exam Date: 02/04/2023 08:34 Exam Location: [place] [facility] Ht (in): 68 Wt (lb): 313 Ordering Physician: Kristine Garcia Attending/Referring Phys: [id number], Jose Infusion Pharmacist Naina Gaffney [facility] Procedure CPT: Indications: LV function, CHF Cardiac Hx: Technical Quality: Technically difficult study Contrast 1: Lumason Total Dose (mL): 5 Contrast 2: Total Dose (mL): MEASUREMENTS (Male / Female) Normal Values 2D ECHO LV Diastolic Diameter PLAX 6.1 cm 4.2 - 5.9 / 3.9 - 5.3 cm LV Systolic Diameter PLAX 5.0 cm IVS Diastolic Thickness 1.3 cm 0.6 - 1.0 / 0.6 - 0.9 cm LVPW Diastolic Thickness 1.1 cm 0.6 - 1.0 / 0.6 - 0.9 cm LV Relative Wall Thickness 0.4 RV Internal Dim ED PLAX 3.7 cm LVOT Diameter 2.0 cm LV Diastolic Volume MOD BP 206.4 cm??? 67 - 155 / 56 - 104 cm??? LV Systolic Volume MOD BP 137.9 cm??? 22 - 58 / 19 - 49 cm??? LV Ejection Fraction MOD BP 33.2 % >= 55 % LV Cardiac Index MOD BP 2041.1 cm???/min???m??? LV Diastolic Volume MOD 4C 193.5 cm??? LV Systolic Volume MOD 4C 136.3 cm??? LV Ejection Fraction MOD 4C 29.6 % LV Cardiac Index MOD 4C 1703.5 cm???/min???m??? LV Diastolic Length 4C 9.9 cm LV Systolic Length 4C 8.9 cm LV Diastolic Volume MOD 2C 206.2 cm??? LV Systolic Volume MOD 2C 132.3 cm??? LV Ejection Fraction MOD 2C 35.9 % LV Cardiac Index MOD 2C 2201.6 cm???/min???m??? LV Diastolic Length 2C 10.6 cm LV Systolic Length 2C 8.4 cm Ascending Aorta Diameter 4.4 cm M-MODE Aortic Root Diameter MM 3.5 cm LA Systolic Diameter MM 4.2 cm LA Ao Ratio MM 1.2 AV Cusp Separation MM 2.1 cm DOPPLER AV Peak Velocity 92.2 cm/s AV Peak Gradient 3.4 mmHg AV Mean Velocity 73.7 cm/s AV Mean Gradient 2.3 mmHg AV Velocity Time Integral 16.8 cm LVOT Peak Velocity 80.9 cm/s LVOT Peak Gradient 2.6 mmHg LVOT Velocity Time Integral 14.6 cm LVOT Stroke Volume 45.4 cm??? LVOT Stroke Volume Index 18.4 ml/m??? LVOT Cardiac Index 1352.8 cm???/min???m??? AV Area Cont Eq vti 2.7 cm??? AV Area Cont Eq pk 2.7 cm??? Mitral E Point Velocity 99.7 cm/s Mitral A Point Velocity 35.0 cm/s Mitral E to A Ratio 2.8 MV Deceleration Time 149.6 ms LV E' Lateral Velocity 10.8 cm/s Mitral E to LV E' Lateral Ratio 9.2 LV E' Septal Velocity 5.7 cm/s Mitral E to LV E' Septal Ratio 17.5 TR Peak Velocity 297.6 cm/s TR Peak Gradient 35.4 mmHg Right Atrial Pressure 15.0 mmHg Pulmonary Artery Systolic Pressu 50.4 mmHg Right Ventricular Systolic Press 50.4 mmHg FINDINGS Left Ventricle Moderately increased left ventricular wall thickness. Severe left ventricular dilatation. Left ventricular ejection fraction is estimated at 25-30%. Severely reduced global left ventricular systolic function. Right Ventricle Severe right ventricular dilatation. Moderately reduced right ventricular global systolic function. Moderate pulmonary hypertension. Right Atrium Moderate right atrial dilatation. Left Atrium Mild left atrial dilatation. Mitral Valve Structurally normal mitral valve. Mild mitral regurgitation. Aortic Valve Trileaflet aortic valve. No aortic valve stenosis or regurgitation. Tricuspid Valve Structurally normal tricuspid valve. Mild tricuspid regurgitation. Pulmonic Valve Structurally normal pulmonic valve. Trace pulmonic regurgitation. Pericardium No pericardial effusion. Aorta Moderate aortic dilatation at the level of the sinuses of valsalva (root). Moderately dilated proximal ascending aorta (tube). CONCLUSIONS Enlarged left ventricle with the global decrease in contractility estimated ejection fraction of 25-30%. Significant right ventricular enlargement moderate biatrial enlargement. Mild mitral and tricuspid insufficiency. Moderate pulmonary hypertension no pericardial effusion Previewed by: Dr. Mora Shea MD (Electronically Signed) Final Date: 04 February 2023 12:37
[2023-02-04 17:08] LABS: Glucose,Whole Blood 107 mg/dL (70-110)
[2023-02-04 20:08] LABS: Glucose,Whole Blood 136 mg/dL (70-110)
[2023-02-04] MEDS: ALPRAZolam 1 MG TAB PO PRN (21:08)
[2023-02-04] MEDS: ATORVASTATIN 20 MG TAB PO SCH (21:09)
[2023-02-05] MEDS: FUROSEMIDE 10 MG/ML 10 ML VIAL IV SCH ×3 (01:08→17:07)
[2023-02-05] MEDS: HEPARIN SODIUM,PORCINE/PF 5,000 UNIT/0.5 ML SYRINGE SQ SCH ×3 (01:08→17:06)
[2023-02-05 05:10] LABS: Basophils % (A) 0 %; Eosinophils # (A) 0.2 k/uL (0-0.7); Eosinophils % (A) 3 %; HCT 45.2 % (39.0-53.0); HGB 13.4 gm/dL (13.0-17.5); Hypochromasia Marked; Lymphocytes # (A) 1.6 k/uL (1.0-4.8); Lymphocytes % (A) 30 %; MCH 26.7 pg (25.0-35.0); MCHC 29.6 g/dL (31.0-37.0); MCV 90.1 fL (80.0-100.0); Monocytes # (A) 0.4 k/uL (0-1.0); Monocytes % (A) 7 %; Neutrophils # (A) 2.9 k/uL (1.3-7.7); Neutrophils % (A) 56 %; Platelet Count 233 k/uL (150-450); RBC 5.01 m/uL (4.30-5.90); RDW 15.5 % (11.5-15.5); WBC 5.3 k/uL (3.8-10.6)
[2023-02-05 05:22] LABS: African American GFR (CKD) 62 (>60 ml/min/1.73 sqM); Anion Gap 5 mmol/L; Blood Urea Nitrogen 30 mg/dL (9-20); Calcium 9.2 mg/dL (8.4-10.2); Carbon Dioxide 39 mmol/L (22-30); Chloride 92 mmol/L (98-107); Glucose 101 mg/dL (74-99); Magnesium 1.7 mg/dL (1.6-2.3); Non-African American GFR(CKD) 53 (>60 ml/min/1.73 sqM); Potassium 4.2 mmol/L (3.5-5.1); Sodium 136 mmol/L (137-145)
[2023-02-05 06:39] LABS: Glucose,Whole Blood 123 mg/dL (70-110)
[2023-02-05] MEDS: INSULIN ASPART (NovoLOG) 100 UNIT/ML VIAL SQ SCH ×4 (06:45→20:52)
[2023-02-05] MEDS: carvediloL 12.5 MG TAB PO SCH ×2 (06:59→17:06)
[2023-02-05] MEDS: ASPIRIN 81 MG PO SCH (08:36)
[2023-02-05] MEDS: LOSARTAN 50 MG TAB PO SCH (08:36)
[2023-02-05] MEDS: TAMSULOSIN 0.4 MG CAP.ER.24H PO SCH (08:36)
[2023-02-05] MEDS: FAMOTIDINE 20 MG/2 ML VIAL IV SCH ×2 (08:36→20:51)
[2023-02-05] MEDS: KETOTIFEN 0.025% OPHTH DROPS 5 ML BTL BOTH EYES SCH ×2 (08:37→20:51)
[2023-02-05] MEDS: FLUTICASONE 50MCG/SPRAY NASAL 16GM EA NOSTRIL SCH (08:37)
--- NOTE | 2023-02-05 10:08 | P.PN ---
Subjective Progress Note Date: 02/05/23 HISTORY OF PRESENT ILLNESS: This is a 62-year-old male with a past medical history significant for hypertension, hyperlipidemia, obstructive sleep apnea, coronary artery disease, diabetes, congestive heart failure, and morbid obesity. Patient follows in the office with Dr. Macias. We have been asked to see the patient in consultation for congestive heart failure. Patient examined at the bedside. Patient presented to the hospital with a chief complaint of shortness of breath. He states his shortness of breath has been progressively getting worse over the past week. The patient states he has not been taking his Lasix for proximally one month. He states he has maybe taken 4-6 doses over the past 4 weeks. He states he has had a lot going on in his personal life and has not been compliant with his medications. He denies any chest pain or pressure. He continues to report shortness of breath this morning and is requesting to go back on his BiPAP. * EKG reveals sinus mechanism with incomplete right bundle branch block. No signs of acute ischemia. * Chest xray cardiomegaly and mild pulmonary vascular congestion. * Laboratory data: WBC 6.3. Hemoglobin 14.6. Platelet count 236. Sodium 138. Potassium 4.7. BUN18. Creatinine 1.17. ProBNP 4540. Troponin 0.118. 0.1 37. 0.106. * Current home cardiac medications include simvastatin 40 mg at night, losartan 100 mg daily, carvedilol 25 mg twice a day, aspirin 81 mg daily, and Lasix 80 mg daily * Most recent echocardiogram obtained in July 2021 revealing ejection fraction 50-55%, trace MR, trace TR * Cardiac catheterization history: September 2018 revealing mild irregularity in the LAD, circumflex, and right coronary artery. No obstructive coronary artery disease was detected. Left ventricular end-diastolic pressure significantly elevated secondary to hypertension. 02/04/2023 Patient examined this point. Patient is sitting up in the chair. He denies chest pain or pressure. He continues to report shortness of breath. He is receiving Lasix 60 mg every 8 hours. Patient states he has been urinating frequently. Fluid balance over the last 24 hours is -892 mL. Kidney function remains stable today. Creatinine 1.25. 02/05/2023 Patient examined this morning. Patient is laying in bed and appears comfortable. He denies chest pain or pressure. He reports improvement in his shortness of breath. His lower extremity edema is improving compared to yesterday. Patient remains on IV Lasix 60 times every 8 hours. BUN 30. Creatinine 1.39. Vital signs are stable. PHYSICAL EXAM: VITAL SIGNS: Reviewed. GENERAL: Well-developed in no acute distress. HEENT: Head is normocephalic. Pupils are equal, round. Sclerae anicteric. Mucous membranes of the mouth are moist. Neck supple. No JVD or thyromegaly LUNGS: Respirations even and unlabored. Lungs diminished to auscultation bilaterally. HEART: Regular rate and rhythm. S1 and S2 heard. ABDOMEN: Soft. Nondistended. Nontender. EXTREMITIES: Normal range of motion. No clubbing or cyanosis. Peripheral pulses intact. 2+ bilateral lower extremity edema NEUROLOGIC: Awake and alert. Oriented x 3. ASSESSMENT: Shortness of breath Acute exacerbation of congestive heart failure with preserved ejection fraction, 50-55% in 2020, now with reduced EF 25-30% New-onset cardiomyopathy, etiology unclear Nonobstructive coronary artery disease per cardiac catheterization in 2018 Obstructive sleep apnea Hypertension Hyperlipidemia Diabetes Morbid obesity Medication noncompliance PLAN: Echocardiogram has been ordered. Await results. Continue IV Lasix Accurate intake and output, daily weights, and monitoring of kidney function Continue additional cardiac medications Recommend heart cath possibly tomorrow or Tuesday Further recommendations pending patient course Nurse practitioner note has been reviewed by physician. Signing provider agrees with the documented findings, assessment, and plan of care. Objective - Vital Signs Vital signs: Vital Signs Temp 98.1 F 02/04/23 20:00 Pulse 69 02/05/23 08:00 Resp 16 02/05/23 08:00 BP 108/68 02/05/23 08:00 Pulse Ox 97 02/05/23 09:55 FiO2 Intake & Output 02/04/23 02/05/23 02/05/23 18:59 06:59 18:59 Intake Total 378 118 Output Total 1625 650 Balance -1247 -650 118 Weight 140.7 kg Intake: IV 18 Invasive Line 1 18 Oral 360 118 Output: Urine 1625 650 Other: Voiding Method Toilet Toilet # Voids 1 2 # Bowel Movements 0 - Labs CBC & Chem 7: 02/05/23 04:17 02/05/23 04:17 Labs: Abnormal Lab Results - Last 24 Hours (Table) 02/04/23 02/05/23 02/05/23 Range/Units 20:06 04:17 04:17 MCHC 29.6 L (31.0-37.0) g/dL Sodium 136 L (137-145) mmol/L Chloride 92 L (98-107) mmol/L Carbon Dioxide 39 H (22-30) mmol/L BUN 30 H (9-20) mg/dL Creatinine 1.39 H (0.66-1.25) mg/dL Glucose 101 H (74-99) mg/dL POC Glucose (mg/dL) 136 H (70-110) mg/dL 02/05/23 Range/Units 06:38 MCHC (31.0-37.0) g/dL Sodium (137-145) mmol/L Chloride (98-107) mmol/L Carbon Dioxide (22-30) mmol/L BUN (9-20) mg/dL Creatinine (0.66-1.25) mg/dL Glucose (74-99) mg/dL POC Glucose (mg/dL) 123 H (70-110) mg/dL
[2023-02-05 11:47] LABS: Glucose,Whole Blood 96 mg/dL (70-110)
--- NOTE | 2023-02-05 13:33 | P.PN ---
Subjective This is a pleasant 62 years old male with past medical history of Heart Failure, COPD, Diabetes Mellitus, GERD/Reflux, Hyperlipidemia, Hypertension, Osteoarthritis (OA), benign prostatic hypertrophy, Sleep Apnea/CPAP/BIPAP Patient presents because of progressive dyspnea over 3 weeks associated with chest pain over the last 2 weeks which is in the middle of his chest about 4/10 in severity. Like tightness with no radiation, associated with little cough and phlegm. Also has been complaining of from mild right-sided lower abdominal pain on and off for more than 1 month, currently is mild, nonradiating with nonspecific inequality. No vomiting and he tolerates diet as he says. He denies urinary complaints, has little headache and dizziness but no missy weakness or numbness He denies smoking alcohol or illicit drugs He uses CPAP machine at home during nighttime vital signs stable. Patient is afebrile He has unremarkable CBC INR BMP and liver enzymes. Potassium 5.5. ProBNP is elevated for 540. EKG showing sinus rhythm at 95 bpm with no significant ST-T changes and QTC 419 Chest x-ray reviewed by myself showing bilateral infiltrates suspicious for acute CHF Echocardiogram from 07/2021 showing ejection fraction 50-55% 02/04/2023 Patient this morning was on CPAP machine during the night for his sleep apnea. He denies chest pain, no abdominal pain no other symptoms. History of some exertional dyspnea. He is currently kept on IV Lasix 60 mg 3 times a day Echocardiogram pending Abdominal pain improvement and he tolerates 100% of his breakfast this morning 02/05/2023 Patient breathing is improving slowly and gradually, he is sitting in chair today. He is still on room air while at rest. He has this leg swelling and this a condition but not completely resolved. I went up 1.2 up to 1.39. He remains on IV Lasix 60 mg every 8 hours. The splenic for cardiac cath tomorrow or Tuesday Objective - Vital Signs Vital signs: Vital Signs Temp 98.1 F 02/04/23 20:00 Pulse 75 02/05/23 12:00 Resp 16 02/05/23 12:00 BP 102/70 02/05/23 12:00 Pulse Ox 100 02/05/23 12:00 FiO2 Intake & Output 02/04/23 02/05/23 02/05/23 18:59 06:59 18:59 Intake Total 378 458 Output Total 1625 650 300 Balance -6377 -650 158 Weight 140.7 kg Intake: IV 18 Invasive Line 1 18 Oral 360 458 Output: Urine 1625 650 300 Other: Voiding Method Toilet Toilet Toilet # Voids 1 2 # Bowel Movements 0 - Exam -GENERAL: The patient is alert and oriented x3, not in any acute distress. morbidly obese HEENT: Pupils are round and equally reacting to light. EOMI. No scleral icterus. No conjunctival pallor. Normocephalic, atraumatic. No pharyngeal erythema. No thyromegaly. CARDIOVASCULAR: S1 and S2 present. No murmurs, rubs, or gallops. PULMONARY: Chest is clear to auscultation, no wheezing , no crackles. ABDOMEN: Soft, very mild tenderness in the right lower quadrant, non-ndistended, normoactive bowel sounds. No palpable organomegaly. MUSCULOSKELETAL: No joint swelling or deformity. -EXTREMITIES: No cyanosis, clubbing,. Bilateral pitting leg edema. NEUROLOGICAL: Gross neurological examination did not reveal any focal deficits. SKIN: No rashes. no petechiae. - Labs CBC & Chem 7: 02/05/23 04:17 02/05/23 04:17 Labs: Abnormal Lab Results - Last 24 Hours (Table) 02/04/23 02/05/23 02/05/23 Range/Units 20:06 04:17 04:17 MCHC 29.6 L (31.0-37.0) g/dL Sodium 136 L (137-145) mmol/L Chloride 92 L (98-107) mmol/L Carbon Dioxide 39 H (22-30) mmol/L BUN 30 H (9-20) mg/dL Creatinine 1.39 H (0.66-1.25) mg/dL Glucose 101 H (74-99) mg/dL POC Glucose (mg/dL) 136 H (70-110) mg/dL 02/05/23 Range/Units 06:38 MCHC (31.0-37.0) g/dL Sodium (137-145) mmol/L Chloride (98-107) mmol/L Carbon Dioxide (22-30) mmol/L BUN (9-20) mg/dL Creatinine (0.66-1.25) mg/dL Glucose (74-99) mg/dL POC Glucose (mg/dL) 123 H (70-110) mg/dL Assessment and Plan Assessment: Acute and chronic diastolic CHF exacerbation , ejection fraction 50-55% chest pain, rule out cardiac causes Chronic abdominal pain 1 month with mild diarrhea Mildly elevated troponin, this is a chronic problem and could be related to his heart failure Diabetes mellitus Hypertension Hyperlipidemia History of osteoarthritis History of GERD The prostatic hypertrophy History of sleep apnea, on CPAP machine at night Morbid obesity with BMI of 47.1 Plan: Continue with IV Lasix and monitor inputs and outputs and creatinine fluid restriction Continue with aspirin Cardiology consult monitor abdominal pain Labs and medication were reviewed.. Continue same treatment. Continue with symptomatic treatment. Resume home medication. Monitor labs and vitals. DVT and GI prophylaxis. Further recommendations as per clinical course of the patient DVT prophylaxis: Subcutaneous heparin GI Prophylaxis: Pepcid PT/OT: Pending Prognosis is guarded
[2023-02-05 16:26] LABS: Glucose,Whole Blood 121 mg/dL (70-110)
[2023-02-05] MEDS: CYCLOBENZAPRINE 10 MG TAB PO PRN (17:13)
[2023-02-05] MEDS: HYDROcodone/APAP 10-325MG 1 EACH TAB PO PRN (17:15)
[2023-02-05 19:50] LABS: Glucose,Whole Blood 153 mg/dL (70-110)
[2023-02-05] MEDS: ATORVASTATIN 20 MG TAB PO SCH (20:52)
[2023-02-06] MEDS: FUROSEMIDE 10 MG/ML 10 ML VIAL IV SCH ×4 (00:37→23:56)
[2023-02-06] MEDS: HEPARIN SODIUM,PORCINE/PF 5,000 UNIT/0.5 ML SYRINGE SQ SCH ×4 (00:37→23:57)
[2023-02-06 06:01] LABS: Glucose,Whole Blood 113 mg/dL (70-110)
[2023-02-06] MEDS: INSULIN ASPART (NovoLOG) 100 UNIT/ML VIAL SQ SCH ×4 (06:04→21:29)
[2023-02-06] MEDS: carvediloL 12.5 MG TAB PO SCH ×2 (06:57→17:28)
[2023-02-06 08:06] LABS: Basophils % (A) 0 %; Eosinophils # (A) 0.2 k/uL (0-0.7); Eosinophils % (A) 4 %; HCT 44.6 % (39.0-53.0); HGB 13.6 gm/dL (13.0-17.5); Hypochromasia Marked; Lymphocytes # (A) 1.4 k/uL (1.0-4.8); Lymphocytes % (A) 28 %; MCH 27.8 pg (25.0-35.0); MCHC 30.4 g/dL (31.0-37.0); MCV 91.5 fL (80.0-100.0); Mean Platelet Volume 9.6; Monocytes # (A) 0.5 k/uL (0-1.0); Monocytes % (A) 10 %; Neutrophils # (A) 2.8 k/uL (1.3-7.7); Neutrophils % (A) 56 %; Platelet Count 208 k/uL (150-450); RBC 4.88 m/uL (4.30-5.90); RDW 15.4 % (11.5-15.5)
[2023-02-06 08:22] LABS: African American GFR (CKD) 78 (>60 ml/min/1.73 sqM); Blood Urea Nitrogen 27 mg/dL (9-20); Calcium 8.6 mg/dL (8.4-10.2); Chloride 92 mmol/L (98-107); Glucose 100 mg/dL (74-99); Non-African American GFR(CKD) 67 (>60 ml/min/1.73 sqM); Potassium 4.4 mmol/L (3.5-5.1); Sodium 136 mmol/L (137-145)
[2023-02-06 08:44] LABS: Anion Gap 10 mmol/L
[2023-02-06 08:55] LABS: Carbon Dioxide 34 mmol/L (22-30)
[2023-02-06] MEDS: FLUTICASONE 50MCG/SPRAY NASAL 16GM EA NOSTRIL SCH (09:08)
[2023-02-06] MEDS: KETOTIFEN 0.025% OPHTH DROPS 5 ML BTL BOTH EYES SCH ×2 (09:08→21:35)
[2023-02-06] MEDS: FAMOTIDINE 20 MG/2 ML VIAL IV SCH ×2 (09:09→21:35)
[2023-02-06] MEDS: ASPIRIN 81 MG PO SCH (09:10)
[2023-02-06] MEDS: LOSARTAN 50 MG TAB PO SCH (09:10)
[2023-02-06] MEDS: TAMSULOSIN 0.4 MG CAP.ER.24H PO SCH (09:10)
[2023-02-06] MEDS ORDERED: NITROGLYCERIN SL TABS 0.4 MG TAB SUBLINGUAL PRN (11:09)
[2023-02-06] MEDS ORDERED: ALPRAZolam 0.5 MG TAB PO PRN (11:09)
[2023-02-06] MEDS ORDERED: ATORVASTATIN 80 MG TAB PO STA (11:09)
[2023-02-06] MEDS ORDERED: ASPIRIN 325 MG TAB PO STA (11:09)
--- NOTE | 2023-02-06 11:12 | P.PN ---
Subjective Progress Note Date: 02/06/23 HISTORY OF PRESENT ILLNESS: This is a 62-year-old male with a past medical history significant for hype rtension, hyperlipidemia, obstructive sleep apnea, coronary artery disease, diabetes, congestive heart failure, and morbid obesity. Patient follows in the office with Dr. Macias. We have been asked to see the patient in consultation for congestive heart failure. Patient examined at the bedside. Patient presented to the hospital with a chief complaint of shortness of breath. He states his shortness of breath has been progressively getting worse over the past week. The patient states he has not been taking his Lasix for proximally one month. He states he has maybe taken 4-6 doses over the past 4 weeks. He states he has had a lot going on in his personal life and has not been compliant with his medications. He denies any chest pain or pressure. He continues to report shortness of breath this morning and is requesting to go back on his BiPAP. * EKG reveals sinus mechanism with incomplete right bundle branch block. No signs of acute ischemia. * Chest xray cardiomegaly and mild pulmonary vascular congestion. * Laboratory data: WBC 6.3. Hemoglobin 14.6. Platelet count 236. Sodium 138. Potassium 4.7. BUN18. Creatinine 1.17. ProBNP 4540. Troponin 0.118. 0.137. 0.106. * Current home cardiac medications include simvastatin 40 mg at night, losartan 100 mg daily, carvedilol 25 mg twice a day, aspirin 81 mg daily, and Lasix 80 mg daily * Most recent echocardiogram obtained in July 2021 revealing ejection fraction 50-55%, trace MR, trace TR * Cardiac catheterization history: September 2018 revealing mild irregularity in the LAD, circumflex, and right coronary artery. No obstructive coronary artery disease was detected. Left ventricular end-diastolic pressure significantly elevated secondary to hypertension. 02/04/2023 Patient examined this point. Patient is sitting up in the chair. He denies chest pain or pressure. He continues to report shortness of breath. He is receiving Lasix 60 mg every 8 hours. Patient states he has been urinating frequently. Fluid balance over the last 24 hours is -892 mL. Kidney function remains stable today. Creatinine 1.25. 02/05/2023 Patient examined this morning. Patient is laying in bed and appears comfortable. He denies chest pain or pressure. He reports improvement in his shortness of breath. His lower extremity edema is improving compared to yesterday. Patient remains on IV Lasix 60 times every 8 hours. BUN 30. Creatinine 1.39. Vital signs are stable. 02/06 Patient is seen today in follow-up. He is on Lasix 60 mg every 8 hours, IV. His heart rate is in the 70s and blood pressure 91/58, pulse ox 93% on 2 L. Patient is currently on CPAP. He denies having any chest pain. Breathing status is improving. Repeat blood work reveals normal CBC. Sodium 136, BUN 27, creatinine 1.15, potassium 4.4. Echocardiogram reveals EF 25-30%, significant right ventricular enlargement, moderate biatrial enlargement. Mild mitral and tricuspid insufficiency. Moderate pulmonary hypertension. No pericardial effusion. PHYSICAL EXAM: VITAL SIGNS: Reviewed. GENERAL: Well-developed in no acute distress. HEENT: Head is normocephalic. Pupils are equal, round. Sclerae anicteric. Mucous membranes of the mouth are moist. Neck supple. No JVD or thyromegaly LUNGS: Respirations even and unlabored. Lungs diminished to auscultation bilaterally. HEART: Regular rate and rhythm. S1 and S2 heard. ABDOMEN: Soft. Nondistended. Nontender. EXTREMITIES: Normal range of motion. No clubbing or cyanosis. Peripheral pulses intact. 2+ bilateral lower extremity edema NEUROLOGIC: Awake and alert. Oriented x 3. ASSESSMENT: Shortness of breath Acute exacerbation of congestive heart failure with preserved ejection fraction, 50-55% in 2020, now with reduced EF 25-30% New-onset cardiomyopathy, etiology unclear Nonobstructive coronary artery disease per cardiac catheterization in 2019 Obstructive sleep apnea Hypertension Hyperlipidemia Diabetes Morbid obesity Medication noncompliance PLAN: Continue IV Lasix Accurate intake and output, daily weights, and monitoring of kidney function Continue additional cardiac medications Recommend heart cath possibly Tuesday Further recommendations pending patient course Nurse practitioner note has been reviewed by physician. Signing provider agrees with the documented findings, assessment, and plan of care. Objective - Vital Signs Vital signs: Vital Signs Temp 98.1 F 02/04/23 20:00 Pulse 77 02/06/23 08:00 Resp 16 02/06/23 08:00 BP 91/58 02/06/23 08:00 Pulse Ox 93 L 02/06/23 08:00 FiO2 Intake & Output 02/05/23 02/06/23 02/06/23 18:59 06:59 18:59 Intake Total 678 540 Output Total 525 475 Balance 153 65 Weight 128.9 kg Intake: Oral 678 540 Output: Urine 525 475 Other: Voiding Method Toilet Toilet # Voids 2 - Labs CBC & Chem 7: 02/06/23 06:56 02/06/23 06:56 Labs: Abnormal Lab Results - Last 24 Hours (Table) 02/05/23 02/05/23 02/06/23 Range/Units 16:24 19:47 06:00 MCHC (31.0-37.0) g/dL Sodium (137-145) mmol/L Chloride (98-107) mmol/L Carbon Dioxide (22-30) mmol/L BUN (9-20) mg/dL Glucose (74-99) mg/dL POC Glucose (mg/dL) 121 H 153 H 113 H (70-110) mg/dL 02/06/23 02/06/23 Range/Units 06:56 06:56 MCHC 30.4 L (31.0-37.0) g/dL Sodium 136 L (137-145) mmol/L Chloride 92 L (98-107) mmol/L Carbon Dioxide 34 H (22-30) mmol/L BUN 27 H (9-20) mg/dL Glucose 100 H (74-99) mg/dL POC Glucose (mg/dL) (70-110) mg/dL
[2023-02-06 11:38] LABS: Glucose,Whole Blood 118 mg/dL (70-110)
--- NOTE | 2023-02-06 11:56 | P.PN ---
Subjective This is a pleasant 62 years old male with past medical history of Heart Failure, COPD, Diabetes Mellitus, GERD/Reflux, Hyperlipidemia, Hypertension, Osteoarthritis (OA), benign prostatic hypertrophy, Sleep Apnea/CPAP/BIPAP Patient presents because of progressive dyspnea over 3 weeks associated with chest pain over the last 2 weeks which is in the middle of his chest about 4/10 in severity. Like tightness with no radiation, associated with little cough and phlegm. Also has been complaining of from mild right-sided lower abdominal pain on and off for more than 1 month, currently is mild, nonradiating with nonspecific inequality. No vomiting and he tolerates diet as he says. He denies urinary complaints, has little headache and dizziness but no missy weakness or numbness He denies smoking alcohol or illicit drugs He uses CPAP machine at home during nighttime vital signs stable. Patient is afebrile He has unremarkable CBC INR BMP and liver enzymes. Potassium 5.5. ProBNP is elevated for 540. EKG showing sinus rhythm at 95 bpm with no significant [address]-T changes and QTC 419 Chest x-ray reviewed by myself showing bilateral infiltrates suspicious for acute CHF Echocardiogram from 07/2021 showing ejection fraction 50-55% 02/04/2023 Patient this morning was on CPAP machine during the night for his sleep apnea. He denies chest pain, no abdominal pain no other symptoms. History of some exertional dyspnea. He is currently kept on IV Lasix 60 mg 3 times a day Echocardiogram pending Abdominal pain improvement and he tolerates 100% of his breakfast this morning 02/05/2023 Patient breathing is improving slowly and gradually, he is sitting in chair today. He is still on room air while at rest. He has this leg swelling and this a condition but not completely resolved. I went up 1.2 up to 1.39. He remains on IV Lasix 60 mg every 8 hours. The splenic for cardiac cath tomorrow or Tuesday02/06/2023 Patient breathing is improving, close to baseline as per patient. Continued on IV Lasix 60 mg every 8 hours Also creatinine improved down to 1.1. Patient with no chest pain. Given his significant cardiomyopathy cardiology team are planning for cardiac cath tomorrow. Tuesday His abdominal pain is becoming mild. Patient tolerates diet well. He has regular bowel movements Objective - Vital Signs Vital signs: Vital Signs Temp 98.1 F 02/04/23 20:00 Pulse 77 02/06/23 08:00 Resp 16 02/06/23 08:00 BP 91/58 02/06/23 08:00 Pulse Ox 93 L 02/06/23 08:00 FiO2 Intake & Output 02/05/23 02/06/23 02/06/23 18:59 06:59 18:59 Intake Total 678 540 Output Total 525 475 Balance 153 65 Weight 128.9 kg Intake: Oral 678 540 Output: Urine 525 475 Other: Voiding Method Toilet Toilet Toilet # Voids 2 - Exam -GENERAL: The patient is alert and oriented x3, not in any acute distress. morbidly obese HEENT: Pupils are round and equally reacting to light. EOMI. No scleral icterus. No conjunctival pallor. Normocephalic, atraumatic. No pharyngeal erythema. No thyromegaly. CARDIOVASCULAR: S1 and S2 present. No murmurs, rubs, or gallops. PULMONARY: Chest is clear to auscultation, no wheezing , no crackles. ABDOMEN: Soft, very mild tenderness in the right lower quadrant, non-ndistended, normoactive bowel sounds. No palpable organomegaly. MUSCULOSKELETAL: No joint swelling or deformity. -EXTREMITIES: No cyanosis, clubbing,. Bilateral pitting leg edema. NEUROLOGICAL: Gross neurological examination did not reveal any focal deficits. SKIN: No rashes. no petechiae. - Labs CBC & Chem 7: 02/06/23 06:56 02/06/23 06:56 Labs: Abnormal Lab Results - Last 24 Hours (Table) 02/05/23 02/05/23 02/06/23 Range/Units 16:24 19:47 06:00 MCHC (31.0-37.0) g/dL Sodium (137-145) mmol/L Chloride (98-107) mmol/L Carbon Dioxide (22-30) mmol/L BUN (9-20) mg/dL Glucose (74-99) mg/dL POC Glucose (mg/dL) 121 H 153 H 113 H (70-110) mg/dL 02/06/23 02/06/23 02/06/23 Range/Units 06:56 06:56 11:35 MCHC 30.4 L (31.0-37.0) g/dL Sodium 136 L (137-145) mmol/L Chloride 92 L (98-107) mmol/L Carbon Dioxide 34 H (22-30) mmol/L BUN 27 H (9-20) mg/dL Glucose 100 H (74-99) mg/dL POC Glucose (mg/dL) 118 H (70-110) mg/dL Assessment and Plan Assessment: Acute and chronic diastolic CHF exacerbation , ejection fraction 50-55% chest pain, rule out cardiac causes Chronic abdominal pain 1 month with mild diarrhea, improving Mildly elevated troponin, this is a chronic problem and could be related to his heart failure Diabetes mellitus Hypertension Hyperlipidemia History of osteoarthritis History of GERD The prostatic hypertrophy History of sleep apnea, on CPAP machine at night Morbid obesity with BMI of 47.1 Plan: Continue with IV Lasix and monitor inputs and outputs and creatinine fluid restriction Continue with aspirin Cardiology consult will plan for cardiac cath on 02/07 monitor abdominal pain Labs and medication were reviewed.. Continue same treatment. Continue with symptomatic treatment. Resume home medication. Monitor labs and vitals. DVT and GI prophylaxis. Further recommendations as per clinical course of the patient DVT prophylaxis: Subcutaneous heparin GI Prophylaxis: Pepcid PT/OT: Pending Prognosis is guarded
[2023-02-06 16:51] LABS: Glucose,Whole Blood 107 mg/dL (70-110)
[2023-02-06 20:40] LABS: Glucose,Whole Blood 148 mg/dL (70-110)
[2023-02-06] MEDS: CYCLOBENZAPRINE 10 MG TAB PO PRN (21:34)
[2023-02-06] MEDS: ALPRAZolam 0.25 MG TAB PO PRN (21:34)
[2023-02-06] MEDS: HYDROcodone/APAP 10-325MG 1 EACH TAB PO PRN (21:34)
[2023-02-06] MEDS: ATORVASTATIN 20 MG TAB PO SCH (21:34)
[2023-02-07 06:18] LABS: Glucose,Whole Blood 111 mg/dL (70-110)
[2023-02-07] MEDS ORDERED: HEPARIN SODIUM,PORCINE 10,000 UNIT in SODIUM CHLORIDE 0.9% 1,000 ML IRRIGATION PRN (07:00)
[2023-02-07] MEDS ORDERED: HEPARIN SODIUM,PORCINE 2,500 UNIT in SODIUM CHLORIDE 0.9% 250 ML IRRIGATION PRN (07:00)
[2023-02-07] MEDS: FAMOTIDINE 20 MG/2 ML VIAL IV SCH ×2 (07:04→21:02)
[2023-02-07] MEDS: HEPARIN SODIUM,PORCINE/PF 5,000 UNIT/0.5 ML SYRINGE SQ SCH ×3 (07:04→22:56)
[2023-02-07] MEDS: LOSARTAN 50 MG TAB PO SCH (07:05)
[2023-02-07] MEDS: FLUTICASONE 50MCG/SPRAY NASAL 16GM EA NOSTRIL SCH (07:05)
[2023-02-07] MEDS: TAMSULOSIN 0.4 MG CAP.ER.24H PO SCH (07:05)
[2023-02-07] MEDS: carvediloL 12.5 MG TAB PO SCH ×2 (07:05→16:32)
[2023-02-07] MEDS: KETOTIFEN 0.025% OPHTH DROPS 5 ML BTL BOTH EYES SCH ×2 (07:05→21:02)
[2023-02-07] MEDS: ASPIRIN 81 MG PO SCH (07:05)
[2023-02-07] MEDS: INSULIN ASPART (NovoLOG) 100 UNIT/ML VIAL SQ SCH ×4 (08:17→21:02)
[2023-02-07] MEDS ORDERED: VERAPAMIL 2.5 MG/ML 2 ML AMP ONE (09:23)
[2023-02-07] MEDS ORDERED: LIDOCAINE 1% INJ 10MG/ML (5 ML VIAL-PF) SQ ONE (09:40)
[2023-02-07] MEDS ORDERED: HEPARIN SODIUM 1,000 UN/ML (10ML VL) ONE (09:41)
[2023-02-07] MEDS ORDERED: VERAPAMIL SYRINGE (5 MG/10 ML) INTRAARTER ONE (09:43)
[2023-02-07] MEDS ORDERED: MIDAZOLAM 2 MG/2 ML VIAL IV ONE (09:43)
[2023-02-07] MEDS ORDERED: IV FLUID CONTINUATION 1,000 ML IV ONE (09:44)
[2023-02-07] MEDS ORDERED: LIDOCAINE 1% INJ 10MG/ML (20 ML MDV) ONE (09:47)
[2023-02-07] MEDS ORDERED: HEPARIN SODIUM 1,000 UN/ML (10ML VL) IV ONE (09:49)
[2023-02-07] MEDS ORDERED: IOPAMIDOL-370 100ML BTL INJ ONE (09:54)
[2023-02-07] MEDS ORDERED: RX INFO: IV CONTRAST WAS GIVEN 1 EACH MISC MISCELLANE PRN (10:01)
--- NOTE | 2023-02-07 10:05 | P.PCN ---
Date of Procedure: 02/07/23 Operative Findings: CARDIAC CATHETERIZATION PERFORMING PHYSICIAN: London Macias MD, RPVI PROCEDURE PERFORMED: 1. Selective right and left coronary angiogram INDICATION: Cardiomyopathy COMPLICATION: None APPROACH: Right radial artery LEVEL OF SEDATION: Moderate with a sedation length of 18 minutes PROCEDURE DESCRIPTION: After obtaining an informed consent, the patient was brought to cardiac high density press laborer. Local anesthesia was performed using lidocaine subcutaneously. The right radial artery was cannulated using Seldinger technique, the guidewire passed easily, following that we advanced a 5-[place] sheath dilator assembly, the wire and dilator were removed and sheath was flushed. Following that, 2 mg of verapamil along with 5000 unit heparin were given. Selective right and left coronary angiogram using a 6-[place] JR4 and JL 3.5 c atheters. The procedure was completed there was no complication. SELECTIVE CORONARY ANGIOGRAM: The right coronary artery: Large-caliber vessel and a dominant vessel. The RCA has a lesion appeared to be in the range of 30-40% in the proximal portion Left main: Is angiographically normal. Bifurcates into an LCx and LAD The left circumflex: Large caliber vessel nondominant vessel. The LCx proximally gives rises into an OM1 which appeared to be angiographically normal. The left anterior descending artery: Large-caliber vessel. The LAD has mild diffuse disease and has DOMINICK 2 flow. Distally has a lesion appeared to be in the range off 30-40%. CONCLUSION: 1. Mild disease involving the proximal RCA and distal LAD appears to be in the range of 30-40% POSTPROCEDURE MANAGEMENT: Medical treatment and follow-up
[2023-02-07] MEDS ORDERED: SODIUM CHLORIDE 0.9% 1,000 ML IV SCH (10:15)
[2023-02-07 11:38] LABS: Glucose,Whole Blood 175 mg/dL (70-110)
[2023-02-07] MEDS: FUROSEMIDE 10 MG/ML 10 ML VIAL IV SCH ×2 (12:33→16:32)
[2023-02-07 16:48] LABS: Glucose,Whole Blood 111 mg/dL (70-110)
[2023-02-07 19:54] LABS: Glucose,Whole Blood 159 mg/dL (70-110)
[2023-02-07] MEDS: ALPRAZolam 0.25 MG TAB PO PRN (21:01)
[2023-02-07] MEDS: ATORVASTATIN 20 MG TAB PO SCH (21:01)
[2023-02-07] MEDS: HYDROcodone/APAP 10-325MG 1 EACH TAB PO PRN (21:01)
[2023-02-07] MEDS: CYCLOBENZAPRINE 10 MG TAB PO PRN (21:02)
--- NOTE | 2023-02-07 21:25 | P.PN ---
Subjective This is a pleasant 62 years old male with past medical history of Heart Failure, COPD, Diabetes Mellitus, GERD/Reflux, Hyperlipidemia, Hypertension, Osteoarthritis (OA), benign prostatic hypertrophy, Sleep Apnea/CPAP/BIPAP Patient presents because of progressive dyspnea over 3 weeks associated with chest pain over the last 2 weeks which is in the middle of his chest about 4/10 in severity. Like tightness with no radiation, associated with little cough and phlegm. Also has been complaining of from mild right-sided lower abdominal pain on and off for more than 1 month, currently is mild, nonradiating with nonspecific inequality. No vomiting and he tolerates diet as he says. He denies urinary complaints, has little headache and dizziness but no missy weakness or numbness He denies smoking alcohol or illicit drugs He uses CPAP machine at home during nighttime vital signs stable. Patient is afebrile He has unremarkable CBC INR BMP and liver enzymes. Potassium 5.5. ProBNP is elevated for 540. EKG showing sinus rhythm at 95 bpm with no significant ST-T changes and QTC 419 Chest x-ray reviewed by myself showing bilateral infiltrates suspicious for acute CHF Echocardiogram from 07/2021 showing ejection fraction 50-55% 02/04/2023 Patient this morning was on CPAP machine during the night for his sleep apnea. He denies chest pain, no abdominal pain no other symptoms. History of some exertional dyspnea. He is currently kept on IV Lasix 60 mg 3 times a day Echocardiogram pending Abdominal pain improvement and he tolerates 100% of his breakfast this morning 02/05/2023 Patient breathing is improving slowly and gradually, he is sitting in chair today. He is still on room air while at rest. He has this leg swelling and this a condition but not completely resolved. I went up 1.2 up to 1.39. He remains on IV Lasix 60 mg every 8 hours. The splenic for cardiac cath tomorrow or Tuesday02/06/2023 Patient breathing is improving, close to baseline as per patient. Continued on IV Lasix 60 mg every 8 hours Also creatinine improved down to 1.1. Patient with no chest pain. Given his significant cardiomyopathy cardiology team are planning for cardiac cath tomorrow. Tuesday His abdominal pain is becoming mild. Patient tolerates diet well. He has regular bowel movements 02/07/2023 Patient continued to improve, he is on room air, he is not tachypneic and dyspneic while at rest. Remains on IV Lasix 40 mg 3 times a day with good urine output. Repeat labs from today still pending Patient also underwent cardiac cath today showing normal coronaries with minimal disease and medical management is recommended Patient continued on aspirin We going to monitor him for another 24 hours Possible discharge in 24-48 hours once cartilage cleared the patient Objective - Vital Signs Vital signs: Vital Signs Temp 98.4 F 02/07/23 08:10 Pulse 60 02/07/23 08:10 Resp 16 02/07/23 08:10 BP 109/76 02/07/23 08:10 Pulse Ox 99 02/07/23 08:10 FiO2 Intake & Output 02/06/23 02/07/23 02/07/23 18:59 06:59 18:59 Intake Total 318 222 50 Output Total 325 450 150 Balance -7 -228 -100 Weight 139.3 kg Intake: IV 50 Oral 318 222 Output: Urine 325 450 150 Other: Voiding Method Toilet Toilet Toilet Urinal Urinal - Exam -GENERAL: The patient is alert and oriented x3, not in any acute distress. morbidly obese HEENT: Pupils are round and equally reacting to light. EOMI. No scleral icterus. No conjunctival pallor. Normocephalic, atraumatic. No pharyngeal erythema. No thyromegaly. CARDIOVASCULAR: S1 and S2 present. No murmurs, rubs, or gallops. PULMONARY: Chest is clear to auscultation, no wheezing , no crackles. ABDOMEN: Soft, very mild tenderness in the right lower quadrant, non-ndistended, normoactive bowel sounds. No palpable organomegaly. MUSCULOSKELETAL: No joint swelling or deformity. -EXTREMITIES: No cyanosis, clubbing,. Bilateral pitting leg edema. NEUROLOGICAL: Gross neurological examination did not reveal any focal deficits. SKIN: No rashes. no petechiae. - Labs CBC & Chem 7: 02/06/23 06:56 02/06/23 06:56 Labs: Abnormal Lab Results - Last 24 Hours (Table) 02/06/23 02/07/23 02/07/23 Range/Units 20:39 06:15 11:34 POC Glucose (mg/dL) 148 H 111 H 175 H (70-110) mg/dL Assessment and Plan Assessment: Acute and chronic diastolic CHF exacerbation , ejection fraction 50-55% chest pain, cardiac cath showing no significant coronary artery disease and medical management is recommended Chronic abdominal pain 1 month with mild diarrhea, improving Mildly elevated troponin, this is a chronic problem and could be related to his heart failure Diabetes mellitus Hypertension Hyperlipidemia History of osteoarthritis History of GERD The prostatic hypertrophy History of sleep apnea, on CPAP machine at night Morbid obesity with BMI of 47.1 Plan: Continue with IV Lasix and monitor inputs and outputs and creatinine fluid restriction Continue with aspirin Cardiology consult will plan for cardiac cath on 02/07 monitor abdominal pain Labs and medication were reviewed.. Continue same treatment. Continue with symptomatic treatment. Resume home medication. Monitor labs and vitals. DVT and GI prophylaxis. Further recommendations as per clinical course of the patient DVT prophylaxis: Subcutaneous heparin GI Prophylaxis: Pepcid PT/OT: Pending Prognosis is guarded
[2023-02-07 22:18] LABS: African American GFR (CKD) 75 (>60 ml/min/1.73 sqM); Blood Urea Nitrogen 27 mg/dL (9-20); Calcium 8.9 mg/dL (8.4-10.2); Chloride 92 mmol/L (98-107); Glucose 121 mg/dL (74-99); Non-African American GFR(CKD) 65 (>60 ml/min/1.73 sqM); Potassium 4.1 mmol/L (3.5-5.1); Sodium 136 mmol/L (137-145)
[2023-02-07 22:26] LABS: Anion Gap 6 mmol/L
[2023-02-07 22:30] LABS: Carbon Dioxide 38 mmol/L (22-30)
[2023-02-08] MEDS: FUROSEMIDE 10 MG/ML 10 ML VIAL IV SCH ×2 (05:03→07:40)
[2023-02-08 05:59] LABS: Glucose,Whole Blood 128 mg/dL (70-110)
[2023-02-08] MEDS: INSULIN ASPART (NovoLOG) 100 UNIT/ML VIAL SQ SCH ×2 (06:22→11:33)
[2023-02-08] MEDS: carvediloL 12.5 MG TAB PO SCH (06:23)
[2023-02-08] MEDS: TAMSULOSIN 0.4 MG CAP.ER.24H PO SCH (07:41)
[2023-02-08] MEDS: HEPARIN SODIUM,PORCINE/PF 5,000 UNIT/0.5 ML SYRINGE SQ SCH (07:41)
[2023-02-08] MEDS: KETOTIFEN 0.025% OPHTH DROPS 5 ML BTL BOTH EYES SCH (07:41)
[2023-02-08] MEDS: FAMOTIDINE 20 MG/2 ML VIAL IV SCH (07:41)
[2023-02-08] MEDS: LOSARTAN 50 MG TAB PO SCH (07:41)
[2023-02-08] MEDS: ASPIRIN 81 MG PO SCH (07:41)
[2023-02-08] MEDS: FLUTICASONE 50MCG/SPRAY NASAL 16GM EA NOSTRIL SCH (07:42)
[2023-02-08 10:11] LABS: African American GFR (CKD) 74 (>60 ml/min/1.73 sqM); Blood Urea Nitrogen 22 mg/dL (9-20); Calcium 8.9 mg/dL (8.4-10.2); Chloride 93 mmol/L (98-107); Glucose 156 mg/dL (74-99); Non-African American GFR(CKD) 64 (>60 ml/min/1.73 sqM); Potassium 4.1 mmol/L (3.5-5.1); Sodium 138 mmol/L (137-145)
[2023-02-08 10:17] LABS: Anion Gap 8 mmol/L; Carbon Dioxide 37 mmol/L (22-30)
[2023-02-08 11:30] LABS: Glucose,Whole Blood 143 mg/dL (70-110)
[2023-02-08 11:38] VITALS: BP 116/69; PULSE 74; RESP 18; TEMP 98.4
--- NOTE | 2023-02-08 12:42 | P.PN ---
Subjective Progress Note Date: 02/08/23 HISTORY OF PRESENT ILLNESS: This is a 62-year-old male with a past medical history significant for hype rtension, hyperlipidemia, obstructive sleep apnea, coronary artery disease, diabetes, congestive heart failure, and morbid obesity. Patient follows in the office with Dr. Macias. We have been asked to see the patient in consultation for congestive heart failure. Patient examined at the bedside. Patient presented to the hospital with a chief complaint of shortness of breath. He states his shortness of breath has been progressively getting worse over the past week. The patient states he has not been taking his Lasix for proximally one month. He states he has maybe taken 4-6 doses over the past 4 weeks. He states he has had a lot going on in his personal life and has not been compliant with his medications. He denies any chest pain or pressure. He continues to report shortness of breath this morning and is requesting to go back on his BiPAP. * EKG reveals sinus mechanism with incomplete right bundle branch block. No signs of acute ischemia. * Chest xray cardiomegaly and mild pulmonary vascular congestion. * Laboratory data: WBC 6.3. Hemoglobin 14.6. Platelet count 236. Sodium 138. Potassium 4.7. BUN18. Creatinine 1.17. ProBNP 4540. Troponin 0.118. 0.137. 0.106. * Current home cardiac medications include simvastatin 40 mg at night, losartan 100 mg daily, carvedilol 25 mg twice a day, aspirin 81 mg daily, and Lasix 80 mg daily * Most recent echocardiogram obtained in July 2021 revealing ejection fraction 50-55%, trace MR, trace TR * Cardiac catheterization history: September 2018 revealing mild irregularity in the LAD, circumflex, and right coronary artery. No obstructive coronary artery disease was detected. Left ventricular end-diastolic pressure significantly elevated secondary to hypertension. 02/04/2023 Patient examined this point. Patient is sitting up in the chair. He denies chest pain or pressure. He continues to report shortness of breath. He is receiving Lasix 60 mg every 8 hours. Patient states he has been urinating frequently. Fluid balance over the last 24 hours is -892 mL. Kidney function remains stable today. Creatinine 1.25. 02/05/2023 Patient examined this morning. Patient is laying in bed and appears comfortable. He denies chest pain or pressure. He reports improvement in his shortness of breath. His lower extremity edema is improving compared to yesterday. Patient remains on IV Lasix 60 times every 8 hours. BUN 30. Creatinine 1.39. Vital signs are stable. 02/06 Patient is seen today in follow-up. He is on Lasix 60 mg every 8 hours, IV. His heart rate is in the 70s and blood pressure 91/58, pulse ox 93% on 2 L. Patient is currently on CPAP. He denies having any chest pain. Breathing status is improving. Repeat blood work reveals normal CBC. Sodium 136, BUN 27, creatinine 1.15, potassium 4.4. Echocardiogram reveals EF 25-30%, significant right ventricular enlargement, moderate biatrial enlargement. Mild mitral and tricuspid insufficiency. Moderate pulmonary hypertension. No pericardial effusion. 02/08 Yesterday, patient underwent cardiac catheterization with Dr. Macias which revealed mild disease in the proximal RCA and distal LAD 30-40%. Patient denies having any chest pain today. His shortness of breath is improving. He is on IV Lasix 60 mg every 8 hours. Blood pressures in the 70s to 90s, blood pressure 128/76. Repeat blood work reveals BUN 22, creatinine 1.2. Potassium 4.1, sodiu m 138. Patient is anxious to go home today. PHYSICAL EXAM: VITAL SIGNS: Reviewed. GENERAL: Well-developed in no acute distress. HEENT: Head is normocephalic. Pupils are equal, round. Sclerae anicteric. Mucous membranes of the mouth are moist. Neck supple. No JVD or thyromegaly LUNGS: Respirations even and unlabored. Lungs diminished to auscultation bilaterally. HEART: Regular rate and rhythm. S1 and S2 heard. ABDOMEN: Soft. Nondistended. Nontender. EXTREMITIES: Normal range of motion. No clubbing or cyanosis. Peripheral pulses intact. 2+ bilateral lower extremity edema NEUROLOGIC: Awake and alert. Oriented x 3. ASSESSMENT: Shortness of breath Acute exacerbation of congestive heart failure with preserved ejection fraction, 50-55% in 2020, now with reduced EF 25-30% New-onset cardiomyopathy, etiology unclear Nonobstructive coronary artery disease per cardiac catheterization in 2019 Obstructive sleep apnea Hypertension Hyperlipidemia Diabetes Morbid obesity Medication noncompliance PLAN: May transition IV Lasix to 60 mg twice daily for home Continue additional cardiac medications Patient is cleared from cardiology for discharge home may follow up with Dr. Macias in one week. What Nurse practitioner note has been reviewed by physician. Signing provider agrees with the documented findings, assessment, and plan of care. Objective - Vital Signs Vital signs: Vital Signs Temp 98.0 F 02/08/23 07:35 Pulse 91 02/08/23 07:35 Resp 16 02/08/23 07:35 BP 128/76 02/08/23 07:35 Pulse Ox 95 02/08/23 07:35 FiO2 Intake & Output 02/07/23 02/08/23 02/08/23 18:59 06:59 18:59 Intake Total 1006 220 480 Output Total 475 1050 Balance 531 -830 480 Weight 138.3 kg Intake: IV 50 Oral 956 220 480 Output: Urine 475 1050 Other: Voiding Method Toilet Toilet Toilet Urinal Urinal Urinal # Voids 1 1 - Labs CBC & Chem 7: 02/06/23 06:56 02/08/23 09:01 Labs: Abnormal Lab Results - Last 24 Hours (Table) 02/07/23 02/07/23 02/07/23 Range/Units 11:34 16:43 19:52 Sodium (137-145) mmol/L Chloride (98-107) mmol/L Carbon Dioxide (22-30) mmol/L BUN (9-20) mg/dL Glucose (74-99) mg/dL POC Glucose (mg/dL) 175 H 111 H 159 H (70-110) mg/dL 02/07/23 02/08/23 02/08/23 Range/Units 21:37 05:57 09:01 Sodium 136 L (137-145) mmol/L Chloride 92 L 93 L (98-107) mmol/L Carbon Dioxide 38 H 37 H (22-30) mmol/L BUN 27 H 22 H (9-20) mg/dL Glucose 121 H 156 H (74-99) mg/dL POC Glucose (mg/dL) 128 H (70-110) mg/dL
== END 2023-02-08 14:17 | disposition home or self-care (01) | DRG 192 ==
LOC: EC 13:56 → 3SCARD 17:48 → OBSVTOIN 02-07 07:12
PROVIDERS: ADMIT Hospitalist; ATTEND Hospitalist
PROC: B2111ZZ Fluoroscopy of Multiple Coronary Arteries using Low Osmolar Contrast (ICD-10-PCS; 2023-02-07)
PROC: 4A023N7 Measurement of Cardiac Sampling and Pressure, Left Heart, Percutaneous Approach (ICD-10-PCS; principal; 2023-02-07 08:25)
DX: I11.0 Hypertensive heart disease with heart failure (principal); J44.1 Chronic obstructive pulmonary disease with (acute) exacerbation; N40.0 Benign prostatic hyperplasia without lower urinary tract symptoms; T50.1X6A Underdosing of loop [high-ceiling] diuretics, initial encounter; Z68.42 Body mass index [BMI] 45.0-49.9, adult; I50.33 Acute on chronic diastolic (congestive) heart failure; I45.10 Unspecified right bundle-branch block; I42.9 Cardiomyopathy, unspecified; I25.10 Atherosclerotic heart disease of native coronary artery without angina pectoris; G89.29 Other chronic pain; G47.33 Obstructive sleep apnea (adult) (pediatric); F41.9 Anxiety disorder, unspecified; F32.A Depression, unspecified; E78.5 Hyperlipidemia, unspecified; E66.01 Morbid (severe) obesity due to excess calories; Z79.82 Long term (current) use of aspirin; Z79.84 Long term (current) use of oral hypoglycemic drugs; Z79.899 Other long term (current) drug therapy; Z83.3 Family history of diabetes mellitus; Z91.148 Patient's other noncompliance with medication regimen for other reason
CPT/HCPCS: 36415; 71046; 80048; 80053; 83036; 83735; 83880; 84484; 85025; 85610; 85730; 93005; 93306; 93454; 94760; 96374; 99285

== ENCOUNTER → 2023-02-18 | Outpatient (CLI) | payer OTHER ==
[2023-02-18 13:26] LABS: African American GFR (CKD) 86 (>60 ml/min/1.73 sqM); Blood Urea Nitrogen 25 mg/dL (9-20); Non-African American GFR(CKD) 74 (>60 ml/min/1.73 sqM)
--- NOTE | 2023-02-18 15:58 | CT ---
EXAMINATION TYPE: CT angio chest DATE OF EXAM: 02/18/2023 COMPARISON: 08/03/2021 HISTORY: 62-year-old male I71.20, thoracic aneurysm TECHNIQUE: Contiguous axial scanning of the chest performed without and with IV Contrast, patient inj ected with 100 mL of Isovue 370. Coronal/sagittal MIP reconstructions performed. CT DLP: 1672.2 mGycm Automated exposure control for dose reduction was used. FINDINGS: Heart mildly enlarged without pericardial effusion. Ectatic aortic root at 3.8 cm versus 4.2 cm, previously. Ascending aorta aneurysmal at 4.3 cm, unchanged. Mild atherosclerotic arch calcifications. Variant direct takeoff of the left vertebral artery directl y from the aortic arch. Normal caliber to the descending thoracic aorta. No evidence for aortic dissection. Calcified right hilar lymph nodes from prior granulomatous disease. Small mediastinal lymph nodes vargas suring up to 8 m remain unchanged. No thoracic lymphadenopathy by CT size criteria. Enlarged caliber to the main right and left pulmonary arteries measuring up to 2.8 cm may be seen wit h coronary arterial hypertension. Calcified lateral right apical granuloma is unchanged. A 5 mm right mid lung on a nodule is unchanged compatible with a benign etiology. Some strandy atelectasis at the left base is noted. Tiny 3 mm pulmonary nodule inferior lingula appears unchanged. No consolidation or pleural effusion. Small hiatal hernia. Visualized upper abdomen shows similar low density thickening of the left adrena l gland. Extensive DISH throughout the mid and lower thoracic spine. Moderate to advanced degenerative disc di sease lower thoracic and visualized upper lumbar spine. IMPRESSION: 1. ANEURYSMAL ASCENDING AORTA AT 4.3 CM IS UNCHANGED. THE THE AORTIC ROOT MEASURES ECTATIC AT 3.8 CM. 2. EVIDENCE OF PRIOR GRANULOMATOUS DISEASE. THERE MAY BE UNDERLYING PULMONARY ARTERIAL HYPERTENSION. 3. SMALL HIATAL HERNIA. 4. DISH.
== END | disposition home or self-care (01) ==
LOC: RADCTMAIN 12:29
PROVIDERS: ATTEND Surgery
DX: I71.21 Aneurysm of the ascending aorta, without rupture (principal); K44.9 Diaphragmatic hernia without obstruction or gangrene; M48.14 Ankylosing hyperostosis [Forestier], thoracic region; Q23.1 Congenital insufficiency of aortic valve
CPT/HCPCS: 82565; 84520; 71275; 36415; Q9967

== ENCOUNTER → 2023-03-04 | Outpatient (CLI) | payer OTHER | END | disposition home or self-care (01) | LOC: RADECHMAIN 12:19 | PROVIDERS: ATTEND Surgery | DX: Z53.9 Procedure and treatment not carried out, unspecified reason (principal) ==

== ENCOUNTER → 2023-06-07 | Outpatient (CLI) | payer MEDICARE ==
[2023-06-07 19:07] LABS: ALT 33 U/L (10-49); AST 29 U/L (14-35); Albumin 4.3 d/dL (3.8-4.9); Alkaline Phosphatase 85 U/L (41-126); BUN/Creat Ratio 14.73 Ratio (12.00-20.00); Blood Urea Nitrogen 16.2 mg/dL (9.0-27.0); Calcium 10.1 mg/dL (8.7-10.3); Chloride 99 mmol/L (96-109); Chol/HDL Ratio 5.44 Ratio; Globulin 3.3 d/dL (1.6-3.3); Glucose 92 mg/dL (70-110); LDL Cholesterol,Calculated 159.3 mg/dL (0.0-131.0); Potassium 5.1 mmol/L (3.5-5.5); Sodium 139 mmol/L (135-145); Total Bilirubin 0.4 mg/dL (0.3-1.2); Total Protein 7.6 d/dL (6.2-8.2)
[2023-06-07 20:32] LABS: Urine Alcohol Negative (Negative); Urine Barbiturate Negative (Negative); Urine Cocaine Negative (Negative); Urine Methadone Negative (Negative); Urine Opiates Negative (Negative); Urine Phencyclidine Negative (Negative)
[2023-06-07 21:12] LABS: HCT 49.7 % (39.6-50.0); HGB 15.6 d/dL (13.0-17.0); MCH 28.1 pg (27.0-32.0); MCHC 31.4 d/dL (32.0-37.0); MCV 89.5 FL (80.0-97.0); Mean Platelet Volume 10.7 FL (9.5-12.2); NRBC Per 100 WBC 0 X 10*3/uL (0.00-0.01); Platelet Count 244 X 10*3/uL (140-440); RBC 5.55 X 10*6/uL (4.40-5.60); RDW 16.1 % (11.5-14.5); WBC 6.47 X 10*3/uL (4.50-10.00)
[2023-06-07 21:40] LABS: Erythrocyte Sedimentation Rate 24 mm/Hr (0-20)
== END | disposition home or self-care (01) ==
LOC: LABWHC1 12:58
PROVIDERS: ATTEND Internal Medicine
DX: I10 Essential (primary) hypertension (principal); M19.90 Unspecified osteoarthritis, unspecified site
CPT/HCPCS: 36415; 80053; 80061; 80306; 85027; 85652

== ENCOUNTER 2023-08-13 11:11 | Inpatient (IN) | payer MEDICARE, OTHER ==
--- NOTE | 2023-08-13 11:56 | ED ---
General Adult HPI - General Source: patient Mode of arrival: ambulatory Limitations: no limitations <Zach Sen - Last Filed: 08/13/23 16:34> <Isaac Fuentes - Last Filed: 08/13/23 17:14> - General Chief complaint: Shortness of Breath Stated complaint: heart failure fluid on lungs sob sent by Dr Jimenez History of Present Illness Initial comments: Quick note: Patient states he is having a CHF exacerbation. He is short of breath which started today. He went to his doctor's office and was told to come to the ER. He feels like he has fluid on his lungs. Verbally signed by Zach Sen PAC 08/13/22 [id number] (Zach Sen) Dictation was produced using [employer] dictation software. please excuse any grammatical, word or spelling errors. Chief Complaint: 63-year-old male with multiple coronaries instructed by his primary care doctor come to the emergency department be admitted for CHF History of Present Illness: 63-year-old male is presenting to the emergency department with several days of worsening cough, shortness of breath. He was seen at his primary care physician's office for alleged refills on medications. X-ray done at Dr. Epps's office which showed abnormal chest x-ray. He is told to come to the ER. He has multiple comorbidities. He has history of heart failure COPD diabetes. Eyes any fever or constitutional symptoms. Does have a nonproductive cough along with URI type symptoms. The ROS documented in this emergency department record has been reviewed and confirmed by me. Those systems with pertinent positive or negative responses have been documented in the HPI. All other systems are other negative and/or noncontributory. (Isaac Fuentes) - Related Data Home Medications Medication Instructions Recorded Confirmed ALPRAZolam [Xanax] 1 mg PO TID PRN 06/26/16 02/02/23 Carvedilol 25 mg PO BID-W/MEALS 06/26/16 02/02/23 Fluticasone Nasal [place] [Flonase 1 spray EA NOSTRIL DAILY 06/26/16 02/02/23 Nasal [place]] Nitroglycerin Sl Tabs [Nitrostat] 0.4 mg SUBLINGUAL Q5M PRN 03/08/17 02/02/23 HYDROcodone/APAP 10-325MG [[place] 1 tab PO Q6H PRN 09/21/18 02/02/23 10-325] Albuterol Nebulized [Ventolin 2.5 mg INHALATION RT-QID PRN 01/15/19 02/02/23 Nebulized] Ergocalciferol (Vitamin D2) 1,250 mcg PO MO 07/27/21 02/02/23 [Drisdol (50,000 Iu)] Potassium Chloride [Klor-Con M10] 10 meq PO BID-W/MEALS 07/27/21 02/02/23 Famotidine [Pepcid] 20 mg PO HS 10/23/22 02/02/23 Lidocaine 5% Oint [Xylocaine 5% 1 applic TOPICAL DAILY PRN 10/23/22 02/02/23 Oint] Losartan Potassium [Cozaar] 100 mg PO DAILY 10/23/22 02/02/23 Nitroglycerin 0.4MG/Hr Patch 1 patch TRANSDERM DAILY 10/23/22 02/02/23 [Nitro-Dur 0.4MG/Hr Patch] Olopatadine HCl [Pataday] 1 drop BOTH EYES BID 10/23/22 02/02/23 Simvastatin [Zocor] 40 mg PO HS 10/23/22 02/02/23 Tamsulosin HCl [Flomax] 0.4 mg PO DAILY 10/23/22 02/02/23 metFORMIN HCL [Glucophage] 500 mg PO DAILY 10/23/22 02/02/23 Albuterol Inhaler [Ventolin Hfa 2 puff INHALATION RT-Q4H PRN 02/02/23 02/02/23 Inhaler] Previous Rx's Medication Instructions Recorded Aspirin [Adult Low Dose Aspirin EC] 81 mg PO DAILY #30 tablet. 09/23/18 Cyclobenzaprine [Flexeril] 10 mg PO BID #60 tablet 09/23/18 Docusate [Colace] 100 mg PO DAILY PRN #30 cap 09/23/18 Furosemide [Lasix] 60 mg PO BID #180 tab 02/08/23 Allergies Allergy/AdvReac Type Severity Reaction Status Date / Time No Known Allergies Allergy Verified 08/13/23 11:37 Review of Systems ROS Other: All systems not noted in ROS Statement are negative. <Zach Sen - Last Filed: 08/13/23 16:34> ROS Other: All systems not noted in ROS Statement are negative. <Isaac Fuentes - Last Filed: 08/13/23 17:14> ROS Statement: Those systems with pertinent positive or pertinent negative responses have been documented in the HPI. Past Medical History Past Medical History: Heart Failure, COPD, Diabetes Mellitus, GERD/Reflux, Hyperlipidemia, Hypertension, Osteoarthritis (OA), Prostate Disorder, Sleep Apnea/CPAP/BIPAP Additional Past Medical History / Comment(s): ASCENDING THORACIC ANEURYSM, Palpitations, "LEAKY VALVE." USES BI PAP MACHINE, CONSTIPATION. EDEMA ANKLES. Influenza A History of Any Multi-Drug Resistant Organisms: None Reported Past Surgical History: Orthopedic Surgery Additional Past Surgical History / Comment(s): ARTHROSCOPIC RIGHT KNEE - EXC GLASS, HEMORRHOIDECTOMY. COLONOSCOPY. Past Anesthesia/Blood Transfusion Reactions: Previous Problems w/ Anesthesia Additional Past Anesthesia/Blood Transfusion Reaction / Comment(s): AWAKE DURING SURGERY, IN PAIN. Past Psychological History: Anxiety, Depression Smoking Status: Never smoker Past Alcohol Use History: None Reported Past Drug Use History: None Reported - Past Family History Father Family Medical History: Cancer, Diabetes Mellitus Mother Family Medical History: Cancer <Zach Sen - Last Filed: 08/13/23 16:34> General Exam Limitations: no limitations General appearance: alert Head exam: Present: atraumatic Eye exam: Present: normal appearance ENT exam: Present: normal exam, mucous membranes moist <Zach Sen - Last Filed: 08/13/23 16:34> <Isaac Fuentes - Last Filed: 08/13/23 17:14> - General Exam Comments Initial Comments: Visual exam: Well-appearing, no distress. Lungs on auscultation are diminished (Zach Sen) PHYSICAL EXAM: General Impression: Alert and oriented x3, not in acute distress HEENT: Normocephalic atraumatic, extra-ocular movements intact, pupils equal and reactive to light bilaterally, mucous membranes moist. Cardiovascular: Heart regular rate and rhythm Chest: Able to complete full sentences, no retractions, no tachypnea Abdomen: abdomen soft, non-tender, non-distended, no organomegaly Musculoskeletal: Pulses present and equal in all extremities, no peripheral edema Motor: no focal deficits noted Neurological: CN II-XII grossly intact, no focal motor or sensory deficits noted Skin: Intact with no visualized rashes Psych: Normal affect and mood (Isaac Fuentes) Course Vital Signs 08/13/23 11:34 Temperature 99.1 F Pulse Rate 63 Respiratory 22 Rate Blood Pressure 181/90 O2 Sat by Pulse 94 L Oximetry EKG Findings - EKG Comments: EKG Findings:: My EKG interpretation: Ventricular rate 87, atrial flutter, QRS 112, QTC 422. no QTC prolongation, no ST or T-wave changes noted. EKG compared to previous EKGs showing new A. fib. Patient not any anticoagulation medications. does report that he has history of A. fib. <Isaac Fuentes - Last Filed: 08/13/23 17:14> Medical Decision Making - Lab Data Result diagrams: 08/13/23 11:39 08/13/23 14:27 <Zach Sen - Last Filed: 08/13/23 16:34> - Lab Data Result diagrams: 08/13/23 11:39 08/13/23 14:27 <Isaac Fuentes - Last Filed: 08/13/23 17:14> - Medical Decision Making Was pt. sent in by a medical professional or institution (, PA, SENIOR ENGINEER, urgent care, hospital, or longterm...) When possible be specific @ -Sent in by primary care physician Did you speak to anyone other than the patient for history (EMS, parent, family, police, friend...)? What history was obtained from this source @ -No Did you review nursing and triage notes (agree or disagree)? Why? @ -I reviewed and agree with nursing and triage notes Were old charts reviewed (outside hosp., previous admission, EMS record, old EKG, old radiological studies, urgent care reports/EKG's, longterm records)? Report findings @ -No old charts were reviewed Differential Diagnosis (chest pain, altered mental status, abdominal pain women, abdominal pain men, vaginal bleeding, musculoskeletal, weakness, fever, dyspnea, syncope, headache, dizziness, GI bleed, back pain, seizure, CVA, palpatations, mental health)? @ -Differential Dyspnea: Coronary syndrome, arrhythmia, tamponade, asthma, COPD, pulmonary embolism, pneumonia, pneumothorax, pulmonary effusion, anaphylaxis, diabetic ketoacidosis, flailed chest, pulmonary contusion, diaphragmatic rupture, anemia, neuromuscular, this is not meant to be an all-inclusive list. EKG interpreted by me (3pts min.). @ -See above X-rays interpreted by me (1pt min.). @ -Chest x-ray shows heart failure versus atypical pneumonia CT interpreted by me (1pt min.). @ -None done U/S interpreted by me (1pt. min.). @ -None done What testing was considered but not performed or refused? (CT, X-rays, U/S, labs)? Why? @ -None What meds were considered but not given or refused? Why? @ -None Did you discuss the management of the patient with other professionals (professionals i.e. , PA, SENIOR ENGINEER, lab, RT, psych nurse, social services specialist, home supervisor, teacher, contracting officer, casework supervisor)? Give summary @ -Case discussed with Dr. Epps for admission Was smoking cessation discussed for >3mins.? @ -No Was critical care preformed (if so, how long)? @ -No Were there social determinants of health that impacted care today? How? (Homelessness, low income, unemployed, alcoholism, drug addiction, transportation, low edu. Level, literacy, decrease access to med. care, [place] [facility], rehab)? @ -No Was there de-escalation of care discussed even if they declined (Discuss DNR or withdrawal of care, Hospice)? DNR status @ -No What co-morbidities impacted this encounter? (DM, HTN, Smoking, COPD, CAD, Cancer, CVA, ARF, Chemo, Hep., AIDS, mental health diagnosis, sleep apnea, morbid obesity)? @ -None Was patient admitted / discharged? Hospital course, mention meds given and route, prescriptions, significant lab abnormalities, going to OR and other pertinent info. @ -63-year-old male presents to the emergency department from primary care physician's office for abnormal x-ray suspicious for congestive heart failure exacerbation. Vital signs upon arrival are within acceptable limits. Patient's well-appearing at bedside and in no acute distress. Laboratory evaluation obtained. CBC is unremarkable. Coag panel on metabolic panel is negative. Troponin is below patient's baseline. BNP is elevated. X-ray shows cardiac megaly. Patient's Lasix. Does have respiratory infectious symptoms. Patient started on antibiotics. Patient will be admitted consultation cardiology. Undiagnosed new problem with uncertain prognosis? @ -No Drug Therapy requiring intensive monitoring for toxicity (Heparin, Nitro, Insulin, Cardizem)? @ -No Were any procedures done? @ -No Diagnosis/symptom? Acute, or Chronic, or Acute on Chronic? Uncomplicated (without systemic symptoms) or Complicated (systemic symptoms)? @ -Dyspnea, heart failure exacerbation Side effects of treatment? @ -No Exacerbation, Progression, or Severe Exacerbation? @ -No Poses a threat to life or bodily function? How? (Chest pain, [place], [place], pneumonia, PE, COPD, DKA, ARF, appy, cholecystitis, CVA, Diverticulitis, Homicidal, Suicidal, threat to staff... and all critical care pts) @ -yes (Isaac Fuentes) - Lab Data Lab Results 08/13/23 08/13/23 08/13/23 Range/Units 11:39 11:39 11:39 WBC 5.3 (3.8-10.6) k/uL RBC 4.85 (4.30-5.90) m/uL Hgb 14.6 (13.0-17.5) gm/dL Hct 46.1 (39.0-53.0) % MCV 95.1 (80.0-100.0) fL MCH 30.0 (25.0-35.0) pg MCHC 31.6 (31.0-37.0) g/dL RDW 14.2 (11.5-15.5) % Plt Count 173 (150-450) k/uL MPV 8.8 Neutrophils % 58 % Lymphocytes % 28 % Monocytes % 6 % Eosinophils % 4 % Basophils % 0 % Neutrophils # 3.1 (1.3-7.7) k/uL Lymphocytes # 1.5 (1.0-4.8) k/uL Monocytes # 0.3 (0-1.0) k/uL Eosinophils # 0.2 (0-0.7) k/uL Basophils # 0.0 (0-0.2) k/uL Hypochromasia Slight PT 11.0 (10.0-12.5) sec INR 1.0 (<1.2) APTT 25.0 (22.0-30.0) sec Sodium Cancelled Potassium Cancelled Chloride Cancelled Carbon Dioxide Cancelled Anion Gap Cancelled BUN Cancelled Creatinine Cancelled Est GFR (CKD-EPI) Cancelled Est GFR (CKD-EPI)AfAm Cancelled Est GFR (CKD-EPI)NonAf Cancelled Glucose Cancelled Plasma Lactic Acid Song (0.7-2.0) mmol/L Calcium Cancelled Magnesium Cancelled Total Bilirubin Cancelled AST Cancelled ALT Cancelled Alkaline Phosphatase Cancelled Troponin I (0.000-0.034) ng/mL NT-Pro-B Natriuret Pep 6080 pg/mL Total Protein Cancelled Albumin Cancelled 08/13/23 08/13/23 08/13/23 Range/Units 11:39 11:39 14:27 WBC (3.8-10.6) k/uL RBC (4.30-5.90) m/uL Hgb (13.0-17.5) gm/dL Hct (39.0-53.0) % MCV (80.0-100.0) fL MCH (25.0-35.0) pg MCHC (31.0-37.0) g/dL RDW (11.5-15.5) % Plt Count (150-450) k/uL MPV Neutrophils % % Lymphocytes % % Monocytes % % Eosinophils % % Basophils % % Neutrophils # (1.3-7.7) k/uL Lymphocytes # (1.0-4.8) k/uL Monocytes # (0-1.0) k/uL Eosinophils # (0-0.7) k/uL Basophils # (0-0.2) k/uL Hypochromasia PT (10.0-12.5) sec INR (<1.2) APTT (22.0-30.0) sec Sodium 139 Potassium 4.7 Chloride 101 Carbon Dioxide 31 H Anion Gap 7 BUN 17 Creatinine 0.90 Est GFR (CKD-EPI) Est GFR (CKD-EPI)AfAm >90 Est GFR (CKD-EPI)NonAf 89 Glucose 100 H Plasma Lactic Acid Song 1.0 (0.7-2.0) mmol/L Calcium 9.2 Magnesium 2.0 Total Bilirubin 0.6 AST 34 ALT 28 Alkaline Phosphatase 73 Troponin I 0.048 H* (0.000-0.034) ng/mL NT-Pro-B Natriuret Pep pg/mL Total Protein 7.3 Albumin 4.0 Disposition <Zach Sne - Last Filed: 08/13/23 16:34> Decision Time: 17:14 <Isaac Fuentes - Last Filed: 08/13/23 17:14> Clinical Impression: Heart failure Disposition: ADMITTED IP TO THIS HOSP Condition: Fair Referrals: Reagan Epps MD [Primary Care Provider] - 1-2 days
[2023-08-13 11:58] LABS: Basophils % (A) 0 %; Eosinophils # (A) 0.2 k/uL (0-0.7); Eosinophils % (A) 4 %; HCT 46.1 % (39.0-53.0); HGB 14.6 gm/dL (13.0-17.5); Hypochromasia Slight; Lymphocytes # (A) 1.5 k/uL (1.0-4.8); Lymphocytes % (A) 28 %; MCHC 31.6 g/dL (31.0-37.0); MCV 95.1 fL (80.0-100.0); Mean Platelet Volume 8.8; Monocytes # (A) 0.3 k/uL (0-1.0); Monocytes % (A) 6 %; Neutrophils # (A) 3.1 k/uL (1.3-7.7); Neutrophils % (A) 58 %; Platelet Count 173 k/uL (150-450); RBC 4.85 m/uL (4.30-5.90); RDW 14.2 % (11.5-15.5); WBC 5.3 k/uL (3.8-10.6)
--- NOTE | 2023-08-13 14:05 | XR ---
EXAMINATION TYPE: XR chest 2V DATE OF EXAM: 08/13/2023 COMPARISON: 02/02/2023 HISTORY: 63 year-old male shortness of breath, difficulty breathing TECHNIQUE: PA and lateral views FINDINGS: Heart mildly enlarged. Diffuse interstitial density and no pleural effusion. IMPRESSION: Mild cardiomegaly and diffuse interstitial opacity. Possible CHF with pulmonary vascular congestion. Correlate to exclude atypical pneumonias.
[2023-08-13 14:49] LABS: ALT 28 U/L (4-49); AST 34 U/L (17-59); African American GFR (CKD) >90 (>60 ml/min/1.73 sqM); Alkaline Phosphatase 73 U/L (38-126); Anion Gap 7 mmol/L; Blood Urea Nitrogen 17 mg/dL (9-20); Calcium 9.2 mg/dL (8.4-10.2); Carbon Dioxide 31 mmol/L (22-30); Chloride 101 mmol/L (98-107); Glucose 100 mg/dL (74-99); Non-African American GFR(CKD) 89 (>60 ml/min/1.73 sqM); Potassium 4.7 mmol/L (3.5-5.1); Sodium 139 mmol/L (137-145); Total Bilirubin 0.6 mg/dL (0.2-1.3); Total Protein 7.3 g/dL (6.3-8.2)
[2023-08-13] MEDS ORDERED: HEPARIN SODIUM 1,000 UN/ML (10ML VL) IV ONE (15:10)
[2023-08-13] MEDS ORDERED: HEPARIN SODIUM 1,000 UN/ML (10ML VL) IV PRN (15:10)
[2023-08-13] MEDS ORDERED: HEPARIN SOD,PORK IN 0.45% NACL 25,000 UNIT in 0.45% NACL 1 250ML.BAG IV SCH ×2 (15:15)
[2023-08-13] MEDS ORDERED: AZITHROMYCIN 500 MG in SODIUM CHLORIDE 0.9% 250 ML IVPB STA (17:10)
[2023-08-13] MEDS ORDERED: cefTRIAXone IN SWFI 1,000 MG/10 ML SYRINGE IVP STA (17:10)
[2023-08-13] MEDS: FUROSEMIDE 10 MG/ML 4 ML VIAL IV SCH (18:28)
[2023-08-14] MEDS ORDERED: carvediloL 12.5 MG TAB PO STA (00:14)
[2023-08-14] MEDS ORDERED: LOSARTAN 50 MG TAB PO STA (00:14)
[2023-08-14] MEDS ORDERED: NITROGLYCERIN 0.4MG/HR PATCH TRANSDERM STA (00:15)
[2023-08-14] MEDS: FUROSEMIDE 10 MG/ML 4 ML VIAL IV SCH ×2 (06:20→17:00)
[2023-08-14] MEDS: CYCLOBENZAPRINE 10 MG TAB PO PRN (10:09)
[2023-08-14] MEDS: carvediloL 12.5 MG TAB PO SCH ×2 (10:10→16:59)
[2023-08-14] MEDS: APIXABAN 5 MG TAB PO SCH ×2 (10:10→20:32)
[2023-08-14] MEDS: SACUBITRIL/VALSARTAN 24 MG-26 MG TABLET PO SCH ×2 (10:10→20:32)
[2023-08-14] MEDS ORDERED: NITROGLYCERIN SL TABS 0.4 MG TAB SUBLINGUAL PRN (11:12)
[2023-08-14] MEDS ORDERED: LIDOCAINE 5% OINTMENT 50 GM JAR TOPICAL PRN (11:12)
[2023-08-14] MEDS ORDERED: DOCUSATE 100 MG CAP PO PRN (11:12)
[2023-08-14] MEDS ORDERED: ALBUTEROL NEBULIZED 2.5 MG/3 ML INHALATION PRN (11:12)
[2023-08-14] MEDS ORDERED: NON FORMULARY DRUG (Albuterol Inhaler 90 MCG Puff) INHALATION PRN (11:12)
[2023-08-14] MEDS: HYDROcodone/APAP 10-325MG 1 EACH TAB PO PRN ×2 (12:07→18:57)
--- NOTE | 2023-08-14 12:55 | P.EPCON ---
Electrophysiology Consult - EP Consult Electrophysiology Consult: Please see full dictation by nurse practitioner Impression Worsening heart failure symptoms, acute and chronic systolic function Nonischemic cardio myopathy on medical treatment Recent onset atrial flutter, typical Normal TSH Mild CAD Suggest Anticoagulation Continue rate control Diuresis I would recommend ablation for typical atrial flutter for management of worsening heart failure symptoms
[2023-08-14] MEDS: ALPRAZolam 1 MG TAB PO PRN (13:35)
--- NOTE | 2023-08-14 13:38 | P.CRDCN ---
History of Present Illness Consult date: 08/14/23 Consult reason: atrial fibrillation History of present illness: The patient is a 63-year-old male who presented to the emergency room with worsening shortness of breath. The patient states this has has occurred over the past week. He does have a history of heart failure, with his last hospital admission being in February 2023. At that time he was found to have a reduced ejection fraction at 25-30%. Coronary angiogram at that time did not show any significant coronary artery disease. The patient states he has been seen by his manufacturers agent Dr. Macias since that admission, however does not believe he's had a repeat echocardiogram. He states he did miss his most recent appointment. DIAGNOSTICS: EKG shows atrial flutter with PVCs Telemetry shows persistent atrial flutter with heart rates in the 70s to 80s Chest x-ray shows mild cardiomegaly and diffuse interstitial opacities Lab data: WBC 5.3, hemoglobin 14 points, hematocrit 46.1, platelet 173, sodium 139, potassium 4.7, BUN 17, creatinine 0.90, magnesium 2.0, AST 34, ALT 28, troponin 0.04, BNP 6000, TSH 0.59 REVIEW OF SYSTEMS: No fever or chills. No cough or expectoration. No hannah phoresis. Patient denies headache, dizziness, blurred vision, double vision. Patient denies any stomach discomfort. No nausea, vomiting. No hematochezia. No hematemesis. Denies any black stools or blood in his stools. Denies dysuria or hematuria. No muscle weakness or numbness. No chest pain. Positive for shortness of breath. Positive for leg discomfort. PHYSICAL EXAMINATION: This is a 63-year-old male in no apparent distress at the time of my examination. HEENT: Head is atraumatic, normocephalic. Pupils are equal, round. There is no jugular venous distention. No carotid bruit is heard. CHEST EXAMINATION: Lungs are diminished to auscultation. No chest wall tenderness is noted on palpation or with deep breathing. HEART EXAMINATION: Irregular rate and rhythm. S1, S2 heard. No murmurs, gallops or rub. ABDOMEN: Soft, nontender. Bowel sounds are heard. No organomegaly noted. EXTREMITIES: 2+ peripheral pulses. +2-3 bilateral lower extremity peripheral edema and no calf tenderness noted. NEUROLOGIC EXAMINATION: Patient is awake, alert and oriented x3. FINAL ASSESSMENT AND PLAN: Atrial flutter, rate controlled Exacerbation of heart failure, likely systolic History of nonischemic cardiomyopathy History of mild coronary artery disease Morbid obesity, BMI 48 Diabetes mellitus PLAN: Agree with IV diuresis Start Entresto and oral anticoagulation Consider SAMMIE and cardioversion if patient remains symptomatic despite heart failure management Further recommendations to be based on clinical course I am dictating on behalf of Dr Haim Farrell's history/physical and assessment/pl an. Past Medical History Past Medical History: Heart Failure, COPD, Diabetes Mellitus, GERD/Reflux, Hyperlipidemia, Hypertension, Osteoarthritis (OA), Prostate Disorder, Sleep Apnea/CPAP/BIPAP Additional Past Medical History / Comment(s): ASCENDING THORACIC ANEURYSM, Palpitations, "LEAKY VALVE." USES BI PAP MACHINE, CONSTIPATION. EDEMA ANKLES. Influenza A History of Any Multi-Drug Resistant Organisms: None Reported Past Surgical History: Orthopedic Surgery Additional Past Surgical History / Comment(s): ARTHROSCOPIC RIGHT KNEE - EXC GLASS, HEMORRHOIDECTOMY. COLONOSCOPY. Past Anesthesia/Blood Transfusion Reactions: Previous Problems w/ Anesthesia Additional Past Anesthesia/Blood Transfusion Reaction / Comment(s): AWAKE DURING SURGERY, IN PAIN. Past Psychological History: Anxiety, Depression Smoking Status: Never smoker Past Alcohol Use History: None Reported Past Drug Use History: None Reported - Past Family History Father Family Medical History: Cancer, Diabetes Mellitus Mother Family Medical History: Cancer Medications and Allergies Home Medications Medication Instructions Recorded Confirmed Type ALPRAZolam [Xanax] 1 mg PO TID PRN 06/26/16 08/13/23 History Carvedilol 25 mg PO BID-W/MEALS 06/26/16 08/13/23 History Fluticasone Nasal [place] [Flonase 1 spr EA NOSTRIL DAILY 06/26/16 08/13/23 History Nasal [place]] Nitroglycerin Sl Tabs [Nitrostat] 0.4 mg SL Q5M PRN 03/08/17 08/13/23 History HYDROcodone/APAP 10-325MG [[place] 1 tab PO Q6H PRN 09/21/18 08/13/23 History 10-325] Aspirin [Adult Low Dose Aspirin EC] 81 mg PO DAILY #30 tablet. 09/23/18 08/13/23 Rx Cyclobenzaprine [Flexeril] 10 mg PO BID #60 tablet 09/23/18 08/13/23 Rx Docusate [Colace] 100 mg PO DAILY PRN #30 cap 09/23/18 08/13/23 Rx Albuterol Nebulized [Ventolin 2.5 mg INHALATION RT-QID PRN 01/15/19 08/13/23 History Nebulized] Ergocalciferol (Vitamin D2) 1,250 mcg PO MO 07/27/21 08/13/23 History [Drisdol (50,000 Iu)] Potassium Chloride [Klor-Con M10] 10 meq PO BID-W/MEALS 07/27/21 08/13/23 History Famotidine [Pepcid] 20 mg PO HS 10/23/22 08/13/23 History Lidocaine 5% Oint [Xylocaine 5% 1 applic TOPICAL DAILY PRN 10/23/22 08/13/23 History Oint] Losartan Potassium [Cozaar] 100 mg PO DAILY 10/23/22 08/13/23 History Nitroglycerin 0.4MG/Hr Patch 1 patch TRANSDERM DAILY 10/23/22 08/13/23 History [Nitro-Dur 0.4MG/Hr Patch] Olopatadine HCl [Pataday] 1 drop BOTH EYES BID 10/23/22 08/13/23 History Simvastatin [Zocor] 40 mg PO HS 10/23/22 08/13/23 History Tamsulosin HCl [Flomax] 0.4 mg PO DAILY 10/23/22 08/13/23 History metFORMIN HCL [Glucophage] 500 mg PO DAILY 10/23/22 08/13/23 History Albuterol Inhaler [Ventolin Hfa 2 puff INHALATION RT-Q4H PRN 02/02/23 08/13/23 History Inhaler] Furosemide [Lasix] 120 mg PO DAILY 08/13/23 08/13/23 History Ibuprofen [Motrin] 800 mg PO Q8H PRN 08/13/23 08/13/23 History Naproxen [Naprosyn] 500 mg PO BID 08/13/23 08/13/23 History Allergies Allergy/AdvReac Type Severity Reaction Status Date / Time No Known Allergies Allergy Verified 08/13/23 17:43 Physical Exam Vitals: Vital Signs Temp Pulse Pulse Resp BP BP Pulse Ox 08/14/23 07:57 65 18 140/88 96 08/14/23 02:00 98.3 F 80 16 143/94 98 08/13/23 19:46 78 19 148/101 95 08/13/23 18:17 64 18 174/108 94 L Intake and Output 08/13/23 08/14/23 08/14/23 22:59 06:59 14:59 Intake Total 75.5 750 Output Total 700 Balance 75.5 750 -700 Intake: Intake, IV Titration 75.5 250 Amount Azithromycin 500 mg In 250 Sodium Chloride 0.9% 250 ml @ 250 mls/hr IVPB ONCE STA Rx#:[id number] Heparin Sod,Pork in 0.45% 75.5 NaCl 25,000 unit In 0.45 % NaCl 1 250ml.bag @ 6. 9766 UNITS/KG/HR 10 mls/ hr IV .Q24H [facility] Rx#: [id number] Oral 500 Output: Urine 700 Other: # Voids 2 Results 08/13/23 11:39 08/13/23 14:27 Cardiac Enzymes 08/13/23 Range/Units 14:27 AST 34 (17-59) U/L Coagulation 08/13/23 08/14/23 Range/Units 21:12 07:22 APTT 38.9 H 44.0 H (22.0-30.0) sec Comprehensive Metabolic Panel 08/13/23 Range/Units 14:27 Sodium 139 (137-145) mmol/L Potassium 4.7 (3.5-5.1) mmol/L Chloride 101 (98-107) mmol/L Carbon Dioxide 31 H (22-30) mmol/L BUN 17 (9-20) mg/dL Creatinine 0.90 (0.66-1.25) mg/dL Glucose 100 H (74-99) mg/dL Calcium 9.2 (8.4-10.2) mg/dL AST 34 (17-59) U/L ALT 28 (4-49) U/L Alkaline Phosphatase 73 (38-126) U/L Total Protein 7.3 (6.3-8.2) g/dL Albumin 4.0 (3.5-5.0) g/dL Current Medications Generic Name Dose Route Start Last Admin Trade Name Freq PRN Reason Stop Dose Admin Hydrocodone Bitart/Acetaminophen 1 each 08/14/23 11:12 08/14/23 12:07 Hydrocodone/Apap 10-325mg 1 Each Tab PO 1 each Q6H PRN Administration Pain Albuterol Sulfate 2.5 mg 08/14/23 11:12 Albuterol Nebulized 2.5 Mg/3 Ml INHALATION RT-QID PRN Shortness Of Breath Alprazolam 1 mg 08/14/23 11:12 Alprazolam 1 Mg Tab PO TID PRN Anxiety Apixaban 5 mg 08/14/23 09:30 08/14/23 10:10 Apixaban 5 Mg Tab PO 5 mg BID [facility] Administration Protocol Aspirin 81 mg 08/15/23 09:00 Aspirin 81 Mg PO DAILY [facility] Atorvastatin Calcium 20 mg 08/14/23 21:00 Atorvastatin 20 Mg Tab PO [facility] Carvedilol 25 mg 08/14/23 09:15 08/14/23 10:10 Carvedilol 12.5 Mg Tab PO 25 mg BID-W/MEALS [facility] Administration Cyclobenzaprine HCl 10 mg 08/14/23 10:02 08/14/23 10:09 Cyclobenzaprine 10 Mg Tab PO 10 mg BID PRN Administration Muscle Spasm Docusate Sodium 100 mg 08/14/23 11:12 Docusate 100 Mg Cap PO DAILY PRN Constipation Famotidine 20 mg 08/14/23 21:00 Famotidine 20 Mg Tab PO HS [facility] Fluticasone Propionate 1 spray 08/15/23 09:00 Fluticasone 50mcg/[place] Nasal 16gm EA NOSTRIL DAILY [facility] Furosemide 40 mg 08/13/23 17:30 08/14/23 06:20 Furosemide 10 Mg/Ml 4 Ml Vial IV 40 mg Q12H [facility] Administration Ketotifen Fumarate 1 drops 08/14/23 21:00 Ketotifen 0.025% Ophth Drops 5 Ml Btl BOTH EYES BID [facility] Lidocaine 1 applic 08/14/23 11:12 Lidocaine 5% Ointment 50 Gm Jar TOPICAL DAILY PRN Pain Nitroglycerin 1 patch 08/15/23 09:00 Nitroglycerin 0.4mg/Hr Patch TRANSDERM DAILY [facility] Nitroglycerin 0.4 mg 08/14/23 11:12 Nitroglycerin Sl Tabs 0.4 Mg Tab SUBLINGUAL Q5M PRN Chest Pain Potassium Chloride 10 meq 08/14/23 17:30 Potassium Chloride Er 10 Meq Tab.Er.Prt PO BID-W/MEALS [facility] Sacubitril/Valsartan 1 each 08/14/23 09:15 08/14/23 10:10 Sacubitril/Valsartan 24 Mg-26 Mg Tablet PO 1 each BID [facility] Administration Tamsulosin HCl 0.4 mg 08/15/23 09:00 Tamsulosin 0.4 Mg Cap.Er.24h PO DAILY [facility] Intake and Output 08/13/23 08/14/23 08/14/23 22:59 06:59 14:59 Intake Total 75.5 750 Output Total 700 Balance 75.5 750 -700 Intake: Intake, IV Titration 75.5 250 Amount Azithromycin 500 mg In 250 Sodium Chloride 0.9% 250 ml @ 250 mls/hr IVPB ONCE STA Rx#:[id number] Heparin Sod,Pork in 0.45% 75.5 NaCl 25,000 unit In 0.45 % NaCl 1 250ml.bag @ 6. 9766 UNITS/KG/HR 10 mls/ hr IV .Q24H [facility] Rx#: [id number] Oral 500 Output: Urine 700 Other: # Voids 2 08/13/23 11:39 08/13/23 14:27
[2023-08-14] MEDS: POTASSIUM CHLORIDE ER 10 MEQ TAB.ER.PRT PO SCH (16:58)
[2023-08-14] MEDS ORDERED: carvediloL 12.5 MG TAB PO SCH (17:30)
[2023-08-14] MEDS: FAMOTIDINE 20 MG TAB PO SCH (20:32)
[2023-08-14] MEDS: ATORVASTATIN 20 MG TAB PO SCH (20:32)
--- NOTE | 2023-08-15 02:58 | HP ---
HISTORY AND PHYSICAL CHIEF COMPLAINT: Difficulty breathing. HISTORY OF PRESENT ILLNESS: This is another admission for this 63-year-old obese -Turkish male. He has longstanding history of hypertension, COPD along with obesity. He has been doing fairly well, but then he came in to the office, on the day of admission was expressing more shortness of breath even at rest and his workup indicated that he was in congestive heart failure. He was admitted to the hospital. REVIEW OF SYSTEMS: He has had no chest pain or palpitations, syncope, cough, hemoptysis, etc. Remainder of his review of systems is normal. Past medical history, family history, personal and social histories demonstrate that he has no allergies to any medications. MEDICATIONS: 1. Takes 81 mg of aspirin. 2. Losartan 100 mg once a day. 3. Simvastatin 40 mg. 4. Tamsulosin 0.4 mg h.s. 5. Nitrostat. 6. Vitamin D. 7. Pepcid. 8. Albuterol. 9. Flexeril. 10.Vicodin 10 mg q.i.d. 11.He is also on carvedilol 25 twice a day. 12.Xanax 1 mg. PAST SURGICAL HISTORY: He has had a procedure on his right knee in the past. SOCIAL HISTORY: He used to smoke, but has stopped. He does not drink. PHYSICAL EXAMINATION: VITAL SIGNS: Pulse is 96 and irregularly irregular. Blood pressure 144/82, respirations were 35 and is afebrile. GENERAL: Obese with a BMI of 48. HEENT: Head, ears, eyes, nose and mouth were normal. NECK: Veins could not be assessed. CHEST: Demonstrated decreased breath sounds throughout with rales. CARDIOVASCULAR: Demonstrates an irregularly irregular pulse. ABDOMEN: Protuberant, soft and nontender. EXTREMITIES: Unremarkable. NEUROLOGICAL: He is intact. DIAGNOSES: He was admitted to the hospital with diagnoses of, 1. Acute congestive heart failure. 2. Chronic congestive heart failure. 3. Morbid obesity. PLAN: 1. Bed rest. 2. IV fluids. 3. IV Lasix. 4. Echocardiogram. 5. Cardiology consult. MMODL / IJN: [id number] /
--- NOTE | 2023-08-15 03:43 | PN ---
PROGRESS NOTE DATE OF SERVICE: 08/14/2023 CHIEF COMPLAINT: Acute congestive heart failure. HISTORY OF PRESENT ILLNESS: This gentleman is still short of breath, he is ready to be taken upstairs. On the monitor, he is in atrial fibrillation with frequent PVCs. His BNP has come back at 6080 and his troponin was elevated. BUN is 17, creatinine 0.9. PHYSICAL EXAMINATION: VITAL SIGNS: Blood pressure 143/94. HEENT: Head, ears, eyes, nose, and mouth are normal. CHEST: Breath sounds are difficult to auscultate due to his obesity. CARDIAC: Reveals atrial fibrillation. ABDOMEN: Protuberant, soft, and nontender. EXTREMITIES: Normal. IMPRESSION: 1. Acute congestive heart failure. 2. Atrial fibrillation. 3. PVCs. 4. Hypertension. 5. Elevated troponin. PLAN: 1. Repeat troponins. 2. Continue diuresis. 3. Echocardiogram. 4. Await consult with Cardiology. MMODL / IJN: [id number] /
[2023-08-15] MEDS: KETOTIFEN 0.025% OPHTH DROPS 5 ML BTL BOTH EYES SCH ×3 (06:23→20:52)
[2023-08-15] MEDS: FUROSEMIDE 10 MG/ML 4 ML VIAL IV SCH ×2 (06:24→17:30)
[2023-08-15] MEDS: carvediloL 12.5 MG TAB PO SCH ×2 (06:24→17:30)
[2023-08-15] MEDS: POTASSIUM CHLORIDE ER 10 MEQ TAB.ER.PRT PO SCH ×2 (06:24→17:30)
[2023-08-15] MEDS ORDERED: FUROSEMIDE 40 MG TAB PO SCH (09:00)
[2023-08-15] MEDS ORDERED: NON FORMULARY DRUG (Losartan Potassium [Cozaar] 100 MG Tablet) PO SCH (09:00)
[2023-08-15] MEDS: NITROGLYCERIN 0.4MG/HR PATCH TRANSDERM SCH (09:44)
[2023-08-15] MEDS: APIXABAN 5 MG TAB PO SCH ×2 (09:44→20:52)
[2023-08-15] MEDS: SACUBITRIL/VALSARTAN 24 MG-26 MG TABLET PO SCH ×2 (09:44→22:57)
[2023-08-15] MEDS: TAMSULOSIN 0.4 MG CAP.ER.24H PO SCH (09:44)
[2023-08-15] MEDS: ASPIRIN 81 MG PO SCH (09:44)
[2023-08-15] MEDS: FLUTICASONE 50MCG/SPRAY NASAL 16GM EA NOSTRIL SCH (09:44)
[2023-08-15] MEDS: HYDROcodone/APAP 10-325MG 1 EACH TAB PO PRN ×2 (09:51→17:29)
[2023-08-15] MEDS: CYCLOBENZAPRINE 10 MG TAB PO PRN (09:51)
--- NOTE | 2023-08-15 10:37 | CA ---
Transthoracic Echo Report Name: Hudson Welch Age: 63 Gender: M : 1960 Exam Date: 08/15/2023 08:21 Exam Location: [facility] Ht (in): 68 Wt (lb): 316 Ordering Physician: Reagan Epps MD Attending/Referring Phys: Mich CRUZ Electrical Plumbing Supervisor Peg Gilbert, ROXY Procedure CPT: Indications: chf Cardiac Hx: Technical Quality: Technically difficult study Contrast 1: Definity Total Dose (mL): 2 Contrast 2: Total Dose (mL): MEASUREMENTS (Male / Female) Normal Values 2D ECHO LV Diastolic Diameter PLAX 5.5 cm 4.2 - 5.9 / 3.9 - 5.3 cm LV Systolic Diameter PLAX 4.5 cm IVS Diastolic Thickness 1.4 cm 0.6 - 1.0 / 0.6 - 0.9 cm LVPW Diastolic Thickness 1.4 cm 0.6 - 1.0 / 0.6 - 0.9 cm LV Relative Wall Thickness 0.5 RV Internal Dim ED PLAX 3.9 cm LA Systolic Diameter LX 3.5 cm 3.0 - 4.0 / 2.7 - 3.8 cm LV Diastolic Volume MOD 4C 151.0 cm??? LV Systolic Volume MOD 4C 107.1 cm??? LV Ejection Fraction MOD 4C 29.0 % LV Cardiac Index MOD 4C 1006.6 cm???/min???m??? LV Diastolic Length 4C 9.8 cm LV Systolic Length 4C 8.4 cm LV Diastolic Volume MOD 2C 157.9 cm??? LV Systolic Volume MOD 2C 106.8 cm??? LV Ejection Fraction MOD 2C 32.4 % LV Cardiac Index MOD 2C 1173.8 cm???/min???m??? LV Diastolic Length 2C 9.5 cm LV Systolic Length 2C 8.7 cm LA Volume 69.7 cm??? 18 - 58 / 22 - 52 cm??? LA Volume Index 25.8 cm???/m??? 16 - 28 cm???/m??? M-MODE Aortic Root Diameter MM 4.2 cm MV E Point Septal Separation 1.5 cm AV Cusp Separation MM 2.2 cm DOPPLER AV Peak Velocity 129.8 cm/s AV Peak Gradient 6.7 mmHg MV Area PHT 6.6 cm??? MV Deceleration Time 124.0 ms TR Peak Velocity 318.6 cm/s TR Peak Gradient 40.6 mmHg Right Ventricular Systolic Press 44.1 mmHg FINDINGS Left Ventricle Left ventricular ejection fraction is estimated at 3.0-35 %. Left ventricular cavity size normal. Moderate concentric left ventricular hypertrophy. Right Ventricle Moderate right ventricular dilatation. Mild pulmonary hypertension. Right Atrium Normal right atrial size. Left Atrium Left atrium not well visualized. Mitral Valve Structurally normal mitral valve. Mild mitral regurgitation. Aortic Valve Trileaflet aortic valve. No aortic valve stenosis or regurgitation. Tricuspid Valve Structurally normal tricuspid valve. Mild tricuspid regurgitation. Pulmonic Valve Structurally normal pulmonic valve. No pulmonic regurgitation. Pericardium No pericardial effusion. Aorta Moderate aortic dilatation at the level of the sinuses of valsalva 42 mm CONCLUSIONS Technically suboptimal study moderate LV systolic dysfunction with an ejection fraction of 35% Mild pulmonary hypertension Mildly dilated aortic root measuring 4.2 cm Previewed by: Dr. Jose Delcid MD (Electronically Signed) Final Date: 15 August 2023 10:36
[2023-08-15 11:32] VITALS: BMI 46.6
--- NOTE | 2023-08-15 12:00 | P.PN ---
Subjective HISTORY OF PRESENT ILLNESS: The patient is a 63-year-old male who presented to the emergency room with worsening shortness of breath. The patient states this has has occurred over the past week. He does have a history of heart failure, with his last hospital admission being in February 2023. At that time he was found to have a reduced ejection fraction at 25-30%. Coronary angiogram at that time did not show any significant coronary artery disease. The patient states he has been seen by his forest worker Dr. Macias since that admission, however does not believe he's had a repeat echocardiogram. He states he did miss his most recent appointment. DIAGNOSTICS: EKG shows atrial flutter with PVCs Telemetry shows persistent atrial flutter with heart rates in the 70s to 80s Chest x-ray shows mild cardiomegaly and diffuse interstitial opacities Lab data: WBC 5.3, hemoglobin 14 points, hematocrit 46.1, platelet 173, sodium 139, potassium 4.7, BUN 17, creatinine 0.90, magnesium 2.0, AST 34, ALT 28, troponin 0.04, BNP 6000, TSH 0.59 08/15/2023 Patient examined this morning at the bedside. Patient currently denies chest pain or pressure. He reports mild shortness of breath. He remains on IV Lasix. Telemetry reveals atrial flutter with controlled ventricular rate. Vital signs are stable. PHYSICAL EXAM: VITAL SIGNS: Reviewed. GENERAL: Well-developed in no acute distress. NECK: Supple. No JVD or thyromegaly LUNGS: Respirations even and unlabored. Lungs with crackles at the bases HEART: Regular rate and rhythm. S1 and S2 heard. EXTREMITIES: Normal range of motion. No clubbing or cyanosis. Peripheral pulses intact. 1+ bilateral lower extremity edema ASSESSMENT: Persistent typical atrial flutter, rate controlled Acute on chronic heart failure with reduced EF, 25-30% History of nonischemic cardiomyopathy History of mild coronary artery disease Morbid obesity, BMI 48 Diabetes mellitus PLAN: Continue current cardiac medications Continue IV Lasix 40 mg every 12 hours Daily weights, accurate I&O, and monitoring of kidney function Continue telemetry monitoring No plans for SAMMIE/cardioversion at this time. We will continue with medical management Recommend outpatient ablation for atrial flutter Further recommendations pending patient's course Nurse practitioner note has been reviewed by physician. Signing provider agrees with the documented findings, assessment, and plan of care. Objective - Vital Signs Vital signs: Vital Signs Temp 98.2 F 08/15/23 08:00 Pulse 64 08/15/23 08:00 Resp 18 08/15/23 08:00 BP 131/76 08/15/23 08:00 Pulse Ox 93 L 08/15/23 08:00 FiO2 Intake & Output 08/14/23 08/15/23 08/15/23 18:59 06:59 18:59 Intake Total 150 240 Output Total 1600 1275 Balance -1600 150 -1035 Weight 139.1 kg 139.1 kg Intake: Oral 150 240 Output: Urine 1600 1275 Other: # Voids 1 - Labs CBC & Chem 7: 08/13/23 11:39 08/13/23 14:27 Labs: Microbiology - Last 24 Hours (Table) 08/13/23 18:25 Blood Culture - Preliminary Blood 08/13/23 18:10 Blood Culture - Preliminary Blood
[2023-08-15] MEDS: FAMOTIDINE 20 MG TAB PO SCH (20:52)
[2023-08-15] MEDS: ATORVASTATIN 20 MG TAB PO SCH (20:52)
--- NOTE | 2023-08-15 22:41 | PN ---
PROGRESS NOTE DATE OF SERVICE: 08/15/2023 CHIEF COMPLAINT: Acute congestive heart failure. HISTORY OF PRESENT ILLNESS: This gentleman is still a bit short of breath. He is having no chest pain. He is being seen by Cardiology and echocardiogram is being done. PHYSICAL EXAMINATION: CHEST: Breath sounds are difficult to hear. CARDIAC: Normal. ABDOMEN: Soft and nontender. IMPRESSION: 1. Acute congestive heart failure. 2. Chronic congestive heart failure. 3. Morbid obesity. PLAN: Continue diuretics. Await results of echo to determine further management options. MMODL / IJN: [id number] /
[2023-08-15] MEDS: ALPRAZolam 1 MG TAB PO PRN (23:30)
[2023-08-16] MEDS: carvediloL 12.5 MG TAB PO SCH (06:06)
[2023-08-16] MEDS: HYDROcodone/APAP 10-325MG 1 EACH TAB PO PRN ×2 (06:06→13:56)
[2023-08-16] MEDS: POTASSIUM CHLORIDE ER 10 MEQ TAB.ER.PRT PO SCH (06:06)
[2023-08-16] MEDS: FUROSEMIDE 10 MG/ML 4 ML VIAL IV SCH (06:06)
[2023-08-16] MEDS: TAMSULOSIN 0.4 MG CAP.ER.24H PO SCH (07:59)
[2023-08-16] MEDS: ASPIRIN 81 MG PO SCH (07:59)
[2023-08-16] MEDS: FLUTICASONE 50MCG/SPRAY NASAL 16GM EA NOSTRIL SCH (08:00)
[2023-08-16] MEDS: KETOTIFEN 0.025% OPHTH DROPS 5 ML BTL BOTH EYES SCH (08:00)
[2023-08-16] MEDS: NITROGLYCERIN 0.4MG/HR PATCH TRANSDERM SCH (08:00)
[2023-08-16] MEDS: APIXABAN 5 MG TAB PO SCH (08:00)
[2023-08-16] MEDS: SACUBITRIL/VALSARTAN 24 MG-26 MG TABLET PO SCH (08:00)
[2023-08-16 09:48] VITALS: TEMP 97.5
[2023-08-16 11:28] LABS: African American GFR (CKD) >90 (>60 ml/min/1.73 sqM); Anion Gap 9 mmol/L; Blood Urea Nitrogen 15 mg/dL (9-20); Calcium 9.2 mg/dL (8.4-10.2); Carbon Dioxide 35 mmol/L (22-30); Chloride 93 mmol/L (98-107); Glucose 111 mg/dL (74-99); Non-African American GFR(CKD) 83 (>60 ml/min/1.73 sqM); Potassium 4.1 mmol/L (3.5-5.1); Sodium 137 mmol/L (137-145)
[2023-08-16 11:42] LABS: Glucose,Whole Blood 103 mg/dL (70-110)
[2023-08-16 11:51] VITALS: BP 115/66; PULSE 77; RESP 18
--- NOTE | 2023-08-16 13:45 | P.PN ---
Subjective HISTORY OF PRESENT ILLNESS: The patient is a 63-year-old male who presented to the emergency room with worsening shortness of breath. The patient states this has has occurred over the past week. He does have a history of heart failure, with his last hospital admission being in February 2023. At that time he was found to have a reduced ejection fraction at 25-30%. Coronary angiogram at that time did not show any significant coronary artery disease. The patient states he has been seen by his virtualization consultant Dr. Macias since that admission, however does not believe he's had a repeat echocardiogram. He states he did miss his most recent appointment. DIAGNOSTICS: EKG shows atrial flutter with PVCs Telemetry shows persistent atrial flutter with heart rates in the 70s to 80s Chest x-ray shows mild cardiomegaly and diffuse interstitial opacities Lab data: WBC 5.3, hemoglobin 14 points, hematocrit 46.1, platelet 173, sodium 139, potassium 4.7, BUN 17, creatinine 0.90, magnesium 2.0, AST 34, ALT 28, troponin 0.04, BNP 6000, TSH 0.59 08/15/2023 Patient examined this morning at the bedside. Patient currently denies chest pain or pressure. He reports mild shortness of breath. He remains on IV Lasix. Telemetry reveals atrial flutter with controlled ventricular rate. Vital signs are stable. 08/16/2023 Patient examined this morning at the bedside. Patient denies chest pain or pressure. He denies shortness of breath. He remains on IV Lasix. Vital signs are stable. PHYSICAL EXAM: VITAL SIGNS: Reviewed. GENERAL: Well-developed in no acute distress. NECK: Supple. No JVD or thyromegaly LUNGS: Respirations even and unlabored. Lungs with crackles at the bases HEART: Regular rate and rhythm. S1 and S2 heard. EXTREMITIES: Normal range of motion. No clubbing or cyanosis. Peripheral pulses intact. 1+ bilateral lower extremity edema ASSESSMENT: Persistent typical atrial flutter, rate controlled Acute on chronic heart failure with reduced EF, 25-30% History of nonischemic cardiomyopathy History of mild coronary artery disease Morbid obesity, BMI 48 Diabetes mellitus PLAN: Discontinue IV Lasix. Begin oral Lasix Continue additional cardiac medications No plans for SAMMIE/cardioversion at this time. We will continue with medical management Recommend outpatient ablation for atrial flutter Patient is stable for discharge home today from a cardiac standpoint He is to follow-up post discharge in the office Nurse practitioner note has been reviewed by physician. Signing provider agrees with the documented findings, assessment, and plan of care. Objective - Vital Signs Vital signs: Vital Signs Temp 97.5 F L 08/16/23 08:00 Pulse 77 08/16/23 11:37 Resp 18 08/16/23 11:37 BP 115/66 08/16/23 11:37 Pulse Ox 99 08/16/23 11:37 FiO2 Intake & Output 08/15/23 08/16/23 08/16/23 18:59 06:59 18:59 Intake Total 600 720 Output Total 1425 900 500 Balance -825 -900 220 Weight 138.3 kg 137.6 kg Intake: Oral 600 720 Output: Urine 1425 900 500 Other: Voiding Method External Catheter External Catheter # Voids 1 1 - Labs CBC & Chem 7: 08/13/23 11:39 08/16/23 10:31 Labs: Abnormal Lab Results - Last 24 Hours (Table) 08/16/23 Range/Units 10:31 Chloride 93 L (98-107) mmol/L Carbon Dioxide 35 H (22-30) mmol/L Glucose 111 H (74-99) mg/dL Microbiology - Last 24 Hours (Table) 08/13/23 18:25 Blood Culture - Preliminary Blood 08/13/23 18:10 Blood Culture - Preliminary Blood
[2023-08-16] MEDS: CYCLOBENZAPRINE 10 MG TAB PO PRN (13:56)
[2023-08-16] MEDS ORDERED: FUROSEMIDE 40 MG TAB PO SCH (16:00)
--- NOTE | 2023-08-16 22:38 | DS ---
DISCHARGE SUMMARY CHIEF COMPLAINT: Congestive heart failure. HISTORY OF PRESENT ILLNESS AND PHYSICAL EXAMINATION: Details of this man's history and physical can be found in the initial workup. LABORATORY STUDIES: While he was in the hospital, he had laboratory studies, details of which can be found in the laboratory section of his chart. COURSE IN THE HOSPITAL: After admission, he was placed on bedrest, started on intravenous fluids, and he was diuresed. He was seen by Cardiology. His echocardiogram revealed an ejection fraction of 30% to 33%. He also had a cardiac arrhythmia going from atrial flutter to normal sinus rhythm. It was felt that he could be discharged on the and he will go home on his usual activity and diet. Some of his medications will be changed and will be seen in the office in several days. FINAL DIAGNOSES: 1. Acute congestive heart failure. 2. Supraventricular arrhythmia. 3. Obesity. 4. Hypertension. OPERATIONS: None. CONSULTATIONS: Cardiology. He is improved. MMJERICA / CHELAN: [id number] /
== END 2023-08-16 15:20 | disposition home or self-care (01) | DRG 291 ==
LOC: EC 11:11 → 4SSUR 17:06 → 3SCARD 08-14 09:24
PROVIDERS: ADMIT Family Medicine; ATTEND Family Medicine
DX: I11.0 Hypertensive heart disease with heart failure (principal); I50.23 Acute on chronic systolic (congestive) heart failure; I48.3 Typical atrial flutter; Z68.42 Body mass index [BMI] 45.0-49.9, adult; I25.10 Atherosclerotic heart disease of native coronary artery without angina pectoris; I42.8 Other cardiomyopathies; F32.A Depression, unspecified; E66.01 Morbid (severe) obesity due to excess calories; F41.9 Anxiety disorder, unspecified; E78.5 Hyperlipidemia, unspecified; I48.91 Unspecified atrial fibrillation; I49.3 Ventricular premature depolarization; J44.9 Chronic obstructive pulmonary disease, unspecified; Z79.82 Long term (current) use of aspirin; Z79.84 Long term (current) use of oral hypoglycemic drugs; Z79.899 Other long term (current) drug therapy; Z83.3 Family history of diabetes mellitus; Z87.891 Personal history of nicotine dependence; Z71.3 Dietary counseling and surveillance; Z28.310 Unvaccinated for COVID-19; Z28.21 Immunization not carried out because of patient refusal; Z79.1 Long term (current) use of non-steroidal anti-inflammatories (NSAID)
CPT/HCPCS: 36415; 71046; 80048; 80053; 83605; 83735; 83880; 84443; 84484; 85025; 85610; 85730; 87040; 87636; 93005; 93306; 94660; 96365; 96366; 96367; 96375; 96376; 99285

== ENCOUNTER 2023-08-22 10:41 | Observation (INO) | payer MEDICARE, OTHER ==
[2023-08-22 11:12] LABS: Basophils % (A) 0 %; Eosinophils # (A) 0.2 k/uL (0-0.7); Eosinophils % (A) 2 %; HCT 54.5 % (39.0-53.0); Lymphocytes # (A) 1.2 k/uL (1.0-4.8); Lymphocytes % (A) 14 %; MCHC 32.4 g/dL (31.0-37.0); MCV 92.5 fL (80.0-100.0); Mean Platelet Volume 9.2; Monocytes # (A) 0.5 k/uL (0-1.0); Monocytes % (A) 5 %; Neutrophils # (A) 6.9 k/uL (1.3-7.7); Neutrophils % (A) 76 %; Platelet Count 224 k/uL (150-450); RDW 14.2 % (11.5-15.5)
[2023-08-22 11:26] LABS: INR 1.2 (<1.2); Prothrombin Time 12.5 sec (10.0-12.5)
[2023-08-22 11:29] LABS: HGB 17.7 gm/dL (13.0-17.5)
[2023-08-22 11:43] LABS: ALT 28 U/L (4-49); AST 40 U/L (17-59); African American GFR (CKD) 86 (>60 ml/min/1.73 sqM); Albumin 4.4 g/dL (3.5-5.0); Alkaline Phosphatase 87 U/L (38-126); Anion Gap 10 mmol/L; Blood Urea Nitrogen 19 mg/dL (9-20); Calcium 9.8 mg/dL (8.4-10.2); Carbon Dioxide 30 mmol/L (22-30); Chloride 98 mmol/L (98-107); Glucose 134 mg/dL (74-99); Magnesium 1.9 mg/dL (1.6-2.3); Non-African American GFR(CKD) 75 (>60 ml/min/1.73 sqM); Potassium 4.5 mmol/L (3.5-5.1); Sodium 138 mmol/L (137-145); Total Bilirubin 0.7 mg/dL (0.2-1.3); Total Protein 8.1 g/dL (6.3-8.2)
[2023-08-22 11:48] LABS: NT-Pro-B-Type Natriuretic Pept 2370 pg/mL
--- NOTE | 2023-08-22 12:11 | XR ---
EXAMINATION TYPE: XR chest 2V DATE OF EXAM: 08/22/2023 COMPARISON: 08/13/2023 TECHNIQUE: PA and lateral views submitted. HISTORY: sob FINDINGS: Limited inspiration. There is a persisting cardiomegaly and mild interstitial coarsening. No sizable pleural effusion or pneumothorax. Suspect underlying COPD. A prominence of the hilum is stable. Ectas ia of the aorta area IMPRESSION: 1. Cardiomegaly with findings suggestive of interstitial pneumonitis or chronic interstitial lung dis ease. 2. Right hilar prominence. Consider follow-up CT scan.
--- NOTE | 2023-08-22 12:18 | ED ---
General Adult HPI - General Chief complaint: Shortness of Breath Stated complaint: SOB,Chest pain Time Seen by Provider: 08/22/23 11:55 Source: patient, RN notes reviewed, old records reviewed Mode of arrival: ambulatory Limitations: no limitations - History of Present Illness Initial comments: This is a 63-year-old male who presents emergency department stating that he was discharged from the hospital last Tuesday saw his primary doctor on Tuesday. Patient states since Tuesday evening he's been having some shortness of breath and it is worse with exertion. Patient states she's also been having more more difficulty urinating. Patient states she is on Lasix but since Tuesday he's only been able to go a little at a time when he does go and sometimes she can't go at all. Patient denies any fever chills. Patient denies a cough. Patient denies any chest pain. Patient states he has chest tightness which is consistent with his heart failure in the past. Patient states he has a little bit of swelling to his legs but no worse than normal. - Related Data Home Medications Medication Instructions Recorded Confirmed ALPRAZolam [Xanax] 1 mg PO TID PRN 06/26/16 08/22/23 Carvedilol 25 mg PO BID-W/MEALS 06/26/16 08/22/23 Fluticasone Nasal [place] [Flonase 1 spr EA NOSTRIL DAILY 06/26/16 08/22/23 Nasal [place]] Nitroglycerin Sl Tabs [Nitrostat] 0.4 mg SL Q5M PRN 03/08/17 08/22/23 HYDROcodone/APAP 10-325MG [[place] 1 tab PO Q6H PRN 09/21/18 08/22/23 10-325] Albuterol Nebulized [Ventolin 2.5 mg INHALATION RT-QID PRN 01/15/19 08/22/23 Nebulized] Ergocalciferol (Vitamin D2) 1,250 mcg PO MO 07/27/21 08/22/23 [Drisdol (50,000 Iu)] Potassium Chloride [Klor-Con M10] 10 meq PO BID-W/MEALS 07/27/21 08/22/23 Famotidine [Pepcid] 20 mg PO HS 10/23/22 08/22/23 Lidocaine 5% Oint [Xylocaine 5% 1 applic TOPICAL DAILY PRN 10/23/22 08/22/23 Oint] Nitroglycerin 0.4MG/Hr Patch 1 patch TRANSDERM DAILY 10/23/22 08/22/23 [Nitro-Dur 0.4MG/Hr Patch] Olopatadine HCl [Pataday] 1 drop BOTH EYES BID 10/23/22 08/22/23 Simvastatin [Zocor] 40 mg PO HS 10/23/22 08/22/23 Tamsulosin HCl [Flomax] 0.4 mg PO DAILY 10/23/22 08/22/23 Albuterol Inhaler [Ventolin Hfa 2 puff INHALATION RT-Q4H PRN 02/02/23 08/22/23 Inhaler] Furosemide [Lasix] 120 mg PO DAILY 08/13/23 08/22/23 Sacubitril/Valsartan [Entresto 24 1 tab PO BID 08/22/23 08/22/23 mg-26 mg Tablet] Previous Rx's Medication Instructions Recorded Aspirin [Adult Low Dose Aspirin EC] 81 mg PO DAILY #30 tablet. 09/23/18 Cyclobenzaprine [Flexeril] 10 mg PO BID #60 tablet 09/23/18 Docusate [Colace] 100 mg PO DAILY PRN #30 cap 09/23/18 Apixaban [Eliquis] 5 mg PO BID #60 tab 08/16/23 Allergies Allergy/AdvReac Type Severity Reaction Status Date / Time No Known Allergies Allergy Verified 08/22/23 12:52 Review of Systems ROS Statement: Those systems with pertinent positive or pertinent negative responses have been documented in the HPI. ROS Other: All systems not noted in ROS Statement are negative. Past Medical History Past Medical History: Heart Failure, COPD, Diabetes Mellitus, GERD/Reflux, Hyperlipidemia, Hypertension, Osteoarthritis (OA), Prostate Disorder, Sleep Apnea/CPAP/BIPAP Additional Past Medical History / Comment(s): ASCENDING THORACIC ANEURYSM, Palpitations, "LEAKY VALVE." USES BI PAP MACHINE, CONSTIPATION. EDEMA ANKLES. Influenza A History of Any Multi-Drug Resistant Organisms: None Reported Past Surgical History: Orthopedic Surgery Additional Past Surgical History / Comment(s): ARTHROSCOPIC RIGHT KNEE - EXC GLASS, HEMORRHOIDECTOMY. COLONOSCOPY. Past Anesthesia/Blood Transfusion Reactions: Previous Problems w/ Anesthesia Additional Past Anesthesia/Blood Transfusion Reaction / Comment(s): AWAKE DURING SURGERY, IN PAIN. Past Psychological History: Anxiety, Depression Smoking Status: Former smoker Past Alcohol Use History: None Reported Past Drug Use History: None Reported - Past Family History Father Family Medical History: Cancer, Diabetes Mellitus Mother Family Medical History: Cancer General Exam - General Exam Comments Initial Comments: GENERAL: Patient is well-developed and well-nourished. Patient is nontoxic and well- hydrated and is in mild distress. ENT: Neck is soft and supple. No significant lymphadenopathy is noted. Oropharynx is clear. Moist mucous membranes. Neck has full range of motion without eliciting any pain. EYES: The sclera were anicteric and conjunctiva were pink and moist. Extraocular movements were intact and pupils were equal round and reactive to light. Eyelids were unremarkable. PULMONARY: Unlabored respirations. Good breath sounds bilaterally. No audible rales rhonchi or wheezing was noted. CARDIOVASCULAR: There is a regular rate and rhythm without any murmurs gallops or rubs. ABDOMEN: Soft and nontender with normal bowel sounds. SKIN: Skin is clear with no lesions or rashes and otherwise unremarkable. NEUROLOGIC: Patient is alert and oriented x3. Cranial nerves II through XII are grossly intact. Motor and sensory are also intact. Normal speech, volume and content. Symmetrical smile. MUSCULOSKELETAL: Normal extremities with adequate strength and full range of motion. 1+ edema bilaterally LYMPHATICS: No significant lymphadenopathy is noted PSYCHIATRIC: Normal psychiatric evaluation. Limitations: no limitations Course Vital Signs 08/22/23 08/22/23 10:44 11:42 Temperature 98.1 F Pulse Rate 93 Respiratory 20 20 Rate Blood Pressure 179/100 O2 Sat by Pulse 96 Oximetry Medical Decision Making - Medical Decision Making EKG is interpreted by myself. EKG shows a sinus rhythm at 94 bpm GA interval is 225 QRS is 170 QT interval 352 QTC is 44. Patient's EKG shows no ST segment elevation or depression. Was pt. sent in by a medical professional or institution (, PA, [employer], urgent care, hospital, or retirement...) When possible be specific @ -No Did you speak to anyone other than the patient for history (EMS, parent, family, police, friend...)? What history was obtained from this source @ -No Did you review nursing and triage notes (agree or disagree)? Why? @ -I reviewed and agree with nursing and triage notes Were old charts reviewed (outside hosp., previous admission, EMS record, old EKG, old radiological studies, urgent care reports/EKG's, retirement records)? Report findings @ -Reviewed prior charts a prior laboratory prior radiological studies Differential Diagnosis (chest pain, altered mental status, abdominal pain women, abdominal pain men, vaginal bleeding, weakness, fever, dyspnea, syncope, headache, dizziness, GI bleed, back pain, seizure, CVA, palpatations, mental health, musculoskeletal)? @ -Differential Dyspnea: Coronary syndrome, arrhythmia, tamponade, asthma, COPD, pulmonary embolism, pneumonia, pneumothorax, pulmonary effusion, anaphylaxis, diabetic ketoacidosis, flailed chest, pulmonary contusion, diaphragmatic rupture, anemia, neuromuscular, this is not meant to be an all-inclusive list. EKG interpreted by me (3pts min.). @ -As above X-rays interpreted by me (1pt min.). @ -Chest x-ray shows mild pulmonary edema CT interpreted by me (1pt min.). @ -None done U/S interpreted by me (1pt. min.). @ -None done What testing was considered but not performed or refused? (CT, X-rays, U/S, labs)? Why? @ -None What meds were considered but not given or refused? Why? @ -None Did you discuss the management of the patient with other professionals (professionals i.e. , PA, [employer], lab, RT, psych nurse, social problems specialist, urology physician assistant, teacher, aoc director combat plans officer, caser up)? Give summary @ -I spoke with Dr. Banerjee and he agreed to admit the patient Was smoking cessation discussed for >3mins.? @ -No Was critical care preformed (if so, how long)? @ -No Were there social determinants of health that impacted care today? How? (Homelessness, low income, unemployed, alcoholism, drug addiction, transportation, low edu. Level, literacy, decrease access to med. care, nursing home, re hab)? @ -No Was there de-escalation of care discussed even if they declined (Discuss DNR or withdrawal of care, Hospice)? DNR status @ -No What co-morbidities impacted this encounter? (DM, HTN, Smoking, COPD, CAD, Cancer, CVA, ARF, Chemo, Hep., AIDS, mental health diagnosis, sleep apnea, morbid obesity)? @ -None Was patient admitted / discharged? Hospital course, mention meds given and route, prescriptions, significant lab abnormalities, going to OR and other pertinent info. @ -Patient had some suprapubic tenderness I did a bladder scan on the patient had 850 mL however he put the Walsh and he had 1.5 L of urine out. Patient did feel much more comfortable after that however he still felt like he was short of breath and did not feel comfortable going home. At this point, I spoke with Dr. Epps and Dr. Banejree and agreed that he would admit the patient. Undiagnosed new problem with uncertain prognosis? @ -No Drug Therapy requiring intensive monitoring for toxicity (Heparin, Nitro, Insulin, Cardizem)? @ -No Were any procedures done? @ -No Diagnosis/symptom? @ -Urinary retention Acute, or Chronic, or Acute on Chronic? @ -Acute Uncomplicated (without systemic symptoms) or Complicated (systemic symptoms)? @ -Complicated Side effects of treatment? @ -No Exacerbation, Progression, or Severe Exacerbation? @ -No Poses a threat to life or bodily function? How? (Chest pain, [place], [place], pneumonia, PE, COPD, DKA, ARF, appy, cholecystitis, CVA, Diverticulitis, Homicidal, Suicidal, threat to staff... and all critical care pts) @ -No Diagnosis/symptom? @ -Pulmonary edema Acute, or Chronic, or Acute on Chronic? @ -Acute Uncomplicated (without systemic symptoms) or Complicated (systemic symptoms)? @ -Complicated Side effects of treatment? @ -none Exacerbation, Progression, or Severe Exacerbation] @ -no Poses a threat to life or bodily function? @ -Yes this could lead to hypoxia nontender organ dysfunction - Lab Data Result diagrams: 08/22/23 10:53 08/22/23 10:53 Lab Results 08/22/23 08/22/23 08/22/23 Range/Units 10:53 10:53 10:53 WBC 9.0 (3.8-10.6) k/uL RBC 5.90 (4.30-5.90) m/uL Hgb 17.7 H D (13.0-17.5) gm/dL Hct 54.5 H (39.0-53.0) % MCV 92.5 (80.0-100.0) fL MCH 30.0 (25.0-35.0) pg MCHC 32.4 (31.0-37.0) g/dL RDW 14.2 (11.5-15.5) % Plt Count 224 (150-450) k/uL MPV 9.2 Neutrophils % 76 % Lymphocytes % 14 % Monocytes % 5 % Eosinophils % 2 % Basophils % 0 % Neutrophils # 6.9 (1.3-7.7) k/uL Lymphocytes # 1.2 (1.0-4.8) k/uL Monocytes # 0.5 (0-1.0) k/uL Eosinophils # 0.2 (0-0.7) k/uL Basophils # 0.0 (0-0.2) k/uL PT 12.5 (10.0-12.5) sec INR 1.2 H (<1.2) APTT 29.0 (22.0-30.0) sec Sodium 138 (137-145) mmol/L Potassium 4.5 (3.5-5.1) mmol/L Chloride 98 (98-107) mmol/L Carbon Dioxide 30 (22-30) mmol/L Anion Gap 10 mmol/L BUN 19 (9-20) mg/dL Creatinine 1.05 (0.66-1.25) mg/dL Est GFR (CKD-EPI)AfAm 86 (>60 ml/min/1.73 sqM) Est GFR (CKD-EPI)NonAf 75 (>60 ml/min/1.73 sqM) Glucose 134 H (74-99) mg/dL Plasma Lactic Acid Song (0.7-2.0) mmol/L Calcium 9.8 (8.4-10.2) mg/dL Magnesium 1.9 (1.6-2.3) mg/dL Total Bilirubin 0.7 (0.2-1.3) mg/dL AST 40 (17-59) U/L ALT 28 (4-49) U/L Alkaline Phosphatase 87 (38-126) U/L Troponin I (0.000-0.034) ng/mL NT-Pro-B Natriuret Pep 2370 pg/mL Total Protein 8.1 (6.3-8.2) g/dL Albumin 4.4 (3.5-5.0) g/dL Urine Color Urine Appearance (Clear) Urine pH (5.0-8.0) Ur Specific [place] (1.001-1.035) Urine Protein (Negative) Urine Glucose (UA) (Negative) Urine Ketones (Negative) Urine Blood (Negative) Urine Nitrite (Negative) Urine Bilirubin (Negative) Urine Urobilinogen (<2.0) mg/dL Ur Leukocyte Esterase (Negative) 08/22/23 08/22/23 08/22/23 Range/Units 10:53 12:35 12:48 WBC (3.8-10.6) k/uL RBC (4.30-5.90) m/uL Hgb (13.0-17.5) gm/dL Hct (39.0-53.0) % MCV (80.0-100.0) fL MCH (25.0-35.0) pg MCHC (31.0-37.0) g/dL RDW (11.5-15.5) % Plt Count (150-450) k/uL MPV Neutrophils % % Lymphocytes % % Monocytes % % Eosinophils % % Basophils % % Neutrophils # (1.3-7.7) k/uL Lymphocytes # (1.0-4.8) k/uL Monocytes # (0-1.0) k/uL Eosinophils # (0-0.7) k/uL Basophils # (0-0.2) k/uL PT (10.0-12.5) sec INR (<1.2) APTT (22.0-30.0) sec Sodium (137-145) mmol/L Potassium (3.5-5.1) mmol/L Chloride (98-107) mmol/L Carbon Dioxide (22-30) mmol/L Anion Gap mmol/L BUN (9-20) mg/dL Creatinine (0.66-1.25) mg/dL Est GFR (CKD-EPI)AfAm (>60 ml/min/1.73 sqM) Est GFR (CKD-EPI)NonAf (>60 ml/min/1.73 sqM) Glucose (74-99) mg/dL Plasma Lactic Acid Song 1.6 (0.7-2.0) mmol/L Calcium (8.4-10.2) mg/dL Magnesium (1.6-2.3) mg/dL Total Bilirubin (0.2-1.3) mg/dL AST (17-59) U/L ALT (4-49) U/L Alkaline Phosphatase (38-126) U/L Troponin I 0.039 H* (0.000-0.034) ng/mL NT-Pro-B Natriuret Pep pg/mL Total Protein (6.3-8.2) g/dL Albumin (3.5-5.0) g/dL Urine Color Yellow Urine Appearance Clear (Clear) Urine pH 6.0 (5.0-8.0) Ur Specific [place] 1.019 (1.001-1.035) Urine Protein Negative (Negative) Urine Glucose (UA) Negative (Negative) Urine Ketones Negative (Negative) Urine Blood Negative (Negative) Urine Nitrite Negative (Negative) Urine Bilirubin Negative (Negative) Urine Urobilinogen <2.0 (<2.0) mg/dL Ur Leukocyte Esterase Negative (Negative) Disposition Clinical Impression: Acute pulmonary edema, Urinary retention Disposition: ADMITTED IP TO THIS HOSP Referrals: Reagan Epps MD [Primary Care Provider] - 1-2 days Time of Disposition: 14:00
[2023-08-22 13:03] LABS: Appearance,Urine Clear (Clear); Bilirubin,Urine Negative (Negative); Blood,Urine Negative (Negative); Color,Urine Yellow; Glucose,Urine (UA) Negative (Negative); Ketones,Urine Negative (Negative); Leukocyte Esterase,Urine Negative (Negative); Nitrite,Urine Negative (Negative); Protein,Urine Negative (Negative); Specific Gravity,Urine 1.019 (1.001-1.035); Urobilinogen,Urine <2.0 mg/dL (<2.0)
[2023-08-22] MEDS: FUROSEMIDE 10 MG/ML 10 ML VIAL IV STA (14:05)
[2023-08-22] MEDS: FUROSEMIDE 10 MG/ML 4 ML VIAL IV SCH (14:11)
[2023-08-22] MEDS ORDERED: DOCUSATE 100 MG CAP PO PRN (18:23)
--- NOTE | 2023-08-22 18:27 | P.CNPUL ---
History of Present Illness Consult date: 08/22/23 Reason for consult: dyspnea History of present illness: *Live* [facility] [place] [address], [place] [address] Pulmonology - Consult Note Patient Name: Hudson Welch Date of : 1960 Patient Status: Surgical Day Care Attending Provider: Haim Farrell Date: 08/22/23 17:19 Initialization Date: 08/22/23 17:19 History of Present Illness Consult date: 08/22/23 Reason for consult: dyspnea History of present illness: A 63-year-old morbidly obese male patient with known history of obstructive sleep apnea maintained on BiPAP at a pressure of 18/14 cm of water in addition to diabetes mellitus type 2, hypertension, COPD. The patient is known to have mild COPD with an FEV1 of 76% of predicted. He is not oxygen dependent. He presented emergency department because of worsening shortness of breath. He also reported difficulties in urination. He has been taking Lasix on outpatient basis. Denies having any fever or chills. No cough or sputum production. No chest pain. He did have some increased swelling lower extremities bilaterally. He has had chronic edema in his legs. In the emergency, the patient was found to be afebrile. BP was elevated at 179/100. His blood work shows a regular physical of 9, hemoglobin of 17, platelet count of 224, sodium is at 139, BUN is at 19 with a creatinine of 1 and a trigger level of 134. ProBNP level was 2370. Lactic acid level was 1.6. Troponin was 0.039 and UA was negative. Chest x- ray showed cardiomegaly with interstitial edema. There is also right hilar prominence. Note that the patient was recently in the hospital. He was seen by cardiology in 08/14/2023. At that time, he was found to have a flutter with a controlled rate and exacerbation of CHF. He was started on diuretics. He was given Entresto in combination with oral anticoagulation. His echo cardiac exam showed an acute on top of chronic systolic heart failure with an ejection f raction of 25-30%. This was a nonischemic cardiomyopathy. Is known to have mild nonocclusive coronary artery disease. He is a flutter was controlled. No cardioversion was done and he was treated medically by medication. He was discharged home on 08/16/2023. Review of Systems Constitutional: Denies chills, Denies fever Eyes: denies blurred vision, denies pain Ears, nose, mouth and throat: Denies headache, Denies sore throat Cardiovascular: Reports chest pain, endorses shortness of breath Respiratory: Reports dyspnea in addition to lower extremity edema, the patient also has obstructive sleep apnea maintained on BiPAP therapy Gastrointestinal: Denies abdominal pain, Denies diarrhea, Denies nausea, Denies vomiting Musculoskeletal: Denies myalgias Integumentary: Denies pruritus, Denies rash Neurological: Denies numbness, Denies weakness Psychiatric: Denies anxiety, Denies depression Endocrine: Denies fatigue, Denies weight change Past Medical History Past Medical History: Heart Failure, COPD, Diabetes Mellitus, GERD/Reflux, Hyperlipidemia, Hypertension, Osteoarthritis (OA), Prostate Disorder, Sleep Apnea/CPAP/BIPAP Additional Past Medical History / Comment(s): ASCENDING THORACIC ANEURYSM, Palpitations, "LEAKY VALVE." USES BI PAP MACHINE, CONSTIPATION. EDEMA ANKLES. Influenza A History of Any Multi-Drug Resistant Organisms: None Reported Past Surgical History: Orthopedic Surgery Additional Past Surgical History / Comment(s): ARTHROSCOPIC RIGHT KNEE - EXC GLASS, HEMORRHOIDECTOMY. COLONOSCOPY. Past Anesthesia/Blood Transfusion Reactions: Previous Problems w/ Anesthesia Additional Past Anesthesia/Blood Transfusion Reaction / Comment(s): AWAKE DURING SURGERY, IN PAIN. Past Psychological History: Anxiety, Depression Smoking Status: Former smoker Past Alcohol Use History: None Reported Additional Past Alcohol Use History / Comment(s): STARTED SMOKING AT AGE 6, QUIT CIG AT 14, SMOKED 1 PACK PER WEEK Past Drug Use History: None Reported Additional Drug Use History / Comment(s): NO MARIJUANA QUIT 1988 - Past Family History Father Family Medical History: Cancer, Diabetes Mellitus Mother Family Medical History: Cancer Medications and Allergies Home Medications Medication Instructions Recorded Confirmed Type ALPRAZolam [Xanax] 1 mg PO TID PRN 06/26/16 08/22/23 History Carvedilol 25 mg PO BID-W/MEALS 06/26/16 08/22/23 History Fluticasone Nasal [place] [Flonase 1 spr EA NOSTRIL DAILY 06/26/16 08/22/23 History Nasal [place]] Nitroglycerin Sl Tabs [Nitrostat] 0.4 mg SL Q5M PRN 03/08/17 08/22/23 History HYDROcodone/APAP 10-325MG [[place] 1 tab PO Q6H PRN 09/21/18 08/22/23 History 10-325] Aspirin [Adult Low Dose Aspirin EC] 81 mg PO DAILY #30 tablet. 09/23/18 Rx Cyclobenzaprine [Flexeril] 10 mg PO BID #60 tablet 09/23/18 08/22/23 Rx Docusate [Colace] 100 mg PO DAILY PRN #30 cap 09/23/18 08/22/23 Rx Albuterol Nebulized [Ventolin 2.5 mg INHALATION RT-QID PRN 01/15/19 08/22/23 History Nebulized] Ergocalciferol (Vitamin D2) 1,250 mcg PO MO 07/27/21 08/22/23 History [Drisdol (50,000 Iu)] Potassium Chloride [Klor-Con M10] 10 meq PO BID-W/MEALS 07/27/21 08/22/23 History Famotidine [Pepcid] 20 mg PO HS 10/23/22 08/22/23 History Lidocaine 5% Oint [Xylocaine 5% 1 applic TOPICAL DAILY PRN 10/23/22 08/22/23 History Oint] Nitroglycerin 0.4MG/Hr Patch 1 patch TRANSDERM DAILY 10/23/22 08/22/23 History [Nitro-Dur 0.4MG/Hr Patch] Olopatadine HCl [Pataday] 1 drop BOTH EYES BID 10/23/22 08/22/23 History Simvastatin [Zocor] 40 mg PO HS 10/23/22 08/22/23 History Tamsulosin HCl [Flomax] 0.4 mg PO DAILY 10/23/22 08/22/23 History Albuterol Inhaler [Ventolin Hfa 2 puff INHALATION RT-Q4H PRN 02/02/23 08/22/23 History Inhaler] Furosemide [Lasix] 120 mg PO DAILY 08/13/23 08/22/23 History Apixaban [Eliquis] 5 mg PO BID #60 tab 08/16/23 08/22/23 Rx Sacubitril/Valsartan [Entresto 24 1 tab PO BID 08/22/23 08/22/23 History mg-26 mg Tablet] Allergies Allergy/AdvReac Type Severity Reaction Status Date / Time No Known Allergies Allergy Verified 08/22/23 12:52 Physical Exam GENERAL EXAM: Alert, very pleasant, 61-year-old morbidly obese -Slovenian male on room air oxygen and the pulse ox of 94%, comfortable in no apparent dis tress. HEAD: Normocephalic/atraumatic. EYES: Normal reaction of pupils, equal size. Conjunctiva pink, sclera white. NOSE: Clear with pink turbinates. THROAT: No erythema or exudates. NECK: No masses, no JVD, no thyroid enlargement, no adenopathy. CHEST: No chest wall deformity. Symmetrical expansion. LUNGS: Equal air entry with diminished breath sounds bilaterally CVS: Regular rate and rhythm, normal S1 and S2, no gallops, no murmurs, no rubs ABDOMEN: Soft, nontender. No hepatosplenomegaly, normal bowel sounds, no guarding or rigidity. EXTREMITIES: No clubbing, and there is +1 pitting lower extremity edema, no cyanosis, 2+ pulses and upper and lower extremities. MUSCULOSKELETAL: Muscle strength and tone normal. SPINE: No scoliosis or deformity SKIN: No rashes CENTRAL NERVOUS SYSTEM: Alert and oriented -3. No focal deficits, tone is normal in all 4 extremities. PSYCHIATRIC: Alert and oriented -3. Appropriate affect. Intact judgment and insight. Results - Diagnostic Findings Chest x-ray: image reviewed Assessment and Plan Plan: Shortness of breath, acute on chronic, attributed to decompensated heart failure. Chest x-ray showing hepatomegaly pulmonary vascular congestion and the patient has increased lower extremity edema and a proBNP level is elevated Systolic heart failure with an ejection fraction of 20-25%, started on a combination of Coreg, and Entresto A flutter, current cardiac rhythm is sinus with a first-degree AV block, maintain on anticoagulation and the patient is currently on Eliquis BPH with some urinary retention, renal function stable, currently on Flomax COPD, mild with an FEV1 of 76% of predicted at baseline Obstructive sleep apnea maintained on BiPAP therapy at a pressure of 18/14 cm of water Hypertension, blood pressure is elevated at the time of admission Diabetes mellitus type 2 History of a stable right midlung pulmonary nodule measuring 6 cm in size, unchanged since 2013 Thoracic ascending aortic aneurysm measuring 4.5 cm in size Nonocclusive coronary artery disease Obesity Previous history of smoking Plan Is already feeling better on diuretics. Walsh catheter was inserted in the emergency and the patient is producing adequate amount of urine output. Resume Coreg Resume Entresto Resume anticoagulation with Eliquis Monitor electrolytes Monitor fluid balance The patient will maintain his BiPAP machine is broken and was to work on getting a new BiPAP machine and this should be available at time of discharge We'll continue to follow. The patient is currently on room air oxygen. Past Medical History Past Medical History: Heart Failure, COPD, Diabetes Mellitus, GERD/Reflux, Hyperlipidemia, Hypertension, Osteoarthritis (OA), Prostate Disorder, Sleep Apnea/CPAP/BIPAP Additional Past Medical History / Comment(s): ASCENDING THORACIC ANEURYSM, Palpitations, "LEAKY VALVE." USES BI PAP MACHINE, CONSTIPATION. EDEMA ANKLES. Influenza A History of Any Multi-Drug Resistant Organisms: None Reported Past Surgical History: Orthopedic Surgery Additional Past Surgical History / Comment(s): ARTHROSCOPIC RIGHT KNEE - EXC GLASS, HEMORRHOIDECTOMY. COLONOSCOPY. Past Anesthesia/Blood Transfusion Reactions: Previous Problems w/ Anesthesia Additional Past Anesthesia/Blood Transfusion Reaction / Comment(s): AWAKE DURING SURGERY, IN PAIN. Past Psychological History: Anxiety, Depression Smoking Status: Former smoker Past Alcohol Use History: None Reported Past Drug Use History: None Reported - Past Family History Father Family Medical History: Cancer, Diabetes Mellitus Mother Family Medical History: Cancer Medications and Allergies Home Medications Medication Instructions Recorded Confirmed Type ALPRAZolam [Xanax] 1 mg PO TID PRN 06/26/16 08/22/23 History Carvedilol 25 mg PO BID-W/MEALS 06/26/16 08/22/23 History Fluticasone Nasal [place] [Flonase 1 spr EA NOSTRIL DAILY 06/26/16 08/22/23 History Nasal [place]] Nitroglycerin Sl Tabs [Nitrostat] 0.4 mg SL Q5M PRN 03/08/17 08/22/23 History HYDROcodone/APAP 10-325MG [[place] 1 tab PO Q6H PRN 09/21/18 08/22/23 History 10-325] Aspirin [Adult Low Dose Aspirin EC] 81 mg PO DAILY #30 tablet. 09/23/18 08/22/23 Rx Cyclobenzaprine [Flexeril] 10 mg PO BID #60 tablet 09/23/18 08/22/23 Rx Docusate [Colace] 100 mg PO DAILY PRN #30 cap 09/23/18 08/22/23 Rx Albuterol Nebulized [Ventolin 2.5 mg INHALATION RT-QID PRN 01/15/19 08/22/23 History Nebulized] Ergocalciferol (Vitamin D2) 1,250 mcg PO MO 07/27/21 08/22/23 History [Drisdol (50,000 Iu)] Potassium Chloride [Klor-Con M10] 10 meq PO BID-W/MEALS 07/27/21 08/22/23 History Famotidine [Pepcid] 20 mg PO HS 10/23/22 08/22/23 History Lidocaine 5% Oint [Xylocaine 5% 1 applic TOPICAL DAILY PRN 10/23/22 08/22/23 History Oint] Nitroglycerin 0.4MG/Hr Patch 1 patch TRANSDERM DAILY 10/23/22 08/22/23 History [Nitro-Dur 0.4MG/Hr Patch] Olopatadine HCl [Pataday] 1 drop BOTH EYES BID 10/23/22 08/22/23 History Simvastatin [Zocor] 40 mg PO HS 10/23/22 08/22/23 History Tamsulosin HCl [Flomax] 0.4 mg PO DAILY 10/23/22 08/22/23 History Albuterol Inhaler [Ventolin Hfa 2 puff INHALATION RT-Q4H PRN 02/02/23 08/22/23 History Inhaler] Furosemide [Lasix] 120 mg PO DAILY 08/13/23 08/22/23 History Apixaban [Eliquis] 5 mg PO BID #60 tab 08/16/23 08/22/23 Rx Sacubitril/Valsartan [Entresto 24 1 tab PO BID 08/22/23 08/22/23 History mg-26 mg Tablet] Allergies Allergy/AdvReac Type Severity Reaction Status Date / Time No Known Allergies Allergy Verified 08/22/23 12:52 Physical Exam Vitals: Vital Signs Temp Pulse Resp BP Pulse Ox 08/22/23 15:35 78 18 122/99 93 L 08/22/23 14:04 112 H 18 151/103 08/22/23 11:42 20 08/22/23 10:44 98.1 F 93 20 179/100 96 Intake and Output 08/22/23 08/22/23 08/22/23 06:59 14:59 22:59 Output Total 819 Balance -819 Output: Post Void Residual 819 Other: Weight 142.882 kg Results - Laboratory Findings CBC and BMP: 08/22/23 10:53 08/22/23 10:53 PT/INR, D-dimer PT 12.5 sec (10.0-12.5) 08/22/23 10:53 INR 1.2 (<1.2) H 08/22/23 10:53 Abnormal lab findings: Abnormal Labs 08/22/23 08/22/23 08/22/23 10:53 10:53 10:53 Hgb 17.7 H D Hct 54.5 H INR 1.2 H Glucose 134 H Troponin I 08/22/23 10:53 Hgb Hct INR Glucose Troponin I 0.039 H*
[2023-08-22] MEDS ORDERED: TAMSULOSIN 0.4 MG CAP.ER.24H PO SCH (18:30)
[2023-08-22] MEDS ORDERED: ASPIRIN 81 MG PO SCH (18:30)
[2023-08-22] MEDS: ALPRAZolam 1 MG TAB PO PRN (18:56)
[2023-08-22] MEDS: NITROGLYCERIN OINT 1 INCH/GM PACKET TOPICAL SCH (18:57)
[2023-08-22] MEDS: carvediloL 12.5 MG TAB PO SCH (18:57)
[2023-08-22] MEDS: APIXABAN 5 MG TAB PO SCH (21:46)
[2023-08-22] MEDS: FAMOTIDINE 20 MG TAB PO SCH (21:46)
[2023-08-22] MEDS: HYDROcodone/APAP 10-325MG 1 EACH TAB PO PRN (21:46)
[2023-08-22] MEDS: ATORVASTATIN 20 MG TAB PO SCH (21:46)
[2023-08-22] MEDS: CYCLOBENZAPRINE 10 MG TAB PO SCH (21:46)
[2023-08-22] MEDS: SACUBITRIL/VALSARTAN 24 MG-26 MG TABLET PO SCH (21:54)
[2023-08-23 05:57] LABS: Glucose,Whole Blood 114 mg/dL (70-110)
[2023-08-23] MEDS: ASPIRIN 81 MG PO SCH (08:11)
[2023-08-23] MEDS: TAMSULOSIN 0.4 MG CAP.ER.24H PO SCH (08:12)
--- NOTE | 2023-08-23 09:42 | P.PN ---
Subjective Progress Note Date: 08/23/23 A 63-year-old morbidly obese male patient with known history of obstructive sleep apnea maintained on BiPAP at a pressure of 18/14 cm of water in addition to diabetes mellitus type 2, hypertension, COPD. The patient is known to have mild COPD with an FEV1 of 76% of predicted. He is not oxygen dependent. He presented emergency department because of worsening shortness of breath. He also reported difficulties in urination. He has been taking Lasix on outpatient basis. Denies having any fever or chills. No cough or sputum production. No chest pain. He did have some increased swelling lower extremities bilaterally. He has had chronic edema in his legs. In the emergency, the patient was found to be afebrile. BP was elevated at 179/100. His blood work shows a regular physical of 9, hemoglobin of 17, platelet count of 224, sodium is at 139, BUN is at 19 with a creatinine of 1 and a trigger level of 134. ProBNP level was 2370. Lactic acid level was 1.6. Troponin was 0.039 and UA was negative. Chest x- ray showed cardiomegaly with interstitial edema. There is also right hilar prom inence. Note that the patient was recently in the hospital. He was seen by cardiology in 08/14/2023. At that time, he was found to have a flutter with a controlled rate and exacerbation of CHF. He was started on diuretics. He was given Entresto in combination with oral anticoagulation. His echo cardiac exam showed an acute on top of chronic systolic heart failure with an ejection fraction of 25-30%. This was a nonischemic cardiomyopathy. Is known to have mild nonocclusive coronary artery disease. He is a flutter was controlled. No cardioversion was done and he was treated medically by medication. He was discharged home on 08/16/2023. On 08/23/2023, seeing the patient for a follow-up. The patient is on a BiPAP here and was provided to him by respiratory therapy. Note that his BiPAP machine is broken and the patient will need a replacement machine prior to discharge. Meanwhile, he has a Walsh catheter in place and is producing adequate amount of urine output. Hemodynamically stable. No labs are available from today.The patient remains on Lasix 60 mg IV every 12 hours. Home medications have been resumed. [facility] sinus rhythm with first-degree AV block. He was also having frequent PVCs. Objective - Vital Signs Vital signs: Vital Signs Temp 96.9 F L 08/23/23 03:00 Pulse 85 08/23/23 08:00 Resp 16 08/23/23 08:00 BP 105/67 08/23/23 08:00 Pulse Ox 93 L 08/23/23 08:00 FiO2 Intake & Output 08/22/23 08/23/23 08/23/23 18:59 06:59 18:59 Intake Total 0 118 Output Total 819 600 Balance -819 -600 118 Weight 142.882 kg 183.5 kg Intake: Oral 0 118 Output: Urine 600 Post Void Residual 819 Other: Voiding Method Indwelling Catheter - Exam GENERAL EXAM: Alert, very pleasant, 61-year-old morbidly obese -[place] male on room air oxygen and the pulse ox of 94%, comfortable in no apparent distress. HEAD: Normocephalic/atraumatic. EYES: Normal reaction of pupils, equal size. Conjunctiva pink, sclera white. NOSE: Clear with pink turbinates. THROAT: No erythema or exudates. NECK: No masses, no JVD, no thyroid enlargement, no adenopathy. CHEST: No chest wall deformity. Symmetrical expansion. LUNGS: Equal air entry with diminished breath sounds bilaterally CVS: Regular rate and rhythm, normal S1 and S2, no gallops, no murmurs, no rubs ABDOMEN: Soft, nontender. No hepatosplenomegaly, normal bowel sounds, no guarding or rigidity. EXTREMITIES: No clubbing, and there is +1 pitting lower extremity edema, no cyanosis, 2+ pulses and upper and lower extremities. MUSCULOSKELETAL: Muscle strength and tone normal. SPINE: No scoliosis or deformity SKIN: No rashes CENTRAL NERVOUS SYSTEM: Alert and oriented -3. No focal deficits, tone is normal in all 4 extremities. PSYCHIATRIC: Alert and oriented -3. Appropriate affect. Intact judgment and insight. - Labs CBC & Chem 7: 08/22/23 10:53 08/22/23 10:53 Labs: Abnormal Lab Results - Last 24 Hours (Table) 08/22/23 08/22/23 08/22/23 Range/Units 10:53 10:53 10:53 Hgb 17.7 H D (13.0-17.5) gm/dL Hct 54.5 H (39.0-53.0) % INR 1.2 H (<1.2) Glucose 134 H (74-99) mg/dL POC Glucose (mg/dL) (70-110) mg/dL Troponin I (0.000-0.034) ng/mL 08/22/23 08/23/23 Range/Units 10:53 05:56 Hgb (13.0-17.5) gm/dL Hct (39.0-53.0) % INR (<1.2) Glucose (74-99) mg/dL POC Glucose (mg/dL) 114 H (70-110) mg/dL Troponin I 0.039 H* (0.000-0.034) ng/mL Assessment and Plan Plan: Shortness of breath, acute on chronic, attributed to decompensated heart failure. Chest x-ray showing hepatomegaly pulmonary vascular congestion and the patient has increased lower extremity edema and a proBNP level is elevated Systolic heart failure with an ejection fraction of 20-25%, started on a combination of Coreg, and Entresto A flutter, current cardiac rhythm is sinus with a first-degree AV block, maintain on anticoagulation and the patient is currently on Eliquis BPH with some urinary retention, renal function stable, currently on Flomax COPD, mild with an FEV1 of 76% of predicted at baseline Obstructive sleep apnea maintained on BiPAP therapy at a pressure of 18/14 cm of water Hypertension, blood pressure is elevated at the time of admission Diabetes mellitus type 2 History of a stable right midlung pulmonary nodule measuring 6 cm in size, unchanged since 2014 Thoracic ascending aortic aneurysm measuring 4.5 cm in size Nonocclusive coronary artery disease Obesity Previous history of smoking Plan Continue same treatment for now. Continue IV Lasix. Awaiting labs from today Keep Walsh catheter in place Is already feeling better on diuretics. Walsh catheter was inserted in the emergency and the patient is producing adequate amount of urine output. Resume Coreg Resume Entresto Resume anticoagulation with Eliquis Monitor electrolytes Monitor fluid balance The patient will maintain his BiPAP machine is broken and was to work on getting a new BiPAP machine and this should be available at time of discharge, is currently using hospital BiPAP machine. Provide diet Awaiting cardiology evaluation We'll continue to follow. The patient is currently on room air oxygen.
[2023-08-23] MEDS ORDERED: ALBUTEROL 90 MCG INHALATION PRN (10:09)
[2023-08-23] MEDS ORDERED: ALBUTEROL NEBULIZED 2.5 MG/3 ML INHALATION PRN (10:09)
[2023-08-23] MEDS ORDERED: LIDOCAINE 5% OINTMENT 50 GM JAR TOPICAL PRN (10:09)
[2023-08-23 11:25] LABS: Glucose,Whole Blood 114 mg/dL (70-110)
[2023-08-23 13:01] VITALS: BMI 61.4
[2023-08-23 16:29] LABS: Glucose,Whole Blood 90 mg/dL (70-110)
[2023-08-23] MEDS: POTASSIUM CHLORIDE ER 10 MEQ TAB.ER.PRT PO SCH (17:04)
[2023-08-23] MEDS: HYDROcodone/APAP 10-325MG 1 EACH TAB PO PRN (19:59)
[2023-08-23] MEDS: KETOTIFEN 0.025% OPHTH DROPS 5 ML BTL BOTH EYES SCH (20:00)
--- NOTE | 2023-08-23 20:02 | PN ---
PROGRESS NOTE DATE OF SERVICE: 08/23/2023 CHIEF COMPLAINT: Urinary retention. HISTORY OF PRESENT ILLNESS: This gentleman is doing about the same. Walsh catheter is draining. He is not having any significant chest pain or shortness of breath. He is having no abdominal pain. PHYSICAL EXAMINATION: CHEST: Breath sounds are clear on both sides. He is on his BiPAP right now. CARDIAC: Normal. ABDOMEN: Protuberant, soft, and nontender. EXTREMITIES: Normal. IMPRESSION: 1. Urinary retention. 2. Acute on chronic congestive heart failure. 3. Obesity. 4. Pickwickian syndrome. 5. Sleep apnea. PLAN: With current management and resume his usual medications. He could probably go home tomorrow, but should have a Walsh catheter in place for a week or 2. His Flomax can be increased to 2 a day also. CAL / PENNY: [id number] /
[2023-08-23 20:14] LABS: Glucose,Whole Blood 114 mg/dL (70-110)
--- NOTE | 2023-08-23 20:53 | HP ---
HISTORY AND PHYSICAL CHIEF COMPLAINT: Abdominal pain and shortness of breath. HISTORY OF PRESENT ILLNESS: This gentleman has been treated for congestive heart failure. He came into the emergency room with some abdominal discomfort and shortness of breath and was catheterized for 1500 mL of urine. In the emergency room, his BNP was 2300. He was not having any chest pain. REVIEW OF SYSTEMS: He denied any syncope, nausea, vomiting, hematemesis, etc. Past medical history, family history and personal and social histories are all unchanged from his recent admitting and discharge summaries. PHYSICAL EXAMINATION: VITAL SIGNS: Blood pressure is 138/86 with a pulse of 87, respirations of 38, and he is afebrile. GENERAL: He appeared to be obese, in no acute distress. SKIN: Color is normal. Skin is warm and dry. LYMPHATICS: Lymph nodes are not enlarged. HEAD, EARS, EYES, NOSE, MOUTH AND THROAT: Normal. CHEST: Clear. CARDIAC: Demonstrated sinus tachycardia. ABDOMEN: Protuberant, soft and nontender without any visceromegaly or masses. Bowel sounds are present. EXTREMITIES: Normal. NEUROLOGICAL: He is intact. ASSESSMENT: He is admitted to the hospital with diagnoses of: 1. Urinary retention. 2. Congestive heart failure. 3. Morbid obesity. 4. Sleep apnea. PLAN: 1. Bedrest. 2. IV fluids. 3. Walsh catheter drainage. 4. Resume his usual medication program. MMODL / CHELAN: [id number] /
[2023-08-24 05:57] LABS: Glucose,Whole Blood 103 mg/dL (70-110)
[2023-08-24] MEDS: FUROSEMIDE 80 MG TAB PO SCH (08:17)
[2023-08-24 11:21] LABS: Glucose,Whole Blood 120 mg/dL (70-110)
--- NOTE | 2023-08-24 11:51 | P.PN ---
Subjective Progress Note Date: 08/24/23 A 63-year-old morbidly obese male patient with known history of obstructive sleep apnea maintained on BiPAP at a pressure of 18/14 cm of water in addition to diabetes mellitus type 2, hypertension, COPD. The patient is known to have mild COPD with an FEV1 of 76% of predicted. He is not oxygen dependent. He presented emergency department because of worsening shortness of breath. He also reported difficulties in urination. He has been taking Lasix on outpatient basis. Denies having any fever or chills. No cough or sputum production. No chest pain. He did have some increased swelling lower extremities bilaterally. He has had chronic edema in his legs. In the emergency, the patient was found to be afebrile. BP was elevated at 179/100. His blood work shows a regular physical of 9, hemoglobin of 17, platelet count of 224, sodium is at 139, BUN is at 19 with a creatinine of 1 and a trigger level of 134. ProBNP level was 2370. Lactic acid level was 1.6. Troponin was 0.039 and UA was negative. Chest x- ray showed cardiomegaly with interstitial edema. There is also right hilar prom inence. Note that the patient was recently in the hospital. He was seen by cardiology in 08/14/2023. At that time, he was found to have a flutter with a controlled rate and exacerbation of CHF. He was started on diuretics. He was given Entresto in combination with oral anticoagulation. His echo cardiac exam showed an acute on top of chronic systolic heart failure with an ejection fraction of 25-30%. This was a nonischemic cardiomyopathy. Is known to have mild nonocclusive coronary artery disease. He is a flutter was controlled. No cardioversion was done and he was treated medically by medication. He was discharged home on 08/16/2023. On 08/23/2023, seeing the patient for a follow-up. The patient is on a BiPAP here and was provided to him by respiratory therapy. Note that his BiPAP machine is broken and the patient will need a replacement machine prior to discharge. Meanwhile, he has a Walsh catheter in place and is producing adequate amount of urine output. Hemodynamically stable. No labs are available from today.The patient remains on Lasix 60 mg IV every 12 hours. Home medications have been resumed. [facility] showing a sinus rhythm with first-degree AV block. He was also having frequent PVCs. On 08/24/2023, the patient is laying down comfortably in bed. He was taken off the IV Lasix and the patient was placed on oral Lasix 120 mg by mouth daily. He has a Walsh catheter in place and is producing adequate amount of urine output. He is utilizing a BiPAP machine overnight. No other changes in his medication. He remains on anticoagulation with Eliquis 5 mg by mouth twice a day. Obviously labs needs to be repeated. We are also working on obtaining the patient a BiPAP machine to be taken on an outpatient basis as his current machine is broken. The fluid balance has been negative over the past 24-48 hours. Objective - Vital Signs Vital signs: Vital Signs Temp 98.7 F 08/24/23 04:00 Pulse 76 08/24/23 08:00 Resp 16 08/24/23 08:00 BP 88/54 08/24/23 08:00 Pulse Ox 95 08/24/23 08:00 FiO2 Intake & Output 08/23/23 08/24/23 08/24/23 18:59 06:59 18:59 Intake Total 590 180 Output Total 900 Balance 590 -900 180 Weight 183.5 kg 170 kg Intake: Oral 590 180 Output: Urine 900 Other: Voiding Method Indwelling Catheter Indwelling Catheter - Exam GENERAL EXAM: Alert, very pleasant, 61-year-old morbidly obese -[place] male on room air oxygen and the pulse ox of 94%, comfortable in no apparent distress. HEAD: Normocephalic/atraumatic. EYES: Normal reaction of pupils, equal size. Conjunctiva pink, sclera white. NOSE: Clear with pink turbinates. THROAT: No erythema or exudates. NECK: No masses, no JVD, no thyroid enlargement, no adenopathy. CHEST: No chest wall deformity. Symmetrical expansion. LUNGS: Equal air entry with diminished breath sounds bilaterally CVS: Regular rate and rhythm, normal S1 and S2, no gallops, no murmurs, no rubs ABDOMEN: Soft, nontender. No hepatosplenomegaly, normal bowel sounds, no guarding or rigidity. EXTREMITIES: No clubbing, and there is +1 pitting lower extremity edema, no cyanosis, 2+ pulses and upper and lower extremities. MUSCULOSKELETAL: Muscle strength and tone normal. SPINE: No scoliosis or deformity SKIN: No rashes CENTRAL NERVOUS SYSTEM: Alert and oriented -3. No focal deficits, tone is normal in all 4 extremities. PSYCHIATRIC: Alert and oriented -3. Appropriate affect. Intact judgment and insight. - Labs CBC & Chem 7: 08/22/23 10:53 08/22/23 10:53 Labs: Abnormal Lab Results - Last 24 Hours (Table) 08/23/23 08/23/23 Range/Units 11:23 20:12 POC Glucose (mg/dL) 114 H 114 H (70-110) mg/dL Assessment and Plan Plan: Shortness of breath, acute on chronic, attributed to decompensated heart failure. Chest x-ray showing hepatomegaly pulmonary vascular congestion and the patient has increased lower extremity edema and a proBNP level is elevated Systolic heart failure with an ejection fraction of 20-25%, started on a combination of Coreg, and Entresto A flutter, current cardiac rhythm is sinus with a first-degree AV block, maintain on anticoagulation and the patient is currently on Eliquis BPH with some urinary retention, renal function stable, currently on Flomax COPD, mild with an FEV1 of 76% of predicted at baseline Obstructive sleep apnea maintained on BiPAP therapy at a pressure of 18/14 cm of water Hypertension, blood pressure is elevated at the time of admission Diabetes mellitus type 2 History of a stable right midlung pulmonary nodule measuring 6 cm in size, unchanged since 2013 Thoracic ascending aortic aneurysm measuring 4.5 cm in size Nonocclusive coronary artery disease Obesity Previous history of smoking Plan Continue same treatment for now. The patient is currently on oral Lasix 120 mg by mouth daily Awaiting labs from today, this was ordered and will monitor renal function and electrolytes Keep Walsh catheter in place, fluid balance is negative Is already feeling better on diuretics. Walsh catheter was inserted in the emergency and the patient is producing adequate amount of urine output. Resume Coreg Resume Entresto Resume anticoagulation with Eliquis Monitor electrolytes Monitor fluid balance The patient will maintain his BiPAP machine is broken and was to work on getting a new BiPAP machine and this should be available at time of discharge, is currently using hospital BiPAP machine. Discussed the case with case management I will order a BiPAP machine Provide diet Awaiting cardiology evaluation We'll continue to follow. The patient is currently on room air oxygen.
[2023-08-24] MEDS: NITROGLYCERIN 0.4MG/HR PATCH TRANSDERM SCH (12:04)
[2023-08-24] MEDS: FLUTICASONE 50MCG/SPRAY NASAL 16GM EA NOSTRIL SCH (12:13)
[2023-08-24 12:53] LABS: ALT 26 U/L (4-49); AST 48 U/L (17-59); African American GFR (CKD) 72 (>60 ml/min/1.73 sqM); Albumin 3.9 g/dL (3.5-5.0); Alkaline Phosphatase 69 U/L (38-126); Anion Gap 9 mmol/L; Blood Urea Nitrogen 24 mg/dL (9-20); Calcium 9.2 mg/dL (8.4-10.2); Carbon Dioxide 31 mmol/L (22-30); Chloride 98 mmol/L (98-107); Glucose 91 mg/dL (74-99); Non-African American GFR(CKD) 62 (>60 ml/min/1.73 sqM); Potassium 4.5 mmol/L (3.5-5.1); Sodium 138 mmol/L (137-145); Total Bilirubin 0.9 mg/dL (0.2-1.3); Total Protein 7.3 g/dL (6.3-8.2)
[2023-08-24 16:40] LABS: Glucose,Whole Blood 100 mg/dL (70-110)
[2023-08-24 19:57] LABS: Glucose,Whole Blood 205 mg/dL (70-110)
--- NOTE | 2023-08-25 00:05 | PN ---
PROGRESS NOTE DATE OF SERVICE: 08/24/2023 CHIEF COMPLAINT: Urinary retention and heart failure. HISTORY OF PRESENT ILLNESS: This gentleman is doing fairly well. Walsh catheter is in place and it is intended that he will go home with it. PHYSICAL EXAMINATION: CHEST: Clear. CARDIAC: Unremarkable. ABDOMEN: Protuberant, soft and nontender. IMPRESSION: 1. Urinary retention. 2. History of congestive heart failure. PLAN: Probably home tomorrow. The patient is complaining that he can not go home, needs to see Cardiology, etc. His congestive heart failure is well managed as it can be considering all factors. MMODL / IJN: [id number] /
[2023-08-25 06:00] LABS: Glucose,Whole Blood 94 mg/dL (70-110)
[2023-08-25 11:38] LABS: Glucose,Whole Blood 107 mg/dL (70-110)
--- NOTE | 2023-08-25 14:19 | P.PN ---
Subjective Progress Note Date: 08/25/23 A 63-year-old morbidly obese male patient with known history of obstructive sleep apnea maintained on BiPAP at a pressure of 18/14 cm of water in addition to diabetes mellitus type 2, hypertension, COPD. The patient is known to have mild COPD with an FEV1 of 76% of predicted. He is not oxygen dependent. He presented emergency department because of worsening shortness of breath. He also reported difficulties in urination. He has been taking Lasix on outpatient basis. Denies having any fever or chills. No cough or sputum production. No chest pain. He did have some increased swelling lower extremities bilaterally. He has had chronic edema in his legs. In the emergency, the patient was found to be afebrile. BP was elevated at 179/100. His blood work shows a regular physical of 9, hemoglobin of 17, platelet count of 224, sodium is at 139, BUN is at 19 with a creatinine of 1 and a trigger level of 134. ProBNP level was 2370. Lactic acid level was 1.6. Troponin was 0.039 and UA was negative. Chest x- ray showed cardiomegaly with interstitial edema. There is also right hilar prom inence. Note that the patient was recently in the hospital. He was seen by cardiology in 08/14/2023. At that time, he was found to have a flutter with a controlled rate and exacerbation of CHF. He was started on diuretics. He was given Entresto in combination with oral anticoagulation. His echo cardiac exam showed an acute on top of chronic systolic heart failure with an ejection fraction of 25-30%. This was a nonischemic cardiomyopathy. Is known to have mild nonocclusive coronary artery disease. He is a flutter was controlled. No cardioversion was done and he was treated medically by medication. He was discharged home on 08/16/2023. On 08/23/2023, seeing the patient for a follow-up. The patient is on a BiPAP here and was provided to him by respiratory therapy. Note that his BiPAP machine is broken and the patient will need a replacement machine prior to discharge. Meanwhile, he has a Walsh catheter in place and is producing adequate amount of urine output. Hemodynamically stable. No labs are available from today.The patient remains on Lasix 60 mg IV every 12 hours. Home medications have been resumed. [facility] a sinus rhythm with first-degree AV block. He was also having frequent PVCs. On 08/24/2023, the patient is laying down comfortably in bed. He was taken off the IV Lasix and the patient was placed on oral Lasix 120 mg by mouth daily. He has a Walsh catheter in place and is producing adequate amount of urine output. He is utilizing a BiPAP machine overnight. No other changes in his medication. He remains on anticoagulation with Eliquis 5 mg by mouth twice a day. Obviously labs needs to be repeated. We are also working on obtaining the patient a BiPAP machine to be taken on an outpatient basis as his current machine is broken. The fluid balance has been negative over the past 24-48 hours. On 08/25/2023, no new complaint and the patient is currently on room air oxygen. Walsh cath will be kept in place and the patient is to be followed up by urology regarding obstructive uropathy. He is still on Flomax. His electronics was done yesterday and the patient was a 24 with a creatinine of 1.22. Sodium levels of 138. He remains on high-dose Lasix and the patient is taking 120 mg on a daily basis. The patient otherwise has no other new complaints. We were able to arrange for her BiPAP to be picked up by the DME at the time of discharge. Objective - Vital Signs Vital signs: Vital Signs Temp 99.1 F 08/24/23 19:40 Pulse 70 08/25/23 08:00 Resp 16 08/25/23 08:00 BP 121/64 08/25/23 08:00 Pulse Ox 93 L 08/25/23 08:00 FiO2 Intake & Output 08/24/23 08/25/23 08/25/23 18:59 06:59 18:59 Intake Total 1150 420 Output Total 1400 Balance 1150 -1400 420 Intake: Oral 1150 420 Output: Urine 1400 Other: Voiding Method Indwelling Catheter Indwelling Catheter # Bowel Movements 1 - Exam GENERAL EXAM: Alert, very pleasant, 61-year-old morbidly obese -[place] male on room air oxygen and the pulse ox of 94%, comfortable in no apparent distress. HEAD: Normocephalic/atraumatic. EYES: Normal reaction of pupils, equal size. Conjunctiva pink, sclera white. NOSE: Clear with pink turbinates. THROAT: No erythema or exudates. NECK: No masses, no JVD, no thyroid enlargement, no adenopathy. CHEST: No chest wall deformity. Symmetrical expansion. LUNGS: Equal air entry with diminished breath sounds bilaterally CVS: Regular rate and rhythm, normal S1 and S2, no gallops, no murmurs, no rubs ABDOMEN: Soft, nontender. No hepatosplenomegaly, normal bowel sounds, no guarding or rigidity. EXTREMITIES: No clubbing, and there is +1 pitting lower extremity edema, no cyanosis, 2+ pulses and upper and lower extremities. MUSCULOSKELETAL: Muscle strength and tone normal. SPINE: No scoliosis or deformity SKIN: No rashes CENTRAL NERVOUS SYSTEM: Alert and oriented -3. No focal deficits, tone is normal in all 4 extremities. PSYCHIATRIC: Alert and oriented -3. Appropriate affect. Intact judgment and insight. - Labs CBC & Chem 7: 08/22/23 10:53 08/24/23 12:30 Labs: Abnormal Lab Results - Last 24 Hours (Table) 08/24/23 08/24/23 08/24/23 Range/Units 11:20 12:30 19:55 Carbon Dioxide 31 H (22-30) mmol/L BUN 24 H (9-20) mg/dL POC Glucose (mg/dL) 120 H 205 H (70-110) mg/dL Assessment and Plan Plan: Shortness of breath, acute on chronic, attributed to decompensated heart failur e. Chest x-ray showing hepatomegaly pulmonary vascular congestion and the patient has increased lower extremity edema and a proBNP level is elevated Systolic heart failure with an ejection fraction of 20-25%, started on a combination of Coreg, and Entresto A flutter, current cardiac rhythm is sinus with a first-degree AV block, maintain on anticoagulation and the patient is currently on Eliquis BPH with some urinary retention, renal function stable, currently on Flomax, Walsh cath is in place COPD, mild with an FEV1 of 76% of predicted at baseline Obstructive sleep apnea maintained on BiPAP therapy at a pressure of 18/14 cm of water Hypertension, blood pressure is elevated at the time of admission Diabetes mellitus type 2 History of a stable right midlung pulmonary nodule measuring 6 cm in size, unchanged since 2013 Thoracic ascending aortic aneurysm measuring 4.5 cm in size Nonocclusive coronary artery disease Obesity Previous history of smoking Plan Clinically stable and patient is on room air oxygen Walsh catheter is to be kept in place and the patient is to be followed up on a outpatient basis with urology Continue on oral Lasix 120 mg by mouth daily Labs were stable from yesterday Keep Walsh catheter in place, fluid balance is negative Continue Coreg Continue Entresto Continue anticoagulation with Eliquis The BiPAP machine was provided to him to be picked up at the DME the time of discharge Possible discharge home today.
[2023-08-25 16:38] LABS: Glucose,Whole Blood 109 mg/dL (70-110)
[2023-08-25 20:06] LABS: Glucose,Whole Blood 114 mg/dL (70-110)
--- NOTE | 2023-08-25 22:31 | PN ---
PROGRESS NOTE CHIEF COMPLAINT: Urinary retention and bladder outlet obstruction with heart failure. HISTORY OF PRESENT ILLNESS: This gentleman is doing well. There has been no interval change. He can probably go home. He continues to state that he wants a chest x-ray, see a health policy analyst, etc. He is explained that chest x-ray will not make any difference now since he is doing well with his heart failure and he also does not need to see Cardiology because his heart failure is well controlled as a candidate given all of his other risk factors. PHYSICAL EXAMINATION: CHEST: Clear. CARDIAC: Unremarkable. ABDOMEN: Soft, nontender. IMPRESSION: 1. Urinary retention. 2. Congestive heart failure. 3. Morbid obesity. PLAN: We will hold off his discharge 1 more day, but he will go home tomorrow. MMJULISAL / CHELAN: [id number] /
[2023-08-26 06:11] LABS: Glucose,Whole Blood 107 mg/dL (70-110)
[2023-08-26 11:32] LABS: Glucose,Whole Blood 114 mg/dL (70-110)
--- NOTE | 2023-08-26 13:54 | P.PN ---
Subjective Progress Note Date: 08/26/23 A 63-year-old morbidly obese male patient with known history of obstructive sleep apnea maintained on BiPAP at a pressure of 18/14 cm of water in addition to diabetes mellitus type 2, hypertension, COPD. The patient is known to have mild COPD with an FEV1 of 76% of predicted. He is not oxygen dependent. He presented emergency department because of worsening shortness of breath. He also reported difficulties in urination. He has been taking Lasix on outpatient basis. Denies having any fever or chills. No cough or sputum production. No chest pain. He did have some increased swelling lower extremities bilaterally. He has had chronic edema in his legs. In the emergency, the patient was found to be afebrile. BP was elevated at 179/100. His blood work shows a regular physical of 9, hemoglobin of 17, platelet count of 224, sodium is at 139, BUN is at 19 with a creatinine of 1 and a trigger level of 134. ProBNP level was 2370. Lactic acid level was 1.6. Troponin was 0.039 and UA was negative. Chest x- ray showed cardiomegaly with interstitial edema. There is also right hilar prom inence. Note that the patient was recently in the hospital. He was seen by cardiology in 08/14/2023. At that time, he was found to have a flutter with a controlled rate and exacerbation of CHF. He was started on diuretics. He was given Entresto in combination with oral anticoagulation. His echo cardiac exam showed an acute on top of chronic systolic heart failure with an ejection fraction of 25-30%. This was a nonischemic cardiomyopathy. Is known to have mild nonocclusive coronary artery disease. He is a flutter was controlled. No cardioversion was done and he was treated medically by medication. He was discharged home on 08/16/2023. On 08/23/2023, seeing the patient for a follow-up. The patient is on a BiPAP here and was provided to him by respiratory therapy. Note that his BiPAP machine is broken and the patient will need a replacement machine prior to discharge. Meanwhile, he has a Walsh catheter in place and is producing adequate amount of urine output. Hemodynamically stable. No labs are available from today.The patient remains on Lasix 60 mg IV every 12 hours. Home medications have been resumed. [facility] showing a sinus rhythm with first-degree AV block. He was also having frequent PVCs. On 08/24/2023, the patient is laying down comfortably in bed. He was taken off the IV Lasix and the patient was placed on oral Lasix 120 mg by mouth daily. He has a Walsh catheter in place and is producing adequate amount of urine output. He is utilizing a BiPAP machine overnight. No other changes in his medication. He remains on anticoagulation with Eliquis 5 mg by mouth twice a day. Obviously labs needs to be repeated. We are also working on obtaining the patient a BiPAP machine to be taken on an outpatient basis as his current machine is broken. The fluid balance has been negative over the past 24-48 hours. On 08/25/2023, no new complaint and the patient is currently on room air oxygen. Walsh cath will be kept in place and the patient is to be followed up by urology regarding obstructive uropathy. He is still on Flomax. His electronics was done yesterday and the patient was a 24 with a creatinine of 1.22. Sodium levels of 138. He remains on high-dose Lasix and the patient is taking 120 mg on a daily basis. The patient otherwise has no other new complaints. We were able to arrange for her BiPAP to be picked up by the DME at the time of discharge. On 08/26/2023, the patient is doing well. His weight is down to 193 pounds. No signs of any significant fluid overload. The patient remains on anticoagulation with Eliquis 5 mg by mouth twice a day. The patient is also taken Lasix 120 mg by mouth daily. He is on room air oxygen. No new labs are available from today. No altered mentation. Walsh catheter will be kept in place and the patient is producing adequate amount of urine output. Objective - Vital Signs Vital signs: Vital Signs Temp 98.8 F 08/26/23 04:00 Pulse 80 08/26/23 04:00 Resp 16 08/26/23 04:00 BP 124/63 08/26/23 04:00 Pulse Ox 99 08/26/23 04:00 FiO2 Intake & Output 08/25/23 08/26/23 08/26/23 18:59 06:59 18:59 Intake Total 780 120 Output Total 1540 1200 Balance -760 -1200 120 Weight 132.1 kg Intake: Oral 780 120 Output: Urine 1540 1200 Other: Voiding Method Indwelling Catheter Indwelling Catheter - Exam GENERAL EXAM: Alert, very pleasant, 61-year-old morbidly obese -[place] male on room air oxygen and the pulse ox of 94%, comfortable in no apparent distress. HEAD: Normocephalic/atraumatic. EYES: Normal reaction of pupils, equal size. Conjunctiva pink, sclera white. NOSE: Clear with pink turbinates. THROAT: No erythema or exudates. NECK: No masses, no JVD, no thyroid enlargement, no adenopathy. CHEST: No chest wall deformity. Symmetrical expansion. LUNGS: Equal air entry with diminished breath sounds bilaterally CVS: Regular rate and rhythm, normal S1 and S2, no gallops, no murmurs, no rubs ABDOMEN: Soft, nontender. No hepatosplenomegaly, normal bowel sounds, no guarding or rigidity. EXTREMITIES: No clubbing, and there is +1 pitting lower extremity edema, no cyanosis, 2+ pulses and upper and lower extremities. MUSCULOSKELETAL: Muscle strength and tone normal. SPINE: No scoliosis or deformity SKIN: No rashes CENTRAL NERVOUS SYSTEM: Alert and oriented -3. No focal deficits, tone is normal in all 4 extremities. PSYCHIATRIC: Alert and oriented -3. Appropriate affect. Intact judgment and insight. - Labs CBC & Chem 7: 08/22/23 10:53 08/24/23 12:30 Labs: Abnormal Lab Results - Last 24 Hours (Table) 08/25/23 Range/Units 20:05 POC Glucose (mg/dL) 114 H (70-110) mg/dL Assessment and Plan Plan: Shortness of breath, acute on chronic, attributed to decompensated heart failure. Chest x-ray showing hepatomegaly pulmonary vascular congestion and the patient has increased lower extremity edema and a proBNP level is elevated Systolic heart failure with an ejection fraction of 20-25%, started on a combination of Coreg, and Entresto A flutter, current cardiac rhythm is sinus with a first-degree AV block, maintain on anticoagulation and the patient is currently on Eliquis BPH with some urinary retention, renal function stable, currently on Flomax, Walsh cath is in place COPD, mild with an FEV1 of 76% of predicted at baseline Obstructive sleep apnea maintained on BiPAP therapy at a pressure of 18/14 cm of water Hypertension, blood pressure is elevated at the time of admission Diabetes mellitus type 2 History of a stable right midlung pulmonary nodule measuring 6 cm in size, unchanged since 2013 Thoracic ascending aortic aneurysm measuring 4.5 cm in size Nonocclusive coronary artery disease Obesity Previous history of smoking Plan Clinically stable and patient is on room air oxygen His weight is down to 193 pounds Walsh catheter is to be kept in place and the patient is to be followed up on a outpatient basis with urology Continue on oral Lasix 120 mg by mouth daily Labs were stable from yesterday Keep Walsh catheter in place, fluid balance is negative Continue Coreg Continue Entresto Continue anticoagulation with Eliquis The BiPAP machine was provided to him to be picked up at the DME the time of discharge Possible discharge home today.
[2023-08-26 17:03] LABS: Glucose,Whole Blood 111 mg/dL (70-110)
[2023-08-26 19:48] LABS: Glucose,Whole Blood 119 mg/dL (70-110)
[2023-08-27 04:22] VITALS: RESP 16
[2023-08-27 06:12] LABS: Glucose,Whole Blood 100 mg/dL (70-110)
[2023-08-27 08:22] VITALS: TEMP 97.8
[2023-08-27 11:12] LABS: Glucose,Whole Blood 371 mg/dL (70-110)
[2023-08-27 11:14] LABS: Glucose,Whole Blood 150 mg/dL (70-110)
--- NOTE | 2023-08-27 12:13 | P.PN ---
Subjective Progress Note Date: 08/27/23 A 63-year-old morbidly obese male patient with known history of obstructive sleep apnea maintained on BiPAP at a pressure of 18/14 cm of water in addition to diabetes mellitus type 2, hypertension, COPD. The patient is known to have mild COPD with an FEV1 of 76% of predicted. He is not oxygen dependent. He presented emergency department because of worsening shortness of breath. He also reported difficulties in urination. He has been taking Lasix on outpatient basis. Denies having any fever or chills. No cough or sputum production. No chest pain. He did have some increased swelling lower extremities bilaterally. He has had chronic edema in his legs. In the emergency, the patient was found to be afebrile. BP was elevated at 179/100. His blood work shows a regular physical of 9, hemoglobin of 17, platelet count of 224, sodium is at 139, BUN is at 19 with a creatinine of 1 and a trigger level of 134. ProBNP level was 2370. Lactic acid level was 1.6. Troponin was 0.039 and UA was negative. Chest x- ray showed cardiomegaly with interstitial edema. There is also right hilar prom inence. Note that the patient was recently in the hospital. He was seen by cardiology in 08/14/2023. At that time, he was found to have a flutter with a controlled rate and exacerbation of CHF. He was started on diuretics. He was given Entresto in combination with oral anticoagulation. His echo cardiac exam showed an acute on top of chronic systolic heart failure with an ejection fraction of 25-30%. This was a nonischemic cardiomyopathy. Is known to have mild nonocclusive coronary artery disease. He is a flutter was controlled. No cardioversion was done and he was treated medically by medication. He was discharged home on 08/16/2023. On 08/23/2023, seeing the patient for a follow-up. The patient is on a BiPAP here and was provided to him by respiratory therapy. Note that his BiPAP machine is broken and the patient will need a replacement machine prior to discharge. Meanwhile, he has a Walsh catheter in place and is producing adequate amount of urine output. Hemodynamically stable. No labs are available from today.The patient remains on Lasix 60 mg IV every 12 hours. Home medications have been resumed. [facility] showing a sinus rhythm with first-degree AV block. He was also having frequent PVCs. On 08/24/2023, the patient is laying down comfortably in bed. He was taken off the IV Lasix and the patient was placed on oral Lasix 120 mg by mouth daily. He has a Walsh catheter in place and is producing adequate amount of urine output. He is utilizing a BiPAP machine overnight. No other changes in his medication. He remains on anticoagulation with Eliquis 5 mg by mouth twice a day. Obviously labs needs to be repeated. We are also working on obtaining the patient a BiPAP machine to be taken on an outpatient basis as his current machine is broken. The fluid balance has been negative over the past 24-48 hours. On 08/25/2023, no new complaint and the patient is currently on room air oxygen. Walsh cath will be kept in place and the patient is to be followed up by urology regarding obstructive uropathy. He is still on Flomax. His electronics was done yesterday and the patient was a 24 with a creatinine of 1.22. Sodium levels of 138. He remains on high-dose Lasix and the patient is taking 120 mg on a daily basis. The patient otherwise has no other new complaints. We were able to arrange for her BiPAP to be picked up by the DME at the time of discharge. On 08/26/2023, the patient is doing well. His weight is down to 193 pounds. No signs of any significant fluid overload. The patient remains on anticoagulation with Eliquis 5 mg by mouth twice a day. The patient is also taken Lasix 120 mg by mouth daily. He is on room air oxygen. No new labs are available from today. No altered mentation. Walsh catheter will be kept in place and the patient is producing adequate amount of urine output. On 08/27/2023, no new complaints, and the patient is still awaiting discharge. This will be taken by the primary care team. He denies having any significant complaints. He remains on the same medication. Objective - Vital Signs Vital signs: Vital Signs Temp 97.8 F 08/27/23 08:06 Pulse 73 08/27/23 08:06 Resp 16 08/27/23 08:06 BP 98/60 08/27/23 08:06 Pulse Ox 92 L 08/27/23 08:06 FiO2 21 08/27/23 05:21 Intake & Output 08/26/23 08/27/23 08/27/23 18:59 06:59 18:59 Intake Total 600 540 240 Output Total 2100 1300 Balance -1500 -760 240 Weight 132.4 kg Intake: Oral 600 540 240 Output: Urine 2100 1300 Other: Voiding Method Indwelling Catheter Indwelling Catheter Indwelling Catheter - Exam GENERAL EXAM: Alert, very pleasant, 61-year-old morbidly obese -Citizen Of [place] male on room air oxygen and the pulse ox of 94%, comfortable in no apparent distress. HEAD: Normocephalic/atraumatic. EYES: Normal reaction of pupils, equal size. Conjunctiva pink, sclera white. NOSE: Clear with pink turbinates. THROAT: No erythema or exudates. NECK: No masses, no JVD, no thyroid enlargement, no adenopathy. CHEST: No chest wall deformity. Symmetrical expansion. LUNGS: Equal air entry with diminished breath sounds bilaterally CVS: Regular rate and rhythm, normal S1 and S2, no gallops, no murmurs, no rubs ABDOMEN: Soft, nontender. No hepatosplenomegaly, normal bowel sounds, no guarding or rigidity. EXTREMITIES: No clubbing, and there is +1 pitting lower extremity edema, no cyanosis, 2+ pulses and upper and lower extremities. MUSCULOSKELETAL: Muscle strength and tone normal. SPINE: No scoliosis or deformity SKIN: No rashes CENTRAL NERVOUS SYSTEM: Alert and oriented -3. No focal deficits, tone is normal in all 4 extremities. PSYCHIATRIC: Alert and oriented -3. Appropriate affect. Intact judgment and insight. - Labs CBC & Chem 7: 08/22/23 10:53 08/24/23 12:30 Labs: Abnormal Lab Results - Last 24 Hours (Table) 08/26/23 08/26/23 08/26/23 Range/Units 11:30 17:01 19:48 POC Glucose (mg/dL) 114 H 111 H 119 H (70-110) mg/dL Assessment and Plan Plan: Shortness of breath, acute on chronic, attributed to decompensated heart failure. Chest x-ray showing hepatomegaly pulmonary vascular congestion and the patient has increased lower extremity edema and a proBNP level is elevated Systolic heart failure with an ejection fraction of 20-25%, started on a combination of Coreg, and Entresto A flutter, current cardiac rhythm is sinus with a first-degree AV block, maintain on anticoagulation and the patient is currently on Eliquis BPH with some urinary retention, renal function stable, currently on Flomax, Walsh cath is in place COPD, mild with an FEV1 of 76% of predicted at baseline Obstructive sleep apnea maintained on BiPAP therapy at a pressure of 18/14 cm of water Hypertension, blood pressure is elevated at the time of admission Diabetes mellitus type 2 History of a stable right midlung pulmonary nodule measuring 6 cm in size, unchanged since 2013 Thoracic ascending aortic aneurysm measuring 4.5 cm in size Nonocclusive coronary artery disease Obesity Previous history of smoking Plan No events overnight and the patient's condition is stable. Clinically stable and patient is on room air oxygen His weight is down to 193 pounds Walsh catheter is to be kept in place and the patient is to be followed up on a outpatient basis with urology Continue on oral Lasix 120 mg by mouth daily Labs were stable from yesterday Keep Walsh catheter in place, fluid balance is negative Continue Coreg Continue Entresto Continue anticoagulation with Eliquis The BiPAP machine was provided to him to be picked up at the [facility] the [place] of discharge Possible discharge home today. Awaiting primary care team to facilitate discharge
[2023-08-27 12:27] VITALS: BP 96/57; PULSE 66
--- NOTE | 2023-08-27 16:15 | P.GSCN ---
History of Present Illness Consult date: 08/27/23 Reason for Consult: Urinary retention Requesting physician: Reagan Epps History of present illness: The patient is a 63-year-old white male admitted with dyspnea due to congestive heart failure. In the ER, he was found to have a distended bladder. A Walsh catheter was placed, with return of 1500 mL of urine. The patient was previously seen by me in the office in July 2022. He was referred for evaluation of a PSA level of 5.18. His postvoid residual at that time was 52 mL. He was advised to undergo a prostate ultrasound with biopsies, but he ultimately chose not to proceed with this due to the risk of bleeding. He states that he has experienced increased difficulty urinating for the past 6 months. He has taken tamsulosin in the past, with questionable results. Review of Systems - Respiratory Reports dyspnea - Genitourinary Reports as per HPI Past Medical History Past Medical History: Heart Failure, COPD, Diabetes Mellitus, GERD/Reflux, Hyperlipidemia, Hypertension, Osteoarthritis (OA), Prostate Disorder, Sleep Apnea/CPAP/BIPAP Additional Past Medical History / Comment(s): ASCENDING THORACIC ANEURYSM, Palpitations, "LEAKY VALVE." USES BI PAP MACHINE, CONSTIPATION. EDEMA ANKLES. Influenza A History of Any Multi-Drug Resistant Organisms: None Reported Past Surgical History: Orthopedic Surgery Additional Past Surgical History / Comment(s): ARTHROSCOPIC RIGHT KNEE - EXC GLASS, HEMORRHOIDECTOMY. COLONOSCOPY. Past Anesthesia/Blood Transfusion Reactions: Previous Problems w/ Anesthesia Additional Past Anesthesia/Blood Transfusion Reaction / Comm: AWAKE DURING SURGERY, IN PAIN. Past Psychological History: Anxiety, Depression Smoking Status: Former smoker Past Alcohol Use History: None Reported Additional Past Alcohol Use History / Comment(s): STARTED SMOKING AT AGE 6, QUIT CIG AT 14, SMOKED 1 PACK PER WEEK Past Drug Use History: None Reported Additional Drug Use History / Comment(s): NO MARIJUANA QUIT 1988 - Past Family History Father Family Medical History: Cancer, Diabetes Mellitus Mother Family Medical History: Cancer Medications and Allergies Home Medications Medication Instructions Recorded Confirmed Type ALPRAZolam [Xanax] 1 mg PO TID PRN 06/26/16 08/22/23 History Carvedilol 25 mg PO BID-W/MEALS 06/26/16 08/22/23 History Fluticasone Nasal [place] [Flonase 1 spr EA NOSTRIL DAILY 06/26/16 08/22/23 Histo ry Nasal [place]] Nitroglycerin Sl Tabs [Nitrostat] 0.4 mg SL Q5M PRN 03/08/17 08/22/23 History HYDROcodone/APAP 10-325MG [[place] 1 tab PO Q6H PRN 09/21/18 08/22/23 History 10-325] Aspirin [Adult Low Dose Aspirin EC] 81 mg PO DAILY #30 tablet. 09/23/18 08/22/23 Rx Cyclobenzaprine [Flexeril] 10 mg PO BID #60 tablet 09/23/18 08/22/23 Rx Docusate [Colace] 100 mg PO DAILY PRN #30 cap 09/23/18 08/22/23 Rx Albuterol Nebulized [Ventolin 2.5 mg INHALATION RT-QID PRN 01/15/19 08/22/23 History Nebulized] Ergocalciferol (Vitamin D2) 1,250 mcg PO MO 07/27/21 08/22/23 History [Drisdol (50,000 Iu)] Potassium Chloride [Klor-Con M10] 10 meq PO BID-W/MEALS 07/27/21 08/22/23 History Famotidine [Pepcid] 20 mg PO HS 10/23/22 08/22/23 History Lidocaine 5% Oint [Xylocaine 5% 1 applic TOPICAL DAILY PRN 10/23/22 08/22/23 History Oint] Nitroglycerin 0.4MG/Hr Patch 1 patch TRANSDERM DAILY 10/23/22 08/22/23 History [Nitro-Dur 0.4MG/Hr Patch] Olopatadine HCl [Pataday] 1 drop BOTH EYES BID 10/23/22 08/22/23 History Simvastatin [Zocor] 40 mg PO HS 10/23/22 08/22/23 History Albuterol Inhaler [Ventolin Hfa 2 puff INHALATION RT-Q4H PRN 02/02/23 08/22/23 History Inhaler] Furosemide [Lasix] 120 mg PO DAILY 08/13/23 08/22/23 History Apixaban [Eliquis] 5 mg PO BID #60 tab 08/16/23 08/22/23 Rx Sacubitril/Valsartan [Entresto 24 1 tab PO BID 08/22/23 08/22/23 History mg-26 mg Tablet] Tamsulosin HCl [Flomax] 0.8 mg PO DAILY #60 cap 08/27/23 Rx Allergies Allergy/AdvReac Type Severity Reaction Status Date / Time No Known Allergies Allergy Verified 08/22/23 12:52 Surgical - Exam Vital Signs Temp Pulse Resp BP Pulse Ox 98.1 F 93 20 179/100 96 08/22/23 10:44 08/22/23 10:44 08/22/23 10:44 08/22/23 10:44 08/22/23 10:44 - General well developed, well nourished, no distress - Respiratory normal respiratory effort - Abdomen Abdomen: soft, non tender, no guarding, no rigid, no rebound - Genitourinary Normal phallus, normal testes. The Walsh catheter is in place, draining clear yellow urine. - Rectum Rectum: normal sphincter tone, no masses, other (Prostate is enlarged but liu h) - Psychiatric oriented to time, oriented to person, oriented to place, speech is normal, memory intact Results - Labs 08/22/23 10:53 08/24/23 12:30 Abnormal Lab Results - Last 24 Hours (Table) 08/26/23 08/26/23 08/26/23 Range/Units 11:30 17:01 19:48 POC Glucose (mg/dL) 114 H 111 H 119 H (70-110) mg/dL Assessment and Plan (1) Urinary retention Status: Acute Code(s): R33.9 - RETENTION OF URINE, UNSPECIFIED SNOMED Code(s): 576651723 (2) Elevated PSA Status: Acute Code(s): R97.20 - ELEVATED PROSTATE SPECIFIC ANTIGEN [PSA] SNOMED Code(s): 542932316 Plan: I had a lengthy discussion with the patient and his regarding his elevated PSA level and urinary retention. I explained to him that the PSA increase is likely due to BPH, though he is aware of the risk of prostate cancer. He will be discharged home with a Walsh catheter to allow time for his bladder to regain tone. Tamsulosin 0.8 mg daily was prescribed. My office will contact him to arrange follow-up. Time with Patient: Greater than 30
[2023-08-29] MEDS ORDERED: ERGOCALCIFEROL 1,250 MCG (50,000 IU) CAPSULE PO SCH (09:00)
--- NOTE | 2023-08-31 21:39 | DS ---
DISCHARGE SUMMARY CHIEF COMPLAINT: Urinary retention and heart failure. HISTORY OF PRESENT ILLNESS AND PHYSICAL EXAMINATION: Details of this man's history and physical can be found in the initial workup. COURSE IN THE HOSPITAL: After admission, he was placed on bedrest, started on intravenous fluids and management of his heart failure. Walsh catheter was placed and about 1500 mL was drained. Walsh catheter was left in place. Heart failure was under good control and he has not had any other complaints. He was seen by Urology who recommended keeping him on Flomax and leaving the Walsh catheter in place. He will be discharged and followed up in the office in several days. FINAL DIAGNOSES: 1. Acute urinary retention. 2. Acute on chronic congestive heart failure. OPERATIONS: None. CONSULTATION: Urology, he is improved. CAL / CHELAN: [id number] /
--- NOTE | 2023-09-01 08:07 | PN ---
PROGRESS NOTE DATE OF SERVICE: 08/26/2023 CHIEF COMPLAINT: Urinary retention. HISTORY OF PRESENT ILLNESS: This gentleman is doing fairly well. Walsh catheter is still in place. He has had no fever, chills, chest pain, shortness of breath, etc. PHYSICAL EXAMINATION: CHEST: Clear. ABDOMEN: Protuberant, soft and nontender. Walsh catheter is in place. IMPRESSION: 1. Urinary retention. 2. Congestive heart failure. PLAN: 1. Increase Flonase. 2. Urology consult. MMODL / IJN: [id number] /
== END 2023-08-27 14:40 | disposition home or self-care (01) ==
LOC: EC 10:41 → 3SCARD 14:05
PROVIDERS: ADMIT Family Medicine; ATTEND Family Medicine
DX: I11.0 Hypertensive heart disease with heart failure (principal); I50.22 Chronic systolic (congestive) heart failure; J44.9 Chronic obstructive pulmonary disease, unspecified; E11.9 Type 2 diabetes mellitus without complications; K21.9 Gastro-esophageal reflux disease without esophagitis; E78.5 Hyperlipidemia, unspecified; F32.A Depression, unspecified; F41.9 Anxiety disorder, unspecified; I42.8 Other cardiomyopathies; I25.10 Atherosclerotic heart disease of native coronary artery without angina pectoris; I48.92 Unspecified atrial flutter; I44.0 Atrioventricular block, first degree; N40.1 Benign prostatic hyperplasia with lower urinary tract symptoms; R33.8 Other retention of urine; R91.1 Solitary pulmonary nodule; I71.21 Aneurysm of the ascending aorta, without rupture; J81.0 Acute pulmonary edema; E66.2 Morbid (severe) obesity with alveolar hypoventilation; Z68.41 Body mass index [BMI] 40.0-44.9, adult; Z87.891 Personal history of nicotine dependence; Z79.01 Long term (current) use of anticoagulants; Z79.51 Long term (current) use of inhaled steroids; Z79.82 Long term (current) use of aspirin; Z79.899 Other long term (current) drug therapy
CPT/HCPCS: 96376; 96374; 99285; 51798; 36415; 94660 ×6; 93005; 83880; 80053 ×2; 83605; 83735; 84484; 85025; 85610; 85730; 81003; 71046; G0378 ×6; J1940 ×2

== ENCOUNTER 2023-09-20 18:46 | Observation (INO) | payer MEDICARE, OTHER ==
--- NOTE | 2023-09-20 18:59 | ED ---
GI Bleed HPI - General Source: patient, RN notes reviewed Mode of arrival: ambulatory Limitations: no limitations <Giovanna Benavidez - Last Filed: 09/20/23 19:05> <Manan Palmer - Last Filed: 09/20/23 22:42> - General Chief complaint: GI Bleed Stated complaint: abnormal labs Time Seen by Provider: 09/20/23 18:57 - History of Present Illness Initial comments: This is a 63 -year-old male who presents to the emergency department for abnormal labs and black stool. Patient reports black tarry stool. This has been an intermittent issue for 5 months, however he states that he does not always check his stool. He saw his PCP a week ago and had blood work done and an x-ray. He was told that he was constipated and treated this with castor oil. He received a phone call from his PCPs office saying that his hemoglobin was low, and he needed to come to the emergency department for evaluation. Believes that this is from the lab work that was checked a week ago. He is on blood thinners. He is on Eliquis and something else that he cannot recall the name of. (Giovanna Benavidez) 63-year-old male with a past medical history significant for A-fib presenting to the ED with a chief complaint of abnormal labs. Patient states for the past month he has had intermittent issues with dark stools. Reportedly had blood work done sometime a week to 2 weeks ago and was instructed to come to the ED to day because of a hemoglobin of 8. Otherwise denies symptoms. Reports history of ongoing abdominal pains and chest pains however these are unchanged from usual. Otherwise denies any changes to bowel or bladder habits. Denies fever or chills. No other complaints at this time. (Manan Palmer) - Related Data Home Medications Medication Instructions Recorded Confirmed ALPRAZolam [Xanax] 1 mg PO TID PRN 06/26/16 09/20/23 Carvedilol 25 mg PO BID-W/MEALS 06/26/16 09/20/23 Fluticasone Nasal Hydro [Flonase 1 spr EA NOSTRIL DAILY 06/26/16 09/20/23 Nasal Hydro] Nitroglycerin Sl Tabs [Nitrostat] 0.4 mg SL Q5M PRN 03/08/17 09/20/23 HYDROcodone/APAP 10-325MG [Maynard 1 tab PO Q6H PRN 09/21/18 09/20/23 10-325] Albuterol Nebulized [Ventolin 2.5 mg INHALATION RT-QID PRN 01/15/19 09/20/23 Nebulized] Ergocalciferol (Vitamin D2) 1,250 mcg PO MO 07/27/21 09/20/23 [Drisdol (50,000 Iu)] Potassium Chloride [Klor-Con M10] 10 meq PO BID-W/MEALS 07/27/21 09/20/23 Famotidine [Pepcid] 20 mg PO HS 10/23/22 09/20/23 Lidocaine 5% Oint [Xylocaine 5% 1 applic TOPICAL DAILY PRN 10/23/22 09/20/23 Oint] Nitroglycerin 0.4MG/Hr Patch 1 patch TRANSDERM DAILY 10/23/22 09/20/23 [Nitro-Dur 0.4MG/Hr Patch] Olopatadine HCl [Pataday] 1 drop BOTH EYES BID 10/23/22 09/20/23 Simvastatin [Zocor] 40 mg PO HS 10/23/22 09/20/23 Albuterol Inhaler [Ventolin Hfa 2 puff INHALATION RT-Q4H PRN 02/02/23 09/20/23 Inhaler] Furosemide [Lasix] 120 mg PO DAILY 08/13/23 09/20/23 Sacubitril/Valsartan [Entresto 24 1 tab PO BID 08/22/23 09/20/23 mg-26 mg Tablet] Amoxic-Pot Clav 875-125Mg 1 tab PO Q12HR 09/20/23 09/20/23 [Augmentin 875-125] Dapagliflozin Propanediol [Farxiga] 10 mg PO DAILY 09/20/23 09/20/23 Ibuprofen [Motrin] 800 mg PO Q8H PRN 09/20/23 09/20/23 Spironolactone [Aldactone] 25 mg PO DAILY 09/20/23 09/20/23 methylPREDNISolone Dose Pack See Taper PO DIRECTED 09/20/23 09/20/23 [Medrol Dose Pack] Previous Rx's Medication Instructions Recorded Aspirin [Adult Low Dose Aspirin EC] 81 mg PO DAILY #30 tablet. 09/23/18 Cyclobenzaprine [Flexeril] 10 mg PO BID #60 tablet 09/23/18 Docusate [Colace] 100 mg PO DAILY PRN #30 cap 09/23/18 Apixaban [Eliquis] 5 mg PO BID #60 tab 08/16/23 Tamsulosin HCl [Flomax] 0.8 mg PO DAILY #60 cap 08/27/23 Allergies Allergy/AdvReac Type Severity Reaction Status Date / Time No Known Allergies Allergy Verified 09/20/23 21:49 Review of Systems ROS Other: All systems not noted in ROS Statement are negative. <Giovanna Benavidez - Last Filed: 09/20/23 19:05> ROS Other: All systems not noted in ROS Statement are negative. <Manan Palmer - Last Filed: 09/20/23 22:42> ROS Statement: Those systems with pertinent positive or pertinent negative responses have been documented in the HPI. Past Medical History Past Medical History: Heart Failure, COPD, Diabetes Mellitus, GERD/Reflux, Hyperlipidemia, Hypertension, Osteoarthritis (OA), Prostate Disorder, Sleep Apnea/CPAP/BIPAP Additional Past Medical History / Comment(s): ASCENDING THORACIC ANEURYSM, Palpitations, "LEAKY VALVE." USES BI PAP MACHINE, CONSTIPATION. EDEMA ANKLES. Influenza A History of Any Multi-Drug Resistant Organisms: None Reported Past Surgical History: Orthopedic Surgery Additional Past Surgical History / Comment(s): ARTHROSCOPIC RIGHT KNEE - EXC GLASS, HEMORRHOIDECTOMY. COLONOSCOPY. Past Anesthesia/Blood Transfusion Reactions: Previous Problems w/ Anesthesia Additional Past Anesthesia/Blood Transfusion Reaction / Comment(s): AWAKE DURING SURGERY, IN PAIN. Past Psychological History: Anxiety, Depression Smoking Status: Former smoker Past Alcohol Use History: None Reported Past Drug Use History: None Reported - Past Family History Father Family Medical History: Cancer, Diabetes Mellitus Mother Family Medical History: Cancer <Giovanna Benavidez - Last Filed: 09/20/23 19:05> General Exam Limitations: no limitations <Giovanna Benavidez - Last Filed: 09/20/23 19:05> General appearance: alert, in no apparent distress Eye exam: Present: normal appearance Neck exam: Present: normal inspection Respiratory exam: Present: normal lung sounds bilaterally Cardiovascular Exam: Present: regular rate GI/Abdominal exam: Present: soft (No tenderness to palpation. No rebound gu arding or rigidity.) Neurological exam: Present: alert, oriented X3 Skin exam: Present: warm, dry <Manan Palmer - Last Filed: 09/20/23 22:42> - General Exam Comments Initial Comments: Visual Physical Exam Vital signs reviewed General: Well-appearing, nontoxic, no acute distress. Head: Normocephalic, atraumatic Eyes: PERRLA, EOMI ENT: Airway patent Chest: Nonlabored breathing Skin: No visual rash, normal skin tone Neuro: Alert and oriented 3 Musculoskeletal: No gross abnormalities (Giovanna Benavidez) Course Vital Signs 09/20/23 09/20/23 18:47 22:37 Temperature 99.3 F Pulse Rate 87 93 Respiratory 16 18 Rate Blood Pressure 120/77 122/75 O2 Sat by Pulse 99 97 Oximetry Medical Decision Making <Giovanna Benavidez - Last Filed: 09/20/23 19:05> - Lab Data Result diagrams: 09/20/23 19:12 09/20/23 19:12 <Manan Palmer - Last Filed: 09/20/23 22:42> - Medical Decision Making I performed the QuickNote portion of this chart. Signed Giovanna Benavidez PA-C. (Giovanna Benavidez) Was pt. sent in by a medical professional or institution ([facility]mod[facility], FLOOR MECHANIC, urgent care, hospital, or half-way...) When possible be specific @ -Dr. Epps's office Did you speak to anyone other than the patient for history (EMS, parent, family, police, friend...)? What history was obtained from this source @ -No Did you review nursing and triage notes (agree or disagree)? Why? @ -I reviewed and agree with nursing and triage notes Were old charts reviewed (outside hosp., previous admission, EMS record, old EKG, old radiological studies, urgent care reports/EKG's, half-way records)? Report findings @ -History of chronically elevated troponin. Differential Diagnosis (chest pain, altered mental status, abdominal pain women, abdominal pain men, vaginal bleeding, weakness, fever, dyspnea, syncope, headache, dizziness, GI bleed, back pain, seizure, CVA, palpatations, mental health, musculoskeletal)? @ -Not applicable EKG interpreted by me (3pts min.). @ -EKG interpreted by me shows nonspecific changes. X-rays interpreted by me (1pt min.). @ -None done CT interpreted by me (1pt min.). @ -None done U/S interpreted by me (1pt. min.). @ -None done What testing was considered but not performed or refused? (CT, X-rays, U/S, labs)? Why? @ -None What meds were considered but not given or refused? Why? @ -None Did you discuss the management of the patient with other professionals (professionals i.e. , PA, FLOOR MECHANIC, lab, RT, psych nurse, director social welfare, financial intern, teacher, correctional officer chief, caser up)? Give summary @ -No Was smoking cessation discussed for >3mins.? @ -No Was critical care preformed (if so, how long)? @ -No Were there social determinants of health that impacted care today? How? (Homelessness, low income, unemployed, alcoholism, drug addiction, transportation, low edu. Level, literacy, decrease access to med. care, fpc, rehab)? @ -No Was there de-escalation of care discussed even if they declined (Discuss DNR or withdrawal of care, Hospice)? DNR status @ -No What co-morbidities impacted this encounter? (DM, HTN, Smoking, COPD, CAD, Cancer, CVA, ARF, Chemo, Hep., AIDS, mental health diagnosis, sleep apnea, morbid obesity)? @ -None Was patient admitted / discharged? Hospital course, mention meds given and route, prescriptions, significant lab abnormalities, going to OR and other pertinent info. @ -Admission 63-year-old male presenting to the ED with chief complaint of abnormal labs. Has reportedly had issues with melena for the past month or so. Had outpatient labs concerning for anemia and was instructed to present to the ED for further evaluation. Laboratory studies reviewed. CBC significant for a hemoglobin of 11.8. Chemistry panel largely unremarkable. Troponin here 0.07 2 repeat pending however review shows history of chronically elevated troponins and at this time patient does not note any chest pain. Occult stool is pending at this time. Patient will be admitted to observation with consult to gastroenterology. Thinners held. Patient started on Protonix. Undiagnosed new problem with uncertain prognosis? @ -No Drug Therapy requiring intensive monitoring for toxicity (Heparin, Nitro, Insulin, Cardizem)? @ -No Were any procedures done? @ -No Diagnosis/symptom? @ -Melena, anemia Acute, or Chronic, or Acute on Chronic? @ -Acute on chronic Uncomplicated (without systemic symptoms) or Complicated (systemic symptoms)? @ -Uncomplicated Side effects of treatment? @ -No Exacerbation, Progression, or Severe Exacerbation? @ -No Poses a threat to life or bodily function? How? (Chest pain, [place], [place], pneumonia, PE, COPD, DKA, ARF, appy, cholecystitis, CVA, Diverticulitis, Homicidal, Suicidal, threat to staff... and all critical care pts) @ -No (Manan Palmer) - Lab Data Lab Results 09/20/23 09/20/23 09/20/23 Range/Units 19:06 19:11 19:12 WBC 7.3 (3.8-10.6) k/uL RBC 4.08 L (4.30-5.90) m/uL Hgb 11.8 L D (13.0-17.5) gm/dL Hct 37.0 L (39.0-53.0) % MCV 90.8 (80.0-100.0) fL MCH 28.9 (25.0-35.0) pg MCHC 31.8 (31.0-37.0) g/dL RDW 14.8 (11.5-15.5) % Plt Count 376 (150-450) k/uL MPV 8.0 Neutrophils % 64 % Lymphocytes % 26 % Monocytes % 6 % Eosinophils % 1 % Basophils % 0 % Neutrophils # 4.7 (1.3-7.7) k/uL Lymphocytes # 1.9 (1.0-4.8) k/uL Monocytes # 0.4 (0-1.0) k/uL Eosinophils # 0.1 (0-0.7) k/uL Basophils # 0.0 (0-0.2) k/uL Hypochromasia Moderate PT (10.0-12.5) sec INR (<1.2) APTT (22.0-30.0) sec Sodium (137-145) mmol/L Potassium (3.5-5.1) mmol/L Chloride (98-107) mmol/L Carbon Dioxide (22-30) mmol/L Anion Gap mmol/L BUN (9-20) mg/dL Creatinine (0.66-1.25) mg/dL Est GFR (CKD-EPI)AfAm (>60 ml/min/1.73 sqM) Est GFR (CKD-EPI)NonAf (>60 ml/min/1.73 sqM) Glucose (74-99) mg/dL Calcium (8.4-10.2) mg/dL Magnesium (1.6-2.3) mg/dL Total Bilirubin (0.2-1.3) mg/dL AST (17-59) U/L ALT (4-49) U/L Alkaline Phosphatase (38-126) U/L Troponin I (0.000-0.034) ng/mL Total Protein (6.3-8.2) g/dL Albumin (3.5-5.0) g/dL Influenza Type A (PCR) (Not Detectd) Influenza Type B (PCR) (Not Detectd) RSV (PCR) (Not Detectd) SARS-CoV-2 (PCR) (Not Detectd) Blood Type O Positive Blood Type Confirm O Positive Blood Type Recheck No Previous Record Bld Type Recheck Status CABO Indicated Antibody Screen NEGATIVE Spec Expiration Date 09/23/2023 - 231109/20/23 09/20/23 09/20/23 Range/Units 19:12 19:12 19:12 WBC (3.8-10.6) k/uL RBC (4.30-5.90) m/uL Hgb (13.0-17.5) gm/dL Hct (39.0-53.0) % MCV (80.0-100.0) fL MCH (25.0-35.0) pg MCHC (31.0-37.0) g/dL RDW (11.5-15.5) % Plt Count (150-450) k/uL MPV Neutrophils % % Lymphocytes % % Monocytes % % Eosinophils % % Basophils % % Neutrophils # (1.3-7.7) k/uL Lymphocytes # (1.0-4.8) k/uL Monocytes # (0-1.0) k/uL Eosinophils # (0-0.7) k/uL Basophils # (0-0.2) k/uL Hypochromasia PT 10.8 (10.0-12.5) sec INR 1.0 (<1.2) APTT 25.4 (22.0-30.0) sec Sodium 137 (137-145) mmol/L Potassium 4.4 (3.5-5.1) mmol/L Chloride 99 (98-107) mmol/L Carbon Dioxide 30 (22-30) mmol/L Anion Gap 8 mmol/L BUN 22 H (9-20) mg/dL Creatinine 0.97 (0.66-1.25) mg/dL Est GFR (CKD-EPI)AfAm >90 (>60 ml/min/1.73 sqM) Est GFR (CKD-EPI)NonAf 82 (>60 ml/min/1.73 sqM) Glucose 116 H (74-99) mg/dL Calcium 9.4 (8.4-10.2) mg/dL Magnesium 1.8 (1.6-2.3) mg/dL Total Bilirubin 0.5 (0.2-1.3) mg/dL AST 47 (17-59) U/L ALT 43 (4-49) U/L Alkaline Phosphatase 77 (38-126) U/L Troponin I 0.072 H* (0.000-0.034) ng/mL Total Protein 7.5 (6.3-8.2) g/dL Albumin 4.3 (3.5-5.0) g/dL Influenza Type A (PCR) (Not Detectd) Influenza Type B (PCR) (Not Detectd) RSV (PCR) (Not Detectd) SARS-CoV-2 (PCR) (Not Detectd) Blood Type Blood Type Confirm Blood Type Recheck Bld Type Recheck Status Antibody Screen Spec Expiration Date 09/20/23 Range/Units 19:12 WBC (3.8-10.6) k/uL RBC (4.30-5.90) m/uL Hgb (13.0-17.5) gm/dL Hct (39.0-53.0) % MCV (80.0-100.0) fL MCH (25.0-35.0) pg MCHC (31.0-37.0) g/dL RDW (11.5-15.5) % Plt Count (150-450) k/uL MPV Neutrophils % % Lymphocytes % % Monocytes % % Eosinophils % % Basophils % % Neutrophils # (1.3-7.7) k/uL Lymphocytes # (1.0-4.8) k/uL Monocytes # (0-1.0) k/uL Eosinophils # (0-0.7) k/uL Basophils # (0-0.2) k/uL Hypochromasia PT (10.0-12.5) sec INR (<1.2) APTT (22.0-30.0) sec Sodium (137-145) mmol/L Potassium (3.5-5.1) mmol/L Chloride (98-107) mmol/L Carbon Dioxide (22-30) mmol/L Anion Gap mmol/L BUN (9-20) mg/dL Creatinine (0.66-1.25) mg/dL Est GFR (CKD-EPI)AfAm (>60 ml/min/1.73 sqM) Est GFR (CKD-EPI)NonAf (>60 ml/min/1.73 sqM) Glucose (74-99) mg/dL Calcium (8.4-10.2) mg/dL Magnesium (1.6-2.3) mg/dL Total Bilirubin (0.2-1.3) mg/dL AST (17-59) U/L ALT (4-49) U/L Alkaline Phosphatase (38-126) U/L Troponin I (0.000-0.034) ng/mL Total Protein (6.3-8.2) g/dL Albumin (3.5-5.0) g/dL Influenza Type A (PCR) Not Detected (Not Detectd) Influenza Type B (PCR) Not Detected (Not Detectd) RSV (PCR) Not Detected (Not Detectd) SARS-CoV-2 (PCR) Not Detected (Not Detectd) Blood Type Blood Type Confirm Blood Type Recheck Bld Type Recheck Status Antibody Screen Spec Expiration Date Disposition <Giovanna Benavidez - Last Filed: 09/20/23 19:05> Time of Disposition: 22:00 <Manan Palmer - Last Filed: 09/20/23 22:42> Clinical Impression: Melena, Anemia Disposition: ADMITTED IP TO THIS HOSP Condition: Good Referrals: Reagan Epps MD [Primary Care Provider] - 1-2 days
[2023-09-20 19:27] LABS: Basophils % (A) 0 %; Eosinophils # (A) 0.1 k/uL (0-0.7); Eosinophils % (A) 1 %; Hypochromasia Moderate; Lymphocytes # (A) 1.9 k/uL (1.0-4.8); Lymphocytes % (A) 26 %; MCH 28.9 pg (25.0-35.0); MCHC 31.8 g/dL (31.0-37.0); MCV 90.8 fL (80.0-100.0); Monocytes # (A) 0.4 k/uL (0-1.0); Monocytes % (A) 6 %; Neutrophils # (A) 4.7 k/uL (1.3-7.7); Neutrophils % (A) 64 %; Platelet Count 376 k/uL (150-450); RBC 4.08 m/uL (4.30-5.90); RDW 14.8 % (11.5-15.5); WBC 7.3 k/uL (3.8-10.6)
[2023-09-20 19:34] LABS: HGB 11.8 gm/dL (13.0-17.5)
[2023-09-20 19:36] LABS: ALT 43 U/L (4-49); AST 47 U/L (17-59); African American GFR (CKD) >90 (>60 ml/min/1.73 sqM); Albumin 4.3 g/dL (3.5-5.0); Alkaline Phosphatase 77 U/L (38-126); Anion Gap 8 mmol/L; Blood Urea Nitrogen 22 mg/dL (9-20); Calcium 9.4 mg/dL (8.4-10.2); Carbon Dioxide 30 mmol/L (22-30); Chloride 99 mmol/L (98-107); Glucose 116 mg/dL (74-99); Magnesium 1.8 mg/dL (1.6-2.3); Non-African American GFR(CKD) 82 (>60 ml/min/1.73 sqM); Potassium 4.4 mmol/L (3.5-5.1); Sodium 137 mmol/L (137-145); Total Bilirubin 0.5 mg/dL (0.2-1.3); Total Protein 7.5 g/dL (6.3-8.2)
[2023-09-20 19:37] LABS: Partial Thromboplastin Time 25.4 sec (22.0-30.0); Prothrombin Time 10.8 sec (10.0-12.5)
--- NOTE | 2023-09-20 20:08 | XR ---
EXAMINATION TYPE: XR chest 2V DATE OF EXAM: 09/20/2023 COMPARISON: 08/22/2023 HISTORY: 63-year-old male abnormal labs, pain TECHNIQUE: AP and lateral views FINDINGS: Rightward patient rotation alters the normal cardiomediastinal contours. Heart upper limits of normal in size. Large patient body habitus results in hazy lung densities. The mid and lower thoracic spine . No consolidation or pleural effusion seen. IMPRESSION: Portable exam further limited by large body habitus and underpenetration. Slightly rotated exam. No d efinite acute process.
[2023-09-20] MEDS ORDERED: NALOXONE 0.4 MG/ML 1 ML VIAL IV PRN (22:42)
[2023-09-20] MEDS ORDERED: NON FORMULARY DRUG (Albuterol Inhaler 90 MCG Puff) INHALATION PRN (23:53)
[2023-09-21] MEDS: SODIUM CHLORIDE 0.9% 1,000 ML IV SCH (01:14)
[2023-09-21] MEDS: FUROSEMIDE 80 MG TAB PO SCH (01:14)
[2023-09-21] MEDS: SACUBITRIL/VALSARTAN 24 MG-26 MG TABLET PO SCH (01:14)
[2023-09-21] MEDS: PANTOPRAZOLE 40 MG/10 ML VIAL IVP SCH (01:14)
[2023-09-21 04:00] LABS: Basophils % (A) 0 %; Eosinophils # (A) 0.1 k/uL (0-0.7); Eosinophils % (A) 2 %; HCT 34.9 % (39.0-53.0); HGB 10.9 gm/dL (13.0-17.5); Hypochromasia Moderate; Lymphocytes # (A) 2.4 k/uL (1.0-4.8); Lymphocytes % (A) 36 %; MCH 28.4 pg (25.0-35.0); MCHC 31.1 g/dL (31.0-37.0); MCV 91.4 fL (80.0-100.0); Mean Platelet Volume 8.5; Monocytes # (A) 0.5 k/uL (0-1.0); Monocytes % (A) 7 %; Neutrophils # (A) 3.5 k/uL (1.3-7.7); Neutrophils % (A) 53 %; Platelet Count 358 k/uL (150-450); RBC 3.82 m/uL (4.30-5.90); RDW 14.7 % (11.5-15.5); WBC 6.6 k/uL (3.8-10.6)
[2023-09-21] MEDS: ALBUTEROL NEBULIZED 2.5 MG/3 ML INHALATION PRN (07:37)
[2023-09-21] MEDS: TAMSULOSIN 0.4 MG CAP.ER.24H PO SCH (08:29)
[2023-09-21] MEDS: SPIRONOLACTONE 25 MG TAB PO SCH (08:29)
[2023-09-21] MEDS: carvediloL 12.5 MG TAB PO SCH (08:30)
[2023-09-21] MEDS: HYDROcodone/APAP 10-325MG 1 EACH TAB PO PRN (08:33)
--- NOTE | 2023-09-21 11:47 | P.CONS ---
History of Present Illness - Reason for Consult Consult date: 09/21/23 Melena, anemia Requesting physician: Reagan Epps - Chief Complaint Abnormal labs - History of Present Illness This is a pleasant 63-year-old -[place] male who was sent into the emergency department by his PCP Dr. Epps for abnormal labs. Patient states he had seen his primary care physician, he had some lab work done and he was told that he was anemic and needed to go to the emergency department. Past medical history includes atrial fibrillation, diabetes mellitus, heart failure, COPD, hyperlipidemia, hypertension, GERD, ascending thoracic aneurysm, and chronic constipation. Patient denies any gross blood in his stool, states that his stool may be a dark brown to a light brown seems to be darker after eating certain foods. Denies it being black or tarry. Denies any abdominal pain, epigastric pain, nausea or vomiting. Was diagnosed with atrial fibrillation back in March 2023 and is on Eliquis currently and also takes a 81 mg aspirin d aily as well as Motrin 800 mg as needed. He states he has had a colonoscopy about 8 years ago, unsure if he has had a upper endoscopy in the past. He does state that he had some pressure in his chest, and was also noted to have elevated troponins x 3. Patient's admitting hemoglobin was 11.8, today's repeat is 10.9. Denies any current bleeding. States that he has chronic constipation, he has had hemorrhoids in the past and has had bleeding from hemorrhoids but no other GI bleed. He denies any current chest pain, shortness of breath, weakness, dizziness, abdominal pain, nausea or vomiting. Patient currently has a Walsh catheter in place, he has been following with urology for urinary re tention. States that he does have occasional blood in his urine. Review of Systems REVIEW OF SYSTEMS: CARDIOPULMONARY: Chest pressure, no shortness of breath. Gastrointestinal: Epigastric discomfort. No nausea or vomiting. No hematemesis, coffee-ground emesis. No rectal bleeding, or melena. GENITOURINARY: No dysuria or hematuria. MUSCULOSKELETAL: Reports normal range of motion. Joint pain. SKIN: No rashes. No jaundice. ENDOCRINE: No chills, fevers. No excessive weight gain or loss. No polydipsia or polyuria. PSYCHIATRIC: Unremarkable. NEUROLOGY: No change in mental status. Denies dizziness, headache. ENT: Vision unremarkable. CONSTITUTIONAL: No recent weight loss. No fever, chills, night sweats. Past Medical History Past Medical History: Heart Failure, COPD, Diabetes Mellitus, GERD/Reflux, Hyperlipidemia, Hypertension, Osteoarthritis (OA), Prostate Disorder, Sleep Apnea/CPAP/BIPAP Additional Past Medical History / Comment(s): ASCENDING THORACIC ANEURYSM, Palpitations, "LEAKY VALVE." USES BI PAP MACHINE, CONSTIPATION. EDEMA ANKLES. Influenza A History of Any Multi-Drug Resistant Organisms: None Reported Past Surgical History: Orthopedic Surgery Additional Past Surgical History / Comment(s): ARTHROSCOPIC RIGHT KNEE - EXC GLASS, HEMORRHOIDECTOMY. COLONOSCOPY. Past Anesthesia/Blood Transfusion Reactions: Previous Problems w/ Anesthesia Additional Past Anesthesia/Blood Transfusion Reaction / Comm: AWAKE DURING SURGERY, IN PAIN. Past Psychological History: Anxiety, Depression Smoking Status: Former smoker Past Alcohol Use History: None Reported Past Drug Use History: None Reported - Past Family History Father Family Medical History: Cancer, Diabetes Mellitus Mother Family Medical History: Cancer Medications and Allergies Home Medications Medication Instructions Recorded Confirmed Type ALPRAZolam [Xanax] 1 mg PO TID PRN 06/26/16 09/20/23 History Carvedilol 25 mg PO BID-W/MEALS 06/26/16 09/20/23 History Fluticasone Nasal [place] [Flonase 1 spr EA NOSTRIL DAILY 06/26/16 09/20/23 History Nasal [place]] Nitroglycerin Sl Tabs [Nitrostat] 0.4 mg SL Q5M PRN 03/08/17 09/20/23 History HYDROcodone/APAP 10-325MG [[place] 1 tab PO Q6H PRN 09/21/18 09/20/23 History 10-325] Aspirin [Adult Low Dose Aspirin EC] 81 mg PO DAILY #30 tablet. 09/23/18 09/20/23 Rx Cyclobenzaprine [Flexeril] 10 mg PO BID #60 tablet 09/23/18 09/20/23 Rx Docusate [Colace] 100 mg PO DAILY PRN #30 cap 09/23/18 09/20/23 Rx Albuterol Nebulized [Ventolin 2.5 mg INHALATION RT-QID PRN 01/15/19 09/20/23 History Nebulized] Ergocalciferol (Vitamin D2) 1,250 mcg PO MO 07/27/21 09/20/23 History [Drisdol (50,000 Iu)] Potassium Chloride [Klor-Con M10] 10 meq PO BID-W/MEALS 07/27/21 09/20/23 History Famotidine [Pepcid] 20 mg PO HS 10/23/22 09/20/23 History Lidocaine 5% Oint [Xylocaine 5% 1 applic TOPICAL DAILY PRN 10/23/22 09/20/23 History Oint] Nitroglycerin 0.4MG/Hr Patch 1 patch TRANSDERM DAILY 10/23/22 09/20/23 History [Nitro-Dur 0.4MG/Hr Patch] Olopatadine HCl [Pataday] 1 drop BOTH EYES BID 10/23/22 09/20/23 History Simvastatin [Zocor] 40 mg PO HS 10/23/22 09/20/23 History Albuterol Inhaler [Ventolin Hfa 2 puff INHALATION RT-Q4H PRN 02/02/23 09/20/23 History Inhaler] Furosemide [Lasix] 120 mg PO DAILY 08/13/23 09/20/23 History Apixaban [Eliquis] 5 mg PO BID #60 tab 08/16/23 09/20/23 Rx Sacubitril/Valsartan [Entresto 24 1 tab PO BID 08/22/23 09/20/23 History mg-26 mg Tablet] Tamsulosin HCl [Flomax] 0.8 mg PO DAILY #60 cap 08/27/23 09/20/23 Rx Amoxic-Pot Clav 875-125Mg 1 tab PO Q12HR 09/20/23 09/20/23 History [Augmentin 875-125] Dapagliflozin Propanediol [Farxiga] 10 mg PO DAILY 09/20/23 09/20/23 History Ibuprofen [Motrin] 800 mg PO Q8H PRN 09/20/23 09/20/23 History Spironolactone [Aldactone] 25 mg PO DAILY 09/20/23 09/20/23 History methylPREDNISolone Dose Pack See Taper PO DIRECTED 09/20/23 09/20/23 History [Medrol Dose Pack] Allergies Allergy/AdvReac Type Severity Reaction Status Date / Time No Known Allergies Allergy Verified 09/20/23 21:49 Physical Exam Vitals: Vital Signs Temp Pulse Resp BP Pulse Ox 09/21/23 08:25 98.9 F 90 18 115/81 98 09/21/23 07:45 65 16 09/21/23 07:38 64 16 09/21/23 04:00 82 18 122/75 97 09/21/23 00:00 92 16 111/67 98 09/20/23 22:37 93 18 122/75 97 09/20/23 18:47 99.3 F 87 16 120/77 99 Intake and Output 09/20/23 09/21/23 09/21/23 22:59 06:59 14:59 Other: Weight 136.078 kg General appearance: The patient is alert, oriented, appears in no acute distress. HET: Head is normocephalic and atraumatic. Conjunctiva pink. Sclera anicteric. Neck: Supple without lymphadenopathy. Trachea midline. Heart: Regular. Lungs: Equal expansion, normal respiratory effort. Abdomen: Soft, nontender, nondistended with bowel sounds. No guarding or rigidity. Skin: No rashes. No jaundice. Extremities: Normal skin color and turgor. No pedal edema. Neurological: No focal deficits. Alert and oriented x3. Results CBC & Chem 7: 09/21/23 03:37 09/20/23 19:12 Labs: Abnormal Lab Results - Last 24 Hours (Table) 09/20/23 09/20/23 09/20/23 Range/Units 19:12 19:12 19:12 RBC 4.08 L (4.30-5.90) m/uL Hgb 11.8 L D (13.0-17.5) gm/dL Hct 37.0 L (39.0-53.0) % BUN 22 H (9-20) mg/dL Glucose 116 H (74-99) mg/dL Troponin I 0.072 H* (0.000-0.034) ng/mL 09/21/23 09/21/23 09/21/23 Range/Units 00:46 03:37 03:37 RBC 3.82 L (4.30-5.90) m/uL Hgb 10.9 L (13.0-17.5) gm/dL Hct 34.9 L (39.0-53.0) % BUN (9-20) mg/dL Glucose (74-99) mg/dL Troponin I 0.074 H* 0.081 H* (0.000-0.034) ng/mL Assessment and Plan (1) Anemia Narrative/Plan: 63-year-old male sent in for abnormal labs and mild anemia. Normochromic normocytic anemia and a man with multiple comorbidities, including atrial fibrillation on Eliquis. He had a negative occult stool, mild elevation in his BUN however has been elevated in the past with possible underlying kidney disease. He denies any black stool or tarry stool states that he may have some dark brown to light brown stool that it changes depending on foods that he eats. Last colonoscopy approximately 8 years ago. No history of GI bleed or peptic ulcer disease. We will monitor hemoglobin and signs for GI bleed. Will plan for EGD tomorrow or Tuesday. Current Visit: Yes Status: Acute Code(s): D64.9 - ANEMIA, UNSPECIFIED SNOMED Code(s): 804339802 (2) Diabetes Current Visit: Yes Status: Acute Code(s): E11.9 - TYPE 2 DIABETES MELLITUS WITHOUT COMPLICATIONS SNOMED Code(s): 76639077 (3) Atrial fibrillation Current Visit: Yes Status: Acute Code(s): I48.91 - UNSPECIFIED ATRIAL FIBRILLATION SNOMED Code(s): 51330593 (4) COPD (chronic obstructive pulmonary disease) Current Visit: Yes Status: Acute Code(s): J44.9 - CHRONIC OBSTRUCTIVE PULMONARY DISEASE, UNSPECIFIED SNOMED Code(s): 69786067 (5) Chest pain Current Visit: No Status: Acute Code(s): R07.9 - CHEST PAIN, UNSPECIFIED SNOMED Code(s): 31971192 (6) Urinary retention Current Visit: No Status: Acute Code(s): R33.9 - RETENTION OF URINE, UNSPECIFIED SNOMED Code(s): 181039683 Plan: 1. Continue symptomatic and supportive care 2. CBC daily, transfuse for hemoglobin less than 7 3. Protonix 40 mg daily, GI prophylaxis 4. Hold Eliquis for now 5. Monitor for GI bleed 6. Patient may have consistent carbohydrate diet, n.p.o. after midnight 7. Tentatively plan for EGD tomorrow, otherwise Tuesday Thank you for this consultation, we will continue to follow. Dr. Pato Delcid I agree with the dictator's note, documented as a scribe by Joi Graham.
[2023-09-21] MEDS ORDERED: LIDOCAINE 5% OINTMENT 50 GM JAR TOPICAL PRN (15:38)
[2023-09-21] MEDS ORDERED: NITROGLYCERIN SL TABS 0.4 MG TAB SUBLINGUAL PRN (15:38)
[2023-09-21] MEDS: POTASSIUM CHLORIDE ER 10 MEQ TAB.ER.PRT PO SCH (17:02)
[2023-09-21] MEDS: ATORVASTATIN 20 MG TAB PO SCH (22:00)
[2023-09-21] MEDS: FAMOTIDINE 20 MG TAB PO SCH (22:00)
[2023-09-22] MEDS: DAPAGLIFLOZIN PROPANEDIOL 10 MG TABLET PO SCH (08:49)
[2023-09-22] MEDS: NITROGLYCERIN 0.4MG/HR PATCH TRANSDERM SCH (08:58)
[2023-09-22 09:04] LABS: HCT 35.4 % (39.0-53.0); HGB 11.1 gm/dL (13.0-17.5); Hypochromasia Moderate; MCHC 31.5 g/dL (31.0-37.0); MCV 92.1 fL (80.0-100.0); Mean Platelet Volume 8.4; Platelet Count 354 k/uL (150-450); RBC 3.85 m/uL (4.30-5.90); RDW 14.6 % (11.5-15.5); WBC 6.6 k/uL (3.8-10.6)
--- NOTE | 2023-09-22 09:13 | P.CRDCN ---
History of Present Illness Consult date: 09/22/23 Consult reason: congestive heart failure (and elevated troponins) Chief complaint: Tarry stools History of present illness: History of present illness: This is a 63-year-old male patient of Dr. Macias with past medical history of atrial fibrillation/atrial flutter typical on Eliquis, chronic systolic heart failure, nonischemic cardiomyopathy, diabetes, hypertension, dyslipidemia, morbid obesity, coronary artery disease, thoracic aortic aneurysm followed by vascular surgeon. We have been asked to evaluate the patient for CHF and elevated troponins. Patient presented to the hospital due to a low hemoglobin. He states he was at his primary care doctor's office and had blood work done that revealed a hemoglobin of 8 or 9 and he was instructed to come in to the hospital. Patient was admitted on September 20. He is scheduled for EGD today with GI. Patient denies having any chest pain, no shortness of breath. Eliquis is on hold. Patient is seen today in the emergency center waiting for a bed on the cardiac stepdown unit. EKG atrial fibrillation at ventricular rate of 72 bpm. Chest x-ray: No definite acute process WBC 6.6, hemoglobin 9.1, platelet count 354. Troponin 0.072, 0.074 and 0.081. Stool for occult blood was negative. Influenza A, influenza B, RSV, COVID-19 not detected. Electrolytes are within normal limits. BUN 22 and creatinine 0.97. Glucose 116. Magnesium 1.8. Liver function test within normal limits. Home cardiac medications: Eliquis 5 mg twice daily, aspirin 81 mg daily, Coreg 25 mg twice daily, Farxiga 10 mg daily, Lasix 120 mg daily, Nitropatch 0.4 mg/h, Nitrostat as needed, potassium chloride 10 mEq twice daily, Entresto 24 mg - 26 mg 1 tablet twice daily, Zocor 40 mg at bedtime, spironolactone 25 mg daily. Echocardiogram performed on 08/14/2023 revealed EF of 30 to 35%, mild pulmonary hypertension. Mildly dilated aortic root at 4.2 cm. Cardiac catheterization performed 2019 revealed minimal coronary artery disease. Review Of Systems: At the time of my exam: CONSTITUTIONAL: Denies fever or chills. HEENT: Denies blurred vision, vision changes, or eye pain. Denies hemoptysis CARDIOVASCULAR: Denies chest pain. Denies orthopnea. Denies PND. Denies palpitations RESPIRATORY: Denies shortness of breath. GASTROINTESTINAL: Denies abdominal pain. Denies nausea or vomiting. HEMATOLOGIC: Denies bleeding disorders. Chronic Walsh GENITOURINARY: Denies any blood in urine. SKIN: Denies pruitis. Denies rash. Physical examination: Gen: This is a 63-year-old black male in no acute distress. Chronically VS: reviewed blood pressure 118/75, heart rate 69, pulse ox 96% on room air. HEENT: Head is atraumatic, normocephalic. Pupils equal, round. Sclerae is anicteric. NECK: Supple. No JVD. LUNGS: Clear to auscultation. No wheezes or rhonchi. No intercostal retra ctions. HEART: Regular rate and rhythm. ABDOMEN: Soft No tenderness. EXTREMITIES: No pedal edema. No calf tenderness. NEUROLOGICAL: Patient is awake, alert and oriented x3. Assessment: Chronically elevated troponins, acute coronary syndrome ruled out Chronic systolic heart failure Persistent atrial fibrillation/atrial flutter typical Acute GI bleed Nonischemic cardiomyopathy Diabetes mellitus Hypertension Dyslipidemia Morbid obesity History of minimal coronary artery disease Plan: Resume patient's home cardiac medications This morning, hold Aldactone and Entresto prior to EGD Continue to hold Eliquis until cleared by GI to resume No need to repeat echocardiogram Further recommendations to follow based upon clinical course Thank you kindly for this consultation. Nurse practitioner note has been reviewed, I agree with documented findings and plan of care. Patient was seen and examined. Past Medical History Past Medical History: Heart Failure, COPD, Diabetes Mellitus, GERD/Reflux, Hyperlipidemia, Hypertension, Osteoarthritis (OA), Prostate Disorder, Sleep Apnea/CPAP/BIPAP Additional Past Medical History / Comment(s): ASCENDING THORACIC ANEURYSM, Palpitations, "LEAKY VALVE." USES BI PAP MACHINE, CONSTIPATION. EDEMA ANKLES. Influenza A History of Any Multi-Drug Resistant Organisms: None Reported Past Surgical History: Orthopedic Surgery Additional Past Surgical History / Comment(s): ARTHROSCOPIC RIGHT KNEE - EXC GLASS, HEMORRHOIDECTOMY. COLONOSCOPY. Past Anesthesia/Blood Transfusion Reactions: Previous Problems w/ Anesthesia Additional Past Anesthesia/Blood Transfusion Reaction / Comment(s): AWAKE DURING SURGERY, IN PAIN. Past Psychological History: Anxiety, Depression Smoking Status: Former smoker Past Alcohol Use History: None Reported Past Drug Use History: None Reported - Past Family History Father Family Medical History: Cancer, Diabetes Mellitus Mother Family Medical History: Cancer Medications and Allergies Home Medications Medication Instructions Recorded Confirmed Type ALPRAZolam [Xanax] 1 mg PO TID PRN 06/26/16 09/20/23 History Carvedilol 25 mg PO BID-W/MEALS 06/26/16 09/20/23 History Fluticasone Nasal [place] [Flonase 1 spr EA NOSTRIL DAILY 06/26/16 09/20/23 History Nasal [place]] Nitroglycerin Sl Tabs [Nitrostat] 0.4 mg SL Q5M PRN 03/08/17 09/20/23 History HYDROcodone/APAP 10-325MG [[place] 1 tab PO Q6H PRN 09/21/18 09/20/23 History 10-325] Aspirin [Adult Low Dose Aspirin EC] 81 mg PO DAILY #30 tablet. 09/23/18 09/20/23 Rx Cyclobenzaprine [Flexeril] 10 mg PO BID #60 tablet 09/23/18 09/20/23 Rx Docusate [Colace] 100 mg PO DAILY PRN #30 cap 09/23/18 09/20/23 Rx Albuterol Nebulized [Ventolin 2.5 mg INHALATION RT-QID PRN 01/15/19 09/20/23 History Nebulized] Ergocalciferol (Vitamin D2) 1,250 mcg PO MO 07/27/21 09/20/23 History [Drisdol (50,000 Iu)] Potassium Chloride [Klor-Con M10] 10 meq PO BID-W/MEALS 07/27/21 09/20/23 History Famotidine [Pepcid] 20 mg PO HS 10/23/22 09/20/23 History Lidocaine 5% Oint [Xylocaine 5% 1 applic TOPICAL DAILY PRN 10/23/22 09/20/23 History Oint] Nitroglycerin 0.4MG/Hr Patch 1 patch TRANSDERM DAILY 10/23/22 09/20/23 History [Nitro-Dur 0.4MG/Hr Patch] Olopatadine HCl [Pataday] 1 drop BOTH EYES BID 10/23/22 09/20/23 History Simvastatin [Zocor] 40 mg PO HS 10/23/22 09/20/23 History Albuterol Inhaler [Ventolin Hfa 2 puff INHALATION RT-Q4H PRN 02/02/23 09/20/23 History Inhaler] Furosemide [Lasix] 120 mg PO DAILY 08/13/23 09/20/23 History Apixaban [Eliquis] 5 mg PO BID #60 tab 08/16/23 09/20/23 Rx Sacubitril/Valsartan [Entresto 24 1 tab PO BID 08/22/23 09/20/23 History mg-26 mg Tablet] Tamsulosin HCl [Flomax] 0.8 mg PO DAILY #60 cap 08/27/23 09/20/23 Rx Amoxic-Pot Clav 875-125Mg 1 tab PO Q12HR 09/20/23 09/20/23 History [Augmentin 875-125] Dapagliflozin Propanediol [Farxiga] 10 mg PO DAILY 09/20/23 09/20/23 History Ibuprofen [Motrin] 800 mg PO Q8H PRN 09/20/23 09/20/23 History Spironolactone [Aldactone] 25 mg PO DAILY 09/20/23 09/20/23 History methylPREDNISolone Dose Pack See Taper PO DIRECTED 09/20/23 09/20/23 History [Medrol Dose Pack] Allergies Allergy/AdvReac Type Severity Reaction Status Date / Time No Known Allergies Allergy Verified 09/20/23 21:49 Physical Exam Vitals: Vital Signs Temp Pulse Resp BP Pulse Ox 09/22/23 06:49 98.2 F 68 18 122/81 96 09/21/23 18:04 99.2 F 70 17 108/51 96 09/21/23 17:01 71 18 95/74 97 09/21/23 16:09 98.0 F 64 17 107/70 98 09/21/23 15:27 68 17 89/66 97 09/21/23 14:25 66 18 89/68 100 09/21/23 13:16 65 16 99/67 97 09/21/23 12:20 98.2 F 69 17 96 09/21/23 11:04 68 17 117/76 97 09/21/23 10:05 61 17 103/67 97 09/21/23 08:25 98.9 F 90 18 115/81 98 09/21/23 07:45 65 16 09/21/23 07:38 64 16 Intake and Output 09/21/23 09/22/23 09/22/23 22:59 06:59 14:59 Intake Total 440 Output Total 450 Balance -10 Intake: Oral 440 Output: Urine 450 Results 09/21/23 03:37 09/20/23 19:12 Current Medications Generic Name Dose Route Start Last Admin Trade Name Freq PRN Reason Stop Dose Admin Hydrocodone Bitart/Acetaminophen 1 each 09/21/23 00:30 09/21/23 14:30 Hydrocodone/Apap 10-325mg 1 Each Tab PO 1 each Q6H PRN Administration Pain Albuterol Sulfate 2.5 mg 09/21/23 01:00 09/21/23 07:37 Albuterol Nebulized 2.5 Mg/3 Ml INHALATION 2.5 mg RT-QID PRN Administration Shortness Of Breath Alprazolam 1 mg 09/21/23 15:38 Alprazolam 1 Mg Tab PO TID PRN Anxiety Atorvastatin Calcium 20 mg 09/21/23 21:00 09/21/23 22:00 Atorvastatin 20 Mg Tab PO 20 mg HS CHLOE Administration Carvedilol 25 mg 09/21/23 07:30 09/21/23 16:59 Carvedilol 12.5 Mg Tab PO Not Given BID-W/MEALS CHLOE Dapagliflozin 10 mg 09/22/23 09:00 Dapagliflozin Propanediol 10 Mg Tablet PO DAILY CHLOE Famotidine 20 mg 09/21/23 21:00 09/21/23 22:00 Famotidine 20 Mg Tab PO 20 mg HS CHLOE Administration Fluticasone Propionate 1 spray 09/22/23 09:00 Fluticasone 50mcg/[place] Nasal 16gm EA NOSTRIL DAILY CHLOE Furosemide 120 mg 09/21/23 00:30 09/21/23 08:29 Furosemide 80 Mg Tab PO 120 mg DAILY CHLOE Administration Sodium Chloride 1,000 mls @ 75 mls/hr 09/20/23 22:45 09/21/23 18:31 Saline 0.9% IV 75 mls/hr .[id number] CHLOE Administration Lidocaine 1 applic 09/21/23 15:38 Lidocaine 5% Ointment 50 Gm Jar TOPICAL DAILY PRN Pain Naloxone HCl 0.2 mg 09/20/23 22:42 Naloxone 0.4 Mg/Ml 1 Ml Vial IV Q2M PRN Opioid Reversal Nitroglycerin 1 patch 09/22/23 09:00 Nitroglycerin 0.4mg/Hr Patch TRANSDERM DAILY CHLOE Nitroglycerin 0.4 mg 09/21/23 15:38 Nitroglycerin Sl Tabs 0.4 Mg Tab SUBLINGUAL Q5M PRN Chest Pain Pantoprazole Sodium 40 mg 09/20/23 22:45 09/21/23 22:00 Pantoprazole 40 Mg/10 Ml Vial IVP 40 mg BID CHLOE Administration Potassium Chloride 10 meq 09/21/23 17:30 09/21/23 17:02 Potassium Chloride Er 10 Meq Tab.Er.Prt PO 10 meq BID-W/MEALS CHLOE Administration Sacubitril/Valsartan 1 each 09/21/23 00:30 09/21/23 23:41 Sacubitril/Valsartan 24 Mg-26 Mg Tablet PO Not Given BID CHLOE Spironolactone 25 mg 09/21/23 09:00 09/21/23 08:29 Spironolactone 25 Mg Tab PO 25 mg DAILY CHLOE Administration Tamsulosin HCl 0.8 mg 09/21/23 09:00 09/21/23 08:29 Tamsulosin 0.4 Mg Cap.Er.24h PO 0.8 mg DAILY CHLOE Administration Intake and Output 09/21/23 09/22/23 09/22/23 22:59 06:59 14:59 Intake Total 440 Output Total 450 Balance -10 Intake: Oral 440 Output: Urine 450 09/21/23 03:37 09/20/23 19:12
[2023-09-22] MEDS ORDERED: IPRATROPIUM-ALBUTEROL 3 ML NEB INHALATION PRN (09:16)
[2023-09-22] MEDS ORDERED: guaiFENesin-DM 100-10MG/5ML 10 ML CUP PO PRN (09:17)
[2023-09-22 09:22] LABS: African American GFR (CKD) >90 (>60 ml/min/1.73 sqM); Anion Gap 6 mmol/L; Blood Urea Nitrogen 22 mg/dL (9-20); Calcium 9.1 mg/dL (8.4-10.2); Carbon Dioxide 30 mmol/L (22-30); Chloride 101 mmol/L (98-107); Glucose 116 mg/dL (74-99); Non-African American GFR(CKD) 85 (>60 ml/min/1.73 sqM); Sodium 137 mmol/L (137-145)
[2023-09-22] MEDS: FLUTICASONE 50MCG/SPRAY NASAL 16GM EA NOSTRIL SCH (10:31)
--- NOTE | 2023-09-22 10:39 | HP ---
HISTORY AND PHYSICAL CHIEF COMPLAINT: Shortness of breath, congestive heart failure, and unexplained anemia. HISTORY OF PRESENT ILLNESS: This is another recent admission for this 63-year-old obese male with chronic congestive heart failure. He was in the hospital recently and developed urinary retention. He still has Walsh catheter in place. He was complaining of shortness of breath and was found to have a hemoglobin of 8. He denies hematochezia. He states he "can't see his bowel movements." He is quite morbidly obese. He denies chest pain. Past medical history, family history, and personal and social histories are all otherwise unchanged. PHYSICAL EXAMINATION: VITAL SIGNS: Normal. HEAD, EARS, EYES, NOSE, MOUTH, AND THROAT: Normal. LUNGS: Breath sounds are heard bilaterally with scattered rales and rhonchi. CARDIAC: Exam demonstrates sinus tachycardia. ABDOMEN: Protuberant, soft, and nontender without masses. Walsh catheter is in place. EXTREMITIES: Normal. NEUROLOGIC: Intact. Admitted to the hospital with diagnoses of, 1. Unexplained anemia. 2. Probable gastrointestinal blood loss. 3. Acute on chronic congestive heart failure. 4. Urinary retention. 5. Obesity. PLAN: 1. Bedrest. 2. IV fluids. 3. Monitor hemoglobins. 4. GI consult. MMODL / IJN: [id number] /
--- NOTE | 2023-09-22 11:55 | PN ---
PROGRESS NOTE DATE OF SERVICE: 09/21/2023 CHIEF COMPLAINT: GI blood loss anemia. HISTORY OF PRESENT ILLNESS: This gentleman is doing fairly well and he is not having any chest pain or shortness of breath. He states he has been having some mild epigastric discomfort of late. PHYSICAL EXAMINATION: CHEST: Clear. CARDIAC: Normal. ABDOMEN: Soft and nontender without masses. EXTREMITIES: Normal. IMPRESSION: 1. Blood loss anemia. 2. Gastrointestinal bleed. 3. Acute on chronic congestive heart failure. 4. Urinary retention. 5. Obesity. PLAN: Continue with IV fluids and await GI recommendations. MMODL / IJN: [id number] /
[2023-09-22] MEDS ORDERED: PHENYLEPHRINE-0.9% NACL SYG 1,000 MCG/10 ML SYRINGE ONE (12:08)
[2023-09-22] MEDS ORDERED: PROPOFOL 10 MG/ML 20 ML VIAL IV ONE (12:08)
[2023-09-22] MEDS ORDERED: LIDOCAINE 2% (PF) 20 MG/ML 5 ML VIAL ONE (12:08)
[2023-09-22] MEDS: LACTATED RINGERS 1,000 ML IV ONE (12:09)
--- NOTE | 2023-09-22 12:16 | P.PCN ---
Date of Procedure: 09/22/23 Procedure(s) Performed: BRIEF HISTORY: Patient is a 63-year-old, pleasant, -[place] male admitted hospital with black tarry stools for the last few months duration. He was started on Eliquis was 4 months ago for new-onset A. fib.. Hemoglobin was 10 g/dL. He scheduled for an upper endoscopy to evaluate for upper GI source of bleeding PROCEDURE PERFORMED: Esophagogastroduodenoscopy with biopsy. PREOPERATIVE DIAGNOSIS: Black tarry stools of few weeks duration. IV sedation per anesthesia. PROCEDURE: After informed consent was obtained, the patient was brought into the endoscopy unit. IV sedation was administered by Anesthesia under continuous monitoring. Initially the Olympus GIF-140 video endoscope was inserted into the mouth. Esophagus intubated without any difficulty. It was gradually advanced into the stomach and duodenum and carefully examined. The bulb and the second part of the duodenum appeared normal. The scope at this time was withdrawn to the stomach, adequately insufflated with air, and upon careful examination, mucosa of the antrum, had a 1.5 cm clean-based antral ulcer with no active bleeding and biopsies were done from this area. In the proximal body the stomach there was a 5 mm distal centimeter ulcer with a clean-based that was also biopsied. No active bleeding noted. Rest of the body, cardia and the fundus appeared normal. The scope was then withdrawn into the esophagus. The GE junction was located at 39 cm from the incisors. The esophagus appeared normal. There were no erosions or ulcerations seen and the patient tolerated the procedure well. IMPRESSION: 1..1.5 cm clean-based antral ulcers status post biopsy 2. 5 mm and 2 cm clean-based gastric ulcer in the proximal body the stomach with no active bleeding status post biopsy. RECOMMENDATIONS: The findings of this examination were discussed with the patient as well as his family. He was advised to follow with the biopsy results. Continue with Protonix 40 mg twice daily and avoid NSAIDs. Resume Eliquis tomorrow..
[2023-09-22 14:07] LABS: Glucose,Whole Blood 118 mg/dL (70-110)
[2023-09-22] MEDS: IPRATROPIUM-ALBUTEROL 3 ML NEB INHALATION SCH (15:11)
[2023-09-22 17:15] LABS: Glucose,Whole Blood 143 mg/dL (70-110)
--- NOTE | 2023-09-22 20:22 | PN ---
PROGRESS NOTE DATE OF SERVICE: 09/22/2023 CHIEF COMPLAINT: Shortness of breath, heart failure, and anemia. HISTORY OF PRESENT ILLNESS: This gentleman is doing fairly well and he is stable, but he is complaining of a cough along with his shortness of breath. This could be related to his heart failure compounded by his anemia. PHYSICAL EXAMINATION: VITAL SIGNS: Normal. CHEST: Breath sounds are diminished throughout with scattered rales. CARDIAC: Normal. ABDOMEN: Soft and protuberant. IMPRESSION: 1. Acute anemia. 2. Acute on chronic congestive heart failure. 3. Rule out gastrointestinal blood loss. 4. Obesity. 5. Urinary retention. PLAN: 1. Follow and monitor hemoglobin. 2. Wait for GI consult. 3. Start updrafts DuoNeb. 4. He will be given something for cough. MMODL / IJN: [id number] /
[2023-09-22 20:29] LABS: Glucose,Whole Blood 97 mg/dL (70-110)
[2023-09-22] MEDS: CYCLOBENZAPRINE 10 MG TAB PO SCH (21:51)
[2023-09-22] MEDS: ALPRAZolam 1 MG TAB PO PRN (21:51)
[2023-09-23 02:22] VITALS: RESP 17
[2023-09-23 07:16] LABS: Glucose,Whole Blood 121 mg/dL (70-110)
--- NOTE | 2023-09-23 09:35 | P.PN ---
Subjective Progress Note Date: 09/23/23 Principal diagnosis: Melena This is a pleasant 63-year-old -[place] male who was sent into the emergency department by his PCP Dr. Epps for abnormal labs. Patient states he had seen his primary care physician, he had some lab work done and he was told that he was anemic and needed to go to the emergency department. Past medical history includes atrial fibrillation, diabetes mellitus, heart failure, COPD, hyperlipidemia, hypertension, GERD, ascending thoracic aneurysm, and chronic constipation. Patient denies any gross blood in his stool, states that his stool may be a dark brown to a light brown seems to be darker after eating certain foods. Denies it being black or tarry. Denies any abdominal pain, epigastric pain, nausea or vomiting. Was diagnosed with atrial fibrillation back in March 2023 and is on Eliquis currently and also takes a 81 mg aspirin daily as well as Motrin 800 mg as needed. He states he has had a colonoscopy about 8 years ago, unsure if he has had a upper endoscopy in the past. He does state that he had some pressure in his chest, and was also noted to have elevated troponins x 3. Patient's admitting hemoglobin was 11.8, today's repeat is 10.9. Denies any current bleeding. States that he has chronic constipation, he has had hemorrhoids in the past and has had bleeding from hemorrhoids but no other GI bleed. He denies any current chest pain, shortness of breath, weakness, dizziness, abdominal pain, nausea or vomiting. Patient currently has a Walsh catheter in place, he has been following with urology for urinary retention. States that he does have occasional blood in his urine. 1624 Patient seen and examined today as a follow-up. Yesterday he underwent EGD with findings of 1 clean-based antral ulcer and 2 clean-based gastric ulcers in the proximal body with no active bleeding status post biopsy. Findings discussed with patient today. Attempted to discuss with his yesterday however she was not present in the hospital at the time. He denies any abdominal pain, nausea or vomiting. Today's labs are currently pending. Denies any black stool or blood per rectum. Objective - Vital Signs Vital signs: Vital Signs Temp 98.5 F 09/23/23 07:17 Pulse 69 09/23/23 07:17 Resp 17 09/23/23 07:17 BP 104/67 09/23/23 07:17 Pulse Ox 97 09/23/23 07:17 FiO2 Intake & Output 09/22/23 09/23/23 09/23/23 18:59 06:59 18:59 Intake Total 250 900 Output Total 1300 400 Balance -1050 500 Weight 136.078 kg Intake: IV 250 Intake, IV Titration 900 Amount Sodium Chloride 0.9% 1, 900 000 ml @ 75 mls/hr IV . [id number] [facility] Rx#:[id number] Output: Urine 1300 400 Other: Voiding Method Indwelling Catheter Indwelling Catheter # Bowel Movements 1 - Exam General appearance: The patient is alert, oriented, appears in no acute distress. HET: Head is normocephalic and atraumatic. Conjunctiva pink. Sclera anicteric. Neck: Supple without lymphadenopathy. Abdomen: Soft, nontender, nondistended with bowel sounds. No guarding or rigidity. Extremities: Normal skin color and turgor. No pedal edema Skin: No rashes, no jaundice Neurological: No focal deficits. Alert and oriented. - Labs CBC & Chem 7: 09/22/23 08:18 09/22/23 08:18 Labs: Abnormal Lab Results - Last 24 Hours (Table) 09/22/23 09/22/23 09/22/23 Range/Units 08:18 08:18 14:03 RBC 3.85 L (4.30-5.90) m/uL Hgb 11.1 L (13.0-17.5) gm/dL Hct 35.4 L (39.0-53.0) % BUN 22 H (9-20) mg/dL Glucose 116 H (74-99) mg/dL POC Glucose (mg/dL) 118 H (70-110) mg/dL 09/22/23 09/23/23 Range/Units 17:14 07:14 RBC (4.30-5.90) m/uL Hgb (13.0-17.5) gm/dL Hct (39.0-53.0) % BUN (9-20) mg/dL Glucose (74-99) mg/dL POC Glucose (mg/dL) 143 H 121 H (70-110) mg/dL Assessment and Plan (1) Anemia Narrative/Plan: 63-year-old male sent in for abnormal labs and mild anemia. Normochromic normocytic anemia and a man with multiple comorbidities, including atrial fibrillation on Eliquis. He had a negative occult stool, mild elevation in his BUN however has been elevated in the past with possible underlying kidney disease. He denies any black stool or tarry stool states that he may have some dark brown to light brown stool that it changes depending on foods that he eats. Last colonoscopy approximately 8 years ago. No history of GI bleed or peptic ulcer disease. We will monitor hemoglobin and signs for GI bleed. Patient is s/p EGD with findings of 1 clean-based antral ulcer and 2 clean-based gastric ulcers without any active bleeding. This is possibly the source mild anemia. recommend Protonix 40 mg twice daily, avoid NSAIDs. Current Visit: Yes Status: Acute Code(s): D64.9 - ANEMIA, UNSPECIFIED SNOMED Code(s): 018192915 (2) Diabetes Current Visit: Yes Status: Acute Code(s): E11.9 - TYPE 2 DIABETES MELLITUS WITHOUT COMPLICATIONS SNOMED Code(s): 63778951 (3) Atrial fibrillation Current Visit: Yes Status: Acute Code(s): I48.91 - UNSPECIFIED ATRIAL FIBRILLATION SNOMED Code(s): 03702294 (4) COPD (chronic obstructive pulmonary disease) Current Visit: Yes Status: Acute Code(s): J44.9 - CHRONIC OBSTRUCTIVE PULMONARY DISEASE, UNSPECIFIED SNOMED Code(s): 86564263 (5) Chest pain Current Visit: No Status: Acute Code(s): R07.9 - CHEST PAIN, UNSPECIFIED SNOMED Code(s): 28077831 (6) Urinary retention Current Visit: No Status: Acute Code(s): R33.9 - RETENTION OF URINE, UNSPECIFIED SNOMED Code(s): 324682940 Plan: 1. Continue symptomatic and supportive care 2. Recommend Protonix 40 mg twice daily 3. May resume Eliquis 4. Diet as tolerated 5. No further workup from gastroenterology. Patient is cleared for discharge. He is instructed to follow-up with Dr. Delcid and call the office in 1 week for biopsy results Thank you for this consultation, we will sign off at this time. Dr. Pato Delcid I agree with the dictator's note, documented as a scribe by Joi Graham.
[2023-09-23 12:02] LABS: Glucose,Whole Blood 117 mg/dL (70-110)
[2023-09-23 13:02] VITALS: BP 108/65; PULSE 86; TEMP 98.2
[2023-09-23] MEDS ORDERED: PANTOPRAZOLE 40 MG TABLET PO SCH (17:30)
--- NOTE | 2023-09-23 20:03 | DS ---
DISCHARGE SUMMARY CHIEF COMPLAINT: Shortness of breath, anemia and CHF. HISTORY OF PRESENT ILLNESS AND PHYSICAL EXAMINATION: Details of this man's history and physical can be found in the initial workup. LABORATORY STUDIES: While he was in the hospital, he had laboratory studies, details of which can be found in the laboratory section of his chart. COURSE IN THE HOSPITAL: After admission, he was placed on bedrest, started on intravenous fluids and his hemoglobin was monitored. He was seen by Gastroenterology, but his hemoglobin kp to 11. He had no signs of bleeding, and he was doing well. He had no significant shortness of breath. It was felt that he could be discharged on the and he will go home on his usual activity, regular medication, and follow up in the office in several days. FINAL DIAGNOSES: 1. Shortness of breath. 2. Acute on chronic congestive heart failure. 3. Unexplained anemia. 4. Morbid obesity. 5. Urinary retention. OPERATIONS: None. CONSULTATIONS: Gastroenterology. He is improved. MMJERICA / IJN: [id number] /
== END 2023-09-23 15:03 | disposition home or self-care (01) ==
LOC: EC 18:46 → 3SCARD 22:44 → 6NMEDSUR 09-22 10:19 → 5NMEDONC 09-22 13:54
PROVIDERS: ADMIT Family Medicine; ATTEND Family Medicine
DX: D50.0 Iron deficiency anemia secondary to blood loss (chronic) (principal); K25.9 Gastric ulcer, unspecified as acute or chronic, without hemorrhage or perforation; B96.81 Helicobacter pylori [H. pylori] as the cause of diseases classified elsewhere; K31.A12 Gastric intestinal metaplasia without dysplasia, involving the body (corpus); I11.0 Hypertensive heart disease with heart failure; I50.23 Acute on chronic systolic (congestive) heart failure; E66.01 Morbid (severe) obesity due to excess calories; I25.10 Atherosclerotic heart disease of native coronary artery without angina pectoris; I71.40 Abdominal aortic aneurysm, without rupture, unspecified; E78.5 Hyperlipidemia, unspecified; I48.91 Unspecified atrial fibrillation; I48.92 Unspecified atrial flutter; R33.9 Retention of urine, unspecified; R77.9 Abnormality of plasma protein, unspecified; E11.9 Type 2 diabetes mellitus without complications; Z79.899 Other long term (current) drug therapy; Z79.82 Long term (current) use of aspirin; Z79.01 Long term (current) use of anticoagulants; Z11.52 Encounter for screening for COVID-19; Z87.891 Personal history of nicotine dependence
CPT/HCPCS: 96376 ×2; 96374; 99285; 36415; 94660 ×2; 94640 ×4; 94760; 93005; 86900; 86901; 88305; 80053; 80048; 83735; 84484 ×2; 85025 ×2; 85027; 85610; 85730; 86850; 82272; 88342; 87636; 71046; 43239; G0378 ×5; J2704; C9113 ×3; J2001; J2371; 96375

== ENCOUNTER 2023-10-27 08:50 | Emergency (ER) | payer MEDICARE, OTHER ==
[2023-10-27] MEDS: IPRATROPIUM 0.5 MG/2.5 ML NEBU INHALATION STA (09:26)
[2023-10-27] MEDS: ALBUTEROL NEBULIZED 2.5 MG/3 ML INHALATION STA (09:26)
--- NOTE | 2023-10-27 09:28 | ED ---
General Adult HPI - General Chief complaint: Urogenital Stated complaint: scrotum swelling,blood in cath Time Seen by Provider: 10/27/23 08:51 Source: patient Mode of arrival: wheelchair Limitations: no limitations - History of Present Illness Initial comments: Dictation was produced using [employer] dictation software. please excuse any grammatical, word or spelling errors. Chief Complaint: 63-year-old male presents with hematuria History of Present Illness: Patient 63-year-old male presents to the emergency department for hematuria he had a Walsh catheter placed and by urology yesterday. He went in there for scrotal pain and swelling. He had an ultrasound performed showing what he described as bilateral scrotal cyst. He had a Walsh catheter placed for convenience. He takes Lasix and is inconvenienced by the fact that he has to wake up every night multiple occasions just to urinate. States that Walsh catheter was placed atraumatically however he did notice that since yesterday there was some bleeding coming from it. Walsh catheter however has been working fine. Does not feel any suprapubic pressure. The ROS documented in this emergency department record has been reviewed and confirmed by me. Those systems with pertinent positive or negative responses have been documented in the HPI. All other systems are other negative and/or noncontributory. - Related Data Home Medications Medication Instructions Recorded Confirmed ALPRAZolam [Xanax] 1 mg PO TID PRN 06/26/16 09/20/23 Carvedilol 25 mg PO BID-W/MEALS 06/26/16 09/20/23 Fluticasone Nasal [place] [Flonase 1 spr EA NOSTRIL DAILY 06/26/16 09/20/23 Nasal Pat[place]] Nitroglycerin Sl Tabs [Nitrostat] 0.4 mg SL Q5M PRN 03/08/17 09/20/23 HYDROcodone/APAP 10-325MG [[place] 1 tab PO Q6H PRN 09/21/18 09/20/23 10-325] Albuterol Nebulized [Ventolin 2.5 mg INHALATION RT-QID PRN 01/15/19 09/20/23 Nebulized] Ergocalciferol (Vitamin D2) 1,250 mcg PO MO 07/27/21 09/20/23 [Drisdol (50,000 Iu)] Potassium Chloride [Klor-Con M10] 10 meq PO BID-W/MEALS 07/27/21 09/20/23 Lidocaine 5% Oint [Xylocaine 5% 1 applic TOPICAL DAILY PRN 10/23/22 09/20/23 Oint] Nitroglycerin 0.4MG/Hr Patch 1 patch TRANSDERM DAILY 10/23/22 09/20/23 [Nitro-Dur 0.4MG/Hr Patch] Olopatadine HCl [Pataday] 1 drop BOTH EYES BID 10/23/22 09/20/23 Simvastatin [Zocor] 40 mg PO HS 10/23/22 09/20/23 Albuterol Inhaler [Ventolin Hfa 2 puff INHALATION RT-Q4H PRN 02/02/23 09/20/23 Inhaler] Furosemide [Lasix] 120 mg PO DAILY 08/13/23 09/20/23 Sacubitril/Valsartan [Entresto 24 1 tab PO BID 08/22/23 09/20/23 mg-26 mg Tablet] Amoxic-Pot Clav 875-125Mg 1 tab PO Q12HR 09/20/23 09/20/23 [Augmentin 875-125] Dapagliflozin Propanediol [Farxiga] 10 mg PO DAILY 09/20/23 09/20/23 Spironolactone [Aldactone] 25 mg PO DAILY 09/20/23 09/20/23 Previous Rx's Medication Instructions Recorded Aspirin [Adult Low Dose Aspirin EC] 81 mg PO DAILY #30 tablet. 09/23/18 Cyclobenzaprine [Flexeril] 10 mg PO BID #60 tablet 09/23/18 Docusate [Colace] 100 mg PO DAILY PRN #30 cap 09/23/18 Apixaban [Eliquis] 5 mg PO BID #60 tab 08/16/23 Tamsulosin HCl [Flomax] 0.8 mg PO DAILY #60 cap 08/27/23 Famotidine [Pepcid] 20 mg PO HS tab 09/23/23 Pantoprazole [Protonix] 40 mg PO AC-BID #60 tab 09/23/23 Cefpodoxime Proxetil [Vantin] 200 mg PO Q12HR 10 Days #20 tab 10/27/23 Allergies Allergy/AdvReac Type Severity Reaction Status Date / Time nitroglycerin Allergy Rash/Hives Verified 10/27/23 09:00 [From Nitro-Bid] Review of Systems ROS Statement: Those systems with pertinent positive or pertinent negative responses have been documented in the HPI. ROS Other: All systems not noted in ROS Statement are negative. Past Medical History Past Medical History: Atrial Fibrillation, Heart Failure, COPD, Diabetes Mellitus, GERD/Reflux, Hyperlipidemia, Hypertension, Osteoarthritis (OA), Prostate Disorder, Sleep Apnea/CPAP/BIPAP Additional Past Medical History / Comment(s): ASCENDING THORACIC ANEURYSM, Palpitations, "LEAKY VALVE." USES BI PAP MACHINE, CONSTIPATION. EDEMA ANKLES. Influenza A History of Any Multi-Drug Resistant Organisms: None Reported Past Surgical History: Orthopedic Surgery Additional Past Surgical History / Comment(s): ARTHROSCOPIC RIGHT KNEE - EXC GLASS, HEMORRHOIDECTOMY. COLONOSCOPY. Past Anesthesia/Blood Transfusion Reactions: Previous Problems w/ Anesthesia Additional Past Anesthesia/Blood Transfusion Reaction / Comment(s): AWAKE DURING SURGERY, IN PAIN. Past Psychological History: Anxiety, Depression Smoking Status: Former smoker Past Alcohol Use History: None Reported Past Drug Use History: None Reported - Past Family History Father Family Medical History: Cancer, Diabetes Mellitus Mother Family Medical History: Cancer General Exam - General Exam Comments Initial Comments: General: Well-appearing, nontoxic, no acute distress. Head: Normocephalic, atraumatic Eyes: PERRLA, EOMI ENT: Airway patent Chest: Nonlabored breathing Skin: No visual rash, normal skin tone Neuro: Alert and oriented 3 Musculoskeletal: No gross abnormalities : No acute processes, Walsh catheter appears to be seated appropriately. No drainage coming from the urethral meatus, no testicular or penile tenderness. No scrotal abnormalities Limitations: no limitations Course Vital Signs 10/27/23 10/27/23 08:55 10:50 Temperature 99.2 F 99.4 F Pulse Rate 91 87 Respiratory 16 18 Rate Blood Pressure 160/77 120/83 O2 Sat by Pulse 97 96 Oximetry Medical Decision Making - Medical Decision Making Was pt. sent in by a medical professional or institution (, PA, ELECTRONICS REPAIR TECHNICIAN, urgent care, hospital, or detention...) When possible be specific @ -No Did you speak to anyone other than the patient for history (EMS, parent, family, police, friend...)? What history was obtained from this source @ -No Did you review nursing and triage notes (agree or disagree)? Why? @ -I reviewed and agree with nursing and triage notes Were old charts reviewed (outside hosp., previous admission, EMS record, old EKG, old radiological studies, urgent care reports/EKG's, detention records)? Report findings @ -No old charts were reviewed Differential Diagnosis (chest pain, altered mental status, abdominal pain women, abdominal pain men, vaginal bleeding, musculoskeletal, weakness, fever, dyspnea, syncope, headache, dizziness, GI bleed, back pain, seizure, CVA, palpatations, mental health)? @ -Not applicable EKG interpreted by me (3pts min.). @ -None done X-rays interpreted by me (1pt min.). @ -None done CT interpreted by me (1pt min.). @ -None done U/S interpreted by me (1pt. min.). @ -None done What testing was considered but not performed or refused? (CT, X-rays, U/S, labs)? Why? @ -None What meds were considered but not given or refused? Why? @ -None Did you discuss the management of the patient with other professionals (professionals i.e. , PA, ELECTRONICS REPAIR TECHNICIAN, lab, RT, psych nurse, older adult social work specialist, manager inpatient, teacher, corporate officer, rn case manager hospice)? Give summary @ -No Was smoking cessation discussed for >3mins.? @ -No Was critical care preformed (if so, how long)? @ -No Were there social determinants of health that impacted care today? How? (Homelessness, low income, unemployed, alcoholism, drug addiction, transportation, low edu. Level, literacy, decrease access to med. care, care home, rehab)? @ -No Was there de-escalation of care discussed even if they declined (Discuss DNR or withdrawal of care, Hospice)? DNR status @ -No What co-morbidities impacted this encounter? (DM, HTN, Smoking, COPD, CAD, Cancer, CVA, ARF, Chemo, Hep., AIDS, mental health diagnosis, sleep apnea, morbid obesity)? @ -None Was patient admitted / discharged? Hospital course, mention meds given and route, prescriptions, significant lab abnormalities, going to OR and other pertinent info. @ -63-year-old male presents to the emergency department for chief complaint of hematuria. Vital signs upon arrival are within acceptable limits. Urinalysis obtained showing signs of urinary tract infection. Patient denies any constitutional symptoms. It is unclear if his urine represents urinary tract infection versus colonization. Patient given a dose of IM ceftriaxone pr escription sent for antibiotics. Pending urine cultures. Patient agreeable with plan. He is fully appears to be functioning well. Tubing and reservoir was replaced and urine is clear. Patient discharged advised follow-up with primary care doctor. Undiagnosed new problem with uncertain prognosis? @ -No Drug Therapy requiring intensive monitoring for toxicity (Heparin, Nitro, Insulin, Cardizem)? @ -No Were any procedures done? @ -No Diagnosis/symptom? Acute, or Chronic, or Acute on Chronic? Uncomplicated (without systemic symptoms) or Complicated (systemic symptoms)? @ -Hematuria Side effects of treatment? @ -No Exacerbation, Progression, or Severe Exacerbation? @ -No Poses a threat to life or bodily function? How? (Chest pain, USA, MD, pneumonia, PE, COPD, DKA, ARF, appy, cholecystitis, CVA, Diverticulitis, Homicidal, Suicidal, threat to staff... and all critical care pts) @ -No - Lab Data Lab Results 10/27/23 Range/Units 09:33 Urine Color Light Red Urine Appearance Cloudy (Clear) Urine pH 6.0 (5.0-8.0) Ur Specific Mildred 1.017 (1.001-1.035) Urine Protein 2+ H (Negative) Urine Glucose (UA) 4+ H (Negative) Urine Ketones Negative (Negative) Urine Blood Large H (Negative) Urine Nitrite Negative (Negative) Urine Bilirubin Negative (Negative) Urine Urobilinogen <2.0 (<2.0) mg/dL Ur Leukocyte Esterase Large H (Negative) Urine RBC >182 H (0-5) /hpf Urine WBC 126 H (0-5) /hpf Ur Squamous Epith Cells 1 (0-4) /hpf Amorphous Sediment Rare H (None) /hpf Urine Bacteria Occasional H (None) /hpf Urine Mucus Few H (None) /hpf Disposition Clinical Impression: Hematuria Disposition: HOME SELF-CARE Condition: Good Instructions (If sedation given, give patient instructions): Hematuria (ED) Prescriptions: Cefpodoxime Proxetil [Vantin] 200 mg PO Q12HR 10 Days #20 tab Is patient prescribed a controlled substance at d/c from ED?: No Referrals: Reagan Epps MD [Primary Care Provider] - 1-2 days Time of Disposition: 11:23
[2023-10-27] MEDS ORDERED: MAGNESIUM SULFATE-D5W PMX 1 GM in DEXTROSE/WATER 1 100ML.BAG IVPB SCH (10:00)
[2023-10-27 10:33] LABS: Amorphous Sediment,Urine Rare /hpf; Appearance,Urine Cloudy (Clear); Bacteria,Urine Occasional /hpf; Bilirubin,Urine Negative (Negative); Blood,Urine Large (Negative); Color,Urine Light Red; Glucose,Urine (UA) 4+ (Negative); Ketones,Urine Negative (Negative); Leukocyte Esterase,Urine Large (Negative); Mucus,Urine Few /hpf; Nitrite,Urine Negative (Negative); Protein,Urine 2+ (Negative); RBC,Urine >182 /hpf (0-5); Specific Gravity,Urine 1.017 (1.001-1.035); Squamous Epithelial Cell,Urine 1 /hpf (0-4); Urobilinogen,Urine <2.0 mg/dL (<2.0); WBC,Urine 126 /hpf (0-5)
[2023-10-27 11:32] VITALS: TEMP 99.4
[2023-10-27] MEDS: ACETAMINOPHEN TAB 500 MG TAB PO STA (11:35)
[2023-10-27] MEDS: cefTRIAXone 1,000 MG VIAL (IM USE) IM STA (11:36)
[2023-10-27 12:08] VITALS: BP 121/83; PULSE 83; RESP 16
== END 2023-10-27 11:53 | disposition home or self-care (01) ==
LOC: EC 08:50
DX: R31.9 Hematuria, unspecified (principal); Z87.891 Personal history of nicotine dependence; Z88.8 Allergy status to other drugs, medicaments and biological substances
CPT/HCPCS: 81001; 99283; 96372; J0696

== ENCOUNTER 2023-12-31 12:03 | Emergency (ER) | payer MEDICARE, OTHER ==
[2023-12-31 13:21] VITALS: RESP 18
--- NOTE | 2023-12-31 13:46 | ED ---
General Adult HPI - General Chief complaint: Urogenital Stated complaint: Cath issues-blood in urine Time Seen by Provider: 12/31/23 12:55 Source: patient, RN notes reviewed, old records reviewed Mode of arrival: ambulatory - History of Present Illness Initial comments: 63-year-old male presenting with issues with his leg bag of his Walsh catheter. Patient is currently using a regular large volume Walsh bag. He states that this would not stay up but he did not want to use the regular leg bag because of the volume of urine that he is producing. He denies fever. Denies vomiting. Denies pain. He states he did have some blood in his urine but that this cleared up without specific treatment. He is following with urology currently. - Related Data Home Medications Medication Instructions Recorded Confirmed ALPRAZolam [Xanax] 1 mg PO TID PRN 06/26/16 09/20/23 Carvedilol 25 mg PO BID-W/MEALS 06/26/16 09/20/23 Fluticasone Nasal [place] [Flonase 1 spr EA NOSTRIL DAILY 06/26/16 09/20/23 Nasal [place]] Nitroglycerin Sl Tabs [Nitrostat] 0.4 mg SL Q5M PRN 03/08/17 09/20/23 HYDROcodone/APAP 10-325MG [[place] 1 tab PO Q6H PRN 09/21/18 09/20/23 10-325] Albuterol Nebulized [Ventolin 2.5 mg INHALATION RT-QID PRN 01/15/19 09/20/23 Nebulized] Ergocalciferol (Vitamin D2) 1,250 mcg PO MO 07/27/21 09/20/23 [Drisdol (50,000 Iu)] Potassium Chloride [Klor-Con M10] 10 meq PO BID-W/MEALS 07/27/21 09/20/23 Lidocaine 5% Oint [Xylocaine 5% 1 applic TOPICAL DAILY PRN 10/23/22 09/20/23 Oint] Nitroglycerin 0.4MG/Hr Patch 1 patch TRANSDERM DAILY 10/23/22 09/20/23 [Nitro-Dur 0.4MG/Hr Patch] Olopatadine HCl [Pataday] 1 drop BOTH EYES BID 10/23/22 09/20/23 Simvastatin [Zocor] 40 mg PO HS 10/23/22 09/20/23 Albuterol Inhaler [Ventolin Hfa 2 puff INHALATION RT-Q4H PRN 02/02/23 09/20/23 Inhaler] Furosemide [Lasix] 120 mg PO DAILY 08/13/23 09/20/23 Sacubitril/Valsartan [Entresto 24 1 tab PO BID 08/22/23 09/20/23 mg-26 mg Tablet] Amoxic-Pot Clav 875-125Mg 1 tab PO Q12HR 09/20/23 09/20/23 [Augmentin 875-125] Dapagliflozin Propanediol [Farxiga] 10 mg PO DAILY 09/20/23 09/20/23 Spironolactone [Aldactone] 25 mg PO DAILY 09/20/23 09/20/23 Previous Rx's Medication Instructions Recorded Aspirin [Adult Low Dose Aspirin EC] 81 mg PO DAILY #30 tablet. 09/23/18 Cyclobenzaprine [Flexeril] 10 mg PO BID #60 tablet 09/23/18 Docusate [Colace] 100 mg PO DAILY PRN #30 cap 09/23/18 Apixaban [Eliquis] 5 mg PO BID #60 tab 08/16/23 Tamsulosin HCl [Flomax] 0.8 mg PO DAILY #60 cap 08/27/23 Famotidine [Pepcid] 20 mg PO HS tab 09/23/23 Pantoprazole [Protonix] 40 mg PO AC-BID #60 tab 09/23/23 Cefpodoxime Proxetil [Vantin] 200 mg PO Q12HR 10 Days #20 tab 10/27/23 Allergies Allergy/AdvReac Type Severity Reaction Status Date / Time nitroglycerin Allergy Rash/Hives Verified 10/27/23 09:00 [From Nitro-Bid] Review of Systems ROS Statement: Those systems with pertinent positive or pertinent negative responses have been documented in the HPI. ROS Other: All systems not noted in ROS Statement are negative. Past Medical History Past Medical History: Atrial Fibrillation, Heart Failure, COPD, Diabetes Mellitus, GERD/Reflux, Hyperlipidemia, Hypertension, Osteoarthritis (OA), Prostate Disorder, Sleep Apnea/CPAP/BIPAP Additional Past Medical History / Comment(s): ASCENDING THORACIC ANEURYSM, Palpitations, "LEAKY VALVE." USES BI PAP MACHINE, CONSTIPATION. EDEMA ANKLES. Influenza A History of Any Multi-Drug Resistant Organisms: None Reported Past Surgical History: Orthopedic Surgery Additional Past Surgical History / Comment(s): ARTHROSCOPIC RIGHT KNEE - EXC GLASS, HEMORRHOIDECTOMY. COLONOSCOPY. Past Anesthesia/Blood Transfusion Reactions: Previous Problems w/ Anesthesia Additional Past Anesthesia/Blood Transfusion Reaction / Comment(s): AWAKE DURING SURGERY, IN PAIN. Past Psychological History: Anxiety, Depression Smoking Status: Former smoker Past Alcohol Use History: None Reported Past Drug Use History: None Reported - Past Family History Father Family Medical History: Cancer, Diabetes Mellitus Mother Family Medical History: Cancer General Exam General appearance: alert, in no apparent distress Head exam: Present: atraumatic, normocephalic Eye exam: Present: normal appearance, PERRL Respiratory exam: Absent: respiratory distress Cardiovascular Exam: Present: regular rate, normal rhythm GI/Abdominal exam: Present: soft. Absent: distended, tenderness, guarding Psychiatric exam: Present: normal affect, normal mood Skin exam: Present: warm, dry, intact. Absent: cyanosis, diaphoretic Course Vital Signs 12/31/23 12:33 Temperature 98.4 F Pulse Rate 75 Respiratory 18 Rate Blood Pressure 92/63 O2 Sat by Pulse 94 L Oximetry Medical Decision Making - Medical Decision Making Was pt. sent in by a medical professional or institution ([facility], [employer], urgent care, hospital, or halfway...) When possible be specific @ -No Did you speak to anyone other than the patient for history (EMS, parent, family, police, friend...)? What history was obtained from this source @ -No Did you review nursing and triage notes (agree or disagree)? Why? @ -I reviewed and agree with nursing and triage notes Were old charts reviewed (outside hosp., previous admission, EMS record, old EKG, old radiological studies, urgent care reports/EKG's, halfway records)? Report findings @ -No old charts were reviewed Differential Diagnosis urinary retention, occluded Walsh, issue with placement of Walsh and leg bag EKG interpreted by me (3pts min.). @ -As above X-rays interpreted by me (1pt min.). @ -None done CT interpreted by me (1pt min.). @ -None done U/S interpreted by me (1pt. min.). @ -None done What testing was considered but not performed or refused? (CT, X-rays, U/S, labs)? Why? @ -None What meds were considered but not given or refused? Why? @ -None Did you discuss the management of the patient with other professionals (professionals i.e. , PA, [employer], lab, RT, psych nurse, protective services social worker, travel manager, teacher, chief medical officer, shoe parts caser)? Give summary @ -No Was smoking cessation discussed for >3mins.? @ -No Was critical care preformed (if so, how long)? @ -No Were there social determinants of health that impacted care today? How? (Homelessness, low income, unemployed, alcoholism, drug addiction, transportation, low edu. Level, literacy, decrease access to med. care, [facility], rehab)? @ -No Was there de-escalation of care discussed even if they declined (Discuss DNR or withdrawal of care, Hospice)? DNR status @ -No What co-morbidities impacted this encounter? (DM, HTN, Smoking, COPD, CAD, Cancer, CVA, ARF, Chemo, Hep., AIDS, mental health diagnosis, sleep apnea, mo rbid obesity)? @ -None Was patient admitted / discharged? Hospital course, mention meds given and route, prescriptions, significant lab abnormalities, going to OR and other pertinent info. @ -The Walsh was replaced with a 16 Chinese Walsh catheter and the patient is given a leg bag. He has no other complaints and has urology follow-up currently. Undiagnosed new problem with uncertain prognosis? @ -No Drug Therapy requiring intensive monitoring for toxicity (Heparin, Nitro, Insulin, Cardizem)? @ -No Were any procedures done? @ -No Diagnosis/symptom? @Indwelling Walsh catheter Acute, or Chronic, or Acute on Chronic? @Chronic Uncomplicated (without systemic symptoms) or Complicated (systemic symptoms)? @ -Default Side effects of treatment? @ -No Exacerbation, Progression, or Severe Exacerbation? @ -No Poses a threat to life or bodily function? How? (Chest pain, [place], [place], pneumonia, PE, COPD, DKA, ARF, appy, cholecystitis, CVA, Diverticulitis, Homicidal, Suicidal, threat to staff... and all critical care pts) @ -No Disposition Clinical Impression: Urinary retention Disposition: HOME SELF-CARE Condition: Fair Instructions (If sedation given, give patient instructions): Walsh Catheter Placement and Care (ED) Is patient prescribed a controlled substance at d/c from ED?: No Referrals: Reagan Epps MD [Primary Care Provider] - 1-2 days Time of Disposition: 13:47
[2023-12-31 15:01] VITALS: BP 105/66; PULSE 73; TEMP 97.6
== END 2023-12-31 14:37 | disposition home or self-care (01) ==
LOC: EC 12:03
DX: R33.9 Retention of urine, unspecified (principal); Z88.8 Allergy status to other drugs, medicaments and biological substances; Z87.891 Personal history of nicotine dependence
CPT/HCPCS: 51702; 99283

== ENCOUNTER → 2024-07-09 | Outpatient (CLI) | payer MEDICARE, OTHER ==
[2024-07-09 10:39] LABS: African American GFR (CKD) 84 (>60 ml/min/1.73 sqM); Blood Urea Nitrogen 16 mg/dL (9-20); Non-African American GFR(CKD) 73 (>60 ml/min/1.73 sqM)
--- NOTE | 2024-07-09 11:15 | CT ---
EXAMINATION TYPE: CT abdomen w con CT DLP: 2883.50 mGycm, Automated exposure control for dose reduction was used. DATE OF EXAM: 07/09/2024 11:05 AM COMPARISON: CTA chest 02/18/2023, CTA thoracoabdominal pelvic aorta 09/21/2018, CT abdomen pelvis 06/28 CLINICAL INDICATION:Male, 64 years old with history of R31.9 HEMATURIA; HEMATURIA TECHNIQUE: Standard CT of the abdomen following the administration of 100 cc of Isovue 300 IV contr ast material and oral contrast. Coronal and sagittal reformats were performed. FINDINGS: LOWER CHEST: The visualized lung bases are clear. Mild prominence of the heart. ABDOMEN LIVER: Subcentimeter hypodensity within the right hepatic lobe which is too small characterize but li kim represents a cyst. GALLBLADDER AND BILE DUCTS: Unremarkable. PANCREAS: Unremarkable. SPLEEN: Unremarkable. ADRENAL GLANDS: Unremarkable. KIDNEYS AND URETERS: No evidence of hydronephrosis or renal calculus. The kidneys enhance symmetrical ly. Left renal medial cortical 1.2 cm cyst. Contrast is demonstrated within both collecting systems o n the delayed phase. STOMACH AND BOWEL: Small hiatal hernia, duodenum is unremarkable. Enteric contrast reaches the distal small bowel. The appendix is within normal limits. Stool is present within the colon. Prominent gase ous appearance of the redundant sigmoid colon. No evidence of bowel obstruction. PERITONEUM: No evidence of pneumoperitoneum or free fluid. VASCULATURE: No evidence of aortic aneurysm. MUSCULOSKELETAL: No acute osseous abnormalities. Degenerative changes of bilateral SI joint. Multilev el degenerative disc disease of the visualized lumbar spine. Grade 1 anterolisthesis of L4 and L5 wit hout evidence of pars defects. Facet arthropathy of the lower lumbar spine. LYMPH NODES: No evidence for lymphadenopathy. SOFT TISSUE/ABDOMINAL WALL: Unremarkable IMPRESSION: No evidence for obstructive uropathy or suspicious enhancing renal mass. [facility], , 07/09/2024 11:12 AM
== END | disposition home or self-care (01) ==
LOC: RADCTMAIN 09:49
PROVIDERS: ATTEND Family Medicine
DX: R31.9 Hematuria, unspecified (principal)
CPT/HCPCS: 82565; 84520; 74160; 36415; Q9967

== ENCOUNTER → 2024-07-18 | Day surgery (SDC) | payer MEDICARE, OTHER ==
[2024-07-13 14:05] VITALS: BMI 46.8
[~2024-07-18] MED LIST: ETOMIDATE 2 MG/ML 10 ML VIAL ONE; LIDOCAINE 2% (PF) 20 MG/ML 5 ML VIAL ONE; PROPOFOL 10 MG/ML 20 ML VIAL IV ONE
[2024-07-18 07:21] VITALS: TEMP 97.7
[2024-07-18] MEDS: IV FLUID CONTINUATION 1,000 ML IV ONE (07:33)
[2024-07-18] MEDS: LACTATED RINGERS 1,000 ML IV SCH (07:42)
[2024-07-18 07:45] LABS: Glucose,Whole Blood 97 mg/dL (70-110)
--- NOTE | 2024-07-18 08:09 | P.PCN ---
Date of Procedure: 07/18/24 Procedure(s) Performed: BRIEF HISTORY: Patient is a 64-year-old, pleasant, -[place] male scheduled an upper endoscopy as a part of follow-up of large gastric antral ulcer noted 4 months ago. Patient present with acute upper GI bleed and upper endoscopy revealed multiple gastric ulcers the largest measuring 1.5 cm ulcer PROCEDURE PERFORMED: Esophagogastroduodenoscopy with biopsy.. PREOPERATIVE DIAGNOSIS: Follow-up large gastric ulcer. IV sedation per anesthesia. PROCEDURE: After informed consent was obtained, the patient was brought into the endoscopy unit. IV sedation was administered by Anesthesia under continuous monitoring. Initially the Olympus GIF-140 video endoscope was inserted into the mouth. Esophagus intubated without any difficulty. It was gradually advanced into the stomach and duodenum and carefully examined. The bulb and the second part of the duodenum appeared normal. The scope at this time was withdrawn to the stomach, adequately insufflated with air, and upon careful examination, mucosa of the antrum, had mild antral gastritis gastritis. Previously noted gas tric ulcers have completely healed. Biopsies were done in the antrum to evaluate for H. pylori infection. Mucosa of the body, cardia and the fundus appeared normal. The scope was then withdrawn into the esophagus. The GE junction was located at 43 cm from the incisors. The esophagus appeared normal. There was a linear erosions of the distal esophagus consistent with LA grade a reflux esophagitis and the patient tolerated the procedure well. IMPRESSION: 1. Mild antral gastritis. 2. Completely healed previously noted gastric ulcers 3. LA grade a reflux esophagitis. RECOMMENDATIONS: The findings of this examination were discussed with the patient as well as his family. He was advised to follow-up with the biopsy results. Continue with Protonix 40 mg daily and follow antireflux measures for reflux reflux symptoms..
[2024-07-18 08:42] VITALS: BP 113/72; PULSE 58; RESP 16
== END | disposition home or self-care (01) ==
LOC: ORWHC2ENDO 06:26
PROVIDERS: ATTEND Internal Medicine Gastroenterology
DX: K29.50 Unspecified chronic gastritis without bleeding (principal); K25.9 Gastric ulcer, unspecified as acute or chronic, without hemorrhage or perforation; K21.00 Gastro-esophageal reflux disease with esophagitis, without bleeding; I10 Essential (primary) hypertension; E78.5 Hyperlipidemia, unspecified; M19.90 Unspecified osteoarthritis, unspecified site; G47.33 Obstructive sleep apnea (adult) (pediatric); J44.9 Chronic obstructive pulmonary disease, unspecified; E11.9 Type 2 diabetes mellitus without complications; I48.91 Unspecified atrial fibrillation; Z89.521 Acquired absence of right knee; Z88.8 Allergy status to other drugs, medicaments and biological substances; Z99.89 Dependence on other enabling machines and devices; Z79.82 Long term (current) use of aspirin; Z79.51 Long term (current) use of inhaled steroids; Z79.02 Long term (current) use of antithrombotics/antiplatelets; Z79.899 Other long term (current) drug therapy
CPT/HCPCS: 88305; 43239; J2704; J2003; 88342

== ENCOUNTER 2024-12-03 14:55 | Emergency (ER) | payer MEDICARE, OTHER ==
[2024-12-03 15:05] VITALS: RESP 18
--- NOTE | 2024-12-03 15:42 | ED ---
Fall HPI - General Chief Complaint: Fall Stated Complaint: Fall-R Side Pain-Blood thinner Time Seen by Provider: 12/03/24 15:10 Source: patient, RN notes reviewed Mode of arrival: ambulatory - History of Present Illness Initial Comments: This is a 64-year-old male presenting to the emergency department with right- sided pain after a fall that occurred on 11/30/24. Patient states that he was wearing diabetic shoes when he was getting items out of his car when he was off balance and fell forward. Patient states that he braced himself with his breaking and causing to fall onto the right side of his chest and his hip. Patient has been able to ambulate however with mild pain to the right hip. Endorses pain to the anterior right side of the chest. Patient denies any his head or loss conscious at the time of the fall. Patient is on Eliquis with a history of A-fib. - Related Data Home Medications Medication Instructions Recorded Confirmed ALPRAZolam [Xanax] 1 mg PO TID PRN 06/26/16 07/18/24 Carvedilol 25 mg PO BID-W/MEALS 06/26/16 07/18/24 Fluticasone Nasal [place] [Flonase 1 spr EA NOSTRIL DAILY 06/26/16 07/18/24 Nasal [place]] Nitroglycerin Sl Tabs [Nitrostat] 0.4 mg SL Q5M PRN 03/08/17 07/18/24 HYDROcodone/APAP 10-325MG [[place] 1 tab PO Q6H PRN 09/21/18 07/18/24 10-325] Albuterol Nebulized [Ventolin 2.5 mg INHALATION RT-QID PRN 01/15/19 07/18/24 Nebulized] Ergocalciferol (Vitamin D2) 1,250 mcg PO MO 07/27/21 07/18/24 [Drisdol (50,000 Iu)] Potassium Chloride [Klor-Con M10] 10 meq PO BID-W/MEALS 07/27/21 07/18/24 Olopatadine HCl [Pataday] 1 drop BOTH EYES BID 10/23/22 07/18/24 Simvastatin [Zocor] 40 mg PO HS 10/23/22 07/18/24 Albuterol Inhaler [Ventolin Hfa 2 puff INHALATION RT-Q4H PRN 02/02/23 07/18/24 Inhaler] Furosemide [Lasix] 40 mg PO DAILY 08/13/23 07/18/24 Sacubitril/Valsartan [Entresto 24 1 tab PO BID 08/22/23 07/18/24 mg-26 mg Tablet] Dapagliflozin Propanediol [Farxiga] 10 mg PO DAILY 09/20/23 07/18/24 Spironolactone [Aldactone] 25 mg PO DAILY 09/20/23 07/18/24 Previous Rx's Medication Instructions Recorded Aspirin [Adult Low Dose Aspirin EC] 81 mg PO DAILY #30 tablet. 09/23/18 Cyclobenzaprine [Flexeril] 10 mg PO BID #60 tablet 09/23/18 Docusate [Colace] 100 mg PO DAILY PRN #30 cap 09/23/18 Apixaban [Eliquis] 5 mg PO BID #60 tab 08/16/23 Tamsulosin HCl [Flomax] 0.8 mg PO DAILY #60 cap 08/27/23 Famotidine [Pepcid] 20 mg PO HS tab 09/23/23 Pantoprazole [Protonix] 40 mg PO AC-BID #60 tab 09/23/23 Allergies Allergy/AdvReac Type Severity Reaction Status Date / Time nitroglycerin Allergy Rash/Hives Verified 12/03/24 15:05 [From Nitro-Bid] Review of Systems ROS Statement: Those systems with pertinent positive or pertinent negative responses have been documented in the HPI. ROS Other: All systems not noted in ROS Statement are negative. Past Medical History Past Medical History: Atrial Fibrillation, Heart Failure, COPD, Diabetes Mellitus, GERD/Reflux, Hyperlipidemia, Hypertension, Neurologic Disorder, Osteoarthritis (OA), Prostate Disorder, Sleep Apnea/CPAP/BIPAP Additional Past Medical History / Comment(s): ASCENDING THORACIC ANEURYSM, palpitations, "LEAKY VALVE." USES BIPAP MACHINE, CONSTIPATION. EDEMA ANKLES. Tendonitis in shoulders, nerve pain in back, neuropathy in feet. Dizziness when gets up to quick and gets instant headache. Enlarged prostate. Hx CHF, enlarged heart and fluid in lungs. ulcers History of Any Multi-Drug Resistant Organisms: None Reported Past Surgical History: Joint Replacement, Orthopedic Surgery Additional Past Surgical History / Comment(s): ARTHROSCOPIC RIGHT KNEE - EXC GLASS, HEMORRHOIDECTOMY, COLONOSCOPY, EGD, right knee replacement. Past Anesthesia/Blood Transfusion Reactions: Previous Problems w/ Anesthesia Additional Past Anesthesia/Blood Transfusion Reaction / Comment(s): AWAKE DURING SURGERY, IN PAIN WITH KNEE SCOPE. no blood transfusions Past Psychological History: Anxiety Smoking Status: Former smoker Past Alcohol Use History: None Reported Past Drug Use History: None Reported - Past Family History Father Family Medical History: Cancer, Diabetes Mellitus Additional Family Medical History / Comment(s): prostate Mother Family Medical History: Cancer Additional Family Medical History / Comment(s): cervical General Exam Limitations: no limitations General appearance: alert, in no apparent distress Neck exam: Present: normal inspection. Absent: tenderness, meningismus, lymphadenopathy Respiratory exam: Present: normal lung sounds bilaterally, chest wall tenderness (anterior right). Absent: respiratory distress, wheezes, rales, rhonchi, stridor Cardiovascular Exam: Present: regular rate, normal rhythm, normal heart sounds. Absent: systolic murmur, diastolic murmur, rubs, gallop, clicks GI/Abdominal exam: Present: soft, normal bowel sounds. Absent: distended, tenderness, guarding, rebound, rigid Right Hand Wrist exam: Present: normal inspection, full ROM, tenderness. Absent: swelling, ecchymosis, deformity Neuro motor exam: Present: wrist extension intact, thumb opposition intact Vascular: Present: normal capillary refill. Absent: vascular compromise Back exam: Present: normal inspection Neurological exam: Present: alert, oriented X3, CN II-XII intact Course Vital Signs 12/03/24 12/03/24 15:02 16:44 Temperature 98.7 F 98.6 F Pulse Rate 58 L 69 Respiratory 18 18 Rate Blood Pressure 147/96 153/84 O2 Sat by Pulse 98 98 Oximetry Medical Decision Making - Medical Decision Making Was pt. sent in by a medical professional or institution (, PA, DEATH CLEARANCE COORDINATOR, urgent care, hospital, or assisted...) When possible be specific @ -No Did you speak to anyone other than the patient for history (EMS, parent, family, police, friend...)? What history was obtained from this source @ -No Did you review nursing and triage notes (agree or disagree)? Why? @ -I reviewed and agree with nursing and triage notes Were old charts reviewed (outside hosp., previous admission, EMS record, old EKG, old radiological studies, urgent care reports/EKG's, assisted records)? Report findings @ -No old charts were reviewed Differential Diagnosis (chest pain, altered mental status, abdominal pain women, abdominal pain men, vaginal bleeding, weakness, fever, dyspnea, syncope, headache, dizziness, GI bleed, back pain, seizure, CVA, palpatations, mental health, musculoskeletal)? @ -Differential Musculoskeletal Muscular strain, contusion, ligament sprain, fracture, arthritis, septic arthritis, bursitis, cellulitis, muscle spasm, nerve compression, DVT, arterial occlusion, herpes zoster, electrolyte abnormality, tumor.... This is not meant to be in all inclusive list EKG interpreted by me (3pts min.). @ -none X-rays interpreted by me (1pt min.). @ -X-ray of the chest reveals moderate cardiomegaly with no displaced right rib fracture seen X-ray of the right wrist reveals arthritis X-ray of the pelvis and right hip mild to moderate osteoarthritis with no fracture noted CT interpreted by me (1pt min.). @ -None done U/S interpreted by me (1pt. min.). @ -None done What testing was considered but not performed or refused? (CT, X-rays, U/S, labs)? Why? @ -None What meds were considered but not given or refused? Why? @ -None Did you discuss the management of the patient with other professionals (professionals i.e. , PA, DEATH CLEARANCE COORDINATOR, lab, RT, psych nurse, social worker school, drupal php developer, teacher, community liaison officer, telehealth case manager)? Give summary @ -No Was smoking cessation discussed for >3mins.? @ -No Was critical care preformed (if so, how long)? @ -No Were there social determinants of health that impacted care today? How? (Homelessness, low income, unemployed, alcoholism, drug addiction, transportation, low edu. Level, literacy, decrease access to med. care, care home, rehab)? @ -No Was there de-escalation of care discussed even if they declined (Discuss DNR or withdrawal of care, Hospice)? DNR status @ -No What co-morbidities impacted this encounter? (DM, HTN, Smoking, COPD, CAD, Cancer, CVA, ARF, Chemo, Hep., AIDS, mental health diagnosis, sleep apnea, morbid obesity)? @ -None Was patient admitted / discharged? Hospital course, mention meds given and route, prescriptions, significant lab abnormalities, going to OR and other pertinent info. @ -Discharge. 64-year-old male presents emergency department after a fall and right-sided pain. Overall patient is well-appearing. Neurovascularly intact of upper and lower right-sided extremities. He was offered pain medication was declined. X-ray imaging is unremarkable. Recommend supportive treatment. Case discussed with Dr. Edgar Undiagnosed new problem with uncertain prognosis? @ -No Drug Therapy requiring intensive monitoring for toxicity (Heparin, Nitro, Insulin, Cardizem)? @ -No Were any procedures done? @ -No Diagnosis/symptom? @ -Fall, rib pain, right-sided pain Acute, or Chronic, or Acute on Chronic? @ -Acute Uncomplicated (without systemic symptoms) or Complicated (systemic symptoms)? @ -Uncomplicated Side effects of treatment? @ -No Exacerbation, Progression, or Severe Exacerbation? @ -No Poses a threat to life or bodily function? How? (Chest pain, [place], [place], pneumonia, PE, COPD, DKA, ARF, appy, cholecystitis, CVA, Diverticulitis, Homicidal, Suicidal, threat to staff... and all critical care pts) @ -No Disposition Clinical Impression: Fall Disposition: HOME SELF-CARE Condition: Good Instructions (If sedation given, give patient instructions): Fall Prevention for Older Adults (ED) Additional Instructions: Please return to the Emergency Department if symptoms worsen or any other concerns. Is patient prescribed a controlled substance at d/c from ED?: No Referrals: Reagan Epps MD [Primary Care Provider] - 1-2 days Time of Disposition: 16:39
--- NOTE | 2024-12-03 16:19 | XR ---
EXAMINATION TYPE: XR ribs RT w pa chest xray 5 views, XR Hip 2 views RT and AP Pelvis, XR wrist compl ete 4 views RT DATE OF EXAM: 12/03/2024 4:06 PM COMPARISON: Chest 09/20/2023 CLINICAL INDICATION: Male, 64 years old with history of fall, pain; PHH, pain FINDINGS: CHEST: The heart is moderately enlarged. Patient slightly rotated towards the right L3 normal cardiac and me diastinal contours. Large body habitus likely accounts for the hazy lower lung densities. Bilateral h ilar prominence. Moderate to severe degenerative change right glenohumeral joint. Right RIBS: No displaced right rib fracture seen. Right wrist: The radiocarpal and distal radial ulnar joint as well as the midcarpal compartment appear intact. No acute fracture, subluxation, or dislocation seen. Severe degenerative change first CMC joint with sub chondral sclerosis, joint space loss, and prominent marginal spurring. Pelvis and right hip: Mild degenerative change at the hips, right greater than left with marginal spurring axial joint spac e narrowing. There is osteopenia but no acute fracture, subluxation, or dislocation seen. COMBINED IMPRESSION: 1. Chest: Moderate cardiomegaly. Correlate for underlying mild CHF and pulmonary artery hypertension. 2. Right ribs: No displaced right rib fracture seen. 3. Right wrist: Severe OA at the basal joint of the thumb. No acute osseous abnormality seen. 4. Pelvis and right hip: Mild to moderate right and mild left hip OA. No displaced fracture seen. [facility], Workstation: [facility], 12/03/2024 4:16 PM
[2024-12-03 16:45] VITALS: BP 153/84; PULSE 69; TEMP 98.6
== END 2024-12-03 16:51 | disposition home or self-care (01) ==
LOC: EC 14:55
DX: R07.9 Chest pain, unspecified (principal); Z87.891 Personal history of nicotine dependence; Z88.8 Allergy status to other drugs, medicaments and biological substances; W19.XXXA Unspecified fall, initial encounter
CPT/HCPCS: 73502; 99283

== ENCOUNTER 2024-12-24 14:41 | Emergency (ER) | payer MEDICARE, OTHER ==
[2024-12-24 14:46] VITALS: RESP 18
--- NOTE | 2024-12-24 15:16 | ED ---
General Adult HPI - General Chief complaint: Back Pain/Injury Stated complaint: Fall-R sided abd pain Time Seen by Provider: 12/24/24 15:00 Source: patient, RN notes reviewed Mode of arrival: ambulatory Limitations: no limitations - History of Present Illness Initial comments: This is a 64-year-old male presenting to emergency department for re-evaluation after fall that occurred approximately 3 weeks ago. Patient states that he was walking outside in a parking lot when he tripped over his feet causing him to fall onto his right side. at the time of the fall patient was complaining of pain on the right wrist/hand in addition to the right hip. states that pain of the hip and wrist have resolved however has still been experiencing pain on the right side of the abdomen/ribs with radiation into his back. He is requesting pain medications. - Related Data Home Medications Medication Instructions Recorded Confirmed ALPRAZolam [Xanax] 1 mg PO TID PRN 06/26/16 07/18/24 Carvedilol 25 mg PO BID-W/MEALS 06/26/16 07/18/24 Fluticasone Nasal [place] [Flonase 1 spr EA NOSTRIL DAILY 06/26/16 07/18/24 Nasal [place]] Nitroglycerin Sl Tabs [Nitrostat] 0.4 mg SL Q5M PRN 03/08/17 07/18/24 HYDROcodone/APAP 10-325MG [[place] 1 tab PO Q6H PRN 09/21/18 07/18/24 10-325] Albuterol Nebulized [Ventolin 2.5 mg INHALATION RT-QID PRN 01/15/19 07/18/24 Nebulized] Ergocalciferol (Vitamin D2) 1,250 mcg PO MO 07/27/21 07/18/24 [Drisdol (50,000 Iu)] Potassium Chloride [Klor-Con M10] 10 meq PO BID-W/MEALS 07/27/21 07/18/24 Olopatadine HCl [Pataday] 1 drop BOTH EYES BID 10/23/22 07/18/24 Simvastatin [Zocor] 40 mg PO HS 10/23/22 07/18/24 Albuterol Inhaler [Ventolin Hfa 2 puff INHALATION RT-Q4H PRN 02/02/23 07/18/24 Inhaler] Furosemide [Lasix] 40 mg PO DAILY 08/13/23 07/18/24 Sacubitril/Valsartan [Entresto 24 1 tab PO BID 08/22/23 07/18/24 mg-26 mg Tablet] Dapagliflozin Propanediol [Farxiga] 10 mg PO DAILY 09/20/23 07/18/24 Spironolactone [Aldactone] 25 mg PO DAILY 09/20/23 07/18/24 Previous Rx's Medication Instructions Recorded Aspirin [Adult Low Dose Aspirin EC] 81 mg PO DAILY #30 tablet. 09/23/18 Cyclobenzaprine [Flexeril] 10 mg PO BID #60 tablet 09/23/18 Docusate [Colace] 100 mg PO DAILY PRN #30 cap 09/23/18 Apixaban [Eliquis] 5 mg PO BID #60 tab 08/16/23 Tamsulosin HCl [Flomax] 0.8 mg PO DAILY #60 cap 08/27/23 Famotidine [Pepcid] 20 mg PO HS tab 09/23/23 Pantoprazole [Protonix] 40 mg PO AC-BID #60 tab 09/23/23 Lidocaine 5% Patch [Lidoderm] 1 patch TOPICAL DAILY #14 patch 12/24/24 Allergies Allergy/AdvReac Type Severity Reaction Status Date / Time nitroglycerin Allergy Rash/Hives Verified 12/24/24 14:46 [From Nitro-Bid] Review of Systems ROS Statement: Those systems with pertinent positive or pertinent negative responses have been documented in the HPI. ROS Other: All systems not noted in ROS Statement are negative. Past Medical History Past Medical History: Atrial Fibrillation, Heart Failure, COPD, Diabetes Mellitus, GERD/Reflux, Hyperlipidemia, Hypertension, Neurologic Disorder, Osteoarthritis (OA), Prostate Disorder, Sleep Apnea/CPAP/BIPAP Additional Past Medical History / Comment(s): ASCENDING THORACIC ANEURYSM, palpitations, "LEAKY VALVE." USES BIPAP MACHINE, CONSTIPATION. EDEMA ANKLES. Tendonitis in shoulders, nerve pain in back, neuropathy in feet. Dizziness when gets up to quick and gets instant headache. Enlarged prostate. Hx CHF, enlarged heart and fluid in lungs. ulcers History of Any Multi-Drug Resistant Organisms: None Reported Past Surgical History: Joint Replacement, Orthopedic Surgery Additional Past Surgical History / Comment(s): ARTHROSCOPIC RIGHT KNEE - EXC GLASS, HEMORRHOIDECTOMY, COLONOSCOPY, EGD, right knee replacement. Past Anesthesia/Blood Transfusion Reactions: Previous Problems w/ Anesthesia Additional Past Anesthesia/Blood Transfusion Reaction / Comment(s): AWAKE DURING SURGERY, IN PAIN WITH KNEE SCOPE. no blood transfusions Past Psychological History: Anxiety Smoking Status: Former smoker Past Alcohol Use History: None Reported Past Drug Use History: None Reported - Past Family History Father Family Medical History: Cancer, Diabetes Mellitus Additional Family Medical History / Comment(s): prostate Mother Family Medical History: Cancer Additional Family Medical History / Comment(s): cervical General Exam - General Exam Comments Initial Comments: Visual Physical Exam Vital signs reviewed General: Well-appearing, nontoxic, no acute distress. Head: Normocephalic, atraumatic Eyes: PERRLA, EOMI ENT: Airway patent Chest: Nonlabored breathing Skin: No visual rash, normal skin tone Neuro: Alert and oriented 3 Musculoskeletal: No gross abnormalities Limitations: no limitations ENT exam: Present: normal exam, mucous membranes moist Neck exam: Present: normal inspection. Absent: tenderness, meningismus, lymphadenopathy Respiratory exam: Present: normal lung sounds bilaterally, chest wall tenderness (anterior right ribs). Absent: respiratory distress, wheezes, rales, rhonchi, stridor Cardiovascular Exam: Present: regular rate, normal rhythm, normal heart sounds. Absent: systolic murmur, diastolic murmur, rubs, gallop, clicks GI/Abdominal exam: Present: soft, normal bowel sounds. Absent: distended, tenderness (right sided), guarding, rebound, rigid Extremities exam: Present: normal inspection, full ROM, normal capillary refill. Absent: tenderness, pedal edema, joint swelling, calf tenderness Back exam: Present: normal inspection. Absent: CVA tenderness (R), CVA tenderness (L) Skin exam: Present: warm, dry, intact, normal color. Absent: rash Course Vital Signs 12/24/24 14:42 Temperature 97.9 F Pulse Rate 90 Respiratory 18 Rate Blood Pressure 145/93 O2 Sat by Pulse 95 Oximetry Medical Decision Making - Medical Decision Making Was pt. sent in by a medical professional or institution (, PA, MARKETING ANALYTICS LEAD, urgent care, hospital, or detention...) When possible be specific @ -No Did you speak to anyone other than the patient for history (EMS, parent, family, police, friend...)? What history was obtained from this source @ -No Did you review nursing and triage notes (agree or disagree)? Why? @ -I reviewed and agree with nursing and triage notes Were old charts reviewed (outside hosp., previous admission, EMS record, old EKG, old radiological studies, urgent care reports/EKG's, detention records)? Report findings @ -Reviewed imaging completed on 12/03/2024 which revealed no displaced right rib fractures noted with no evidence of wrist, hip or pelvis fracture. Differential Diagnosis (chest pain, altered mental status, abdominal pain women, abdominal pain men, vaginal bleeding, weakness, fever, dyspnea, syncope, headache, dizziness, GI bleed, back pain, seizure, CVA, palpatations, mental health, musculoskeletal)? @ -Differential Musculoskeletal Muscular strain, contusion, ligament sprain, fracture, arthritis, septic arthritis, bursitis, cellulitis, muscle spasm, nerve compression, DVT, arterial occlusion, herpes zoster, electrolyte abnormality, tumor.... This is not meant to be in all inclusive list EKG interpreted by me (3pts min.). @ -None X-rays interpreted by me (1pt min.). @ -None done CT interpreted by me (1pt min.). @ -CT imaging of the chest, abdomen without contrast is a suboptimal study however no acute posttraumatic finding noted to account to patient's symptoms. U/S interpreted by me (1pt. min.). @ -None done What testing was considered but not performed or refused? (CT, X-rays, U/S, labs)? Why? @ -None What meds were considered but not given or refused? Why? @ -None Did you discuss the management of the patient with other professionals (professionals i.e. , PA, MARKETING ANALYTICS LEAD, lab, RT, psych nurse, elementary school social worker, diesel inspector, teacher, custom protection officer, correctional casework specialist)? Give summary @ -No Was smoking cessation discussed for >3mins.? @ -No Was critical care preformed (if so, how long)? @ -No Were there social determinants of health that impacted care today? How? (Homelessness, low income, unemployed, alcoholism, drug addiction, transportation, low edu. Level, literacy, decrease access to med. care, senior living, rehab)? @ -No Was there de-escalation of care discussed even if they declined (Discuss DNR or withdrawal of care, Hospice)? DNR status @ -No What co-morbidities impacted this encounter? (DM, HTN, Smoking, COPD, CAD, Cancer, CVA, ARF, Chemo, Hep., AIDS, mental health diagnosis, sleep apnea, morbid obesity)? @ -None Was patient admitted / discharged? Hospital course, mention meds given and ro [place], prescriptions, significant lab abnormalities, going to OR and other pertinent info. @ -Discharged. 64-year-old male presenting to the emergency department for complaints of right sided chest/abdominal pain after fall that occurred 3 weeks ago. Patient's pain is reproducible on examination. There are no overlying skin changes or crepitus. Patient is provided with pain medication and Lidoderm patch. CT imaging is unremarkable. Patient better with outpatient prescription for Lidoderm patches and instructed continue supportive treatment. Case discussed with Dr. Fields Undiagnosed new problem with uncertain prognosis? @ -No Drug Therapy requiring intensive monitoring for toxicity (Heparin, Nitro, Insulin, Cardizem)? @ -No Were any procedures done? @ -No Diagnosis/symptom? @ -rib contusion after fall Acute, or Chronic, or Acute on Chronic? @ -acute Uncomplicated (without systemic symptoms) or Complicated (systemic symptoms)? @ -uncomplicated Side effects of treatment? @ -No Exacerbation, Progression, or Severe Exacerbation? @ -No Poses a threat to life or bodily function? How? (Chest pain, [place], OR, pneumonia, PE, COPD, DKA, ARF, appy, cholecystitis, CVA, Diverticulitis, Homicidal, Suicidal, threat to staff... and all critical care pts) @ -No Disposition Clinical Impression: Contusion of rib Disposition: HOME SELF-CARE Condition: Stable Instructions (If sedation given, give patient instructions): Rib Contusion (ED) Additional Instructions: Please return to the Emergency Department if symptoms worsen or any other concerns. Prescriptions: Lidocaine 5% Patch [Lidoderm] 1 patch TOPICAL DAILY #14 patch Is patient prescribed a controlled substance at d/c from ED?: No Referrals: Reagan Epps MD [Primary Care Provider] - 1-2 days Time of Disposition: 17:24
[2024-12-24] MEDS: KETOROLAC 15 MG/ML 1 ML VIAL IM STA (16:11)
[2024-12-24] MEDS: LIDOCAINE 4% PATCH TOPICAL ONE (16:12)
--- NOTE | 2024-12-24 17:13 | CT ---
EXAMINATION TYPE: CT chest abdomen wo con DATE OF EXAM: 12/24/2024 COMPARISON: Prior CT abdomen July 09, 2024 CLINICAL INDICATION: Male, 64 years old with history of fall 2 weeks ago, persistent r sided chest pa in; [facility], Fall 2 weeks ago, persistent Rt side chest and abdomen pain. No contrast. CT DLP: 1290.8 mGycm Automated exposure control for dose reduction was used. FINDINGS: There is some motion artifact making evaluation suboptimal. Mild left basilar linear scarring and/or atelectasis is seen. There is a 5 mm right mid lung pulmonary nodule axial image 24. This is unchange d from February 18, 2023 CT. No suspicious focal consolidation. No pleural effusion or pneumothorax seen bilaterally. Prominent mediastinal lymph nodes are redemonstrated. Mild cardiomegaly again seen. No pericardial ef fusion. No significant coronary artery calcifications. Suboptimal study without IV contrast. There is 2 mm nonobstructing calculus right kidney coronal imag e 79. No suspicious bowel dilatation. Moderate sigmoid colonic fecal prominence. Sigmoid colonic redu ndancy is noted. No acute or subacute displaced osseous fracture. IMPRESSION: Suboptimal study without IV contrast. No acute post traumatic finding clearly seen due to patient's symptoms [facility], , 12/24/2024 5:11 PM
[2024-12-24 17:43] VITALS: BP 162/89; PULSE 92; TEMP 98.1
== END 2024-12-24 18:34 | disposition home or self-care (01) ==
LOC: EC 14:41
DX: S20.219A Contusion of unspecified front wall of thorax, initial encounter (principal); Z88.8 Allergy status to other drugs, medicaments and biological substances; Z87.891 Personal history of nicotine dependence; W01.0XXA Fall on same level from slipping, tripping and stumbling without subsequent striking against object, initial encounter; Y92.481 Parking lot as the place of occurrence of the external cause; Y93.01 Activity, walking, marching and hiking
CPT/HCPCS: 71250; 74150; 99284; 96372; J1885

== ENCOUNTER 2025-02-06 08:22 | Day surgery (SDC) | payer MEDICARE, OTHER ==
[2025-02-05 12:07] VITALS: BMI 47.1
[~2025-02-06 08:22] MED LIST changes: +ALPRAZolam 0.25 MG TAB PO PRN; +ALPRAZolam 0.5 MG TAB PO PRN; -ETOMIDATE 2 MG/ML 10 ML VIAL ONE; -LIDOCAINE 2% (PF) 20 MG/ML 5 ML VIAL ONE; -PROPOFOL 10 MG/ML 20 ML VIAL IV ONE
[2025-02-06] MEDS: IV FLUID CONTINUATION 1,000 ML IV ONE (08:48)
[2025-02-06] MEDS: SODIUM CHLORIDE 0.9% 1,000 ML in EMPTY BAG 1 BAG IV SCH (08:59)
[2025-02-06] MEDS: ASPIRIN 325 MG TAB PO STA (08:59)
[2025-02-06 09:03] LABS: Glucose,Whole Blood 100 mg/dL (70-110)
[2025-02-06 09:04] VITALS: RESP 16; TEMP 98.7
[2025-02-06 09:12] LABS: Basophils # (A) 0.03 10*3/uL (0.00-0.10); Basophils % (A) 0.6 %; Eosinophils # (A) 0.13 10*3/uL (0.04-0.35); Eosinophils % (A) 2.4 %; HCT 47.4 % (39.6-50.0); HGB 14.0 g/dL (13.0-17.0); Lymphocytes # (A) 1.08 10*3/uL (0.90-5.00); Lymphocytes % (A) 20.0 %; MCH 22.7 pg (27.0-32.0); MCHC 29.5 g/dL (32.0-37.0); MCV 76.9 fL (80.0-97.0); Monocytes # (A) 0.60 10*3/uL (0.20-1.00); Monocytes % (A) 11.1 %; Neutrophils # (A) 3.55 10*3/uL (1.80-7.70); Neutrophils % (A) 65.7 %; Platelet Count 271 10*3/uL (140-440); RBC 6.16 10*6/uL (4.40-5.60); RDW 21.4 % (11.5-14.5); WBC 5.40 10*3/uL (4.50-10.00)
[2025-02-06 09:37] LABS: African American GFR (CKD) 78 (>60 ml/min/1.73 sqM); Anion Gap 9 mmol/L; Blood Urea Nitrogen 20 mg/dL (9-20); Calcium 9.9 mg/dL (8.4-10.2); Carbon Dioxide 29 mmol/L (22-30); Chloride 100 mmol/L (98-107); Glucose 100 mg/dL (74-99); Non-African American GFR(CKD) 67 (>60 ml/min/1.73 sqM); Potassium 4.9 mmol/L (3.5-5.1); Sodium 138 mmol/L (137-145)
[2025-02-06] MEDS: MIDAZOLAM 2 MG/2 ML VIAL IVP ONE (11:00)
[2025-02-06] MEDS: fentaNYL (PF) 50 MCG/ML 2 ML AMP IVP ONE (11:00)
[2025-02-06] MEDS: LIDOCAINE 1% INJ 10MG/ML (20 ML MDV) SQ ONE (11:02)
[2025-02-06] MEDS: VERAPAMIL 2.5 MG/ML 2 ML AMP INTRAARTER ONE (11:02)
[2025-02-06] MEDS: HEPARIN SODIUM 1,000 UN/ML (10ML VL) IVP ONE (11:05)
[2025-02-06] MEDS: HEPARIN SODIUM,PORCINE 10,000 UNIT in SODIUM CHLORIDE 0.9% 1,000 ML IRRIGATION PRN (11:13)
[2025-02-06] MEDS: HEPARIN SODIUM,PORCINE (1 ML) 2,500 UNIT in SODIUM CHLORIDE 0.9% 250 ML IRRIGATION PRN (11:14)
[2025-02-06] MEDS: IOPAMIDOL-370 100ML BTL INJ ONE ×2 (11:26→11:38)
[2025-02-06] MEDS ORDERED: RX INFO: IV CONTRAST WAS GIVEN 1 EACH MISC MISCELLANE PRN (11:49)
[2025-02-06] MEDS: SODIUM CHLORIDE 0.9% 1,000 ML IV SCH (11:50)
--- NOTE | 2025-02-06 15:15 | P.PCN ---
Date of Procedure: 02/06/25 Operative Findings: CARDIAC CATHETERIZATION PERFORMING PHYSICIAN: London Macias MD, RPVI PROCEDURE PERFORMED: 1. Selective right and left coronary angiogram 2. Left heart catheterization 3. Ultrasound-guided access of the right radial artery INDICATION: Cardiomyopathy COMPLICATION: None APPROACH: Right radial artery LEVEL OF SEDATION: Moderate with a sedation length of 20 minutes PROCEDURE DESCRIPTION: After obtaining an informed consent, the patient was brought to cardiac woven label designer. Local anesthesia was performed using lidocaine subcutaneously. The right radial artery was cannulated using Seldinger technique, under ultrasound guidance, the guidewire passed easily, following that we advanced a 5-Tristanian sheath dilator assembly, the wire and dilator were removed and sheath was flushed. Following that, 2 mg of verapamil along with 5000 unit heparin were given. Selective right and left coronary angiogram using a 5-Tristanian AL 0.75 and JL 3.5 catheters. Following that we did left heart catheterization using 5-Tristanian pigtail catheter. The procedure was completed there was no complication. SELECTIVE CORONARY ANGIOGRAM: The right coronary artery: Large caliber vessel and a dominant vessel with mild disease only Left main: Is angiographically normal The left circumflex: Large caliber vessel nondominant vessel with no evidence of high-grade stenosis The left anterior descending artery: Large caliber vessel appears to be angiographically normal HEMODYNAMICS: The LVEDP was 20 mmHg with no significant gradient across aortic valve CONCLUSION: 1. Mild nonobstructive CAD 2. Elevated left-sided filling pressure POSTPROCEDURE MANAGEMENT: Medical treatment
[2025-02-06 16:45] VITALS: BP 125/88; PULSE 65
== END 2025-02-06 15:39 | disposition home or self-care (01) ==
LOC: CATHCVL 08:22
PROVIDERS: ATTEND Internal Medicine Interventional Cardiology
DX: I25.10 Atherosclerotic heart disease of native coronary artery without angina pectoris (principal); I77.819 Aortic ectasia, unspecified site; I48.0 Paroxysmal atrial fibrillation; I42.9 Cardiomyopathy, unspecified; I10 Essential (primary) hypertension; E11.8 Type 2 diabetes mellitus with unspecified complications; E78.5 Hyperlipidemia, unspecified; E11.9 Type 2 diabetes mellitus without complications; G47.33 Obstructive sleep apnea (adult) (pediatric); Z88.8 Allergy status to other drugs, medicaments and biological substances; Z87.11 Personal history of peptic ulcer disease; Z79.02 Long term (current) use of antithrombotics/antiplatelets; Z79.84 Long term (current) use of oral hypoglycemic drugs; Z79.899 Other long term (current) drug therapy
CPT/HCPCS: 93458; 80048; 85025; 99152; C1894 ×2; C1887 ×2; C1769; J2250; J1644 ×3; J2003; J3010; Q9967